=== PATIENT | male | born 1945 | race Caucasian/White ===

== ENCOUNTER 2022-01-21 11:08 | Inpatient (IN) ==
[2022-01-21] MEDS ORDERED: SODIUM CHLORIDE 0.9% 500 ML IV ONE (11:26)
--- NOTE | 2022-01-21 11:40 | XRay Report ---
XR chest 1V portable CLINICAL HISTORY: Chest Pain TECHNIQUE: Single frontal radiograph of the chest was obtained. Comparison: None available at the time of this dictation. FINDINGS: No lines and tubes are seen. The cardiomediastinal silhouette is normal. Lungs are underinflated but clear. No evidence of pleural effusion or pneumothorax. IMPRESSION: No acute chest disease. ACT 112: Negative or not required by law. Electronically signed by: Yazan Iqbal M.D. 01/21/2022 11:39 AM
[2022-01-21] MEDS ORDERED: ASPIRIN CHEW 324 MG PO STA (11:43)
[2022-01-21] MEDS: NITROGLYCERIN SL 0.4 MG/TAB TAB SL PRN ×3 (11:53→12:22)
--- NOTE | 2022-01-21 11:53 | Emergency Department Note ---
Impression & Plan NSTEMI (non-ST elevated myocardial infarction), Hypertension, Exertional chest pain, Elevated troponin ED Provider Note NAME: CESAR HAMPTON AGE: 76 SEX: M ARRIVES VIA: Walk-In INFORMANT: Patient, ED PROVIDER(S): Yefri Torres MD CHIEF COMPLAINT: Chest pain PLAN: Disposition: Admit MEDICAL DECISION MAKING: The patient is a pleasant 76-year-old gentleman with a past medical history of hypertension and HLD who presents to the emergency department from home for evaluation of substernal chest pain that began yesterday when he woke up and walk to the kitchen and dissipated over the course of an hour after resting in bed and did not recur though he admits to not exerting himself much subsequently. However this morning the symptoms began again in a similar pattern when he was walking to the kitchen and back to his bed. He reports the pain this time has continued and was brought to the emergency department by his via private vehicle. He denies any prior history/pattern of exertional chest pain. Denies any heart history. Denies any known family history. He does not smoke. He denies any fevers, chills, cough, congestion, GI or symptoms. He reports his pressure sensation is 5/10 at this time. On arrival the patient is no acute distress, afebrile with blood pressure 160s/60s and vital signs otherwise stable. He appears clinically dry. EKG demonstrates ST elevation in aVR, borderline V1 and V2 with subtle depression in lead II, V5 and V6. Chest x-ray negative for acute cardiopulmonary process. The patient was treated with aspirin nitroglycerin on arrival and following sublingual nitroglycerin x3 pain had improved to a 2/10. He was given additional nitroglycerin paste and pain was barely noticeable/resolved. WBC and platelets within normal limits. H/H 13.2/39.3 without prior values for comparison. Potassium 3.4 and magnesium 1.1 and electrolytes otherwise without significant abnormality. High-sensitivity troponin 20.9, mildly elevated. Lipase within normal limits. COVID-19 RNA, ADRIANA test was negative. Case was discussed with interventional cardiology, Dr. Rueda who evaluated the patient at the bedside. Decision was made to take the patient to the [facility] for intervention. Of note, heparin bolus, ticagrelor and IV magnesium were ordered but prior to being able to administer his medications [facility] team did arrive to the bedside to take the patient to holding. This was communicated with [facility] nursing that the medications were not yet administered and so wlll be administered by their team. Patient transferred to rd lab technician. Case was discussed with Rich Farooq, with Dr. Ibrahima prince who will evaluate the patient for admission following rd lab technician. Triage Nursing notes reviewed and agree them. Prior medical records reviewed Vital Signs: reviewed and remarkable for hypertension. Differential diagnosis: Cardiac ischemia, aortic dissection, pulmonary embolism, pneumothorax, pneumonia, pericarditis, myocarditis, esophageal rupture, GERD, cholecystitis, pancreatitis, musculoskeletal, as well as other pathologies. ER treatment provided: See below. Diagnostics interpreted by me: ECG: Sinus tachycardia, 103 bpm, no ectopy, ST elevation in aVR,, borderline V1 and V2 subtle depression in lead II, V5 and V6. Cardiac Monitoring:An order for continuous cardiac monitoring was placed and demonstrated Sinus tachycardia, 103 bpm, no ectopy. Laboratory studies: See below Imaging studies: See below Consultation(s): Dr. Rueda, Interventional cardiology. Rich Farooq, with Dr. Ibrahima prince. HPI: The patient is a pleasant 76-year-old gentleman with a past medical history of hypertension and HLD who presents to the emergency department from home for evaluation of substernal chest pain that began yesterday when he woke up and walk to the kitchen and dissipated over the course of an hour after resting in bed and did not recur though he admits to not exerting himself much subsequently. However this morning the symptoms began again in a similar pattern when he was walking to the kitchen and back to his bed. He reports the pain this time has continued and was brought to the emergency department by his via private vehicle. He denies any prior history/pattern of exertional chest pain. Denies any heart history. Denies any known family history. He does not smoke. He denies any fevers, chills, cough, congestion, GI or symptoms. He reports his pressure sensation is 5/10 at this time. ROS: See above HPI for pertinent positives & negatives. A total of 10 systems reviewed and were otherwise negative. VITALS:See Below PHYSICAL EXAMINATION: GENERAL: Awake, alert, fatigued-appearing, in no distress HENT: Normocephalic, atraumatic. Oropharynx with dry mucous membranes and otherwise unremarkable. EYES: Normal conjunctiva. Sclera non-icteric. NECK: Supple. No nuchal rigidity. FROM. No JVD. RESPIRATORY: Clear to auscultation. CARDIAC: Regular rate, normal rhythm. Extremities warm and well perfused. Pulses equal. ABDOMEN: Soft, non-distended. No tenderness to palpation. No rebound or guarding. No masses. RECTAL: Deferred. MUSCULOSKELETAL: Chest examination reveals no tenderness. The back is symmetrical on inspection without obvious abnormality. There is no CVA tenderness to palpation. No joint edema. LOWER EXTREMITIES: Calves are equal size bilaterally and non-tender. No edema. No discoloration. NEURO: Normal sensorium. No sensory or motor deficits noted. SKIN: No rash or jaundice noted. ED COURSE: Critical Care: I have personally spent greater than 65 minutes of critical care time in the direct management of this patient. This includes bedside care, interpretation of diagnostic studies, and testing, discussion with consultants, patient, and family members, and other required patient management activities. This 65 minutes is in excess of all separately billable procedures. Yefri Torres MD Past Med/Surg History Medical History BPH (benign prostatic hyperplasia) Chest pain HLD (hyperlipidemia) HTN (hypertension) NSTEMI (non-ST elevated myocardial infarction) STEMI (ST elevation myocardial infarction) Family History Denies family history of Heart disease Social History Smoking Status: Former smoker Tobacco Type: Cigarettes Hx Alcohol Use: Yes Alcohol type: beer Hx Substance Use: No Preferred Language: Cypriot Communication Ability: Effective Material Checker Required: No Beliefs That Will Affect Care: None Current Living Situation: Spouse Other Information That Helps Us Care for You: No Feels Safe at Home: Yes Safety Concerns: Feels Safe At This Time Assistive Devices: None Allergies Allergies Allergy/AdvReac Type Severity Reaction Status Date / Time No Known Allergies Allergy Unverified 01/21/22 17:45 Home Meds Home Medications Medication Instructions Recorded Confirmed amlodipine 5 mg tablet 5 mg PO QAM 10/17/22 10/17/22 atenolol 50 mg tablet 50 mg PO DAILY 01/21/22 01/21/22 atorvastatin 80 mg tablet 80 mg PO DAILY 01/21/22 01/21/22 losartan 100 1 tab PO DAILY 01/21/22 01/21/22 mg-hydrochlorothiazide 25 mg tablet metformin 1,000 mg tablet 1,000 mg PO BID 01/21/22 01/21/22 oxycodone 10 mg tablet,extended 10 mg PO Q8H PRN Pain 01/21/22 01/21/22 release,12 hr tamsulosin 0.4 mg capsule (Flomax) 0.4 mg PO DAILY 01/21/22 01/21/22 Results & Data (ED) Vital Signs Vital Signs - 24 hr 01/21/22 11:14 01/21/22 11:25 01/21/22 11:42 Temperature 36.6 C Temperature Source Temporal Artery Scan Pulse Rate 119 H 98 H Pulse Rate [Apical] Pulse Rhythm Regular Pulse Rhythm [Apical] Pulse Strength [Apical] Respiratory Rate 20 21 Respiratory Effort / Characteristics Non-Labored Spontaneous Respiratory Depth Normal Respiratory Pattern Regular Blood Pressure 163/69 H Blood Pressure [Left Arm] Blood Pressure Mean 100 Blood Pressure Mean [Left Arm] Blood Pressure Position Sitting Blood Pressure Position [Left Arm] Pulse Oximetry 94 97 97 Oxygen Delivery Method Room Air Room Air Room Air Sepsis Recent Fever Within 48 Hours No Sepsis New/Unexplained Change in Mental Status N/A Sepsis Action Taken by Nursing No Action Required 01/21/22 11:33 01/21/22 11:40 01/21/22 11:50 Temperature Temperature Source Pulse Rate 100 H 108 H 100 H Pulse Rate [Apical] Pulse Rhythm Pulse Rhythm [Apical] Pulse Strength [Apical] Respiratory Rate 12 19 14 Respiratory Effort / Characteristics Respiratory Depth Respiratory Pattern Blood Pressure Blood Pressure [Left Arm] Blood Pressure Mean Blood Pressure Mean [Left Arm] Blood Pressure Position Blood Pressure Position [Left Arm] Pulse Oximetry Oxygen Delivery Method Sepsis Recent Fever Within 48 Hours Sepsis New/Unexplained Change in Mental Status Sepsis Action Taken by Nursing 01/21/22 12:00 01/21/22 12:03 01/21/22 12:03 Temperature Temperature Source Pulse Rate 105 H 118 H Pulse Rate [Apical] Pulse Rhythm Pulse Rhythm [Apical] Pulse Strength [Apical] Respiratory Rate 14 14 Respiratory Effort / Characteristics Respiratory Depth Respiratory Pattern Blood Pressure 142/90 H Blood Pressure [Left Arm] Blood Pressure Mean 107 Blood Pressure Mean [Left Arm] Blood Pressure Position Blood Pressure Position [Left Arm] Pulse Oximetry 95 95 Oxygen Delivery Method Room Air Room Air Sepsis Recent Fever Within 48 Hours Sepsis New/Unexplained Change in Mental Status Sepsis Action Taken by Nursing 01/21/22 12:10 01/21/22 12:20 01/21/22 12:20 Temperature Temperature Source Pulse Rate 99 H 98 H Pulse Rate [Apical] Pulse Rhythm Pulse Rhythm [Apical] Pulse Strength [Apical] Respiratory Rate 16 12 Respiratory Effort / Characteristics Respiratory Depth Respiratory Pattern Blood Pressure 138/84 Blood Pressure [Left Arm] Blood Pressure Mean 102 Blood Pressure Mean [Left Arm] Blood Pressure Position Blood Pressure Position [Left Arm] Pulse Oximetry 96 94 Oxygen Delivery Method Room Air Room Air Sepsis Recent Fever Within 48 Hours Sepsis New/Unexplained Change in Mental Status Sepsis Action Taken by Nursing 01/21/22 13:05 01/21/22 14:00 01/21/22 14:15 Temperature 36.6 C Temperature Source Oral Pulse Rate Pulse Rate [Apical] 90 92 H 89 Pulse Rhythm Pulse Rhythm [Apical] Regular Pulse Strength [Apical] Normal Respiratory Rate 20 16 16 Respiratory Effort / Characteristics Non-Labored Spontaneous Respiratory Depth Normal Respiratory Pattern Regular Blood Pressure Blood Pressure [Left Arm] 153/86 H 126/82 147/84 H Blood Pressure Mean Blood Pressure Mean [Left Arm] 108 96 105 Blood Pressure Position Blood Pressure Position [Left Arm] Sitting Sitting Sitting Pulse Oximetry 97 97 95 Oxygen Delivery Method Room Air Room Air Room Air Sepsis Recent Fever Within 48 Hours Sepsis New/Unexplained Change in Mental Status Sepsis Action Taken by Nursing Laboratory Data Attestation: I reviewed the patient's lab results. Result diagrams: 01/21/22 11:35 01/21/22 11:35 Lab Results 01/21/22 01/21/22 Range/Units 11:35 11:35 WBC 8.30 (4.8-10.8) K/ul RBC 4.23 L (4.63-6.08) M/uL Hgb 13.2 L (14.0-18.0) g/dl Hct 39.3 L (40.1-51.0) % MCV 92.9 (80.0-100.0) fL MCH 31.2 (25.0-34.0) pg MCHC 33.6 (32.0-36.0) g/dL RDW Std Deviation 43.2 (36.4-46.3) fL RDW Coeff of Tanvi 12.8 (11.5-14.5) % Plt Count 190 (130-400) K/uL MPV 11.7 (9.4-12.4) fL Immature Gran % (Auto) 0.5 % Neut % (Auto) 69.1 % Lymph % (Auto) 21.7 % Turner % (Auto) 6.0 % Eos % (Auto) 2.0 % Baso % (Auto) 0.7 % Neut # (Auto) 5.73 (1.4-6.5) K/uL Lymph # (Auto) 1.80 (1.2-3.4) K/uL Turner # (Auto) 0.50 (0.24-0.82) K/uL Eos # (Auto) 0.17 (0-0.50) K/uL Baso # (Auto) 0.06 (0-0.2) K/uL Immature Gran # (Auto) 0.04 H (0.00-0.02) K/uL Sodium 137 (136-145) mmol/L Potassium 3.4 L (3.5-5.1) mmol/L Chloride 99 (98-107) mmol/L Carbon Dioxide 22 (21-32) mmol/L Anion Gap 16 H (3-11) BUN 20 (6-23) mg/dl Creatinine 1.29 (0.6-1.4) mg/dl Est Cr Clr Drug Dosing 47.5 ml/min Est GFR ( Amer) 62.4 ml/min Est GFR (Non-Af Amer) 53.9 ml/min BUN/Creatinine Ratio 15.5 (10-20) Glucose 210 H (70-99(Fasting)) mg/dl Calcium 9.9 (8.5-10.1) mg/dl Phosphorus 3.2 (2.5-4.9) mg/dl Magnesium 1.1 L (1.7-2.4) mg/dl Total Bilirubin 0.4 (0.2-1.0) mg/dl Direct Bilirubin 0.1 (0-0.2) mg/dl AST 18 (13-39) U/L ALT 19 (7-52) U/L Alkaline Phosphatase 85 (34-104) U/L Troponin I High Sens 20.9 H (0-20) pg/ml Total Protein 7.6 (6.0-8.3) gm/dl Albumin 4.7 (3.4-5.0) gm/dl Globulin 2.9 (2.5-4.0) gm/dl Albumin/Globulin Ratio 1.6 (0.9-2) Lipase 19 (11-82) U/L Administered Medications Heparin Sodium/Dextrose (Heparin Sodium/Dextrose) 25,000 units in 500 mls @ 16 mls/hr IV .Q24H [facility]; Protocol Stop: 02/20/22 16:59 Last Admin: 01/21/22 19:16 Dose: 800 units/hr, 16 mls/hr Documented By: WILI Co-signed By: RODNEY Nitroglycerin (Nitroglycerin Sl 0.4 Mg/Tab Tab) 0.4 mg SL UD PRN PRN Reason: Chest Pain Stop: 02/20/22 11:42 Last Admin: 01/21/22 12:22 Dose: 0.4 mg Documented By: Admin: 01/21/22 12:09 Dose: 0.4 mg Documented By: Admin: 01/21/22 11:53 Dose: 0.4 mg Documented By: TOBI Oxycodone HCl (Oxycodone Hcl Ir 5 Mg Tab (Immediate Release)) 10 mg PO Q8H PRN PRN Reason: Pain Stop: 02/04/22 20:22 Last Admin: 01/21/22 20:36 Dose: 10 mg Documented By: RODNEY Discontinued Medications Aspirin (Aspirin Chew 324 Mg) 324 mg PO NOW STA Stop: 01/21/22 11:44 Last Admin: 01/21/22 11:52 Dose: 324 mg Documented By: TOBI Fentanyl Citrate (Fentanyl Citrate 100 Mcg/2 Ml Vial) Confirm Administered Dose 100 mcg .ROUTE .STK-MED ONE Stop: 01/21/22 13:09 Last Increment: 01/21/22 14:05 Dose: 25 mcg Documented By: NAYA Heparin Sodium (Porcine) (Heparin Sod (Porcine) 1000 Unit/Ml) 1 units IV NOW ONE Stop: 01/21/22 12:56 Last Admin: 01/21/22 16:45 Dose: Not Given Documented By: WILI Heparin Sodium (Porcine) (Heparin (Porcine) 1000 Unit/Ml 10 Ml ([facility] Use Only)) Confirm Administered Dose 10,000 units .ROUTE .STK-MED ONE Stop: 01/21/22 13:08 Last Admin: 01/21/22 14:05 Dose: 5,000 units Documented By: NAYA Heparin Sodium/Dextrose (Heparin Iv Adult Wt-Based Low-Dose With Bolus Protocol) 0 each IV Q15M [facility]; Protocol Stop: 02/20/22 16:30 Last Admin: 01/21/22 18:36 Dose: Not Given Documented By: Admin: 01/21/22 17:12 Dose: Not Given Documented By: Admin: 01/21/22 17:12 Dose: Not Given Documented By: Admin: 01/21/22 17:12 Dose: Not Given Documented By: Admin: 01/21/22 17:12 Dose: Not Given Documented By: Admin: 01/21/22 17:12 Dose: Not Given Documented By: WILI Heparin Sodium/Sodium Chloride (Heparin In Nss Infusion 1000 Unit/500 Ml (2 U/Ml) Bag) Confirm Administered Dose 3,000 units IV .STK-MED ONE Stop: 01/21/22 13:09 Last Admin: 01/21/22 16:46 Dose: Not Given Documented By: WILI Sodium Chloride (Nss) 500 mls @ 999 mls/hr IV .Q31M ONE Stop: 01/21/22 11:56 Last Infusion: 01/21/22 16:50 Dose: 0 mls/hr Documented By: Admin: 01/21/22 11:53 Dose: 999 mls/hr Documented By: TOBI Magnesium Sulfate/Dextrose (Magnesium Sulfate / D5w) 1 gm in 100 mls @ 100 mls/hr IV Q1H [facility] Stop: 01/21/22 14:31 Last Infusion: 01/21/22 18:36 Dose: 0 mls/hr Documented By: Admin: 01/21/22 17:15 Dose: 100 mls/hr Documented By: Infusion: 01/21/22 15:44 Dose: 100 mls/hr Documented By: Admin: 01/21/22 14:44 Dose: 100 mls/hr Documented By: CHRISSIE Heparin Sodium/Dextrose (Heparin Sodium/Dextrose) 25,000 units in 500 mls @ 0.02 mls/hr IV .Q24H [facility]; Protocol Stop: 02/20/22 12:59 Last Admin: 01/21/22 16:59 Dose: Not Given Documented By: WILI Magnesium Sulfate/Dextrose (Magnesium Sulfate / D5w) 1 gm in 100 mls @ 50 mls/hr IV Q2H [facility] Stop: 01/21/22 19:14 Last Admin: 01/21/22 21:59 Dose: 50 mls/hr Documented By: Infusion: 01/21/22 21:18 Dose: 0 mls/hr Documented By: Admin: 01/21/22 19:16 Dose: 50 mls/hr Documented By: WILI Insulin Aspart (Insulin Aspart Per Unit) 0 units SC ACHS [facility] Stop: 02/20/22 16:29 Last Admin: 01/21/22 20:33 Dose: Not Given Documented By: Admin: 01/21/22 16:47 Dose: Not Given Documented By: WILI Co-signed By: AMANDEEP Midazolam HCl (Midazolam Hcl 1 Mg/Ml 2ml Vial) Confirm Administered Dose 2 mg .ROUTE .STK-MED ONE Stop: 01/21/22 13:09 Last Increment: 01/21/22 14:06 Dose: 1 mg Documented By: NAYA Miscellaneous Information (Dc All Previously Ordered Diabetes Meds) 1 each N/A ONE ONE Stop: 01/21/22 15:49 Last Admin: 01/21/22 16:47 Dose: 1 each Documented By: WILI Nicardipine HCl (Nicardipine Hcl Inj 2.5 Mg/Ml 10 Ml Amp) Confirm Administered Dose 25 mg .ROUTE .STK-MED ONE Stop: 01/21/22 13:08 Last Admin: 01/21/22 16:45 Dose: Not Given Documented By: WILI Nitroglycerin (Nitroglycerin 2% Ointment 30gm Tube) 1 inch EXT NOW ONE Stop: 01/21/22 12:33 Last Admin: 01/21/22 16:44 Dose: Not Given Documented By: WILI Nitroglycerin/Dextrose (Nitroglycerin/D5w 100mcg/Ml 20ml Syr) Confirm Administered Dose 2,000 mcg .ROUTE .STK-MED ONE Stop: 01/21/22 13:10 Last Admin: 01/21/22 16:46 Dose: Not Given Documented By: WILI Ticagrelor (Ticagrelor 90 Mg Tab) 180 mg PO ONE ONE Stop: 01/21/22 12:47 Last Admin: 01/21/22 13:14 Dose: 180 mg Documented By: CHRISSIE Imaging Data Radiologist's Impression: Chest X-Ray 01/21/22 11:25 XR chest 1V portable CLINICAL HISTORY: Chest Pain TECHNIQUE: Single frontal radiograph of the chest was obtained. Comparison: None available at the time of this dictation. FINDINGS: No lines and tubes are seen. The cardiomediastinal silhouette is normal. Lungs are underinflated but clear. No evidence of pleural effusion or pneumothorax. IMPRESSION: No acute chest disease. ACT 112: Negative or not required by law. Electronically signed by: Yazan Iqbal M.D. 01/21/2022 11:39 AM Discharge Plan Visit Data Chief Complaint: Chest Pain Stated Complaint: CHEST PAIN ED Provider: Yefri Torres Discharge Problem: NSTEMI (non-ST elevated myocardial infarction), Hypertension, Exertional chest pain, Elevated troponin Patient Disposition: Admitted As Inpatient Condition: Good Discharge Instructions Interventions: ED Discharge Assessment Last Done: 01/21/22 13:07
[2022-01-21 11:54] LABS: Basophils # (auto) 0.06 K/uL (0-0.2); Basophils % (auto) 0.7 %; Eosinophils # (auto) 0.17 K/uL (0-0.50); Hematocrit (blood only) 39.3 % (40.1-51.0); Hemoglobin 13.2 g/dl (14.0-18.0); Immature Granulocytes # (auto) 0.04 K/uL (0.00-0.02); Immature Granulocytes % (auto) 0.5 %; Lymphocytes % (auto) 21.7 %; Mean Corpuscular Hemoglobin 31.2 pg (25.0-34.0); Mean Corpuscular Hgb Conc 33.6 g/dL (32.0-36.0); Mean Corpuscular Volume 92.9 fL (80.0-100.0); Mean Platelet Volume 11.7 fL (9.4-12.4); Neutrophils # (auto) 5.73 K/uL (1.4-6.5); Neutrophils % (auto) 69.1 %; Platelet Count 190 K/uL (130-400); RDW Coefficient of Variation 12.8 % (11.5-14.5); RDW Standard Deviation 43.2 fL (36.4-46.3); Red Blood Count 4.23 M/uL (4.63-6.08)
[2022-01-21 12:19] LABS: Albumin Globulin Ratio 1.6 (0.9-2); Albumin Level 4.7 gm/dl (3.4-5.0); BUN Creatinine Ratio 15.5 (10-20); Bilirubin Direct 0.1 mg/dl (0-0.2); Bilirubin,Total 0.4 mg/dl (0.2-1.0); Calcium 9.9 mg/dl (8.5-10.1); Creatinine Clr Calc Pharmacy 47.5 ml/min; Est GFR (African American) 62.4 ml/min; Est GFR (Non-African American) 53.9 ml/min; Globulin 2.9 gm/dl (2.5-4.0); Magnesium 1.1 mg/dl (1.7-2.4); Phosphorus 3.2 mg/dl (2.5-4.9); Potassium 3.4 mmol/L (3.5-5.1); Total Protein 7.6 gm/dl (6.0-8.3)
[2022-01-21 12:26] LABS: Troponin I High Sensitivity 20.9 pg/ml (0-20)
--- NOTE | 2022-01-21 12:28 | Electrocardiogram Report ---
Test Reason : Blood Pressure : / mmHG Vent. Rate : 103 BPM Atrial Rate : 103 BPM P-R Int : 190 ms QRS Dur : 084 ms QT Int : 340 ms P-R-T Axes : 034 -12 070 degrees QTc Int : [address] elevation in Septal leads Possible acute injury current ST depression in Inferior leads Abnormal ECG When compared with ECG of 02-MAY-1994 09:47, ST elevation in Septal leads now present ST depression in Inferior leads now present Vent. rate has increased BY 48 BPM QT has lengthened Confirmed by Xavier Daly ([id number]) on 01/21/2022 12:27:56 PM Referred By: Confirmed By:Xavier Daly
[2022-01-21] MEDS ORDERED: NITROGLYCERIN 2% OINTMENT 30GM TUBE EXT ONE (12:32)
[2022-01-21] MEDS ORDERED: TICAGRELOR 90 MG TAB PO ONE (12:46)
[2022-01-21] MEDS ORDERED: HEPARIN SOD (PORCINE) 1000 UNIT/ML IV ONE (12:55)
[2022-01-21] MEDS ORDERED: HEPARIN SODIUM/DEXTROSE 25,000 UNITS/500 ML BAG IV SCH ×2 (13:00→17:00)
[2022-01-21] MEDS ORDERED: HEPARIN (PORCINE) 1000 UNIT/ML 10 ML (CATH LAB USE ONLY) ONE (13:07)
[2022-01-21] MEDS ORDERED: niCARdipine HCL INJ 2.5 MG/ML 10 ML AMP ONE (13:07)
[2022-01-21] MEDS ORDERED: MIDAZOLAM HCL 1 MG/ML 2ML VIAL ONE (13:08)
[2022-01-21] MEDS ORDERED: fentaNYL citrate 100 MCG/2 ML VIAL ONE (13:08)
[2022-01-21] MEDS ORDERED: NITROGLYCERIN/D5W 100MCG/ML 20ML SYR ONE (13:09)
--- NOTE | 2022-01-21 13:12 | History & Physical Report ---
Date of Service January 21, 2022 Assessment & Plan (1) NSTEMI (non-ST elevated myocardial infarction): (2) Chest pain: (3) HTN (hypertension): (4) HLD (hyperlipidemia): (5) BPH (benign prostatic hyperplasia): Plan Mr. Shay is a 76-year-old male who presented to the ED today with substernal chest pain that has been occurring over the past 24 hours intermittently. Yesterday he notes that he was walking from his kitchen to his bedroom and had substernal chest pain that went away after 1 hour of no activity and rest. Today he noted his chest pain to be 5 out of 10 and was overly persistent. An EKG revealed some ST elevation in aVR, ST depression in leads V1, V2, V5, V6. The patient did receive some chest pain relief with Nitropaste and sublingual nitro. Dr. Rueda took Mr. Shay to the [facility] and after my discussion with him it appears that during the catheterization he was noted to have severe multivessel disease which will require evaluation and possible intervention with CT surgery which [facility] does not have as resource. Dr. Rueda is working on this patient to be transferred to [place] for further evaluation. For now an echocardiogram has been ordered, he will remain on a heparin infusion for the next 48 hours and I will DC his Brilinta in order follow-up troponin levels. For now this patient will be transferred to the intensive care unit until transfer can be fully arranged. NSTEMI Chest pain: Pt underwent PCI with Dr. Rueda; multivessel disease Will work on transfer to [facility]. Per pt no history of heart disease euvolemic on exam Start Heparin infusion as ordered x 48 hours; start when tband protocol is followed and no bleeding noted Mg+ 1.1; 1 G infusing; will order 2 G for a total of 3 G. Repeat troponin ordered; repeat is Echocardiogram ordered N.p.o. Post PCI order set in place HTN: Takes amlodipine, atenolol, losartan/HCTZ; continue HLD: Takes atorvastatin; continue Lipid panel in a.m. DM2: Takes metformin; hold while inpatient Sliding scale insulin ordered and glycemic pharmacy Patient to be n.p.o. awaiting transfer Lumbago: Takes Oxy PRN opt; continue BPH: Takes Flomax; continue Disposition: PCP: Dr. Miller VTE prohylaxis: Heparin gtt Code Status: Full code I personally was able to review all current laboratory work and diagnostic images obtained in the ED. Additionally, I was able to review the patients past medication reconciliation and history with direct visualization in the patients chart. Patient discussed and collaborated with Dr. Alexandra. Discharge paperwork initiated, transfer summary communication note completed, play writer aware to confirm patient stable and fit for travel in the event of a middle of the night transfer. History of Present Illness Chief Complaint: chest pain Primary Care Provider: Dr. Miller Mr. Shay is a 76-year-old male who presented to the ED today with substernal chest pain that has been occurring over the past 24 hours intermittently. Yesterday he notes that he was walking from his kitchen to his bedroom and had substernal chest pain that went away after 1 hour of no activity and rest. Today he noted his chest pain to be 5 out of 10 and was overly persistent. An EKG revealed some ST elevation in aVR, ST depression in leads V1, V2, V5, V6. The patient did receive some chest pain relief with Nitropaste 1 inch [address] SL nitro. Dr. Rueda took Mr. Shay to the [facility] and was noted to have severe multivessel disease which will require evaluation and possible intervention with CT surgery which [facility] does not have as resource. Dr. Rueda is working on this patient to be transferred to [place] for further evaluation and intervention. For now an echocardiogram has been ordered, he will remain on a heparin infusion for the next 48 hours and I will DC his Brilinta in order follow-up troponin levels. For now this patient will be transferred to the PCU until transfer can be fully arranged. Upon evaluating the patient he pt denies ECHOLS, dizziness, SOB, current chest pain, palpitations, nausea vomiting diarrhea. The patient reports quitting smoking cigarettes 10 years ago; reports being a social drinker, no recreational drugs. On exam the patient was lying on his back in his hospital bed in no apparent distress. He was awake alert oriented x4, flat affect. I did offer support in this stressful situation. He is receptive to transfer and further intervention. Additional past medical history includes hypertension, hyperlipidemia, diabetes controlled on oral agents, BPH. As previously stated, patient will be admitted until transfer to [facility] is arranged. Receiving physician as arranged by Dr. Rueda is Please see A/P for further details. Allergies Allergy/AdvReac Type Severity Reaction Status Date / Time No Known Allergies Allergy Unverified 01/21/22 17:45 Home Medications Medication Instructions Recorded Confirmed Type amlodipine 5 mg tablet 5 mg PO QAM 01/21/22 01/21/22 History atenolol 50 mg tablet 50 mg PO DAILY 01/21/22 01/21/22 History atorvastatin 80 mg tablet 80 mg PO DAILY 01/21/22 01/21/22 History losartan 100 1 tab PO DAILY 01/21/22 01/21/22 History mg-hydrochlorothiazide 25 mg tablet metformin 1,000 mg tablet 1,000 mg PO BID 01/21/22 01/21/22 History oxycodone 10 mg tablet,extended 10 mg PO Q8H PRN Pain 01/21/22 01/21/22 History release,12 hr tamsulosin 0.4 mg capsule (Flomax) 0.4 mg PO DAILY 01/21/22 01/21/22 History Past Med/Surg History Medical History (Updated 01/21/22 @ 15:59 by LIONEL Child) BPH (benign prostatic hyperplasia) Chest pain HLD (hyperlipidemia) HTN (hypertension) NSTEMI (non-ST elevated myocardial infarction) STEMI (ST elevation myocardial infarction) Social History Smoking Status: Former smoker Tobacco Type: Cigarettes Hx Alcohol Use: Yes Alcohol type: beer Hx Substance Use: No Preferred Language: Romansh Communication Ability: Effective Senior Manager Quality Assurance Required: No Beliefs That Will Affect Care: None Current Living Situation: Spouse Other Information That Helps Us Care for You: No Feels Safe at Home: Yes Safety Concerns: Feels Safe At This Time Assistive Devices: None Review of Systems Review of Systems: Neuro: (-) Falls, trauma, slurred speech HEENT: (-) ECHOLS, dizziness, dysphagia, visual or auditory changes CV: (+) CP, palpitations, (-) swelling Resp: (-) SOB GI: (-) appetite changes, N/V/D, bowel changes : (-) urinary changes Skin: (-) rashes Psych: (-) anxiety, depression Physical Exam Physical Exam: Neuro: AAOx4, PERRLA, no aphagia, memory changes, CNII-XII grossly intact HEENT: head normocephalic, moist mucus membranes CV: S1/S2, (+ LSB Murmur (-)G/R, (-) edema, cap refill < 3 seconds . R radial t- band Resp: Lungs CTA in all cooper. On RA GI: Abdomen S/NT/ND, Ax4 bowel sounds, (-) CVA tenderness Musculoskeletal: 5/5 B/L UE strength, 5/5 B/L LE strength. No gait disturbance Skin: (-) rashes , (-) erythema. Psych: euthymic mood Results & Data Results & Data ([facility]) Vital Signs (Past 12 Hours) Vital Signs Temp Pulse Pulse Resp BP BP Pulse Ox 01/21/22 13:05 36.6 C 90 20 153/86 H 97 01/21/22 12:20 98 H 12 94 01/21/22 12:20 138/84 01/21/22 12:10 99 H 16 96 01/21/22 12:03 142/90 H 01/21/22 12:03 118 H 14 95 01/21/22 12:00 105 H 14 95 01/21/22 11:50 100 H 14 01/21/22 11:40 108 H 19 01/21/22 11:33 100 H 12 01/21/22 11:42 97 01/21/22 11:25 98 H 21 97 01/21/22 11:14 36.6 C 119 H 20 163/69 H 94 O2 Del Method 01/21/22 13:05 Room Air 01/21/22 12:20 Room Air 01/21/22 12:20 01/21/22 12:10 Room Air 01/21/22 12:03 01/21/22 12:03 Room Air 01/21/22 12:00 Room Air 01/21/22 11:50 01/21/22 11:40 01/21/22 11:33 01/21/22 11:42 Room Air 01/21/22 11:25 Room Air 01/21/22 11:14 Room Air Laboratory Results Short CBC 01/21/22 Range/Units 11:35 WBC 8.30 (4.8-10.8) K/ul Hgb 13.2 L (14.0-18.0) g/dl Hct 39.3 L (40.1-51.0) % Plt Count 190 (130-400) K/uL BMP 01/21/22 11:35 Sodium 137 Potassium 3.4 L Chloride 99 Carbon Dioxide 22 BUN 20 Creatinine 1.29 Glucose 210 H Calcium 9.9 Liver Function 01/21/22 Range/Units 11:35 Total Bilirubin 0.4 (0.2-1.0) mg/dl Direct Bilirubin 0.1 (0-0.2) mg/dl AST 18 (13-39) U/L ALT 19 (7-52) U/L Alkaline Phosphatase 85 (34-104) U/L Albumin 4.7 (3.4-5.0) gm/dl Diagnostic Findings Chest X-Ray 01/21/22 11:25 XR chest 1V portable CLINICAL HISTORY: Chest Pain TECHNIQUE: Single frontal radiograph of the chest was obtained. Comparison: None available at the time of this dictation. FINDINGS: No lines and tubes are seen. The cardiomediastinal silhouette is normal. Lungs are underinflated but clear. No evidence of pleural effusion or pneumothorax. IMPRESSION: No acute chest disease. ACT 112: Negative or not required by law. Electronically signed by: Yazan Iqbal M.D. 01/21/2022 11:39 AM ECG Additional Comments: Vent. Rate : 103 BPM Atrial Rate : 103 BPM P-R Int : 190 ms QRS Dur : 084 ms QT Int : 340 ms P-R-T Axes : 034 -12 070 degrees QTc Int : [address] elevation in Septal leads Possible acute injury current ST depression in Inferior leads Abnormal ECG When compared with ECG of 02-MAY-1994 09:47, ST elevation in Septal leads now present ST depression in Inferior leads now present Vent. rate has increased BY 48 BPM QT has lengthened Code Status & VTE Plan Code Status full code VTE Prophylaxis Plan VTE Prophylaxis will be ordered: Yes Supervising Physician Co-Signing Physician Notes 76-year-old male with PMH of HTN, T2DM, HLD, stage III CKD, BPH, lumbar DDD and idiopathic neuropathy presented to our ED 01/21 with complaint of substernal chest pain that is occurring intermittently for the past 24 hours but worse today morning leading him up to the ED. EKG with borderline ST elevation in V1 and V2 diffuse ST depression. Patient was taken to [facility] which demonstrated severe multivessel coronary disease including high risks distal left main to ostial LAD stenosis. Patient was recommended transfer to tertiary center and has been accepted. Patient will be monitored in the PCU status [cardiology aware] while in hospital. Awaiting bed availability. We will continue with heparin drip. Monitor and replete electrolytes. NPO. Echo. Leticiata has been on hold, continue with other home medications as appropriate. Admitting labs and imagings reviewed. Upon examination: GENERAL: Alert and oriented x3. NAD, on RA. HEENT: No pallor, no icterus. Pupils equal, round and reactive to light. Oral mucosa moist. NECK: No JVD, no neck masses. HEART: S1 and S2 heard. Regular rate and rhythm. No murmur, no gallop. RESPIRATORY SYSTEM: Normal AP diameter. No accessory muscle use. No wheezing, no crackles. ABDOMEN: Soft, bowel sounds present, nontender, no distention. CENTRAL NERVOUS SYSTEM: No facial droop. Speech is clear. Obeys simple commands. Moves extremities. EXTREMITIES: No edema, no erythema seen. I have seen and examined the patient and have discussed the case with the provider above. I agree with the assessment and plan as stated.
--- NOTE | 2022-01-21 13:22 | Pre Anesthesia Assessment ---
Date of Service January 21, 2022 Pre Sedation Assessment Vital Signs Temp Pulse Pulse Resp BP BP Pulse Ox 01/21/22 13:05 36.6 C 90 20 153/86 H 97 01/21/22 12:20 98 H 12 94 01/21/22 12:20 138/84 01/21/22 12:10 99 H 16 96 01/21/22 12:03 142/90 H 01/21/22 12:03 118 H 14 95 01/21/22 12:00 105 H 14 95 01/21/22 11:50 100 H 14 01/21/22 11:40 108 H 19 01/21/22 11:33 100 H 12 01/21/22 11:42 97 01/21/22 11:25 98 H 21 97 01/21/22 11:14 36.6 C 119 H 20 163/69 H 94 O2 Del Method 01/21/22 13:05 Room Air 01/21/22 12:20 Room Air 01/21/22 12:20 01/21/22 12:10 Room Air 01/21/22 12:03 01/21/22 12:03 Room Air 01/21/22 12:00 Room Air 01/21/22 11:50 01/21/22 11:40 01/21/22 11:33 01/21/22 11:42 Room Air 01/21/22 11:25 Room Air 01/21/22 11:14 Room Air Cardiovascular RRR, no murmur, no edema Respiratory normal respiratory effort, lungs clear to auscultation Pre-Sedation Airway Assessment Smoking Status: Former smoker Hx Sleep Apnea: No Short, Thick Neck: No Thyromental Distance: > or= 3.5 Finger Breadths Oral Cavity: + WNL Mallampati Class: II ASA: ASA3 NPO Status Date of Last Intake of Fluids: 01/21/22 Time of Last Intake of Fluids: 07:00 Date of Last Intake of Solid Food: 01/21/22 Time of Last Intake of Solid Foods: 07:00 Notes The planned sedation has been discussed with the patient. Informed Consent was obtained. I have identified the patient, determined the appropriateness of sedation and have assessed the patient immediately prior to the procedure. All medicine(s) and interventions are by my order.
[2022-01-21] MEDS: MAGNESIUM SULFATE / D5W 1 GM/100 ML BAG IV SCH ×4 (14:44→21:59)
--- NOTE | 2022-01-21 14:44 | Post Anesthesia Assessment ---
Date of Service January 21, 2022 Post Sedation Assessment Vital Signs Temp Pulse Pulse Resp BP BP Pulse Ox 01/21/22 14:15 89 16 147/84 H 95 01/21/22 14:00 92 H 16 126/82 97 01/21/22 13:05 36.6 C 90 20 153/86 H 97 01/21/22 12:20 98 H 12 94 01/21/22 12:20 138/84 01/21/22 12:10 99 H 16 96 01/21/22 12:03 142/90 H 01/21/22 12:03 118 H 14 95 01/21/22 12:00 105 H 14 95 01/21/22 11:50 100 H 14 01/21/22 11:40 108 H 19 01/21/22 11:33 100 H 12 01/21/22 11:42 97 01/21/22 11:25 98 H 21 97 01/21/22 11:14 36.6 C 119 H 20 163/69 H 94 O2 Del Method 01/21/22 14:15 Room Air 01/21/22 14:00 Room Air 01/21/22 13:05 Room Air 01/21/22 12:20 Room Air 01/21/22 12:20 01/21/22 12:10 Room Air 01/21/22 12:03 01/21/22 12:03 Room Air 01/21/22 12:00 Room Air 01/21/22 11:50 01/21/22 11:40 01/21/22 11:33 01/21/22 11:42 Room Air 01/21/22 11:25 Room Air 01/21/22 11:14 Room Air Recovery Score Activity: Moves 4 extremities Respiration: Deep Breath/Cough Circulation: +/-20% PreAnes Value Consciousness: Fully Awake Oxygen Saturation: > 92% On Room Air Post Anesthesia Score: 10 Discharge Sedation Level of Care: Phase I Post Sedation Plan On clinical assessment, the patient appears to have tolerated the sedation without complications. Patient is recovering as anticipated. Patient will continue to be monitored by nursing and may be discharged when sedation discharge criteria are met per below protocol. Upon Completions of procedure up to 15 minutes continue every 5 minute vital signs and the P.A.R. score; then discharge to a Phase I or Fast Track to Phase II per the following guidelines: * Discharge Patient to appropriate Phase II area if PAR is 8 or greater or return to pre- procedure baseline. The post - procedure orders will be as directed. * If PAR score is less than 8 or not return to pre-procedure baseline then patient will follow Phase I monitoring till PAR is reached for Phase II. The Phase I may be done in procedure room or may call to secure a Phase I area. * If naloxone or flumazenil are used for reversal, hold in Phase I for continued monitoring from when last reversal dose was given for a minimum of 60 minutes or longer pending the nurse and/or physician discretion of patient condition before discharge to Phase II. Please call the Sedation Physician to re-evaluate and complete post-note for discharge to Phase II area. Do NOT discharge from procedure sedation or Phase 1 until post- sedation evaluation note is complete by procedure /sedation MD Sedation Discharge Instructions to be given to the patient at discharge to home. [facility] Procedure Codes (Charges) Sedation/Anesthesia Procedure 1: Sedation/Anesthesia: 82644 Mod Sedation by the same physician;Init15 Min Child Age 5 & Up Total Sedation Time (minutes): 30 Procedure 2: Sedation/Anesthesia: 43815 Mod Sedation by the same physician; Ea [id number] Minutes Total Sedation Time (minutes): 30
--- NOTE | 2022-01-21 15:27 | Cardiac Catheterization ---
[facility] Data: Post Manager Cardiac Status Clinical evaluation leading to the procedure CAD Presenation: Non STEMI Anginal Classification: CCS IV Heart Failure: No Cardiogenic Shock within 24 Hours: No Cardiac Arrest within 24 Hours: No Imaging Studies Past 6 Months: No Stress Studies Past 6 Months: No STEMI OR Non-STEMI Symptom Onset Date: 01/20/22 Symptom Onset Time: 07:00 Thrombolytics: No Coronary Anatomy Dominant: Right Left Main (% Stenosis): Distal (40%) LAD (% Stenosis): Ostial (99%) and Mid (Mild) D1 (% Stenosis): Proximal (99%) Circumflex (% Stenosis): Proximal (50%) RCA (% Stenosis): Proximal (70%, 80%.), Mid (80%) and Distal (50%) R PDA (% Stenosis): Proximal (70%) R PL1 (% Stenosis): Normal (Mild diffuse) Ramus (% Stenosis): Normal (Mild) Diagnostic Physicians Name: Dax Rueda MD, PhD Closure Device Percutaneous Entry Location: Radial Closure Device: Radial Band Recommendations: Management Recommendatons (CABG versus complex high risk multivessel PCI at tertiary center. Guideline directed medical therapy.) Intraprocedure Events Significant Disection: No Perforation: No Cardiac Cath Procedure Full Procedure Date January 21, 2022 Pre-Procedure Diagnosis Pre-Procedure Diagnosis: Non STEMI AUC Score AUC Score: 09 Post-Procedure Diagnosis Post-Procedure Diagnosis: Severe CAD Procedure(s) Performed Procedure(s) Performed: Coronary Angiography Assembler Brazer Dax Rueda MD, PhD Estimated Blood Loss Estimated Blood Loss: 10 ml Medication(s) Medication(s): Fentanyl, Heparin, Lidocaine 1%, Nicardipine, Nitroglycerin and Versed Summary of Findings Brief description: Patient was brought to the cardiac catheterization suite where he was shaved and prepped in a sterile fashion. Sedated using IV Versed and fentanyl. Soft tissues of the right wrist were anesthetized using 2 mL of 1% Xylocaine. The right radial artery was accessed using a modified Seldinger technique and a 6 Tunisian radial artery glide sheath was placed. All catheters were advanced and exchanged over a 0.035 J-tip wire. The patient was provided IV heparin for anticoagulation as well as intra-arterial nitroglycerin and nicardipine for antispasmodics. Left coronary angiography in orthogonal views with a 5 Tunisian TIGR diagnostic catheter. Right coronary angiography in orthogonal views with a 5 Tunisian JR4 diagnostic catheter Diagnostic catheters were removed. Radial artery sheath was removed. Hemostasis was obtained using the TR band. Patient was hemodynamically stable and asymptomatic. He was returned to the recovery area. This ended the case. Coronary angiography: LMT: Large-caliber vessel which trifurcates into LAD, ramus, and circumflex. Has diffuse mild disease and then distally there is up to 40% calcified stenosis. LAD: Large caliber and transapical. Ostial calcified stenosis up to 99% is a continuation of the left main disease. Provides a small to medium caliber first diagonal which has 99% proximal stenosis. It then branches. The mid LAD has diffuse mild calcific disease of less than 30% narrowing. The distal LAD has scattered mild plaques of less than 30% stenosis. Left circumflex: Large caliber and nondominant. Proximal segment in the AV groove has a 50% stenosis. The vessel gives 2 small caliber obtuse marginal branches followed by a medium to large caliber third obtuse marginal. It distally becomes a medium caliber posterior lateral branch before it terminates. There is no more than mild disease in the remainder of the circumflex and its branches. Ramus intermedius: Medium to large in caliber. It branches. It has scattered mild disease. RCA: Medium to large caliber dominant vessel. Proximal segment has a long eccentric stenosis which is calcified and at least 70% narrowed. Then as it approaches the first RV marginal branch there appears to be tandem up to 80% stenosis before and after the RV marginal. The mid RCA has mild disease and then distally before the bifurcation there is a 50% focal stenosis. RCA gives a large caliber PDA with proximal to 80% stenosis and a medium to large caliber posterolateral which has mild diffuse disease Hemodynamics Rest Ao:: 120/83 mmHg, mean 92 mmHg Final Ao: 105/73 mmHg, mean 81 mmHg LV: Not performed Recommendations Recommendations: Management Recommendatons (CABG versus complex high risk multivessel PCI at tertiary center. Guideline directed medical therapy.) Radiation Exposure (mGy) 955 mGy, 5.6 minutes fluoroscopy time Contrast (mls) 120 mL Procedural Complication(s) None Disposition Recovery Room\PACU I attest to the content of the Intraoperative Record and any orders documented therein. Any exceptions are noted below. [facility] Card Cath Procedure Codes Cardiac Catheterization Procedure 1: Cardiovascular Cath Procedures: 11095 Coronaries Moderate Sedation Procedure 1: Sedation/Anesthesia: 21337 Mod Sedation by the same physician;Init15 Min Child Age 5 & Up PG Care Time/CCT Total # of Minutes Spent Total Time Spent with Patient: Total time spent is greater than 50% in coordination of care (as documented) at patient's floor/unit and/or counseling patient:
--- NOTE | 2022-01-21 15:45 | Cardiology Consultation ---
Date of Consultation January 21, 2022 Assessment & Plan (1) NSTEMI (non-ST elevated myocardial infarction): Severe multivessel coronary artery disease. Recommend CABG versus complex/high risk multivessel PCI at tertiary center. He will remain on heparin given the unstable presentation. We will hold Brilinta but he will continue with guideline directed medical therapy including aspirin, beta-rob, statin, plus or minus YESICA inhibitor/ARB. In addition, we will check a hemoglobin A1c to exclude occult diabetes. Awaiting echo results regarding wall motion, EF, etc. Present on Admission?: Yes (2) Atherogenic dyslipidemia: Patient is considered high risk. High intensity statin therapy is recommended. Target LDL reduction is greater than or equal to 50% of untreated baseline LDL. We will need a fasting lipid panel. Agree with a atorvastatin 40 mg daily. Present on Admission?: Yes (3) Benign essential hypertension: Blood pressure improved with Nitropaste. He will be placed on guideline directed medical therapy with beta-rob plus or minus YESICA inhibitor/ARB and nitrate to control his chest discomfort. Present on Admission?: Yes Plan Request has been made for transfer to [facility]. Patient has been accepted. Awaiting bed availability. We will follow while he remains hospitalized. I will see him in follow-up as an outpatient after discharge. History of Present Illness Reason for Consultation: Chest pain, elevated troponin History of Present Illness 76-year-old gentleman without prior cardiac history presented with chest pain he described as pressure and squeezing 8 out of 10 in severity. No radiation of the pain. He reports that yesterday in the morning he began to have chest pain which was may be 5 out of 10. He rested and this resolved. He took it kind of easy yesterday but went about his day otherwise and had no recurrence of his symptoms. However, this morning he had more severe chest discomfort and he tr ied to rest. It got slightly better but came back and he decided to seek medical attention. In the emergency department he was given nitroglycerin and had improvement but not complete resolution of his chest discomfort. EKG was performed and demonstrated diffuse ST depressions and borderline ST elevations in leads V1 and V2. I was asked to see him. On my arrival, patient had persistent low-grade chest discomfort of 4 out of 5. He was not short of breath and really stated that he felt pretty well. However, given his slightly elevated troponin and ongoing chest pain in the setting of a concerning EKG I recommended definitive evaluation by coronary angiography. He received Brilinta 180 mg p.o. x1 as well as aspirin. He agreed to proceed with cardiac catheterization after informed consent was obtained. He then underwent diagnostic coronary angiography via the right radial artery access. This demonstrated severe multivessel coronary disease including high risk distal left main to ostial LAD stenosis. Given his cath findings it was decided to refer the patient to a tertiary center with cardiac surgical backup for evaluation of coronary artery bypass grafting versus high risk multivessel PCI. This was discussed with the patient and his spouse. They were both in agreement. Patient was discussed with Dr. Kaur from [facility] in [place] cardiology service. He has graciously agreed to accept the patient in transfer for further work-up and management. We are currently awaiting placement. Echocardiogram has been ordered. Patient is currently in recovery without any symptoms. Heparin drip has been restarted. Home Medications Medication Instructions Recorded Confirmed Type amlodipine 5 mg tablet 5 mg PO QAM 01/21/22 01/21/22 History atenolol 50 mg tablet 50 mg PO DAILY 01/21/22 01/21/22 History atorvastatin 80 mg tablet 80 mg PO DAILY 01/21/22 01/21/22 History losartan 100 1 tab PO DAILY 01/21/22 01/21/22 History mg-hydrochlorothiazide 25 mg tablet metformin 1,000 mg tablet 1,000 mg PO BID 01/21/22 01/21/22 History tamsulosin 0.4 mg capsule (Flomax) 0.4 mg PO DAILY 01/21/22 01/21/22 History Patient History Medical History Chest pain NSTEMI (non-ST elevated myocardial infarction) STEMI (ST elevation myocardial infarction) Social History Smoking Status: Former smoker Tobacco Type: Cigarettes Hx Substance Use: No Preferred Language: Slovak Feels Safe at Home: Yes Review of Systems Review of Systems: Negative x12 point review except as per HPI Physical Exam Constitutional: WD/WN, vitals as above Eyes: PERRL, conjunctivae normal, anicteric sclerae ENMT: external ear and nose normal, oropharynx normal Neck: No JVD Respiratory: normal respiratory effort, lungs clear to auscultation Cardiovascular: Mildly tachycardic on initial evaluation. Regular rhythm. Soft systolic murmur. I do not appreciate any other abnormalities on examination in the emergency department. Right radial pulses 2+. Gastrointestinal (Abdomen): Normal active bowel sounds. Musculoskeletal: no cyanosis or clubbing, extremities motor strength 5/5 Neurologic: Cognition is intact. Speech is fluent. No focal motor deficits. No tremor. Psychiatric: A+Ox3, euthymic affect Results & Data ([facility]) Vital Signs (Past 12 Hours) Vital Signs Temp Pulse Pulse Resp BP BP Pulse Ox 01/21/22 15:00 97 H 16 148/95 H 97 01/21/22 14:45 98 H 16 147/92 H 98 01/21/22 14:30 90 16 152/89 H 96 01/21/22 14:15 89 16 147/84 H 95 01/21/22 14:00 92 H 16 126/82 97 01/21/22 13:05 36.6 C 90 20 153/86 H 97 01/21/22 12:20 98 H 12 94 01/21/22 12:20 138/84 01/21/22 12:10 99 H 16 96 01/21/22 12:03 142/90 H 01/21/22 12:03 118 H 14 95 01/21/22 12:00 105 H 14 95 01/21/22 11:50 100 H 14 01/21/22 11:40 108 H 19 01/21/22 11:33 100 H 12 01/21/22 11:42 97 01/21/22 11:25 98 H 21 97 01/21/22 11:14 36.6 C 119 H 20 163/69 H 94 O2 Del Method 01/21/22 15:00 Room Air 01/21/22 14:45 Room Air 01/21/22 14:30 Room Air 01/21/22 14:15 Room Air 01/21/22 14:00 Room Air 01/21/22 13:05 Room Air 01/21/22 12:20 Room Air 01/21/22 12:20 01/21/22 12:10 Room Air 01/21/22 12:03 01/21/22 12:03 Room Air 01/21/22 12:00 Room Air 01/21/22 11:50 01/21/22 11:40 01/21/22 11:33 01/21/22 11:42 Room Air 01/21/22 11:25 Room Air 01/21/22 11:14 Room Air PG Care Time/CCT Total # of Minutes Spent Total Time Spent with Patient: Total time spent is greater than 50% in coordination of care (as documented) at patient's floor/unit and/or counseling patient: [place] [address] Inpt Consult Level 5 Patient Type New Diagnoses NSTEMI (non-ST elevated myocardial infarction) I21.4 Atherogenic dyslipidemia E78.5 Benign essential hypertension I10
[2022-01-21] MEDS ORDERED: DEXTROSE 50% 50 ML SYRINGE IV PRN (15:48)
[2022-01-21] MEDS ORDERED: GLUCOSE 40% GEL 15 GM TUBE PO PRN (15:48)
[2022-01-21] MEDS ORDERED: PHARMACY GLYCEMIC MGMT CONSULT PRN (15:48)
[2022-01-21] MEDS ORDERED: GLUCAGON FOR INJ 1 MG VIAL SQ PRN (15:48)
[2022-01-21] MEDS ORDERED: DC ALL PREVIOUSLY ORDERED DIABETES MEDS ONE (15:48)
[2022-01-21] MEDS ORDERED: GLUCOSE 10 TAB/TUBE PO PRN (15:48)
[2022-01-21] MEDS ORDERED: CARBOHYDRATES FOR HYPOGLYCEMIA PO PRN (15:48)
[2022-01-21] MEDS: INSULIN ASPART PER UNIT SC SCH ×2 (16:47→20:33)
[2022-01-21] MEDS ORDERED: oxyCODONE HCL IR 5 MG TAB (IMMEDIATE RELEASE) PO PRN ×2 (16:53)
[2022-01-21] MEDS: Heparin IV Adult Wt-Based Low-Dose WITH Bolus Protocol IV SCH ×2 (17:12→18:36)
--- NOTE | 2022-01-21 17:14 | Communication Note ---
Date of Service: January 21, 2022 Transfer Summary. 76-year-old male with PMH of HTN, T2DM, HLD, stage III CKD, BPH, lumbar DDD and idiopathic neuropathy presented to our ED 01/21 with complaint of substernal chest pain that is occurring intermittently for the past 24 hours but worse today morning leading him up to the ED. EKG with borderline ST elevation in V1 and V2 diffuse ST depression. Patient was taken to [facility] which demonstrated severe multivessel coronary disease including high risks distal left main to ostial LAD stenosis. Patient was recommended transfer to tertiary center and has been accepted. Patient will be monitored in the PCU status [cardiology aware] while in hospital. Awaiting bed availability. We will continue with heparin drip. Monitor and replete electrolytes. NPO. Echo. Trina has been on hold, continue with other home medications as appropriate. Current Inpatient Medications Amlodipine Besylate (Amlodipine Besylate 5 Mg Tab) 5 mg PO QAM HU Stop: 02/21/22 08:59 Atenolol (Atenolol 50 Mg Tablet) 50 mg PO DAILY HU Stop: 02/21/22 08:59 Atorvastatin Calcium (Atorvastatin 40 Mg Tab) 80 mg PO DAILY HU Stop: 02/21/22 08:59 Dextrose (Dextrose 50% 50 Ml Syringe) 25 - 50 ml IV UD PRN; Protocol PRN Reason: Hypoglycemia Protocol Stop: 02/20/22 15:47 Glucagon (Glucagon For Inj 1 Mg Vial) 1 mg SQ UD PRN; Protocol PRN Reason: Hypoglycemia Protocol Stop: 02/20/22 15:47 Glucose (Glucose 40% Gel 15 Gm Tube) 15 - 30 gm PO UD PRN; Protocol PRN Reason: Hypoglycemia Protocol Stop: 02/20/22 15:47 Glucose (Glucose 10 Tab/Tube) 4 - 8 tab PO UD PRN; Protocol PRN Reason: Hypoglycemia Treatment Stop: 02/20/22 15:47 HCTZ/Losartan Potassium (Losartan/Hctz 50/12.5mg Tab) 2 tab PO DAILY HU Stop: 02/21/22 08:59 Heparin Sodium/Dextrose (Heparin Iv Adult Wt-Based Low-Dose With Bolus Protocol) 0 each IV Q15M HU; Protocol Stop: 02/20/22 16:30 Last Admin: 01/21/22 17:12 Dose: Not Given Magnesium Sulfate/Dextrose (Magnesium Sulfate / D5w) 1 gm in 100 mls @ 50 mls/hr IV Q2H HU Stop: 01/21/22 19:14 Heparin Sodium/Dextrose (Heparin Sodium/Dextrose) 25,000 units in 500 mls @ 0.02 mls/hr IV .Q24H HU; Protocol Stop: 02/20/22 16:59 Insulin Aspart (Insulin Aspart Per Unit) 0 units SC ACHS HU Stop: 02/20/22 16:29 Last Admin: 01/21/22 16:47 Dose: Not Given Miscellaneous (Carbohydrates For Hypoglycemia ) 15 - 30 gm PO UD PRN PRN Reason: Hypoglycemia Protocol Stop: 02/20/22 15:47 Miscellaneous Information (Pharmacy Glycemic Mgmt Consult) 1 each N/A UD PRN PRN Reason: Consult Stop: 02/20/22 15:47 Nitroglycerin (Nitroglycerin Sl 0.4 Mg/Tab Tab) 0.4 mg SL UD PRN PRN Reason: Chest Pain Stop: 02/20/22 11:42 Last Admin: 01/21/22 12:22 Dose: 0.4 mg Oxycodone HCl (Oxycodone Hcl Ir 5 Mg Tab (Immediate Release)) 5 mg PO TID PRN PRN Reason: Pain Stop: 02/04/22 16:52 Tamsulosin HCl (Tamsulosin Hcl 0.4 Mg Cap) 0.4 mg PO DAILY HU Stop: 02/21/22 08:59 [facility] as we await transport.
--- NOTE | 2022-01-21 17:22 | Discharge Summary ---
Discharge Summary Date of Service January 21, 2022 Notes For Next Care Provider 76-year-old male with PMH of HTN, T2DM, HLD, stage III CKD, BPH, lumbar DDD and idiopathic neuropathy presented to our ED 01/21 with complaint of substernal chest pain that is occurring intermittently for the past 24 hours but worse today morning leading him up to the ED. EKG with borderline ST elevation in V1 and V2 diffuse ST depression. Patient was taken to [facility] which demonstrated severe multivessel coronary disease including high risks distal left main to ostial LAD stenosis. Patient was recommended transfer to tertiary center and has been accepted. Patient will be monitored in the PCU status [cardiology aware] while in hospital. Awaiting bed availability. We will continue with heparin drip. Monitor and replete electrolytes. NPO. Echo. Yadirailinta has been on hold, continue with other home medications as appropriate. Medication Changes From Visit Added Heparin gtt Admission HPI Per Admitting Provider Mr. Shay is a 76-year-old male who presented to the ED today with substernal chest pain that has been occurring over the past 24 hours intermittently. Yesterday he notes that he was walking from his kitchen to his bedroom and had substernal chest pain that went away after 1 hour of no activity and rest. Today he noted his chest pain to be 5 out of 10 and was overly persistent. An EKG revealed some ST elevation in aVR, ST depression in leads V1, V2, V5, V6. The patient did receive some chest pain relief with Nitropaste1 inch and sublingual nitro. Dr. Rueda took Mr. Shay to the [facility] and after my discussion with him it appears that during the catheterization he was noted to have severe multivessel disease which will require evaluation and possible intervention with CT surgery which [facility] does not have as resource. Dr. Rueda is working on this patient to be transferred to [place] for further evaluation. For now an echocardiogram has been ordered, he will remain on a heparin infusion for the next 48 hours and I will DC his Brilinta in order follow-up troponin levels. For now this patient will be transferred to the PCU until transfer can be fully arranged. Upon evaluating the patient he pt denies ECHOLS, dizziness, SOB, current chest pain, palpitations, nausea vomiting diarrhea. The patient reports quitting smoking cigarettes 10 years ago; reports being a social drinker, no recreational drugs. On exam the patient was lying on his back in his hospital bed in no apparent distress. He was awake alert oriented x4, flat affect. I did offer support in this stressful situation. He is receptive to transfer and further intervention. Additional past medical history includes hypertension, hyperlipidemia, diabetes controlled on oral agents, BPH. As previously stated, patient will be admitted until transfer to [facility] is arranged. Please see A/P for further details. Principal Dx & Hospital Course #1 = Principal Diagnosis (1) NSTEMI (non-ST elevated myocardial infarction): (2) Chest pain: (3) HTN (hypertension): (4) HLD (hyperlipidemia): (5) BPH (benign prostatic hyperplasia): Plan 76-year-old male with PMH of HTN, T2DM, HLD, stage III CKD, BPH, lumbar DDD and idiopathic neuropathy presented to our ED 01/21 with complaint of substernal chest pain that is occurring intermittently for the past 24 hours but worse today morning leading him up to the ED. EKG with borderline ST elevation in V1 and V2 diffuse ST depression. Patient was taken to [facility] which demonstrated severe multivessel coronary disease including high risks distal left main to ostial LAD stenosis. Patient was recommended transfer to tertiary center and has been accepted. Patient will be monitored in the PCU status [cardiology aware] while in hospital. Awaiting bed availability. We will continue with heparin drip. Monitor and replete electrolytes. NPO. Echo. Brilinta has been on hold, continue with other home medications as appropriate. Discharge Exam Neuro: AAOx4, PERRLA, no aphagia, memory changes, CNII-XII grossly intact HEENT: head normocephalic, moist mucus membranes CV: S1/S2, (-) M/G/R, (-) edema, cap refill < 3 seconds Resp: Lungs CTA in all cooper. On RA GI: Abdomen S/NT/ND, Ax4 bowel sounds, (-) CVA tenderness Musculoskeletal: 5/5 B/L UE strength, 5/5 B/L LE strength. No gait disturbance Skin: (-) rashes , (-) erythema. Psych: euthymic mood Updated Medication List Medication Instructions Recorded Confirmed Type amlodipine 5 mg tablet 5 mg PO QAM 01/21/22 01/21/22 History atenolol 50 mg tablet 50 mg PO DAILY 01/21/22 01/21/22 History atorvastatin 80 mg tablet 80 mg PO DAILY 01/21/22 01/21/22 History losartan 100 1 tab PO DAILY 01/21/22 01/21/22 History mg-hydrochlorothiazide 25 mg tablet metformin 1,000 mg tablet 1,000 mg PO BID 01/21/22 01/21/22 History oxycodone 10 mg tablet,extended 10 mg PO Q8H PRN Pain 01/21/22 01/21/22 History release,12 hr tamsulosin 0.4 mg capsule (Flomax) 0.4 mg PO DAILY 01/21/22 01/21/22 History Hospital Stay Data Consultations 01/21/22 13:09 ED Decision to Admit Stat Procedures Performed Operation Date: 01/21/22 13:00 Actual Procedures s Cineradiography w/Routine Exam - Dax Rueda MD, PhD p Cath, Coronaries ONLY (no LV) - Dax Rueda MD, PhD Diagnostic Imagining Performed 01/21/22 13:05 CL Cath Imgs for PACS use only Stat Pending Results Patient Have Any Pending Studies at Discharge: No Discharge Instructions Given to Patient (Per Discharging Provider) Follow up with your primary care provider in 1 week and any other specialists recommended. As you will be receiving care at a tertiary care facility, please follow all directions provided by the receiving facility. On behalf of the Hosptialists at [facility]; thank you for allowing us to provide you care while here at [facility]. 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
[2022-01-21] MEDS: oxyCODONE HCL IR 5 MG TAB (IMMEDIATE RELEASE) PO PRN (20:36)
[2022-01-22] MEDS: INSULIN ASPART PER UNIT SC SCH ×3 (00:07→12:05)
[2022-01-22 00:48] LABS: Partial Thromboplastin Ratio 1.2; Partial Thromboplastin Time 33.8 Seconds (21.0-31.0)
[2022-01-22] MEDS ORDERED: HEPARIN SOD (PORCINE) 1000 UNIT/ML IV ONE (01:15)
[2022-01-22] MEDS ORDERED: ZOLPIDEM TARTRATE 5 MG TAB PO ONE (01:50)
[2022-01-22] MEDS: NITROGLYCERIN SL 0.4 MG/TAB TAB SL PRN (02:06)
[2022-01-22] MEDS ORDERED: MoRPHine SULFATE 2 MG/ML CARP IV STA (02:12)
[2022-01-22 06:05] LABS: Hematocrit (blood only) 36.3 % (40.1-51.0); Hemoglobin 12.7 g/dl (14.0-18.0); Mean Corpuscular Hemoglobin 31.1 pg (25.0-34.0); Mean Platelet Volume 12.1 fL (9.4-12.4); Platelet Count 186 K/uL (130-400); RDW Coefficient of Variation 12.7 % (11.5-14.5); RDW Standard Deviation 41.5 fL (36.4-46.3); Red Blood Count 4.08 M/uL (4.63-6.08); White Blood Count 9.95 K/ul (4.8-10.8)
[2022-01-22 06:13] LABS: BUN Creatinine Ratio 13.8 (10-20); Calcium 9.9 mg/dl (8.5-10.1); Chol HDL Ratio 2.6 (0-5); Creatinine Clr Calc Pharmacy 56.3 ml/min; Est GFR (African American) 76.5 ml/min; Magnesium 1.8 mg/dl (1.7-2.4); Potassium 3.4 mmol/L (3.5-5.1)
[2022-01-22 06:38] LABS: Troponin I High Sensitivity 29717.3 pg/ml (0-20)
[2022-01-22 07:26] LABS: Estimated Average Glucose 134 mg/dl; Hemoglobin A1C 6.3 % (4.5-5.6)
[2022-01-22] MEDS: oxyCODONE HCL IR 5 MG TAB (IMMEDIATE RELEASE) PO PRN (08:18)
--- NOTE | 2022-01-22 08:42 | Electrocardiogram Report ---
Test Reason : Blood Pressure : / mmHG Vent. Rate : 090 BPM Atrial Rate : 090 BPM P-R Int : 206 ms QRS Dur : 080 ms QT Int : 374 ms P-R-T Axes : 013 -04 045 degrees QTc Int : 457 ms Normal sinus rhythm Recent Septal infarct Abnormal ECG When compared with ECG of 21-JAN-2022 11:24, ST elevation in Septal leads no longer present Criteria for Septal infarct is now Present ST no longer depressed in Inferior leads ST no longer depressed in Lateral leads Confirmed by Xavier Daly ([id number]) on 01/22/2022 8:41:52 AM Referred By: REFERRED SELF Confirmed By:Xavier Daly
[2022-01-22] MEDS ORDERED: LOSARTAN/HCTZ 50/12.5MG TAB PO SCH (09:00)
[2022-01-22] MEDS ORDERED: ATORVASTATIN 40 MG TAB PO SCH (09:00)
[2022-01-22] MEDS ORDERED: ATENOLOL 50 MG TABLET PO SCH (09:00)
[2022-01-22] MEDS ORDERED: TAMSULOSIN HCL 0.4 MG CAP PO SCH (09:00)
[2022-01-22] MEDS ORDERED: amLODIPine BESYLATE 5 MG TAB PO SCH (09:00)
[2022-01-22 09:04] LABS: Partial Thromboplastin Ratio 1.8
[2022-01-22 09:06] LABS: Partial Thromboplastin Time 48.6 Seconds (21.0-31.0)
--- NOTE | 2022-01-22 10:24 | XRay Report ---
XR chest 1V portable CLINICAL HISTORY: post-operative coughing and wheezing TECHNIQUE: Single frontal radiograph of the chest was obtained. Comparison: Comparison is made to chest radiograph 01/21/2022 FINDINGS: No lines and tubes are seen. The cardiomediastinal silhouette is normal. Lungs are underinflated but clear. No evidence of pleural effusion or pneumothorax. IMPRESSION: No acute abnormalities and in particular no evidence of pneumonia. ACT 112: Negative or not required by law. Electronically signed by: Yazan Iqbal M.D. 01/22/2022 10:23 AM
--- NOTE | 2022-01-22 11:41 | Discharge Summary ---
Date of Service January 22, 2022 Admission HPI Per Admitting Provider Mr. Shay is a 76-year-old male who presented to the ED today with substernal chest pain that has been occurring over the past 24 hours intermittently. Yesterday he notes that he was walking from his kitchen to his bedroom and had substernal chest pain that went away after 1 hour of no activity and rest. Today he noted his chest pain to be 5 out of 10 and was overly persistent. An EKG revealed some ST elevation in aVR, ST depression in leads V1, V2, V5, V6. The patient did receive some chest pain relief with Nitropaste 1 inch and SL nitro. Dr. Rueda took Mr. Shay to the [facility] and was noted to have severe multivessel disease which will require evaluation and possible intervention with CT surgery which [facility] does not have as resource. Dr. Rueda is working on this patient to be transferred to [place] for further evaluation and intervention. For now an echocardiogram has been ordered, he will remain on a heparin infusion for the next 48 hours and I will DC his Brilinta in order follow-up troponin levels. For now this patient will be transferred to the PCU until transfer can be fully arranged. Upon evaluating the patient he pt denies ECHOLS, dizziness, SOB, current chest pain, palpitations, nausea vomiting diarrhea. The patient reports quitting smoking cigarettes 10 years ago; reports being a social drinker, no recreational drugs. On exam the patient was lying on his back in his hospital bed in no apparent distress. He was awake alert oriented x4, flat affect. I did offer support in this stressful situation. He is receptive to transfer and further intervention. Additional past medical history includes hypertension, hyperlipidemia, diabetes controlled on oral agents, BPH. As previously stated, patient will be admitted until [facility]. Receiving physician as arranged by Dr. Rueda is Please see A/P for further details. Admission Exam Per Admitting Provider Neuro: AAOx4, PERRLA, no aphagia, memory changes, CNII-XII grossly intact HEENT: head normocephalic, moist mucus membranes CV: S1/S2, (+ LSB Murmur (-)G/R, (-) edema, cap refill < 3 seconds . R radial t- band Resp: Lungs CTA in all cooper. On RA GI: Abdomen S/NT/ND, Ax4 bowel sounds, (-) CVA tenderness Musculoskeletal: 5/5 B/L UE strength, 5/5 B/L LE strength. No gait disturbance Skin: (-) rashes , (-) erythema. Psych: euthymic mood Principal Diagnosis NSTEMI - multivessel disease Discharge Exam GENERAL: Alert and oriented x3. NAD, on RA. HEENT: No pallor, no icterus. Pupils equal, round and reactive to light. Oral mucosa moist. NECK: No JVD, no neck masses. HEART: S1 and S2 heard. Regular rate and rhythm. No murmur, no gallop. RESPIRATORY SYSTEM: Normal AP diameter. No accessory muscle use. No wheezing, no crackles. ABDOMEN: Soft, bowel sounds present, nontender, no distention. CENTRAL NERVOUS SYSTEM: No facial droop. Speech is clear. Obeys simple commands. Moves extremities. EXTREMITIES: No edema, no erythema seen. Discharge Data Allergies Allergy/AdvReac Type Severity Reaction Status Date / Time No Known Allergies Allergy Unverified 01/21/22 17:45 Consultations 01/21/22 13:09 ED Decision to Admit Stat Procedures Performed Operation Date: 01/21/22 13:00 Actual Procedures s Cineradiography w/Routine Exam - Dax Rueda MD, PhD p Cath, Coronaries ONLY (no LV) - Dax Rueda MD, PhD Ordered Studies 01/21/22 13:05 CL Cath Imgs for PACS use only Stat Hospital Course (1) NSTEMI (non-ST elevated myocardial infarction): (2) Chest pain: (3) HTN (hypertension): (4) HLD (hyperlipidemia): (5) BPH (benign prostatic hyperplasia): Plan 76-year-old male with PMH of HTN, T2DM, HLD, stage III CKD, BPH, lumbar DDD and idiopathic neuropathy presented to our ED 01/21 with complaint of substernal chest pain that is occurring intermittently for the past 24 hours but worse today morning leading him up to the ED. EKG with borderline ST elevation in V1 and V2 diffuse ST depression. Patient was taken to [facility] which demonstrated severe multivessel coronary disease including high risks distal left main to ostial LAD stenosis. Patient was recommended transfer to tertiary center and has been accepted. Patient will be monitored in the PCU status [cardiology aware] while in hospital. We will continue with heparin drip. NPO. Echo. Mena has been on hold, continue with other home medications as appropriate. Total Time Total Time Spent Total Time Spent (In Minutes): 15 Total Time Includes: Examination of the Patient, Discharge Planning, Medication Reconciliation and Communication With Other Providers Discharge Plan Discharge Items Patient Disposition: Transfer Acute Care Hospital Reason For Visit: CHEST PAIN Discharge Diagnosis: NSTEMI Condition on Discharge: Good Activity: Per Instructions section Activity Comment: per receiving facility Non-emergency contact: Primary Care Provider Call non-emergency contact if: your symptoms worsen Follow-up/Referrals: Xavier Miller MD [Primary Care Provider] - PCP,NO [Physician] - Diet: Carb Consistent or DM2 and Heart Healthy Diet Texture: Easy to Chew Addtl Attending Provider Instructions: Follow up with your primary care provider in 1 week and any other specialists recommended. As you will be receiving care at a tertiary care facility, please follow all directions provided by the receiving facility. On behalf of the Hosptialists at [facility]; thank you for allowing us to pr ovide you care while here at [facility]. Pending Studies at Discharge: No Stand-Alone Forms: My [facility] Skilled Items Patient informed of condition?: Yes DNR: No Discharge Level of Care: Other Communicable Disease: No Discharge Prognosis: Stable Lines: Peripheral IV Urinary Catheter: No Medications and DC Order Prescriptions: Continued atorvastatin 80 mg tablet 80 mg PO DAILY amlodipine 5 mg tablet 5 mg PO QAM losartan-hydrochlorothiazide 100-25 mg tablet 1 tab PO DAILY tamsulosin [Flomax] 0.4 mg capsule 0.4 mg PO DAILY metformin 1,000 mg tablet 1,000 mg PO BID atenolol 50 mg tablet 50 mg PO DAILY oxycodone 10 mg Tablet Extended Release 12 Hr 10 mg PO Q8H PRN (Reason: Pain) Discharge Orders: Discharge Order (Routine); Ordered 01/22/22 Ordered By: Kelly Anderson/Other Patient Handouts: Managing Type 2 Diabetes Admission Data Admit Date/Time: 01/21/22 14:18 Attending Provider: Joseph Mccabe Admit Provider: Heather Alexandra Primary Care Provider: Paul,Xavier J. Other Providers: Heather Alexandra
[2022-01-22] MEDS ORDERED: LANTUS PER UNIT CHARGE SQ ONE (12:45)
--- NOTE | 2022-01-22 13:03 | Pharmacy Report ---
Pharmacy Glycemic Short Note 2 - Date of Service January 22, 2022 - Glycemic Short BSG Results (Last 24 hours): 01/21/22 01/21/22 01/22/22 15:42 20:23 00:02 Glucose POC Glucose 139 H 159 H 135 H 01/22/22 01/22/22 01/22/22 05:27 05:29 11:52 Glucose 125 H POC Glucose 119 H 200 H OUTPATIENT ANTIDIABETIC REGIMEN: * Metformin 1 gm BID * A1c 6.3% 01/22/22 ASSESSMENT: * Pt admitted with NSTEMI awaiting transport to [facility] for assessment possible CABG vs. complex/high risk multivessel PCI * Tight glycemic control desirable in the interim, started on sliding scale overnight. BSG elevated with noon check * Will tighten correction factor and give 10 units of lantus- patient NPO at this time * Continue to monitor for changes PLAN FOR INPATIENT GLYCEMIC CONTROL: * Hold outpatient oral diabetes medications * Basal insulin * Lantus 10 units SQ x1 * Bolus insulin * NovoLog per scale ACHS or Q6hrs while NPO * Goal Range: Low 110 mg/dL - High 140 mg/dL * Correction Factor: 30 mg/dL/unit * Nutritional / Prandial insulin per carb ratio of 1 unit per 12 grams CHO consumed
== END 2022-01-22 14:28 | disposition short-term general hospital (02) | DRG 282 ==
LOC: ED 11:08 → 2E 13:07 → SUATTDRO 14:18 → 2E 14:18
PROC: CLB.CCO (2022-01-21 13:00)

== ENCOUNTER 2023-10-20 08:13 | Inpatient (IN) ==
--- NOTE | 2023-10-20 08:38 | Emergency Department Note ---
Impression & Plan Hematoma of right lower leg, Intractable pain, Hypertensive urgency ED Provider Note Name: CESAR HAMPTON Age: 78 Sex: Male Arrives Via: Walk-In Informant: Patient and ED Provider: Kameron Armstrong MD Chief Complaint: Leg pain Impression: As per impressions above Medical Decision Makin-year-old gentleman arrives for evaluation of right calf pain. Patient arrives in severe distress with significant right calf pain. There is swelling of the right calf following what sounds like a calf tear while lifting a week ago some boxes. Being on aspirin and Plavix probably led to worsening bleeding. He does not have clear evidence of compartment syndrome beyond just the amount of pain he is having. He was given IV Dilaudid several times with some improvement in pain though any attempts at movement are quite uncomfortable for him. Distal pulses sensation intact. He does not have evidence of any Achilles tendon rupture. X-rays do not show any fracture or free air. An ultrasound does reveal a 14 x 4 cm hematoma consistent with story and exam. Due to ongoing pain I did discuss with orthopedics who suggested getting a CT as well as gentle compression, ice, elevation. With the ongoing pain I discussed with hospitalist service who will evaluate patient for hospitalization due to ambulatory dysfunction and intractable pain in addition to his hypertension. Initially felt hypertension may just be pain related but given it was not improving he was given some IV labetalol. Triage/Nursing Notes reviewed by Me Differential:Hematoma, compartment syndrome, neurovascular compromise, infection, DVT, fracture, many other pathologies considered Vital Signs: reviewed and remarkable for hypertension tachycardia Interventions: Dilaudid IV x 2, labetalol 10 mg IV Labs:ED labs Reviewed by me and remarkable for no significant abnormalities Imaging:X-ray of the right tib-fib as per my interpretation no fracture no dislocation. Moderate soft tissue swelling Consults: Reviewed with Dr. Rodriguez of [facility] orthopedics who advises CT of the calf along with compression, elevation, ice Reviewed with [facility] hospitalist service who will manage as hospitalized patient Plan: Disposition:Hospitalization. Condition: Good History of Present Illness: 78-year-old male moving boxes last week felt a tear in his right calf. Now with severe right calf pain. Worsening the last few days. Is unable to walk due to the amount of pain he is having. Any movement of his ankle or knee causes severe pain. Notes significant swelling of the right calf. Denies any swelling of thigh or ankle. Did note some bruising developing over the last few days over the area. Takes aspirin and Plavix daily as he had a heart attack 2 years ago. Is unsure whether he takes any other blood thinners. Denies any other trauma other than the pop while lifting. Denies any ankle pain. No previous issues like this. Denies any recent antibiotic use. Patient has been using Oxy IR several times daily for the pain and recently ran out of it. Past Medical History:See Below Home Medications:See Below Allergies:nkda Vitals:Blood Pressure: 215/125, Pulse 128, RR 18, T 36.5C, O2 96% on RA Physical Exam: GENERAL: Patient is very uncomfortable appearing and in moderate distress. RESPIRATORY: No dyspnea. Clear to auscultation and equal bilaterally. CARDIOVASCULAR: Regular rate and rhythm.No murmur appreciated. GASTROINTESTINAL: Abdomen soft, non-tender, no peritonitis. EXTREMITIES: Large amount of swelling of the right calf extending from just below knee to two thirds of the way down the abrams. Severe tenderness to palpation of the area though not overtly firm nor is there any crepitus. Distal pulses sensation intact. Palpation of the Achilles tendon reveals no significant discomfort. NEUROLOGIC: Alert and oriented. No focal neurologic deficits appreciated SKIN: No rash, no jaundice, no diaphoresis. PSYCH: Appropriate GCS: 15 ED Course: Times/Reassessments: Continued pain with any attempts at ambulation but heart rate has come down nicely. His blood pressure did continue elevated thus dose of labetalol given Kameron Armstrong MD Past Med/Surg History Problem List (Updated 10/20/23 @ 14:47 by Kameron Armstrong MD) Hypertensive urgency (Acute) Intractable pain (Acute) Hematoma of right lower leg (Acute) Hypokalemia Pain of right calf Hypertensive urgency Elevated troponin (Acute) Exertional chest pain (Acute) Hypertension (Acute) BPH (benign prostatic hyperplasia) HTN (hypertension) HLD (hyperlipidemia) Benign essential hypertension (Acute) Atherogenic dyslipidemia NSTEMI (non-ST elevated myocardial infarction) (Acute) Chest pain Medical History STEMI (ST elevation myocardial infarction) Family History Denies family history of Heart disease Social History Smoking Status: Former smoker Tobacco Type: Cigarettes Hx Alcohol Use: Yes Alcohol type: beer Hx Substance Use: No Preferred Language: Spanish Communication Ability: Effective 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 Beliefs That Will Affect Care: None marital status: Current Living Situation: Spouse Feels Safe at Home: Yes Assistive Devices: None Allergies Allergies Allergy/AdvReac Type Severity Reaction Status Date / Time No Known Allergies Allergy Verified 02/07/22 18:42 Home Meds Home Medications Medication Instructions Recorded Confirmed atorvastatin 80 mg tablet 80 mg PO DAILY 01/21/22 10/20/23 metformin 1,000 mg tablet 1,000 mg PO BIDM 01/21/22 10/20/23 tamsulosin 0.4 mg capsule (Flomax) 0.4 mg PO DAILY 01/21/22 10/20/23 aspirin 81 mg tablet,delayed 81 mg PO QAM 02/07/22 10/20/23 release clopidogrel 75 mg tablet 75 mg PO QAM 02/07/22 10/20/23 cyanocobalamin (vitamin B-12) 1,000 mcg sublingual DAILY 02/07/22 10/20/23 1,000 mcg sublingual tablet potassium chloride 10 mEq 10 meq PO QAM 02/07/22 10/20/23 tablet,extended release lisinopril 2.5 mg tablet 2.5 mg PO QAM 10/20/23 10/20/23 metoprolol succinate 50 mg 50 mg PO BID 10/20/23 10/20/23 tablet,extended release 24 hr oxycodone 10 mg tablet 10 mg PO Q6H PRN Pain 10/20/23 10/20/23 Results & Data (ED) Vital Signs Vital Signs - 24 hr 10/20/23 08:22 10/20/23 08:58 10/20/23 12:00 Temperature 36.5 C Temperature Source Temporal Artery Scan Pulse Rate 128 H 101 H Pulse Rate [Right Finger] Respiratory Rate 18 84 H Respiratory Effort / Characteristics Non-Labored Spontaneous Respiratory Depth Normal Respiratory Pattern Regular Blood Pressure 215/125 H Blood Pressure [Right Arm] 194/126 H Blood Pressure Mean 155 Blood Pressure Mean [Right Arm] 148 Blood Pressure Position Sitting Pulse Oximetry 96 96 Oxygen Delivery Method Room Air Room Air Sepsis Recent Fever Within 48 Hours No Sepsis New/Unexplained Change in Mental Status No Sepsis Action Taken by Nursing No Action Required 10/20/23 12:12 10/20/23 12:57 10/20/23 13:02 Temperature Temperature Source Pulse Rate 101 H 82 Pulse Rate [Right Finger] 85 Respiratory Rate 18 Respiratory Effort / Characteristics Respiratory Depth Respiratory Pattern Blood Pressure 194/126 H Blood Pressure [Right Arm] 194/96 H Blood Pressure Mean Blood Pressure Mean [Right Arm] 128 Blood Pressure Position Pulse Oximetry 94 Oxygen Delivery Method Sepsis Recent Fever Within 48 Hours Sepsis New/Unexplained Change in Mental Status Sepsis Action Taken by Nursing 10/20/23 13:40 Temperature Temperature Source Pulse Rate 77 Pulse Rate [Right Finger] Respiratory Rate Respiratory Effort / Characteristics Respiratory Depth Respiratory Pattern Blood Pressure 176/103 H Blood Pressure [Right Arm] Blood Pressure Mean Blood Pressure Mean [Right Arm] Blood Pressure Position Pulse Oximetry Oxygen Delivery Method Sepsis Recent Fever Within 48 Hours Sepsis New/Unexplained Change in Mental Status Sepsis Action Taken by Nursing Laboratory Data 10/20/23 08:54 10/20/23 08:54 Lab Results 10/20/23 Range/Units 08:54 WBC 9.02 (4.8-10.8) K/ul RBC 3.35 L (4.70-6.10) M/uL Hgb 10.2 L (14.0-18.0) g/dl Hct 30.9 L (42.0-52.0) % MCV 92.2 (80.0-100.0) fL MCH 30.4 (25.0-34.0) pg MCHC 33.0 (32.0-36.0) g/dL RDW Std Deviation 44.8 (36.4-46.3) fL RDW Coeff of [place] 13.3 (11.5-14.5) % Plt Count 180 (130-400) K/uL MPV 11.4 (9.4-12.4) fL Immature Gran % (Auto) 1.2 % Neut % (Auto) 87.2 % Lymph % (Auto) 6.1 % [place] % (Auto) 4.9 % Eos % (Auto) 0.3 % Baso % (Auto) 0.3 % Neut # (Auto) 7.86 H (1.40-6.50) K/uL Lymph # (Auto) 0.55 L (1.20-3.40) K/uL [place] # (Auto) 0.44 (0.11-0.59) K/uL Eos # (Auto) 0.03 (0.00-0.50) K/uL Baso # (Auto) 0.03 (0.00-0.20) K/uL Immature Gran # (Auto) 0.11 (0.01-0.20) K/uL PT 10.9 (9.0-12.0) Seconds INR 1.0 (0.9-1.1) APTT 25 (21-31) Seconds PTT Ratio 0.9 Sodium 140 (136-145) mmol/L Potassium 3.4 L (3.5-5.1) mmol/L Chloride 106 (98-107) mmol/L Carbon Dioxide 24 (21-32) mmol/L Anion Gap 10 (3-11) BUN 20 (6-23) mg/dl Creatinine 1.04 (0.6-1.4) mg/dl Est Cr Clr Drug Dosing Not Reportable Est GFR ( Amer) 79.9 ml/min Est GFR (Non-Af Amer) 68.9 ml/min BUN/Creatinine Ratio 19.2 (10-20) Glucose 178 H (70-99(Fasting)) mg/dl Calcium 9.7 (8.6-10.3) mg/dl Total Creatine Kinase 44 (30-223) U/L Administered Medications Discontinued Medications Hydromorphone HCl (Hydromorphone Inj 1 Mg/Ml Syringe) 1 mg IV NOW STA Stop: 10/20/23 08:35 Last Admin: 10/20/23 08:56 Dose: 1 mg Documented By: GRICEL Hydromorphone HCl (Hydromorphone Inj 1 Mg/Ml Syringe) 1 mg IV NOW STA Stop: 10/20/23 10:09 Last Admin: 10/20/23 10:43 Dose: 1 mg Documented By: JN Hydromorphone HCl (Hydromorphone Inj 1 Mg/Ml Syringe) 1 mg IV NOW STA Stop: 10/20/23 11:54 Last Admin: 10/20/23 12:13 Dose: 1 mg Documented By: MR Ioversol (Optiray 320 100ml) 94 ml IV ONCE ONE Stop: 10/20/23 12:43 Last Admin: 10/20/23 12:42 Dose: 94 ml Documented By: DAVID Labetalol HCl (Labetalol Hcl Iv 5 Mg/Ml 20ml) 10 mg IV NOW STA Stop: 10/20/23 11:54 Last Admin: 10/20/23 12:12 Dose: 10 mg Documented By: MR Co-signed By: VALENTIN Potassium Chloride (Potassium Chloride Crtab 20 Meq Tabcr) 40 meq PO NOW STA Stop: 10/20/23 13:49 Last Admin: 10/20/23 14:38 Dose: 40 meq Documented By: MR Imaging Data Radiologist's Impression: Tibia/Fibula X-Ray 10/20/23 08:34 XR tibia fibula RT 2V CLINICAL HISTORY: Right calf pain. COMPARISON: None FINDINGS: Surgical clips within the medial right lower leg are incidentally noted. There is no fracture within the right tibia or fibula. No osseous lesions are identified. IMPRESSION: No fractures within the right tibia or fibula. ACT 112: Negative or not required by law. Electronically signed by: Kurtis Eckert M.D. 10/20/2023 9:21 AM Venous Doppler Study 10/20/23 08:34 RIGHT LOWER EXTREMITY VENOUS DOPPLER CLINICAL HISTORY: Right calf swelling, possibly hematoma COMPARISON STUDY: No previous studies for comparison. TECHNIQUE: Sonography of the deep venous system of the right lower extremity was performed. Compression and augmentation were evaluated. FINDINGS: The right common femoral, superficial femoral and popliteal veins were compressible. Augmentation was normal. Flow was shown within the deep calf vessels. The proximal to mid right calf, there is a complex intramuscular fluid collection which measures 14.2 x 4.8 x 2.1 cm. This contains no color flow. IMPRESSION: 1. No evidence of deep venous thrombus within the right lower extremity. 2. 14.2 x 4.8 x 2.1 cm right calf intramuscular fluid collection suggestive of a hematoma. A follow-up ultrasound in 3 months to ensure resolution is recommended. ACT 112: Negative or not required by law. Electronically signed by: Kurtis Eckert M.D. 10/20/2023 10:[address] 10/20/23 11:25 CT tib/fib RT w con CLINICAL HISTORY: right calf swelling, hematoma. Request of ortho TECHNIQUE: Multidetector row helical CT of the right tibia and fibula was performed with intravenous contrast. Coronal and sagittal reformations were obtained. Automated dose lowering techniques and/or adjustment according to patient size were utilized for this examination. CT DOSE: 1244.39 mGy.cm Comparison: Comparison is made to tibia and fibular radiographs 10/20/2023 FINDINGS: The osseous structures are without fracture or dislocation. The joint spaces are maintained. No joint effusion is seen. Heterogeneous soft tissue swelling is seen in the lateral gastrocnemius. IMPRESSION: Heterogeneous soft tissue swelling is seen in the gastrocnemius region compatible with intramuscular hematoma. No abscess is seen. ACT 112: Negative or not required by law. Electronically signed by: Yazan Iqbal M.D. 10/20/2023 1:07 PM Discharge Plan Visit Data Chief Complaint: Leg Injury/Pain Stated Complaint: RIGHT LEG/CALF INJURY, SWELLING ED Provider: Kameron Armstrong Discharge Problem: Hematoma of right lower leg, Intractable pain, Hypertensive urgency Forms Stand Alone Forms: [facility] [employer] Prescriptions Prescriptions: No Action potassium chloride 10 mEq tablet extended release 10 meq PO QAM clopidogrel 75 mg tablet 75 mg PO QAM aspirin 81 mg Tablet,Delayed Release (Dr/Ec) 81 mg PO QAM cyanocobalamin (vitamin B-12) 1,000 mcg Tablet, Sublingual 1,000 mcg SUBLINGUAL DAILY atorvastatin 80 mg tablet 80 mg PO DAILY tamsulosin [Flomax] 0.4 mg capsule 0.4 mg PO DAILY metformin 1,000 mg tablet 1,000 mg PO BIDM metoprolol succinate 50 mg tablet extended release 24 hr 50 mg PO BID lisinopril 2.5 mg tablet 2.5 mg PO QAM oxycodone 10 mg tablet 10 mg PO Q6H PRN (Reason: Pain) Rx Instructions: Take 1 Tablet by mouth every 6 hours as needed for pain. Referrals Referrals: Xavier Miller MD [Primary Care Provider] -
--- OUTSIDE RECORDS SUMMARY | 2023-10-20 08:41 | External Medical Summary | Summary of Care ---
Author Name Unknown Organization [facility] Address [address] [place] [address] Phone [phone] Care Team Providers Care Flight Readiness Technician Name Role Phone Xavier Miller MD Primary Care Provider [phone] Reason for Visit * Reason Onset Date Comments Test Results 07/16/2023 Encounter Details Date Type Department Care Team (Late st Contact Info) Description 07/16/2023 Telephone Cardiology, [facility] [address] [place] [address] Pati Webb CRNP [address] [facility] [place] [address] Test Results Allergies No known active allergiesdocumented as of this encounter (statuses as of 07/17/2023) Medications Medication Sig Dispensed Refills Start Date End Date Status Cyanocobalamin (B-12-SL) [address] 1,000 mcg under the tongue daily. 90 Tab 3 11/19/2019 Active ProAir HFA 108 (90 Base) MCG/ACT Inhalation Aerosol Solution Inhale 2 Puffs by mouth in the morning and 2 Puffs at noon and 2 Puffs in the evening and 2 Puffs before bedtime. 18 g 2 02/20/2022 Active Potassium Chloride ER 10 MEQ Oral Tablet Extended Release Take 1 Tablet by mouth in the morning. 90 Tablet 3 08/21/2022 Active Atorvastatin Calcium 80 MG Oral Tablet (Lipitor) TAKE 1 TABLET DAILY 90 Tablet 2 11/09/2022 Active Lisinopril 2.5 MG Oral Tablet (Prinivil) Take 1 Tablet by mouth in the morning. 90 Tablet 3 01/31/2023 Active Clopidogrel Bisulfate 75 MG Oral Tablet (pLAVix) Take 1 Tablet by mouth in the morning. 90 Tablet 3 03/01/2023 Active Clopidogrel Bisulfate 75 MG Oral Tablet (pLAVix) Take 1 Tablet by mouth in the morning. 14 Tablet 0 03/03/2023 Active metFORMIN HCl 1000 MG Oral Tablet (Glucophage)Indicat ions:Type 2 diabetes mellitus with hemoglobin A1c goal of less than 7.0% (HCC),DM type 2 causing renal disease (HCC) TAKE 1 TABLET TWICE A DAY WITH BREAKFAST AND DINNER 180 Tablet 1 04/10/2023 Active Metoprolol Succinate ER 50 MG Oral Tablet Extended Release 24 Hour (toPROL XL)Indications:S/P CABG x 2,HTN, goal below 130/80,History of non-ST elevation myocardial infarction (NSTEMI) Take 1 Tablet by mouth in the morning and 1 Tablet before bedtime. 180 Tablet 3 04/24/2023 Active Tamsulosin HCl 0.4 MG Oral Capsule (Flomax) TAKE 1 CAPSULE DAILY 90 Capsule 3 05/14/2023 Active oxyCODONE HCl 10 MG Oral Tablet (Roxicodone)Indicat ions:Hereditary and idiopathic peripheral neuropathy,MEDICATI ON USE AGREEMENT Take 1 Tablet by mouth every 6 hours as needed for Pain, Severe. 120 Tablet 0 07/01/2023 Active documented as of this encounter (statuses as of 07/17/2023) Active Problems Problem Noted Date Diagnosed Date History of non-ST elevation myocardial infarctio n (NSTEMI) 02/03/2022 Coronary artery disease invo lving [place] coronary artery of [place] heart without angina pectoris 02/03/2022 S/P CABG x 2 02/03/2022 HTN, goal below 130/80 10/17/2020 BPH with obstruction/lower urinary tract symptom s 10/17/2020 Lumbar degenerative disc disease 10/17/2020 Stage 3a chronic kidney disease 08/15/2020 Overview: Per CKD protocol Type 2 diabetes mellitus wit h hemoglobin A1c goal of less than 8.0% 10/06/2018 Hereditary and idiopathic neuropathy 08/21/2011 Dyslipidemia 03/23/2009 Overview: Per Lipid Taxonomy. documented as of this encounter (statuses as of 07/17/2023) Resolved Problems Problem Noted Date Diagnosed Date Resolved Date Dyslipidemia, goal LDL below 70 01/07/2023 07/01/2023 NSTEMI (non-ST elevated myoc ardial infarction) 01/22/2022 02/03/2022 Benign hypertension with sta ge 3a chronic kidney disease 08/15/2020 10/17/2020 Overview: Per CKD protocol Type 2 diabetes mellitus wit h stage 3a chronic kidney disease 08/15/2020 10/17/2020 Overview: Per CKD protocol Diabetes mellitus with stage 3 chronic kidney disease 02/14/2020 08/17/2020 Overview: Per CKD protocol Type 2 diabetes, controlled, with peripheral neuropathy 04/16/2019 10/17/2020 Type 2 diabetes mellitus wit h stage 3 chronic kidney disease 10/06/2018 02/17/2020 Overview: Per CKD protocol Benign hypertension with CKD (chronic kidney disease) stage III 04/21/2018 08/17/2020 Overview: Per CKD protocol Essential hypertension with goal blood pressure less than 140/90 06/12/2015 10/17/2020 Overview: Per HTN Protocol #27. Encounter for examination fo r normal comparison and control in clinical research program 04/16/2012 05/15/2012 Overview: Diagnosis changed due to Research Module. Go to Snapshot for study details. Type 2 diabetes mellitus wit h hemoglobin A1c goal of less than 7.0% 04/08/2012 10/17/2020 Overview: ICD-10 update of inactive term HTN, GOAL BELOW 140/80 11/25/201107/12 Overview: Per HTN Protocol #27. DM type 2 causing renal disease 07/02/2010 10/20/2018 KIDNEY DZ,CHRONIC (GFR 30-59) STAGE III 10/26/2009 08/17/2020 Overview: Per CKD Protocol, #1 MEDICATION USE AGREEMENT 07/26/2009 Overview: Managed by Anna. To view the Medication Usage Agreement, go to Action, Patient Files. Signed 07/26/09 [facility] HTN, GOAL BELOW 130/80 05/04/200911/27 Overview: Per HTN Taxonomy. Type 2 diabetes mellitus wit h hemoglobin A1c goal of less than 7.0% 01/17/2009 02/03/2022 Overview: ICD-10 update of inactive term Mixed dyslipidemia 09/22/2008 Overview: Per Lipid Taxonomy. HTN, goal below 140/90 09/22/200802/03 Overview: Per HTN Taxonomy. Lumbago 09/22/2008 10/20/2018 Overview: Multilevel disc degeneration INFORMATION 09/22/2008 04/16/2019 Overview: Partial tear of left plantar aponeurosis, see podiatry documented as of this encounter (statuses as of 07/17/2023) Immunizations Name Administration Dates Next Due COVID-19 mRNA, LNP-s, No Pre serve, 2-Dose Series (Moderna) 03/28/2021,09/01/2020,08/04/2020 PPD 02/01/2014 documented as of this encounter Social History Tobacco Use Types Packs/Day Years Used Date Smoking Tobacco: Former Cigarettes 0.5 20 0 04/07/1974 - 04/07/1994 Smokeless Tobacco: Never Alcohol Use Standard Drinks/Week Comments Yes 0 (1 standard drink = 0.6 oz pur e alcohol) rare PHQ-2 Answer Date Recorded PHQ-2 Score 0 04/23/2019 Hunger Vital Sign Answer Date Recorded Worried About Running Out of Food in the Last Ye ar Never true 04/23/2019 Ran Out of Food in the Last Year Never true 04/23/2019 Sex and Gender Information Value Date Recorded Sex Assigned at Not on file Gender Identity Not on file Sexual Orientation Not on file Job Start Date Occupation Industry Not on file Not on file Not on file documented as of this encounter Functional Status Functional Status Response Date of Assess ment Are you deaf or do you have serious difficulty h earing? No 01/22/2022 Are you blind or do you have serious difficulty seeing, even when wearing glasses? No 01/22/2022 Do you have serious difficul ty walking or climbing stairs? (5 years old or older) No 01/22/2022 Do you have difficulty dress ing or bathing? (5 years old or older) No 01/22/2022 Because of a physical, menta l, or emotional condition, do you have difficulty doing errands alone such as visiting a doctor s office or shopping? (15 years old or older) No 01/23/20 Cognitive Status Response Date of Assessm ent Because of a physical, menta l, or emotional condition, do you have serious difficulty concentrating, remembering, or making decisions? (5 years old or older) No 01/22/2022 documented as of this encounter Miscellaneous Notes * Telephone Encounter - Ena Uribe CMA - 07/16/2023 11:49 AM EDT [facility] msg sent -- forwarding to Dr. Miller as an FYI. * Telephone Encounter - Ena Uribe CMA - 07/16/2023 11:45 AM EDT ----- Message from LIONEL Archer sent at 07/16/2023 10:28 AM EDT ----- Results reviewed in coverage of Clemencia Zarate PA-C. Renal function stable. Glucose elevated. Recommend following up with PCP regarding diabetes management. Liver function within normal limits. Cholesterol well controlled. documented in this encounter Plan of Treatment Upcoming Encounters Date Type Department Care Team (Late st Contact Info) Description 01/21/2024 11:40 AM EDT Office Visit [facility] [address] [facility] [place] [address] Xavier Miller MD [address] [place] [address] Health Maintenance Due Date Last Done Comments Pneumococcal Vaccine: 65+ Years (1 of 2 - PCV) 1951 DTaP,Tdap,and Td Vaccines (1 - Tdap) 1965 Zoster Vaccines (1 of 2) 1996 Diabetic Eye Exam 02/11/2020 02/10/2019, , 02/28/2014, Additional history exists Depression Screening 04/23/2020 04/23/2019 Diabetic Foot Exam 11/17/2020 11/18/2019, 0 10/20/2018, 09/16/2017, Additional history exists COVID-19 Vaccine ( season) 2022 03/28/2021, 09/01/2020, 08/04/2020 CKD PHOS USE SMARTSET 05201 08/20/202308/05, 05/22/2021, 11/18/2019, Additional history exists Influenza Vaccine (FLU shot) (Season Ended) 2023 GFR 01/10/2024 07/11/2023, 08/05, 03/19/2022, Additional history exists HbA1c 01/10/2024 07/11/2023, 08/05, 01/23/2022, Additional history exists Albumin/Creatinine Ratio 07/10/20242 024, 11/21/2021, 04/21/2018, Additional history exists CKD HGB USE SMARTSET 13028 07/10/202407/10, 01/30/2022, 01/30/2022, Additional history exists Colonoscopy Discontinued 01/01/2010 Colorectal Cancer Screening Discontinued Cologuard Discontinued Fecal Occult Blood Test Discontinued GARDASIL-HPV IMMUNIZATION SERIES Aged Out No longer eligible based on patient's age to complete this topic Hepatitis B Aged Out No longer eligi ble based on patient's age to complete this topic MENINGOCOCCAL (MENACTRA/MENVEO) Aged Out No longer eligible based on patient's age to complete this topic Sigmoidoscopy Discontinued documented as of this encounter Medical Devices Implanted Type Area Farm Boss Device Identifier Shelf Expiration Date Model / Serial / Lot Suture Steel 6 B&S19 M654g - [id number] Implanted:Qty: 2 on 01/25/2022 by Meng Mayer MD, PhD at [place] [facility] [place] N/A: Sternum JNJ : [employer] 10/04/2026 M654G / / SHBBLE Suture Steel 6 B&S19 M654g - [id number] Implanted:Qty: 4 on 01/25/2022 by Meng Mayer MD, PhD at [place] [facility] [place] N/A: Sternum JNJ : [employer] 11/04/2026 M654G / / [id number] Graft Marker Coronary - [id number] Implanted:Qty: 1 on 01/25/2022 by Meng Mayer MD, PhD at [place] [facility] [place] N/A: Aorta VM CARDIO VASCULAR 10/05/2023 [id number] / / [id number] documented as of this encounter Advance Directives Latest Code Status on File Code Status Date Activated Date Inactivated Comments Full Code 01/25/2022 12:53 PM 01/30/2022 3:08 PM Th is order reflects the patients wishes and were consensually agreed upon. Question Answer Comments Discussion of Advance Directives occurred with: Not Discussed due to patient's condition Code Status History Code Status Date Activated Date Inactivated Comments Full Code 01/22/2022 6:10 PM 01/25/2022 12:53 PM Th is order reflects the patients wishes and were consensually agreed upon. Question Answer Comments Discussion of Advance Directives occurred with: Not Discussed due to patient's condition Care Teams Flight Readiness Technician Relationship Specialty Start Date End Date Xavier Miller MD [address] [place] [address] PCP - General Family Medicine 10/18/20 documented as of this encounter
--- OUTSIDE RECORDS SUMMARY | 2023-10-20 08:41 | External Medical Summary | Summary of Care ---
Author Name Unknown Organization [facility] Address [address] [place] [address] Phone [phone] Care Team Providers Care Supervisor Show Operations Name Role Phone Boston Barajas MD Primary Care Provider [phone] Reason for Visit * Reason Comments eRx-Medication Refill Encounter Details Date Type Department Care Team (Late st Contact Info) Description 08/08/2023 Refill Family Practice [facility] [address] [place] [address] Boston Barajas MD [address] [place] [address] Allergies No known active allergiesdocumented as of this encounter (statuses as of 08/10/2023) Medications Medication Sig Dispensed Refills Start Date [...] the morning. 90 Tablet 3 08/21/2022 Active Lisinopril 2.5 MG Oral Tablet (Prinivil) [...] Active metFORMIN HCl 1000 MG Oral Tablet (Glucophage)Shivani cations:Type 2 diabetes mellitus with hemoglobin A1c goal of less than 7.0% (HCC),DM type 2 causing renal disease (HCC) TAKE 1 TABLET TWICE A DAY WITH BREAKFAST AND DINNER 180 Tablet 1 04/10/2023 Active Metoprolol Succinate ER 50 MG Oral Tablet Extended Release 24 Hour (toPROL XL)Indications:S /P CABG x 2,HTN, goal below 130/80,History of non-ST elevation myocardial infarction (NSTEMI) Take 1 Tablet by mouth in the morning and 1 Tablet before bedtime. 180 Tablet 3 04/24/2023 Active Tamsulosin HCl 0.4 MG Oral Capsule (Flomax) TAKE 1 CAPSULE DAILY 90 Capsule 3 05/14/2023 Active oxyCODONE HCl 10 MG Oral Tablet (Roxicodone)Shivani cations:Heredita ry and idiopathic peripheral neuropathy,MEDIC ATION USE AGREEMENT Take 1 Tablet by mouth every 6 hours as needed for Pain, Severe. 120 Tablet 0 08/07/2023 Active Atorvastatin Calcium 80 MG Oral Tablet (Lipitor) TAKE 1 TABLET DAILY 90 Tablet 3 08/10/2023 Active Atorvastatin Calcium 80 MG Oral Tablet (Lipitor) TAKE 1 TABLET DAILY 90 Tablet 2 11/09/2022 4 Discontinued documented as of this encounter (statuses as of 08/10/2023) Active Problems Problem Noted Date Diagnosed Date History of non-ST elevation myocardial infarctio n (NSTEMI) 02/03/2022 Coronary artery disease invo lving [place] coronary artery of [place] heart without angina pectoris 02/03/2022 S/P CABG [...] as of this encounter (statuses as of 08/10/2023) Resolved Problems Problem Noted Date Diagnosed Date [...] Action, Patient Files. Signed 07/26/09 [facility] [place] HTN, GOAL BELOW 130/80 05/04/200911/27 Overview: Per [...] as of this encounter (statuses as of 08/10/2023) Immunizations Name Administration Dates Next Due COVID-19 [...] encounter Miscellaneous Notes * Telephone Encounter - Claudia Muñoz RPh - 08/10/2023 5:28 PM EDTSigned Prescriptions: Disp Refills Atorvastatin Calcium 80 MG Oral Tablet (Li*90 Tab*3 Sig: TAKE 1 TABLET DAILYAuthorizing Provider: BOSTON BARAJAS User: CLAUDIA MUÑOZ documented in this encounter Plan of Treatment Upcoming Encounters Date Type Department Care Team (Late st Contact Info) Description 01/21/2024 11:40 AM EDT Office Visit [address] [place] [address] Boston Barajas MD [address] [place] [address] Health Maintenance Due Date Last Done Comments [...] 03/28/2021, 09/01/2020, 08/04/2020 CKD PHOS USE SMARTSET 98799 08/20/202308/05, 05/22/2021, 11/18/2019, Additional history exists Influenza Vaccine (FLU shot) (Season Ended) 2023 GFR 01/10/2024 07/11/2023, 08/05, 03/19/2022, Additional history exists HbA1c 01/10/2024 07/11/2023, 08/05, 01/23/2022, Additional history exists Albumin/Creatinine Ratio 07/10/2024 024, 11/21/2021, 04/21/2018, Additional history exists CKD HGB USE SMARTSET 79774 07/10/202407/10, 01/30/2022, 01/30/2022, Additional history exists Colonoscopy [...] this encounter Medical Devices Implanted Type Area Drug Regulatory Affairs Specialist Device Identifier Shelf Expiration Date Model / Serial / Lot Suture Steel 6 B&S19 M654g - [id number] Implanted:Qty: 2 on 01/25/2022 by Meng Mayer MD, PhD at [place] [facility] [place] N/A: Sternum JNJ : [employer] 10/04/2026 M654G / / SHBBLE Suture Steel 6 B&S19 M654g - [id number] Implanted:Qty: 4 on 01/25/2022 by Meng Mayer MD, PhD at [place] [facility] [place] N/A: Sternum JNJ : [employer] 11/04/2026 M654G / / [id number] Graft Marker Coronary - [id number] Implanted:Qty: 1 on 01/25/2022 by Meng Mayer MD, PhD at [place] [facility] [place] N/A: Aorta VM CARDIO VASCULAR 10/05/2023 [id number] / / [id number] documented as of this encounter Advance Directives [...] Discussed due to patient's condition Care Teams Supervisor Show Operations Relationship Specialty Start Date End Date Botson Barajas MD [address] [place] [address] PCP - General Family Medicine 10/18/20 documented as of this encounter
--- OUTSIDE RECORDS SUMMARY | 2023-10-20 08:41 | External Medical Summary | Summary of Care ---
Author Name Unknown Organization [facility] Address [address] [place] [address] Phone [phone] Care Team Providers Care Deck Scaler Name Role Phone Xavier Miller MD Primary Care Provider [phone] Reason for Visit * Reason Comments Outpatient Testing Encounter Details Date Type Department Care Team (Late st Contact Info) Description 07/11/2023 12:00 PM EDT Laboratory Laboratory, [facility] [address] [facility] [place] [address] [facility] [address] [place] [address] S/P CABG x 2; HTN, goal below 130/80; Coronary artery disease involving [place] coronary artery of [place] heart without angina pectoris; Dyslipidemia, goal LDL below 70; Encounter for long-term (current) use of medications; Type 2 diabetes mellitus with hemoglobin A1c goal of less than 8.0% ([facility]); Stage 3a chronic kidney disease ([facility]) Allergies No known active allergiesdocumented as of this encounter (statuses as of 07/11/2023) Medications Medication Sig Dispensed Refills Start Date [...] as of this encounter (statuses as of 07/11/2023) Active Problems Problem Noted Date Diagnosed Date History of non-ST elevation myocardial infarctio n (NSTEMI) 02/03/2022 Coronary artery disease invo lving [place] coronary artery of [place] heart without angina pectoris 02/03/2022 S/P CABG [...] as of this encounter (statuses as of 07/11/2023) Resolved Problems Problem Noted Date Diagnosed Date [...] Action, Patient Files. Signed 07/26/09 [facility] [place] HTN, GOAL BELOW 130/80 05/04/200911/27 Overview: Per HTN Taxonomy. Type 2 diabetes mellitus wit h hemoglobin A1c goal of less than 7.0% 01/17/2009 02/03/2022 Overview: ICD-10 update of inactive term Mixed dyslipidemia 09/22/2008 9 Overview: Per Lipid Taxonomy. HTN, goal below 140/90 09/22/200802/03 Overview: Per HTN Taxonomy. Lumbago 09/22/2008 10/20/2018 Overview: Multilevel disc degeneration INFORMATION 09/22/2008 04/16/2019 Overview: Partial tear of left plantar aponeurosis, see podiatry documented as of this encounter (statuses as of 07/11/2023) Immunizations Name Administration Dates Next Due COVID-19 [...] (15 years old or older) No 01/23/20 22 Cognitive Status Response Date of Assessm ent Because of a physical, menta l, or emotional condition, do you have serious difficulty concentrating, remembering, or making decisions? (5 years old or older) No 01/22/2022 documented as of this encounter Plan of Treatment Upcoming Encounters Date Type Department Care Team (Late st Contact Info) Description 01/21/2024 11:40 AM EDT Office Visit Family [facility] [address] [place] [address] Xavier Miller MD [address] [place] [address] Pending Results Name Type Priority Associated Diagnoses Date /Time LIPID PANEL WITH DIRECT LDL IF TG IS HIGH Lab Routine S/P CABG x 2 HTN, goal below 130/80 Coronary artery disease involving [place] coronary artery of [place] heart without angina pectoris Dyslipidemia, goal LDL below 70 07/11/2023 11:46 AM EDT COMPREHENSIVE METABOLIC PANEL Lab Routine S/P CABG x 2 HTN, goal below 130/80 Coronary artery disease involving [place] coronary artery of [place] heart without angina pectoris Dyslipidemia, goal LDL below 70 07/11/2023 11:46 AM EDT HGB Lab Routine Encounter for long-term (current) use of medications 07/11/2023 11:46 AM EDT HEMOGLOBIN A1C Lab Routine Type 2 diabetes mellitus with hemoglobin A1c goal of less than 8.0% ([facility]) 07/11/2023 11:46 AM EDT ALBUMIN / CREATININE RATIO, URINE Lab Routine Type 2 diabetes mellitus with hemoglobin A1c goal of less than 8.0% ([facility]) 07/11/2023 11:55 AM EDT Health Maintenance Due Date Last Done Comments Pneumococcal Vaccine: 65+ Years (1 of 2 - PCV) 1951 DTaP,Tdap,and Td Vaccines (1 - Tdap) 1965 Zoster Vaccines (1 of 2) 1996 Diabetic Eye Exam 02/11/2020 02/10/2019, , 02/28/2014, Additional history exists Depression Screening 04/23/2020 04/23/2019 Diabetic Foot Exam 11/17/2020 11/18/2019, 0 10/20/2018, 09/16/2017, Additional history exists Albumin/Creatinine Ratio 11/21/20222 022, 04/21/2018, 09/16/2017, Additional history exists COVID-19 Vaccine ( season) 2022 03/28/2021, 09/01/2020, 08/04/2020 CKD HGB USE SMARTSET 78212 01/30/202301/30, 01/30/2022, 01/29/2022, Additional history exists GFR 02/19/2023 08/19/2022, 03/07, 01/30/2022, Additional history exists HbA1c 02/19/2023 08/19/2022, 01/05, 01/23/2022, Additional history exists CKD PHOS USE SMARTSET 30207 08/20/202308/05, 05/22/2021, 11/18/2019, Additional history exists Influenza Vaccine (FLU shot) (Season Ended) 2023 Colonoscopy Discontinued 01/01/2010 Colorectal Cancer Screening Discontinued [...] this encounter Medical Devices Implanted Type Area Logistics Operations Director Device Identifier Shelf Expiration Date Model / Serial / Lot Suture Steel 6 B&S19 M654g - [id number] Implanted:Qty: 2 on 01/25/2022 by Meng Mayer MD, PhD at [place] [facility] [place] N/A: Sternum JNJ : [employer] 10/04/2026 M654G / / SHBBLE Suture Steel 6 B&S19 M654g - [id number] Implanted:Qty: 4 on 01/25/2022 by Meng Mayer MD, PhD at [place] [facility] [place] N/A: Sternum JNJ : [employer] 11/04/2026 M654G / / [id number] Graft Marker Coronary - [id number] Implanted:Qty: 1 on 01/25/2022 by Meng Mayer MD, PhD at [place] [facility] [place] N/A: Aorta VM CARDIO VASCULAR 10/05/2023 [id number] / / [id number] documented as of this encounter Visit Diagnoses Diagnosis S/P CABG x 2 Postsurgical aortocoronary bypass status HTN, goal below 130/80 Unspecified essential hypertension Coronary artery disease involving [place] coronary artery of [place] heart without angina pectoris Dyslipidemia, goal LDL below 70 Other and unspecified hyperlipidemia Encounter for long-term (current) use of medications Encounter for long-term (current) use of other medications Type 2 diabetes mellitus with hemoglobin A1c goal of less than 8.0% (HCC) Stage 3a chronic kidney disease (HCC) documented in this encounter Advance Directives Latest Code Status [...] Discussed due to patient's condition Care Teams Deck Scaler Relationship Specialty Start Date End Date Xavier Miller MD [address] [place] [address] PCP - General Family Medicine 10/18/20 documented as of this encounter
--- OUTSIDE RECORDS SUMMARY | 2023-10-20 08:41 | External Medical Summary | Summary of Care ---
Author Name Unknown Organization [facility] Address [address] [place] [address] Phone [phone] Care Team Providers Care Mine Boss Name Role Phone Boston Miller MD Primary Care Provider [phone] Reason for Visit * Reason Comments Medication Refill Encounter Details Date Type Department Care Team (Late st Contact Info) Description 09/30/2023 Refill Family Practice [facility] [address] [place] [address] Boston Miller MD [address] [place] [address] Hereditary and idiopathic peripheral neuropathy; MEDICATION USE AGREEMENT Allergies No known active allergiesdocumented as of this encounter (statuses as of 10/01/2023) Medications Medication Sig Dispensed Refills Start Date [...] by mouth in the morning. 14 Tablet 03/03/2023 Active metFORMIN HCl 1000 MG Oral [...] CAPSULE DAILY 90 Capsule 3 05/14/2023 Active Atorvastatin Calcium 80 MG Oral Tablet (Lipitor) TAKE 1 TABLET DAILY 90 Tablet 3 08/10/2023 Active oxyCODONE HCl 10 MG Oral Tablet (Roxicodone)Shivani cations:Heredita ry and idiopathic peripheral neuropathy,MEDIC ATION USE AGREEMENT Take 1 Tablet by mouth every 6 hours as needed for Pain, Severe. 120 Tablet 10/01/2023 Active oxyCODONE HCl 10 MG Oral Tablet (Roxicodone)Shivani cations:Heredita ry and idiopathic peripheral neuropathy,MEDIC ATION USE AGREEMENT Take 1 Tablet by mouth every 6 hours as needed for Pain, Severe. 120 Tablet 09/04/2023 09/30/2023 Discontinued (Refill) documented as of this encounter (statuses as of 10/01/2023) Active Problems Problem Noted Date Diagnosed Date History of non-ST elevation myocardial infarctio n (NSTEMI) 02/03/2022 Coronary artery disease invo lving [place] coronary artery of [place] heart without angina pectoris 02/03/2022 S/P CABG [...] as of this encounter (statuses as of 10/01/2023) Resolved Problems Problem Noted Date Diagnosed Date [...] Action, Patient Files. Signed 07/26/09 [facility] [place] HTN, GOAL BELOW 130/80 05/04/200911/27 Overview: Per [...] as of this encounter (statuses as of 10/01/2023) Immunizations Name Administration Dates Next Due COVID-19 [...] in the Last Year Never true 04/23/2019 Utilities Answer Date Recorded Do you have trouble paying y our heating, water, or electric bill? (Adult - for ages 18 years and over) Not on file 09/23/2023 Is your family able to pay t he heat, water, or electric bill? (Household - for ages 0-17 years) Not on file 09/23/2023 Does your family have access to good internet? (Household - for ages 0-17 years) Not on file 09/23/2023 Social Connections Answer Date Recorded How often do you feel lonely or isolated from those around you? (Adult - for ages 18 years and over) Not on file 09/23/2023 Sex and Gender Information Value Date Recorded [...] encounter Miscellaneous Notes * Telephone Encounter - Boston Miller MD - 10/01/2023 8:28 AM EDTSigned Prescriptions: Disp Refills oxyCODONE HCl 10 MG Oral Tablet (Roxicodon*120 Ta*0 Sig: Take 1 Tablet by mouth every 6 hours as needed for Pain, Severe. Authorizing Provider: BOSTON MILLER * Telephone Encounter - Teresa Forte [facility] - 10/01/2023 8:17 AM EDT Pending Prescriptions: Disp Refills oxyCODONE HCl 10 MG Oral Tablet (Roxicodon*120 Ta*0 Sig: Take 1 Tablet by mouth every 6 hours as needed for Pain, Severe. * Telephone Encounter - Teresa Forte [facility] - 10/01/2023 8:17 AM EDT I have reviewed the patients controlled substance dispensing history in the Prescription Drug Monitoring Program in compliance with the [facility] regulations before prescribing a controlled substance. PDMP checked on 10/01/2023. Pending Prescriptions: Disp Refills oxyCODONE HCl 10 MG Oral Tablet (Roxicodo*120 Ta*0 Sig: Take 1 Tablet by mouth every 6 hours as needed for Pain, Severe. Last Visit: 07/01/2023 (in office), Visit date not found (telemedicine) Next Visit: 01/21/2024 Date medication was last filled: 09/04 Date medication is due for refill: 10/03 Pharmacy: [facility] Is this request for a controlled substance? Yes and Urine Drug Screen Not completed Toxicology results: Results for orders placed or performed in visit on 11/18/19 TOX SCREEN, URINE, W/ CONFIRMATION Result Value Amphetamine NEGATIVE Benzodiazepines NEGATIVE Cannabinoids NEGATIVE Cocaine Metabolite NEGATIVE HYDROCODONE POSITIVE (A) Morphine / Codeine NEGATIVE METHADONE METABOLITE NEGATIVE OXYCODONE POSITIVE (A) TOX COMMENT THE ABOVE SCREENING RESULTS ARE PRESUMPTIVE AND CAN ONLY BE USED FOR MEDICAL PURPOSES. POSITIVE RESULTS REFLEX TO CONFIRMATORY TESTING. Cutoff Concentration Results for orders placed or performed in visit on 01/13/14 OPIOIDS/BENZO COMPLIANCE MONITORING W/INTERP Result Value COMPLIANCE INTERP (NOTE) URINE DRUG SCREEN RESULT Amphetamine NEGATIVE Barbiturates NEGATIVE Benzodiazepines NEGATIVE Cannabinoids NEGATIVE Cocaine Metabolite NEGATIVE METHADONE METABOLITE NEGATIVE Morphine / Codeine REFER TO CONFIRMATION RESULT (A) OXYCODONE REFER TO CONFIRMATION RESULT (A) COMMENT THE ABOVE SCREENING RESULTS ARE PRESUMPTIVE AND CAN ONLY BE USED FOR MEDICAL PURPOSES. CONFIRMATORY TESTING OF POSITIVE RESULTS IS AVAILABLE UPON REQUEST. Cutoff Concentration URINE VALID INTERP NORMAL CREATININE LETY 219 NITRITE LETY 14 pH LETY 5.7 Please approve if appropriate. Thank you, Teresa Forte, MikalD. Clinical Pharmacist Centralized Clinical Pharmacy Services ([facility]) 10/01/2023, 8:17 AM documented in this encounter Plan of Treatment Upcoming Encounters Date Type Department Care Team (Late st Contact Info) Description 01/21/2024 11:40 AM EDT Office Visit Family [facility] [address] [place] [address] Boston Miller MD [address] [place] [address] Health Maintenance Due Date Last Done Comments Pneumococcal Vaccine: 65+ Years (1 of 2 - PCV) 1951 DTaP,Tdap,and Td Vaccines (1 - Tdap) 1965 Zoster Vaccines (1 of 2) 1996 Diabetic Eye Exam 02/11/2020 02/10/2019, , 02/28/2014, Additional history exists Depression Screening 04/23/2020 04/23/2019 Diabetic Foot Exam 11/17/2020 11/18/2019, 0 10/20/2018, 09/16/2017, Additional history exists COVID-19 Vaccine ( - 2022- season) 2022 03/28/2021, 09/01/2020, 08/04/2020 CKD PHOS USE SMARTSET 34652 08/20/202308/05, 05/22/2021, 11/18/2019, Additional history exists Influenza Vaccine (FLU shot) (Season Ended) 2023 GFR 01/10/2024 07/11/2023, 08/05, 03/19/2022, Additional history exists HbA1c 01/10/2024 07/11/2023, 08/05, 01/23/2022, Additional history exists Albumin/Creatinine Ratio 07/10/2024 024, 11/21/2021, 04/21/2018, Additional history exists CKD HGB USE SMARTSET 81793 07/10/202407/10, 01/30/2022, 01/30/2022, Additional history exists Colonoscopy [...] this encounter Medical Devices Implanted Type Area Appeals Board Referee Device Identifier Shelf Expiration Date Model / Serial / Lot Suture Steel 6 B&S19 M654g - [id number] Implanted:Qty: 2 on 01/25/2022 by Meng Mayer MD, PhD at [place] [facility] [place] N/A: Sternum JNJ : [employer] 10/04/2026 M654G / / SHBBLE Suture Steel 6 B&S19 M654g - [id number] Implanted:Qty: 4 on 01/25/2022 by Meng Mayer MD, PhD at [place] [facility] [place] N/A: Sternum JNJ : [employer] 11/04/2026 M654G / / [id number] Graft Marker Coronary - [id number] Implanted:Qty: 1 on 01/25/2022 by Meng Mayer MD, PhD at [place] [facility] [place] N/A: Aorta VM CARDIO VASCULAR 10/05/2023 [id number] / / [id number] documented as of this encounter Visit Diagnoses Diagnosis Hereditary and idiopathic peripheral neuropathy Unspecified hereditary and idiopathic peripheral neuropathy MEDICATION USE AGREEMENT documented in this encounter Advance Directives * Full Code (Latest Code Status on File) Date Activated Date Inactivated Comments 01/25/2022 12:53 PM 01/30/2022 3:08 PM This orde r reflects the patients wishes and were consensually agreed upon. Question Answer Comments Discussion of Advance Direct marian occurred with: Not Discussed due to patient's condition * Full Code Date Activated Date Inactivated Comments 01/22/2022 6:10 PM 01/25/2022 12:53 PM This orde r reflects the patients wishes and were consensually agreed upon. Question Answer Comments Discussion of Advance Direct marian occurred with: Not Discussed due to patient's condition Care Teams Mine Boss Relationship Specialty Start Date End Date Boston Miller MD [address] [place] [address] PCP - General Family Medicine 10/18/20 documented as of this encounter
--- OUTSIDE RECORDS SUMMARY | 2023-10-20 08:41 | External Medical Summary | Summary of Care ---
Author Name Unknown Organization [facility] Address [address] [place] [address] Phone [phone] Care Team Providers Care Rehab Services Aide Name Role Phone Boston Barajas MD Primary Care Provider [phone] Reason for Visit * Reason Comments Medication Refill Encounter Details Date Type Department Care Team (Late st Contact Info) Description 09/03/2023 Refill Family Practice [facility] [address] [place] [address] Boston Barajas MD [address] [place] [address] Hereditary and idiopathic peripheral neuropathy; MEDICATION USE AGREEMENT Allergies No known active allergiesdocumented as of this encounter (statuses as of 09/04/2023) Medications Medication Sig Dispensed Refills Start Date [...] needed for Pain, Severe. 120 Tablet 09/04/2023 Active oxyCODONE HCl 10 MG Oral Tablet (Roxicodone)Shivani cations:Heredita ry and idiopathic peripheral neuropathy,MEDIC ATION USE AGREEMENT Take 1 Tablet by mouth every 6 hours as needed for Pain, Severe. 120 Tablet 08/07/2023 09/03/2023 Discontinued (Refill) documented as of this encounter (statuses as of 09/04/2023) Active Problems Problem Noted Date Diagnosed Date History of non-ST elevation myocardial infarctio n (NSTEMI) 02/03/2022 Coronary artery disease invo lving [place] coronary artery of [place] heart without angina pectoris 02/03/2022 S/P CABG [...] as of this encounter (statuses as of 09/04/2023) Resolved Problems Problem Noted Date Diagnosed Date [...] Action, Patient Files. Signed 07/26/09 [facility] [place] HTN, GOAL BELOW 130/80 05/04/200911/27 Overview: Per [...] as of this encounter (statuses as of 09/04/2023) Immunizations Name Administration Dates Next Due COVID-19 [...] Miscellaneous Notes * Telephone Encounter - Boston Barajas MD - 09/04/2023 3:00 PM EDTSigned Prescriptions: Disp Refills oxyCODONE HCl 10 MG Oral Tablet (Roxicodon*120 Ta*0 Sig: Take 1 Tablet by mouth every 6 hours as needed for Pain, Severe. Authorizing Provider: BOSTON BARAJAS * Telephone Encounter - [facility] - 09/04/2023 10:54 AM EDTPending Prescriptions: Disp Refills oxyCODONE HCl 10 MG Oral Tablet (Roxicodon*120 Ta*0 Sig: Take 1 Tablet by mouth every 6 hours as needed for Pain, Severe. Electronically signed by [facility] at 09/04/2023 10:54 AM EDT * Telephone Encounter - [facility] - 09/04/2023 10:53 AM EDT I have reviewed the patients controlled substance dispensing history in the Prescription Drug Monitoring Program in compliance with the [facility] regulations before prescribing a controlled substance. PDMP checked on 09/04/2023. Pending Prescriptions: Disp Refills oxyCODONE HCl 10 MG Oral Tablet (Roxicodo*120 Ta*0 Sig: Take 1 Tablet by mouth every 6 hours as needed for Pain, Severe. Last Visit: 07/01/2023 (in office), Visit date not found (telemedicine) Next Visit: 01/21/2024 Date medication was last filled: 08/08/23 Date medication is due for refill: 09/06/23 Pharmacy: [facility] Is this request for a controlled [...] pH LETY 5.7 Please approve if appropriate. Thanks, Kinjal Maldonado, PharmD Clinical Pharmacist Centralized Clinical Pharmacy Services ([facility] - Formerly Telepharmacy) [phone] 09/04/2023 10:53 AM Electronically signed by [facility] at 09/04/2023 10:54 AM EDT documented in this encounter Plan of Treatment Upcoming Encounters Date Type Department Care Team (Late st Contact Info) Description 01/21/2024 11:40 AM EDT Office Visit Family [facility] [address] [place] [address] Boston Barajas MD [address] [place] [address] Health Maintenance Due Date Last Done Comments [...] 03/28/2021, 09/01/2020, 08/04/2020 CKD PHOS USE SMARTSET 12772 08/20/202308/05, 05/22/2021, 11/18/2019, Additional history exists Influenza Vaccine (FLU shot) (Season Ended) 2023 GFR 01/10/2024 07/11/2023, 08/05, 03/19/2022, Additional history exists HbA1c 01/10/2024 07/11/2023, 08/05, 01/23/2022, Additional history exists Albumin/Creatinine Ratio 07/10/2024 024, 11/21/2021, 04/21/2018, Additional history exists CKD HGB USE SMARTSET 35202 07/10/202407/10, 01/30/2022, 01/30/2022, Additional history exists Colonoscopy [...] this encounter Medical Devices Implanted Type Area Proposal Editor Device Identifier Shelf Expiration Date Model / Serial / Lot Suture Steel 6 B&S19 M654g - [id number] Implanted:Qty: 2 on 01/25/2022 by Meng Mayer MD, PhD at [place] [facility] [place] N/A: Sternum JNJ : [employer] 10/04/2026 M654G / / SHBBLE Suture Steel 6 B&S19 M654g - [id number] Implanted:Qty: 4 on 01/25/2022 by Meng Mayer MD, PhD at [place] [facility] [place] N/A: Sternum JNJ : [employer] 11/04/2026 M654G / / [id number] Graft Marker Coronary - [id number] Implanted:Qty: 1 on 01/25/2022 by Meng Mayer MD, PhD at [place] [facility] [place] N/A: Aorta VM CARDIO VASCULAR 10/05/2023 [id number] / / [id number] documented as of this encounter Visit Diagnoses [...] Discussed due to patient's condition Care Teams Rehab Services Aide Relationship Specialty Start Date End Date Boston Barajas MD [address] [place] [address] PCP - General Family Medicine 10/18/20 documented as of this encounter
--- OUTSIDE RECORDS SUMMARY | 2023-10-20 08:41 | External Medical Summary | Summary of Care ---
Author Name Unknown Organization [facility] Address [address] [place] [address] Phone [phone] Care Team Providers Care Oil Expert Name Role Phone Boston Barajas MD Primary Care Provider [phone] Reason for Visit * Reason Comments eRx-Medication Refill Encounter Details Date Type Department Care Team (Late st Contact Info) Description 10/07/2023 Refill Family Practice [facility] [address] [place] [address] Boston Barajas MD [address] [place] [address] Type 2 diabetes mellitus with hemoglobin A1c goal of less than 7.0% ([facility]); DM Type 2 causing Renal Dz Allergies No known active allergiesdocumented as of this encounter (statuses as of 10/08/2023) Medications Medication Sig Dispensed Refills Start Date [...] in the morning. 14 Tablet 03/03/2023 Active Metoprolol Succinate ER 50 MG Oral [...] for Pain, Severe. 120 Tablet 10/01/2023 Active metFORMIN HCl 1000 MG Oral Tablet (Glucophage)Shivani cations:Type 2 diabetes mellitus with hemoglobin A1c goal of less than 7.0% (HCC),DM type 2 causing renal disease (HCC) TAKE 1 TABLET TWICE A DAY WITH BREAKFAST AND DINNER 180 Tablet 1 10/08/2023 Active metFORMIN HCl 1000 MG Oral Tablet (Glucophage)Shivani cations:Type 2 diabetes mellitus with hemoglobin A1c goal of less than 7.0% (HCC),DM type 2 causing renal disease (HCC) TAKE 1 TABLET TWICE A DAY WITH BREAKFAST AND DINNER 180 Tablet 1 04/10/2023 4 Discontinued documented as of this encounter (statuses as of 10/08/2023) Active Problems Problem Noted Date Diagnosed Date History of non-ST elevation myocardial infarctio n (NSTEMI) 02/03/2022 Coronary artery disease invo lving [place] coronary artery of [place] heart without angina pectoris 02/03/2022 S/P CABG [...] as of this encounter (statuses as of 10/08/2023) Resolved Problems Problem Noted Date Diagnosed Date [...] MEDICATION USE AGREEMENT 07/26/2009 Overview: Managed by blabfeed. To view the Medication Usage Agreement, go to Action, Patient Files. Signed 07/26/09 [facility] [place] HTN, GOAL BELOW 130/80 05/04/200911/27 Overview: Per HTN Taxonomy. Type 2 diabetes mellitus wit h hemoglobin A1c goal of less than 7.0% 01/17/2009 02/03/2022 Overview: ICD-10 update of inactive term Mixed dyslipidemia 09/22/2008 12/200 9 Overview: Per Lipid Taxonomy. HTN, goal below 140/90 09/22/200802/03 Overview: Per HTN Taxonomy. Lumbago 09/22/2008 10/20/2018 Overview: Multilevel disc degeneration INFORMATION 09/22/2008 04/16/2019 Overview: Partial tear of left plantar aponeurosis, see podiatry documented as of this encounter (statuses as of 10/08/2023) Immunizations Name Administration Dates Next Due COVID-19 [...] encounter Miscellaneous Notes * Telephone Encounter - Mayito Fenton, [facility] - 10/08/2023 11:07 AM EDT Signed Prescriptions: Disp Refills metFORMIN HCl 1000 MG Oral Tablet (Glucoph*180 Ta*1 Sig: TAKE 1 TABLET TWICE A DAY WITH BREAKFAST AND DINNERAuthorizing Provider: BOSTON BARAJAS User:MAYITO FENTON Electronically signed by [facility] at 10/08/2023 11:07 AM EDT documented in this encounter Plan of Treatment Upcoming Encounters Date Type Department Care Team (Late st Contact Info) Description 01/21/2024 11:40 AM EDT Office Visit Family Practice [facility] [address] [place] [address] Boston Barajas MD [address] [place] [address] Health Maintenance Due Date Last Done Comments [...] 03/28/2021, 09/01/2020, 08/04/2020 CKD PHOS USE SMARTSET 83191 08/20/202308/05, 05/22/2021, 11/18/2019, Additional history exists Influenza Vaccine (FLU shot) (#1) 2023 GFR 01/10/2024 07/11/2023, 08/05, 03/19/2022, Additional history exists HbA1c 01/10/2024 07/11/2023, 08/05, 01/23/2022, Additional history exists Albumin/Creatinine Ratio 07/10/2024 024, 11/21/2021, 04/21/2018, Additional history exists CKD HGB USE SMARTSET 82366 07/10/202407/10, 01/30/2022, 01/30/2022, Additional history exists Colonoscopy Discontinued 01/01/2010 Colorectal Cancer Screening Discontinued Cologuard Discontinued Fecal Occult Blood Test Discontinued HPV (Gardasil) Vaccine Aged Out No lo nger eligible based on patient's age to complete this topic Hepatitis B Vaccine Aged Out No longe r eligible based on patient's age to complete this topic MENINGOCOCCAL (MENACTRA/MENVEO) Aged Out No longer eligible based on patient's age to complete this topic Sigmoidoscopy Discontinued documented as of this encounter Medical Devices Implanted Type Area Cisco Certified Network Professional Device Identifier Shelf Expiration Date Model / Serial / Lot Suture Steel 6 B&S19 M654g - [id number] Implanted:Qty: 2 on 01/25/2022 by Meng Mayer MD, PhD at [place] [facility] [place] N/A: Sternum JNJ : [employer] 10/04/2026 M654G / / SHBBLE Suture Steel 6 B&S19 M654g - [id number] Implanted:Qty: 4 on 01/25/2022 by Meng Mayer MD, PhD at [place] [facility] [place] N/A: Sternum JNJ : [employer] 11/04/2026 M654G / / [id number] Graft Marker Coronary - [id number] Implanted:Qty: 1 on 01/25/2022 by Meng Mayer MD, PhD at [place] [facility] [place] N/A: Aorta VM CARDIO VASCULAR 10/05/2023 [id number] / / [id number] documented as of this encounter Visit Diagnoses Diagnosis Type 2 diabetes mellitus with hemoglobin A1c goal of less than 7.0% (HCC) documented in this encounter Advance Directives * [...] Discussed due to patient's condition Care Teams Oil Expert Relationship Specialty Start Date End Date Boston Barajas MD [address] [place] [address] PCP - General Family Medicine 10/18/20 documented as of this encounter
--- OUTSIDE RECORDS SUMMARY | 2023-10-20 08:41 | External Medical Summary | Summary of Care ---
Author Name Unknown Organization [facility] Address [address] [place] [address] Phone [phone] Care Team Providers Care Landfill Gas Collection System Operator Name Role Phone Boston Barajas MD Primary Care Provider [phone] [phone] Reason for Visit * Reason Comments Medication Refill Encounter Details Date Type Department Care Team (Late st Contact Info) Description 08/06/2023 Refill Family Practice [facility] [address] [place] [address] Boston Barajas MD [address] [place] [address] Hereditary and idiopathic peripheral neuropathy; MEDICATION USE AGREEMENT Allergies No known active allergiesdocumented as of this encounter (statuses as of 08/07/2023) Medications Medication Sig Dispensed Refills Start Date [...] Pain, Severe. 120 Tablet 0 08/07/2023 Active oxyCODONE HCl 10 MG Oral Tablet (Roxicodone)Shivani cations:Heredita ry and idiopathic peripheral neuropathy,MEDIC ATION USE AGREEMENT Take 1 Tablet by mouth every 6 hours as needed for Pain, Severe. 120 Tablet 0 07/01/2023 08/06/2023 Discontinued (Refill) documented as of this encounter (statuses as of 08/07/2023) Active Problems Problem Noted Date Diagnosed Date History of non-ST elevation myocardial infarctio n (NSTEMI) 02/03/2022 Coronary artery disease invo lving [place] coronary artery of [place] heart without angina pectoris 02/03/2022 S/P [...] as of this encounter (statuses as of 08/07/2023) Resolved Problems Problem Noted Date Diagnosed Date [...] Action, Patient Files. Signed 07/26/09 [facility] [place] HTN, GOAL BELOW 130/80 05/04/200911/27 Overview: Per [...] as of this encounter (statuses as of 08/07/2023) Immunizations Name Administration Dates Next Due COVID-19 [...] Telephone Encounter - Boston Barajas MD - 08/07/2023 2:00 PM EDTSigned Prescriptions: Disp Refills oxyCODONE HCl 10 MG Oral Tablet (Roxicodon*120 Ta*0 Sig: Take 1 Tablet by mouth every 6 hours as needed for Pain, Severe. Authorizing Provider: BOSTON BARAJAS * Telephone Encounter - Segundo Briscoe [facility] - 08/07/2023 11:57 AM EDT Pending Prescriptions: Disp Refills oxyCODONE HCl 10 MG Oral Tablet (Roxicodon*120 Ta*0 Sig: Take 1 Tablet by mouth every 6 hours as needed for Pain, Severe. * Telephone Encounter - Segundo Briscoe [facility] - 08/07/2023 11:55 AM EDT I have reviewed the patients controlled substance dispensing history in the Prescription Drug Monitoring Program in compliance with the [facility] regulations before prescribing a controlled substance. PDMP checked on 08/07/2023. Pending Prescriptions: Disp Refills oxyCODONE HCl 10 MG Oral Tablet (Roxicodo*120 Ta*0 Sig: Take 1 Tablet by mouth every 6 hours as needed for Pain, Severe. Last Visit: 07/01/2023 (in office), Visit date not found (telemedicine) Next Visit: 01/21/2024 Date medication was last filled: 07/10/2022 Date medication is due for refill: 08/02/2023 Pharmacy: [facility] Is this request for a controlled [...] LETY 5.7 Please approve if appropriate. Thank You, Segundo Briscoe, Pharm-D Clinical Pharmacist Centralized Clinical Pharmacy Services (CCPS) (Formerly [facility]) [phone] 08/07/2023, 11:55 AM documented in this encounter Plan of Treatment Upcoming Encounters Date Type Department Care Team (Late st Contact Info) Description 01/21/2024 11:40 AM EDT Office Visit [facility] [address] [place] [address] Boston Barajas MD [address] [place] [address] Health Maintenance Due Date Last Done [...] 03/28/2021, 09/01/2020, 08/04/2020 CKD PHOS USE SMARTSET 27366 08/20/202308/05, 05/22/2021, 11/18/2019, Additional history exists Influenza Vaccine (FLU shot) (Season Ended) 2023 GFR 01/10/2024 07/11/2023, 08/05, 03/19/2022, Additional history exists HbA1c 01/10/2024 07/11/2023, 08/05, 01/23/2022, Additional history exists Albumin/Creatinine Ratio 07/10/2024 024, 11/21/2021, 04/21/2018, Additional history exists CKD HGB USE SMARTSET 91306 07/10/202407/10, 01/30/2022, 01/30/2022, Additional history exists Colonoscopy [...] this encounter Medical Devices Implanted Type Area Correctional Supervising Cook Device Identifier Shelf Expiration Date Model / Serial / Lot Suture Steel 6 B&S19 M654g - [id number] Implanted:Qty: 2 on 01/25/2022 by Meng Mayer MD, PhD at [place] [facility] [place] N/A: Sternum JNJ : [employer] 10/04/2026 [id number] / / SHBBLE Suture Steel 6 B&S19 M654g - [id number] Implanted:Qty: 4 on 01/25/2022 by Meng Mayer MD, PhD at [place] [facility] [place] N/A: Sternum JNJ : [employer] 11/04/2026 [id number] / / [id number] Graft Marker Coronary - [id number] Implanted:Qty: 1 on 01/25/2022 by Meng Mayer MD, PhD at [place] [facility] [place] N/A: Aorta VM CARDIO VASCULAR 10/05/2023 [id number] / / [id number] documented as of this encounter Visit Diagnoses Diagnosis Hereditary and idiopathic peripheral neuropathy Unspecified hereditary and idiopathic peripheral neuropathy MEDICATION USE AGREEMENT documented in this encounter Advance Directives Latest [...] Discussed due to patient's condition Care Teams Landfill Gas Collection System Operator Relationship Specialty Start Date End Date Boston Barajas MD [address] [place] [address] PCP - General Family Medicine 10/18/20 documented as of this encounter
--- OUTSIDE RECORDS SUMMARY | 2023-10-20 08:42 | External Medical Summary ---
Author Name Unknown Address Unknown Organization K01:[facility] [place] [address] [place] [address] Laboratory Report Ordering Provider Test Date Status JENN MEAD 07/11/2023 11:46:31 Final Observation Date Value Abnormality Reference (Units ) Status HbA1C 07/11/2023 11:46:31 5.7 Above high normal 4. 0-5.6 (%) Final The use of HbA1c to monitor glycemic status is based on normal hemoglobin and HbA composition. This test should not be used in patients with abnormal hemoglobin that affects the half life of the red blood cell or the in vivo glycation rates. Glucose, estimated average 07/11/2023 11:46:31 117 <126 (mg/dL) Final Performing Location [facility] [place] [address] [place] [address]
--- OUTSIDE RECORDS SUMMARY | 2023-10-20 08:42 | External Medical Summary | Summary of Care ---
Author Name Unknown Organization [facility] Address [address] [place] [address] Phone [phone] Care Team Providers Care Equity Manager Name Role Phone Boston Barajas MD Primary Care Provider [phone] Reason for Visit * Reason Comments Medication Refill Encounter Details Date Type Department Care Team (Late st Contact Info) Description 05/14/2023 Refill Family Practice [facility] [address] [place] [address] Boston Barajas MD [address] [place] [address] Hereditary and idiopathic peripheral neuropathy; MEDICATION USE AGREEMENT Allergies No known active allergiesdocumented as of this encounter (statuses as of 05/15/2023) Medications Medication Sig Dispensed Refills Start Date [...] AGREEMENT Take 1 Tablet by mouth every 8 hours as needed for Severe Pain. 90 Tablet 0 05/15/2023 Active oxyCODONE HCl 10 MG Oral Tablet (Roxicodone)Shivani cations:Heredita ry and idiopathic peripheral neuropathy,MEDIC ATION USE AGREEMENT Take 1 Tablet by mouth every 8 hours as needed for Severe Pain. 90 Tablet 0 04/16/2023 05/14/2023 Discontinued (Refill) documented as of this encounter (statuses as of 05/15/2023) Active Problems Problem Noted Date Diagnosed Date Dyslipidemia, goal LDL below 70 01/07/2023 History of non-ST elevation myocardial infarctio n (NSTEMI) 02/03/2022 Coronary artery disease invo lving [place] coronary artery of [place] heart without angina pectoris 02/03/2022 S/P CABG [...] as of this encounter (statuses as of 05/15/2023) Resolved Problems Problem Noted Date Diagnosed Date Resolved Date NSTEMI (non-ST elevated myoc ardial infarction) 01/22/2022 [...] Action, Patient Files. Signed 07/26/09 [facility] [place] HTN, GOAL BELOW 130/80 05/04/200911/27 Overview: Per [...] as of this encounter (statuses as of 05/15/2023) Immunizations Name Administration Dates Next Due COVID-19 mRNA, LNP-s, No Pre serve, 2-Dose Series (Moderna) 03/28/2021,09/01/2020,08/04/2020 PPD 02/01/2014 documented as of this encounter Social History Tobacco Use Types Packs/Day Years Used Date Smoking Tobacco: Former Cigarettes 0.5 20 Q uit: 04/07/1994 Smokeless Tobacco: Never Alcohol Use Standard [...] Telephone Encounter - Boston Barajas MD - 05/15/2023 8:03 AM ESTSigned Prescriptions: Disp Refills oxyCODONE HCl 10 MG Oral Tablet (Roxicodon*90 Tab*0 Sig: Take 1 Tablet by mouth every 8 hours as needed for Severe Pain. Authorizing Provider: BOSTON BARAJAS * Telephone Encounter - Mayito Russ [facility] - 05/15/2023 7:56 AM ESTPending Prescriptions: Disp Refills oxyCODONE HCl 10 MG Oral Tablet (Roxicodon*90 Tab*0 Sig: Take 1 Tablet by mouth every 8 hours as needed for Severe Pain. * Telephone Encounter - Mayito Russ [facility] - 05/15/2023 7:55 AM EST I have reviewed the patients controlled substance dispensing history in the Prescription Drug Monitoring Program in compliance with the [facility] regulations before prescribing a controlled substance. PDMP checked on 05/15/2023. Pending Prescriptions: Disp Refills oxyCODONE HCl 10 MG Oral Tablet (Roxicodo*90 Tab*0 Sig: Take 1 Tablet by mouth every 8 hours as needed for Severe Pain. Last Visit: 08/19/2022 (in office), Visit date not found (telemedicine) Next Visit: 07/01/2023 Date medication was last filled: 04/18 Date medication is due for refill: 05/17 Pharmacy: [facility] Is this request for a controlled [...] LETY 5.7 Please approve if appropriate. Thanks, Mj Russ, PharmD Clinical Pharmacist Centralized Clinical Pharmacy Services (CCPS) (Formerly [facility]) [phone] 05/15/2023 7:55 AM documented in this encounter Plan of Treatment Upcoming Encounters Date Type Department Care Team (Late st Contact Info) Description 07/01/2023 6:20 PM EDT Office Visit Family [facility] [address] [place] [address] Boston Barajas MD [address] [place] [address] Health Maintenance Due Date Last Done Comments Pneumococcal Vaccine: 65+ Years (1 - PCV) 1951 DTaP,Tdap,and Td Vaccines (1 - Tdap) 1965 Zoster Vaccines (1 of 2) 1996 Hepatitis B (1 of 3 - Risk 3-dose series) 2006 Diabetic Eye Exam 02/11/2020 02/10/2019, , 02/28/2014, Additional history exists Depression Screening 04/23/2020 04/23/2019 Diabetic Foot Exam 11/17/2020 11/18/2019, 0 10/20/2018, 09/16/2017, Additional history exists Albumin/Creatinine Ratio 11/21/20222 022, 04/21/2018, 09/16/2017, Additional history exists COVID-19 Vaccine ( season) 2022 03/28/2021, 09/01/2020, 08/04/2020 Influenza Vaccine (FLU shot) (#1) 2022 CKD HGB USE SMARTSET 07365 01/30/202301/30, 01/30/2022, 01/29/2022, Additional history exists GFR 02/19/2023 08/19/2022, 03/07, 01/30/2022, Additional history exists HbA1c 02/19/2023 08/19/2022, 01/05, 01/23/2022, Additional history exists CKD PHOS USE SMARTSET 33507 08/20/202308/05, 05/22/2021, 11/18/2019, Additional history exists Colonoscopy Discontinued 01/01/2010 Colorectal Cancer Screening Discontinued Cologuard Discontinued Fecal Occult Blood Test Discontinued GARDASIL-HPV IMMUNIZATION SERIES Aged Out No longer eligible based on patient's age to complete this topic MENINGOCOCCAL (MENACTRA/MENVEO) Aged Out No longer eligible based on patient's age to complete this topic Sigmoidoscopy Discontinued documented as of this encounter Medical Devices Implanted Type Area Noc Engineer Device Identifier Shelf Expiration Date Model / Serial / Lot Graft Marker Coronary - [id number] Implanted:Qty: 1 on 01/25/2022 by Meng Mayer MD, PhD at [facility] N/A: Aorta VM CARDIO VASCULAR 10/05/2023 [id number] / / [id number] documented as of this encounter Visit Diagnoses [...] Discussed due to patient's condition Care Teams Equity Manager Relationship Specialty Start Date End Date Boston Barajas MD [address] [address] PCP - General Family Medicine 10/18/20 documented as of this encounter
--- OUTSIDE RECORDS SUMMARY | 2023-10-20 08:42 | External Medical Summary | Summary of Care ---
Author Name Unknown Organization [facility] Address [address] [place] [address] Phone [phone] Care Team Providers Care Licensed Certified Orthotist Name Role Phone Xavier Miller MD Primary Care Provider [phone] Reason for Visit * Reason Comments eRx-Medication Refill Encounter Details Date Type Department Care Team (Late st Contact Info) Description 04/24/2023 Refill Cardiology, [facility] [address] [place] [address] Marco Jewell MD [address] [place] [address] S/P CABG x 2; HTN, goal below 130/80; History of non-ST elevation myocardial infarction (NSTEMI) Allergies No known active allergiesdocumented as of this encounter (statuses as of 04/24/2023) Medications Medication Sig Dispensed Refills Start Date [...] before bedtime. 18 g 2 02/20/2022 Active Tamsulosin HCl 0.4 MG Oral Capsule (Flomax) TAKE 1 CAPSULE DAILY 90 Capsule 3 05/04/2022 Active Potassium Chloride ER 10 MEQ Oral [...] AND DINNER 180 Tablet 1 04/10/2023 Active oxyCODONE HCl 10 MG Oral Tablet (Roxicodone)Shivani cations:Heredita ry and idiopathic peripheral neuropathy,MEDIC ATION USE AGREEMENT Take 1 Tablet by mouth every 8 hours as needed for Severe Pain. 90 Tablet 0 04/16/2023 Active Metoprolol Succinate ER 50 MG Oral Tablet Extended Release 24 Hour (toPROL XL)Indications:S /P CABG x 2,HTN, goal below 130/80,History of non-ST elevation myocardial infarction (NSTEMI) Take 1 Tablet by mouth in the morning and 1 Tablet before bedtime. 180 Tablet 3 04/24/2023 Active Metoprolol Succinate ER 50 MG Oral Tablet Extended Release 24 Hour (Toprol XL) Take 1 Tablet (50 mg) by mouth in the morning and 1 Tablet (50 mg) before bedtime. 180 Tablet 3 03/05/2022 04/24/2023 Discontinued (Refill) documented as of this encounter (statuses as of 04/24/2023) Active Problems Problem Noted Date Diagnosed Date Dyslipidemia, goal LDL below 70 01/07/2023 History of non-ST elevation myocardial infarctio n (NSTEMI) 02/03/2022 Coronary artery disease invo lving [place] coronary artery of [place] heart without angina pectoris 02/03/2022 S/P CABG [...] as of this encounter (statuses as of 04/24/2023) Resolved Problems Problem Noted Date Diagnosed Date [...] Action, Patient Files. Signed 07/26/09 [facility] [place] HTN, GOAL BELOW 130/80 05/04/200911/27 Overview: Per [...] as of this encounter (statuses as of 04/24/2023) Immunizations Name Administration Dates Next Due COVID-19 [...] encounter Miscellaneous Notes * Telephone Encounter - Allison Asif PA-C - 04/24/2023 2:01 PM EST Signed Prescriptions: Disp Refills Metoprolol Succinate ER 50 MG Oral Tablet *180 Ta*3 Sig: Take 1 Tablet by mouth in the morning and 1 Tablet before bedtime. Authorizing Provider: ALLISON ASIF * Telephone Encounter - Ena Uribe [facility] - 04/24/2023 10:49 AM ESTPending Prescriptions: Disp Refills Metoprolol Succinate ER 50 MG Oral Tablet *180 Ta*3 Sig: Take 1 Tablet by mouth in the morning and 1 Tablet before bedtime. * Telephone Encounter - Ena Uribe [facility] - 04/24/2023 10:49 AM EST Did you pend patient's preferred pharmacy and medication before forwarding?yes Pharmacy: [facility]- [place] Pending Prescriptions: Disp Refills Metoprolol Succinate ER 50 MG Oral Tablet*180 Ta*3 Sig: Take 1 Tablet by mouth in the morning and 1 Tablet before bedtime. Last Visit: 01/07/2023 (in office), Visit date not found (telemedicine) Next Visit: Visit date not found If no future appointments scheduled, and last appointment is greater than a year ago, please schedule patient for a follow-up appointment Last date the medication was ordered: 03-05-2022 Is this request for a controlled substance?No Urine Drug Screen: Results for orders placed or performed in [...] 219 NITRITE LETY 14 pH LETY 5.7 Patient Phone Numbers Labs: Lab Results Component Value Date/Time CREAT 1.3 (H) 08/19/2022 04:06 PM CREAT 1.4 (H) 11/18/2019 03:21 PM POTASSIUM 4.7 08/19/2022 04:06 PM POTASSIUM 4.1 01/25/2022 01:00 PM POTASSIUM 4.4 11/18/2019 03:21 PM TSH 3.31 01/23/2022 05:38 AM TSH 2.08 08/29/2015 03:45 PM LDLCALC 50 03/19/2022 01:08 PM LDLCALC 29 11/18/2019 03:21 PM LDLDIRECT NOT APPLICABLE 11/18/2019 03:21 PM LDLDIRECT 55 09/16/2017 02:32 PM ALT 24 08/19/2022 04:06 PM ALT 34 11/18/2019 03:21 PM HGBA1C 5.9 (H) 08/19/2022 04:06 PM HGBA1C 6.3 (H) 11/18/2019 03:21 PM documented in this encounter Plan of Treatment Upcoming Encounters Date Type Department Care Team (Late st Contact Info) Description 07/01/2023 6:20 PM EDT Office Visit Family Practice [facility] [address] [place] [address] Xavier Miller MD [address] [place] [address] Health Maintenance Due Date Last Done Comments [...] 10/20/2018, 09/16/2017, Additional history exists Albumin/Creatinine Ratio 11/21/2022 022, 04/21/2018, 09/16/2017, Additional history exists COVID-19 Vaccine ( season) 2022 03/28/2021, 09/01/2020, 08/04/2020 Influenza Vaccine (FLU shot) (#1) 2022 CKD HGB USE SMARTSET 90870 01/30/202301/30, 01/30/2022, 01/29/2022, Additional history exists GFR 02/19/2023 08/19/2022, 03/07, 01/30/2022, Additional history exists HbA1c 02/19/2023 08/19/2022, 01/05, 01/23/2022, Additional history exists CKD PHOS USE SMARTSET 44856 08/20/202308/05, 05/22/2021, 11/18/2019, Additional history exists Colonoscopy Discontinued 01/01/2010 Colorectal Cancer Screening Discontinued Cologuard Discontinued Fecal Occult Blood Test Discontinued GARDASIL-HPV IMMUNIZATION SERIES Aged Out No longer eligible based on patient's age to complete this topic MENINGOCOCCAL (MENACTRA/MENVEO) Aged Out No longer eligible based on patient's age to complete this topic Sigmoidoscopy Discontinued documented as of this encounter Medical Devices Implanted Type Area Wool Grader Device Identifier Shelf Expiration Date Model / Serial / Lot Graft Marker Coronary - [id number] Implanted:Qty: 1 on 01/25/2022 by Meng Mayer MD, PhD at [place] [facility] [place] N/A: Aorta VM CARDIO VASCULAR 10/05/2023 [id number] / / [id number] documented as of this encounter Visit Diagnoses Diagnosis S/P CABG x 2 Postsurgical aortocoronary bypass status HTN, goal below 130/80 Unspecified essential hypertension History of non-ST elevation myocardial infarction (NSTEMI) Old myocardial infarction documented in this encounter Advance Directives Latest [...] Discussed due to patient's condition Care Teams Licensed Certified Orthotist Relationship Specialty Start Date End Date Xavier Miller MD [address] [place] [address] PCP - General Family Medicine 10/18/20 documented as of this encounter
--- OUTSIDE RECORDS SUMMARY | 2023-10-20 08:42 | External Medical Summary | Summary of Care ---
Author Name Unknown Organization [facility] Address [address] [place] [address] Phone [phone] Care Team Providers Care Matrix Supervisor Name Role Phone Boston Barajas MD Primary Care Provider [phone] Reason for Visit * Reason Comments Medication Refill Encounter Details Date Type Department Care Team (Late st Contact Info) Description 06/11/2023 Refill Family Practice [facility] [address] [place] [address] Boston Barajas MD [address] [place] [address] Hereditary and idiopathic peripheral neuropathy; MEDICATION USE AGREEMENT Allergies No known active allergiesdocumented as of this encounter (statuses as of 06/12/2023) Medications Medication Sig Dispensed Refills Start Date [...] needed for Severe Pain. 90 Tablet 0 06/12/2023 Active oxyCODONE HCl 10 MG Oral Tablet (Roxicodone)Shivani cations:Heredita ry and idiopathic peripheral neuropathy,MEDIC ATION USE AGREEMENT Take 1 Tablet by mouth every 8 hours as needed for Severe Pain. 90 Tablet 0 05/15/2023 06/11/2023 Discontinued (Refill) documented as of this encounter (statuses as of 06/12/2023) Active Problems Problem Noted Date Diagnosed Date Dyslipidemia, goal LDL below 70 01/07/2023 History of non-ST elevation myocardial infarctio n (NSTEMI) 02/03/2022 Coronary artery disease invo lving [place] coronary artery of [place] heart without angina pectoris 02/03/2022 S/P CABG [...] as of this encounter (statuses as of 06/12/2023) Resolved Problems Problem Noted Date Diagnosed Date [...] Action, Patient Files. Signed 07/26/09 [facility] [place] HTN, GOAL BELOW 130/80 05/04/200911/27 Overview: Per [...] as of this encounter (statuses as of 06/12/2023) Immunizations Name Administration Dates Next Due COVID-19 [...] Telephone Encounter - Boston Barajas MD - 06/12/2023 12:16 PM ESTSigned Prescriptions: Disp Refills oxyCODONE HCl 10 MG Oral Tablet (Roxicodon*90 Tab*0 Sig: Take 1 Tablet by mouth every 8 hours as needed for Severe Pain. Authorizing Provider: BOSTON BARAJAS * Telephone Encounter - Shirin Saravia [facility] - 06/12/2023 12:12 PM ESTPending Prescriptions: Disp Refills oxyCODONE HCl 10 MG Oral Tablet (Roxicodon*90 Tab*0 Sig: Take 1 Tablet by mouth every 8 hours as needed for Severe Pain. * Telephone Encounter - Shirin Saravia [facility] - 06/12/2023 12:12 PM EST I have reviewed the patients controlled substance dispensing history in the Prescription Drug Monitoring Program in compliance with the [facility] regulations before prescribing a controlled substance. PDMP checked on 06/12/2023. Pending Prescriptions: Disp Refills oxyCODONE HCl 10 MG Oral Tablet (Roxicodo*90 Tab*0 Sig: Take 1 Tablet by mouth every 8 hours as needed for Severe Pain. Last Visit: 08/19/2022 (in office), Visit date not found (telemedicine) Next Visit: 07/01/2023 Date medication was last filled: 05/17/23 Date medication is due for refill: 06/15/23 Pharmacy: [facility] Is this request for a controlled [...] 5.7 Please approve if appropriate. Thank You, Shirin Saravia [facility] Clinical Pharmacist Centralized Clinical Pharmacy Services (CCPS) (formerly Telepharmacy) [phone] 06/12/2023, 12:12 PM documented in this encounter Plan of Treatment Upcoming Encounters Date Type Department Care Team (Late st Contact Info) Description 07/01/2023 6:20 PM EDT Office Visit Family [facility] [address] [place] [address] Boston Barajas MD [address] [place] [...] shot) (#1) 2022 CKD HGB USE SMARTSET 56153 01/30/202301/30, 01/30/2022, 01/29/2022, Additional history exists GFR 02/19/2023 08/19/2022, 03/07, 01/30/2022, Additional history exists HbA1c 02/19/2023 08/19/2022, 01/05, 01/23/2022, Additional history exists CKD PHOS USE SMARTSET 74962 08/20/202308/05, 05/22/2021, 11/18/2019, Additional history exists Colonoscopy [...] this encounter Medical Devices Implanted Type Area Infection Prevention Practitioner Device Identifier Shelf Expiration Date Model / Serial / Lot Suture Steel 6 B&S19 M654g - [id number] Implanted:Qty: 2 on 01/25/2022 by Meng Mayer MD, PhD at OR [facility] [place] N/A: Sternum JNJ : [employer] 10/04/2026 M654G / / SHBBLE Suture Steel 6 B&S19 M654g - [id number] Implanted:Qty: 4 on 01/25/2022 by Meng Mayer MD, PhD at OR [facility] [place] N/A: Sternum [employer] : [employer] 11/04/2026 M654G / / [id number] Graft Marker Coronary - [id number] Implanted:Qty: 1 on 01/25/2022 by Meng Mayer MD, PhD at OR [facility] [place] N/A: Aorta VM CARDIO VASCULAR 10/05/2023 [id number] / / [id number] documented as of this encounter Visit Diagnoses [...] Discussed due to patient's condition Care Teams Matrix Supervisor Relationship Specialty Start Date End Date Boston Barajas MD [address] [place] [address] PCP - General Family Medicine 10/18/20 documented as of this encounter
--- OUTSIDE RECORDS SUMMARY | 2023-10-20 08:42 | External Medical Summary | Summary of Care ---
Author Name Unknown Organization [facility] Address [address] [facility] [place] [address] Phone [phone] Care Team Providers Care Asbestos Wire Finisher Name Role Phone Xavier Miller MD Primary Care Provider [phone] Encounter Details Date Type Department Care Team (Late st Contact Info) Description 07/08/2023 Orders Only PATIENT PORTAL DO NOT DELETE THIS DEPT USED BY NAE [facility]HU [id number] Allergies No known active allergiesdocumented as of this encounter (statuses as of 07/08/2023) Medications Medication Sig Dispensed Refills Start Date [...] as of this encounter (statuses as of 07/08/2023) Active Problems Problem Noted Date Diagnosed Date History of non-ST elevation myocardial infarctio n (NSTEMI) 02/03/2022 Coronary artery disease invo lving [place] coronary artery of [place] heart without angina pectoris 02/03/2022 S/P CABG [...] as of this encounter (statuses as of 07/08/2023) Resolved Problems Problem Noted Date Diagnosed Date [...] MEDICATION USE AGREEMENT 07/26/2009 Overview: Managed by [employer]. To view the Medication Usage Agreement, go to Action, Patient Files. Signed 07/26/09 [facility] HTN, GOAL BELOW 130/80 05/04/200911/27 Overview: Per [...] as of this encounter (statuses as of 07/08/2023) Immunizations Name Administration Dates Next Due COVID-19 [...] 01/21/2024 11:40 AM EDT Office Visit Family [facility] [address] [place] [address] Xavier Miller MD [address] [place] [address] Health Maintenance Due Date Last Done Comments [...] 03/28/2021, 09/01/2020, 08/04/2020 CKD HGB USE SMARTSET 49519 01/30/202301/30, 01/30/2022, 01/29/2022, Additional history exists GFR 02/19/2023 08/19/2022, 03/07, 01/30/2022, Additional history exists HbA1c 02/19/2023 08/19/2022, 01/05, 01/23/2022, Additional history exists CKD PHOS USE SMARTSET 03271 08/20/202308/05, 05/22/2021, 11/18/2019, Additional history exists Influenza [...] this encounter Medical Devices Implanted Type Area Payroll Lead Device Identifier Shelf Expiration Date Model / Serial / Lot Suture Steel 6 B&S19 M654g - [id number] Implanted:Qty: 2 on 01/25/2022 by Meng Mayer MD, PhD at [place] [facility] [place] N/A: Sternum JNJ : [employer] 10/04/2026 M654G / / SHBBLE Suture Steel 6 B&S19 M654g - [id number] Implanted:Qty: 4 on 01/25/2022 by Meng Mayer MD, PhD at [place] [facility] [place] N/A: Sternum JNJ : [employer] 11/04/2026 M654G / / [id number] Graft Marker Coronary - [id number] Implanted:Qty: 1 on 01/25/2022 by Meng Mayer MD, PhD at [place] [facility] [place] N/A: Aorta VM CARDIO VASCULAR 10/05/2023 [id number] / / [id number] documented as of this encounter Advance Directives [...] Discussed due to patient's condition Care Teams Asbestos Wire Finisher Relationship Specialty Start Date End Date Xavier Miller MD [address] [place] [address] PCP - General Family Medicine 10/18/20 documented as of this encounter
--- OUTSIDE RECORDS SUMMARY | 2023-10-20 08:42 | External Medical Summary | Summary of Care ---
Author Name Unknown Organization [facility] Address [address] [place] [address] Phone [phone] Care Team Providers Care Thumb Sewer Name Role Phone Xavier Miller MD Primary Care Provider [phone] Reason for Visit * Reason Comments Follow Up Pt here for 6 month follow up, denies any concerns Encounter Details Date Type Department Care Team (Late st Contact Info) Description 07/01/2023 6:20 PM EDT Office Visit Family Practice [facility] [address] [place] [address] Xavier Miller MD [address] [place] [address] Lumbar degenerative disc disease*; Hereditary and idiopathic peripheral neuropathy; MEDICATION USE AGREEMENT; HTN, goal below 130/80; Type 2 diabetes mellitus with hemoglobin A1c goal of less than 8.0% ([facility]); Stage 3a chronic kidney disease (HCC); History of non-ST elevation myocardial infarction (NSTEMI); S/P CABG x 2 Allergies No known active allergiesdocumented as of this encounter (statuses as of 07/01/2023) Medications Medication Sig Dispensed Refills Start Date [...] Pain, Severe. 120 Tablet 0 07/01/2023 Active oxyCODONE HCl 10 MG Oral Tablet (Roxicodone)Shivani cations:Heredita ry and idiopathic peripheral neuropathy,MEDIC ATION USE AGREEMENT Take 1 Tablet by mouth every 8 hours as needed for Severe Pain. 90 Tablet 0 06/12/2023 07/01/2023 Discontinued (Refill) documented as of this encounter (statuses as of 07/01/2023) Active Problems Problem Noted Date Diagnosed Date History of non-ST elevation myocardial infarctio n (NSTEMI) 02/03/2022 Coronary artery disease invo lving [place] coronary artery of [place] heart without angina pectoris 02/03/2022 S/P [...] as of this encounter (statuses as of 07/01/2023) Resolved Problems Problem Noted Date Diagnosed Date [...] Action, Patient Files. Signed 07/26/09 [facility] HTN, GOAL BELOW 130/80 05/04/200911/27 Overview: Per HTN Taxonomy. Type 2 diabetes mellitus wit h hemoglobin A1c goal of less than 7.0% 01/17/2009 02/03/2022 Overview: ICD-10 update of inactive term Mixed dyslipidemia 09/22/200803/23/ 9 Overview: Per Lipid Taxonomy. HTN, goal below 140/90 09/22/200802/03 Overview: Per HTN Taxonomy. Lumbago 09/22/2008 10/20/2018 Overview: Multilevel disc degeneration INFORMATION 09/22/2008 04/16/2019 Overview: Partial tear of left plantar aponeurosis, see podiatry documented as of this encounter (statuses as of 07/01/2023) Immunizations Name Administration Dates Next Due COVID-19 [...] on file documented as of this encounter Last Filed Vital Signs Vital Sign Reading Time Taken Comments Blood Pressure 142/84 07/01/2023 6:29 PM EDT Pulse 76 07/01/2023 6:29 PM EDT Temperature 36 C (96.8 F) 07/01/2023 6:29 PM EDT Respiratory Rate 18 07/01/2023 6:29 PM EDT Oxygen Saturation - - Inhaled Oxygen Concentration - - Weight 61.2 kg (135 lb) 07/01/2023 6:29 PM EDT Height 177.8 cm (5' 10") 07/01/2023 6:29 PM EDT Body Mass Index 19.37 07/01/2023 6:29 PM EDT documented in this encounter Functional Status Functional Status Response [...] No 01/22/2022 documented as of this encounter Progress Notes * Xavier Miller MD - 07/01/2023 11:39 PM EDT SUBJECTIVE: Aly Shay is a 78 year old male. Chief Complaint Patient presents with Follow Up Pt here for 6 month follow up, denies any concerns HPI: No new issues. Only concern is that on some days he has to take an extra pain pill. He wonders if Ican increase the amount of pain pills he is alloted per month. No other concerns. Patient Active Problem List Diagnosis Code Dyslipidemia E78.5 Hereditary and idiopathic neuropathy G60.9 Type 2 diabetes mellitus with hemoglobin A1c goal of less than 8.0% (HCC) E11.9 Stage 3a chronic kidney disease (HCC) N18.31 HTN, goal below 130/80 I10 BPH with obstruction/lower urinary tract symptoms N40.1, N13.8 Lumbar degenerative disc disease M51.36 History of non-ST elevation myocardial infarction (NSTEMI) I25.2 Coronary artery disease involving [place] coronary artery of [place] heart without angina pectoris I25.10 S/P CABG x 2 Z95.1 Current Outpatient Medications Medication Sig Dispense Refill Cyanocobalamin (B-12-SL) [address] 1,000 mcg under the tongue daily. 90 Tab 3 ProAir HFA 108 (90 Base) MCG/ACT Inhalation Aerosol Solution Inhale 2 Puffs by mouth in the morningand 2 Puffs at noon and 2 Puffs in the evening and 2 Puffs before bedtime. 18 g 2 Potassium Chloride ER 10 MEQ Oral Tablet Extended Release Take 1 Tablet by mouth in the morning. 90Tablet 3 Atorvastatin Calcium 80 MG Oral Tablet (Lipitor) TAKE 1 TABLET DAILY 90 Tablet 2 Lisinopril 2.5 MG Oral Tablet (Prinivil) Take 1 Tablet by mouth in the morning. 90 Tablet 3 Clopidogrel Bisulfate 75 MG Oral Tablet (pLAVix) Take 1 Tablet by mouth in the morning. 90 Tablet 3 metFORMIN HCl 1000 MG Oral Tablet (Glucophage) TAKE 1 TABLET TWICE A DAY WITH BREAKFAST AND DINNER 180 Tablet 1 Metoprolol Succinate ER 50 MG Oral Tablet Extended Release 24 Hour (toPROL XL) Take 1 Tablet by mouth in the morning and 1 Tablet before bedtime. 180 Tablet 3 Tamsulosin HCl 0.4 MG Oral Capsule (Flomax) TAKE 1 CAPSULE DAILY 90 Capsule 3 oxyCODONE HCl 10 MG Oral Tablet (Roxicodone) Take 1 Tablet by mouth every 6 hours as needed for Pain, Severe. 120 Tablet 0 Clopidogrel Bisulfate 75 MG Oral Tablet (pLAVix) Take 1 Tablet by mouth in the morning. 14 Tablet 0 No current facility-administered medications for this visit. Allergy: Review of patient's allergies indicates: No Known Allergies OBJECTIVE: BP 142/84 | Pulse 76 | Temp 36 C (96.8 F) (Tympanic) | Resp 18 | Ht 1.778 m (5' 10") | Wt 61.2 kg (135 lb) | BMI 19.37 kg/m | BSA 1.74 m General: alert, healthy, and no distress Head: Normocephalic, No masses, lesions, tenderness or abnormalities Neck: supple, no adenopathy, no bruits, thyroid normal size, non-tender, without nodularity Lungs: chest symmetric with normal AP diameter, no chest deformities noted, no chest wall tenderness, lungs clear to auscultation Heart: regular rate & rhythm, no murmur, and no gallops Extremities: less than 2 second capillary refill, no joint deformities, effusion, or inflammation Neuro Exam: alert & oriented x 3 with fluent speech, no focal motor/sensory deficits, gait normal, reflexes normal and symmetric Skin: skin color, texture, turgor are normal, no rashes or significant lesions ASSESSMENT AND PLAN: (M51.36) Lumbar degenerative disc disease (primary encounter diagnosis) Plan: wants more pain pills (G60.9) Hereditary and idiopathic peripheral neuropathy Plan: oxyCODONE HCl 10 MG Oral Tablet (Roxicodone) (RE5722) MEDICATION USE AGREEMENT Plan: oxyCODONE HCl 10 MG Oral Tablet (Roxicodone) (I10) HTN, goal below 130/80 Plan: stable (E11.9) Type 2 diabetes mellitus with hemoglobin A1c goal of less than 8.0% (HCC) Plan: HEMOGLOBIN A1C (N18.31) Stage 3a chronic kidney disease (HCC) Plan: BASIC METABOLIC PANEL (I25.2) History of non-ST elevation myocardial infarction (NSTEMI) Plan: continue med mgmt (Z95.1) S/P CABG x 2 Plan: see above Follow up in 6 month(s). No other complaints were offered at this time. Xavier Miller MD documented in this encounter Nursing Notes * Queenie Rose LPN - 07/01/2023 6:29 PM EDT The patient has been properly identified by confirmation of name and date of . Chief Complaint Patient presents with Follow Up Pt here for 6 month follow up, denies any concerns documented in this encounter Plan of Treatment Scheduled Orders Name Type Priority Associated Diagnoses Orde r Schedule HEMOGLOBIN A1C Lab Routine Type 2 diabetes mellitus with hemoglobin A1c goal of less than 8.0% (HCC) Expected: 07/01/2023 (Approximate), Expires: 06/30/2024 BASIC METABOLIC PANEL Lab Routine Stage 3a chronic kidney disease (HCC) Expected: 07/01/2023 (Approximate), Expires: 06/30/2024 Health Maintenance Due Date Last Done Comments [...] shot) (#1) 2022 CKD HGB USE SMARTSET 88041 01/30/202301/30, 01/30/2022, 01/29/2022, Additional history exists GFR 02/19/2023 08/19/2022, 03/07, 01/30/2022, Additional history exists HbA1c 02/19/2023 08/19/2022, 01/05, 01/23/2022, Additional history exists CKD PHOS USE SMARTSET 78705 08/20/202308/05, 05/22/2021, 11/18/2019, Additional history exists Colonoscopy [...] this encounter Medical Devices Implanted Type Area Director Women Device Identifier Shelf Expiration Date Model / Serial / Lot Suture Steel 6 B&S19 M654g - [id number] Implanted:Qty: 2 on 01/25/2022 by Meng Mayer MD[place] [facility] [place]: Sternum JN[place] : [employer] 10/04/2026 M654G / / SHBBLE Suture Steel 6 B&S19 M654g - [id number] Implanted:Qty: 4 on 01/25/2022 by Meng Mayer MD, PhD [place] [facility] [place]A: Sternum JNJ : [employer] 11/04/2026 M654G / / [id number] Graft Marker Coronary - [id number] Implanted:Qty: 1 on 01/25/2022 by Meng Mayer MD, PhD [place] [facility] [place]A: Aorta VM CARDIO VASCULAR 10/05/2023 [id number] / / [id number] documented as of this encounter Visit Diagnoses Diagnosis Lumbar degenerative disc disease- Primary Degeneration of lumbar or lumbosacral intervertebral disc Hereditary and idiopathic peripheral neuropathy Unspecified hereditary and idiopathic peripheral neuropathy MEDICATION USE AGREEMENT HTN, goal below 130/80 Unspecified essential hypertension Type 2 diabetes mellitus with hemoglobin A1c goal of less than 8.0% (HCC) Stage 3a chronic kidney disease (HCC) History of non-ST elevation myocardial infarction (NSTEMI) Old myocardial infarction S/P CABG x 2 Postsurgical aortocoronary bypass status documented in this encounter Advance Directives Latest [...] Discussed due to patient's condition Care Teams Thumb Sewer Relationship Specialty Start Date End Date Xavier Miller MD [address] [facility] [place] [address] PCP - General Family Medicine 10/18/20 documented as of this encounter
--- OUTSIDE RECORDS SUMMARY | 2023-10-20 08:42 | External Medical Summary ---
Author Name Unknown Address Unknown Organization [id number]:[facility]ATORY [facility] [place] - [address] [facility] [place] [address] Laboratory Report Ordering Provider Test Date Status YEFRI COOPER 07/11/2023 11:46:31 Final Observation Date Value Abnormality Reference (Units ) Status Triglyceride 07/11/2023 11:46:31 92 <=174 ( mg/dL) Final Triglyceride Reference Range s (mg/dL):
<150 Acceptable
150-174 Borderline high
175-499 High
>=500 Very high Cholesterol 07/11/2023 11:46:31 112 <200 (mg /dL) Final Total Cholesterol Reference Ranges (mg/dL):
<200 Desirable
200-239 Borderline high
>=240 High HDL 07/11/2023 11:46:31 50 >39 (mg/dL ) Final HDL Cholesterol Reference Ra nges (mg/dL):
>=60 High (Desirable)
<50 Low (Undesirable) For Females
<40 Low (Undesirable) For Males NON-HDL CHOLESTEROL 07/11/2023 11:46:31 62 <=159 (mg/dL) Final Non-HDL Cholesterol Referenc e Range (mg/dL):
<100 Target level for high risk ASCVD patient
<130 Optimal for general population
130-159 Near optimal for general population
160-189 Borderline High
190-219 High
>=220 Very High LDL, (calculated) 07/11/2023 11:46:31 44 <= 129 (mg/dL) Final LDL Cholesterol Reference Ra nges (mg/dL):
<70 Target level for high risk ASCVD patient
<100 Optimal for general population
100-129 Near optimal for general population
130-159 Borderline high
160-189 High
>=190 Very high Performing Location LAB[facility]ATORY [facility] - [address] [facility] [address]
--- OUTSIDE RECORDS SUMMARY | 2023-10-20 08:42 | External Medical Summary ---
Author Name Unknown Address Unknown Organization [id number]:[facility] - [address] [place] [address] Laboratory Report Ordering Provider Test Date Status STEFFANIE CHRISTIANSON 07/11/2023 11:46:31 Final Observation Date Value Abnormality Reference (Units ) Status Hemoglobin 07/11/2023 11:46:31 12.6 Below low normal 14 .0-16.8 (g/dL) Final Performing Location [facility] [address] - [address] [place] [address]
--- OUTSIDE RECORDS SUMMARY | 2023-10-20 08:42 | External Medical Summary | Summary of Care ---
Author Name Unknown Organization [facility] Address [address] [place] [address] Phone [phone] Care Team Providers Care Floor Runner Name Role Phone Boston Barajas MD Primary Care Provider [phone] Reason for Visit * Reason Comments eRx-Medication Refill Encounter Details Date Type Department Care Team (Late st Contact Info) Description 05/13/2023 Refill Family Practice [facility] [address] [place] [address] Boston Barajas MD [address] [place] [address] Allergies No known active allergiesdocumented as of this encounter (statuses as of 05/14/2023) Medications Medication Sig Dispensed Refills Start Date [...] CAPSULE DAILY 90 Capsule 3 05/14/2023 Active Tamsulosin HCl 0.4 MG Oral Capsule (Flomax) TAKE 1 CAPSULE DAILY 90 Capsule 3 05/04/2022 4 Discontinued documented as of this encounter (statuses as of 05/14/2023) Active Problems Problem Noted Date Diagnosed Date Dyslipidemia, goal LDL below 70 01/07/2023 History of non-ST elevation myocardial infarctio n (NSTEMI) 02/03/2022 Coronary artery disease invo lving [place] coronary artery of [place] heart without angina pectoris 02/03/2022 S/P CABG [...] as of this encounter (statuses as of 05/14/2023) Resolved Problems Problem Noted Date Diagnosed Date [...] Action, Patient Files. Signed 07/26/09 [facility] HTN, GOAL BELOW 130/80 05/04/200911/27 Overview: Per [...] as of this encounter (statuses as of 05/14/2023) Immunizations Name Administration Dates Next Due COVID-19 [...] encounter Miscellaneous Notes * Telephone Encounter - Ita Ramachandran RPh - 05/14/2023 4:47 PM ESTSigned Prescriptions: Disp Refills Tamsulosin HCl 0.4 MG Oral Capsule (Flomax)90 Cap*3 Sig: TAKE 1 CAPSULE DAILYAuthorizing Provider: BOSTON BARAJAS User: ITA RAMACHANDRAN documented in this encounter Plan of Treatment Upcoming Encounters Date Type Department Care Team (Late st Contact Info) Description 07/01/2023 6:20 PM EDT Office Visit Family Practice [facility] [address] [place] [address] Boston Barajas MD [address] [place] [address] Health Maintenance Due Date Last Done Comments [...] shot) (#1) 2022 CKD HGB USE SMARTSET 26633 01/30/202301/30, 01/30/2022, 01/29/2022, Additional history exists GFR 02/19/2023 08/19/2022, 03/07, 01/30/2022, Additional history exists HbA1c 02/19/2023 08/19/2022, 01/05, 01/23/2022, Additional history exists CKD PHOS USE SMARTSET 44163 08/20/202308/05, 05/22/2021, 11/18/2019, Additional history exists Colonoscopy Discontinued 01/01/2010 Colorectal Cancer Screening Discontinued Cologuard Discontinued Fecal Occult Blood Test Discontinued GARDASIL-HPV IMMUNIZATION SERIES Aged Out No longer eligible based on patient's age to complete this topic MENINGOCOCCAL (MENACTRA/MENVEO) Aged Out No longer eligible based on patient's age to complete this topic Sigmoidoscopy Discontinued documented as of this encounter Medical Devices Implanted Type Area Wood Carver Device Identifier Shelf Expiration Date Model / Serial / Lot Graft Marker Coronary - [id number] Implanted:Qty: 1 on 01/25/2022 by Meng Mayer MD, PhD [place] [facility] [place]A: Aorta VM CARDIO VASCULAR 10/05/2023 [id number] / / [id number] documented as of this encounter Advance Directives [...] Discussed due to patient's condition Care Teams Floor Runner Relationship Specialty Start Date End Date Boston Barajas MD [address] [facility] [place] [address] PCP - General Family Medicine 10/18/20 documented as of this encounter
[2023-10-20] MEDS: HYDROmorphone INJ 1 MG/ML SYRINGE IV STA ×3 (08:56→12:13)
[2023-10-20 09:19] LABS: Basophils # (auto) 0.03 K/uL (0.00-0.20); Basophils % (auto) 0.3 %; Eosinophils # (auto) 0.03 K/uL (0.00-0.50); Eosinophils % (auto) 0.3 %; Hematocrit (blood only) 30.9 % (42.0-52.0); Hemoglobin 10.2 g/dl (14.0-18.0); Immature Granulocytes # (auto) 0.11 K/uL (0.01-0.20); Immature Granulocytes % (auto) 1.2 %; Lymphocytes # (auto) 0.55 K/uL (1.20-3.40); Lymphocytes % (auto) 6.1 %; Mean Corpuscular Hemoglobin 30.4 pg (25.0-34.0); Mean Corpuscular Volume 92.2 fL (80.0-100.0); Mean Platelet Volume 11.4 fL (9.4-12.4); Monocytes # (auto) 0.44 K/uL (0.11-0.59); Monocytes % (auto) 4.9 %; Neutrophils # (auto) 7.86 K/uL (1.40-6.50); Neutrophils % (auto) 87.2 %; Platelet Count 180 K/uL (130-400); RDW Coefficient of Variation 13.3 % (11.5-14.5); RDW Standard Deviation 44.8 fL (36.4-46.3); Red Blood Count 3.35 M/uL (4.70-6.10); White Blood Count 9.02 K/ul (4.8-10.8)
--- NOTE | 2023-10-20 09:23 | XRay Report ---
XR tibia fibula RT 2V CLINICAL HISTORY: Right calf pain. COMPARISON: None FINDINGS: Surgical clips within the medial right lower leg are incidentally noted. There is no fract ure within the right tibia or fibula. No osseous lesions are identified. IMPRESSION: No fractures within the right tibia or fibula. ACT 112: Negative or not required by law. Electronically signed by: Kurtis Eckert M.D. 10/20/2023 9:21 AM
[2023-10-20 09:25] LABS: Anion Gap 10 (3-11); BUN Creatinine Ratio 19.2 (10-20); Blood Urea Nitrogen 20 mg/dl (6-23); Calcium 9.7 mg/dl (8.6-10.3); Carbon Dioxide 24 mmol/L (21-32); Chloride 106 mmol/L (98-107); Creatine Kinase 44 U/L (30-223); Est GFR (African American) 79.9 ml/min; Est GFR (Non-African American) 68.9 ml/min; Glucose 178 mg/dl (70-99(Fasting)); Potassium 3.4 mmol/L (3.5-5.1); Sodium 140 mmol/L (136-145)
[2023-10-20 09:36] LABS: Partial Thromboplastin Ratio 0.9; Partial Thromboplastin Time 25 Seconds (21-31); Prothrombin Time 10.9 Seconds (9.0-12.0)
--- NOTE | 2023-10-20 10:17 | Ultrasound Report ---
RIGHT LOWER EXTREMITY VENOUS DOPPLER CLINICAL HISTORY: Right calf swelling, possibly hematoma COMPARISON STUDY: No previous studies for comparison. TECHNIQUE: Sonography of the deep venous system of the right lower extremity was performed. Compress ion and augmentation were evaluated. FINDINGS: The right common femoral, superficial femoral and popliteal veins were compressible. Augme ntation was normal. Flow was shown within the deep calf vessels. The proximal to mid right calf, ther e is a complex intramuscular fluid collection which measures 14.2 x 4.8 x 2.1 cm. This contains no co elmer flow. IMPRESSION: 1. No evidence of deep venous thrombus within the right lower extremity. 2. 14.2 x 4.8 x 2.1 cm right calf intramuscular fluid collection suggestive of a hematoma. A follow-u p ultrasound in 3 months to ensure resolution is recommended. ACT 112: Negative or not required by law. Electronically signed by: Kurtis Eckert M.D. 10/20/2023 10:16 AM
[2023-10-20] MEDS: LABETALOL HCL IV 5 MG/ML 20ML IV STA (12:12)
[2023-10-20] MEDS: OPTIRAY 320 100ml IV ONE (12:42)
--- NOTE | 2023-10-20 12:50 | History & Physical Report ---
Date of Service October 20, 2023 Assessment & Plan (1) Pain of right calf: (2) Hypertensive urgency: (3) Hypokalemia: Anita Shay is a 78y/o M with PMHx of DM type II, dyslipidemia, HTN, CAD, CKD stage III, BPH w/ LUTS, lumbar DDD, neuropathy, history of NSTEMI s/p CABG x2 [on ASA and Plavix] and other problems listed below who presented to the ED for evaluation secondary to right calf pain and was found to have a right calf intramuscular hematoma. Right Calf Pain Right Calf Hematoma Pt presenting with severe R calf pain, inability to walk 2/2 to the pain. Pt was taking 5mg oxycodone IR IMPORT MANAGER w/ no relief - prompting arrival today. Admitting R tib/fib XR showing NO acute fractures or osseous lesions. Admitting RLE venous doppler with NO evidence of DVT, but shows the following: * 14.2 x 4.8 x 2.1 cm R calf intramuscular fluid collection suggestive of a hematoma. Orthopedic surgery consulted - Dr. Rodriguez recommended obtaining CT of R leg w/ contrast. RLE CT w/ heterogenous soft tissue swelling in the gastrocnemius region compatible with intramuscular hematoma, no abscess or joint effusion seen. Spoke w/ Dr. Rodriguez over [employer]. Pt was evaluated by one of the ortho PA- Cs. No surgical intervention is warranted at this time per our discussion - diet ordered for pt. No evidence of leukocytosis; Hgb 10.2 on admission, MCV WNL (baseline Hgb ~12 per chart review) - Repeat CBC in AM. Pain regimen in place, PT ordered; also ordered topical lidocaine patch and ice application for R calf region. Hypertensive Urgency H/O Hypertension BP significantly elevated at 215/125 upon presentation. Pt received 10mg IV labetalol in ED --> BP down to 194/126 at time of admission. Repeat BP ~1:40PM while seeing the patient in the ED was 176/103 - improving. PRN 5mg IV hydralazine Q4H for SBP>160. Pt taking 50mg metoprolol succinate BID and 2.5mg lisinopril daily IMPORT MANAGER. Pt took his BP medications this AM; will continue his metoprolol and lisinopril. Continuous cardiac monitoring in place, closely monitor BP and treat PRN. Hypokalemia Potassium 3.4 on admission; no other acute electrolyte abnormalities noted on admitting BMP. Ordered 40mEq PO potassium chloride to be given in the ED. Pt taking 10mEq potassium chloride daily IMPORT MANAGER - will continue tomorrow AM. CMP in AM - monitor and replete potassium PRN; continuous cardiac monitoring in place. Coronary Artery Disease (CAD) H/O NSTEMI S/P CABG x 2 [2021] Pt taking ASA 81mg daily and Plavix 75mg daily IMPORT MANAGER. Will hold ASA and Plavix for now. DM Type II Pt taking metformin IMPORT MANAGER - will hold while admitted. Hgb A1c 5.7 on 07/11/23, will repeat Hgb A1c in AM - follow. BSG 178 on admission; Initiate SSI regimen, BSG checks ACHS. CKD Stage III Creatinine 1.04 on admission (baseline creatinine ~1.2-1.3 per chart review). CMP in AM, monitor renal function closely; avoid nephrotoxic medications when able. Other Chronic Medication Conditions: Dyslipidemia and BPH w/ LUTS --> Pt can continue taking his IMPORT MANAGER atorvastatin and tamsulosin. DVT Prophylaxis: SCDs - Only applied to LEFT leg at this time. Code Status: FULL CODE PCP: Xavier Miller MD Disposition: Admit to Med/Surg w/ Telemetry Patient seen in collaboration with Dr. Fleming. Please see addendum. I spent a total of 60 minutes coordinating, documenting, and providing care for this patient excluding time spent in the performance of separately billed services. This included personally reviewing all current laboratories and imaging studies, medical reconciliation, outpatient chart review and discussion with specialists. This chart was completed in part utilizing Speech Voice Recognition Software. Grammatical errors, random word insertions, pronoun errors, and incomplete sentences are an occasional consequence of this system due to software limitations, ambient noise, and hardware issues. Any formal questions or concerns about the content, text, or information contained within the body of this dictation should be directly addressed to the provider for clarification. History of Present Illness Chief Complaint: R Calf Pain Primary Care Provider: Xavier Miller MD Aly Shay is a 78y/o M with PMHx of DM type II, dyslipidemia, HTN, CAD, CKD stage III, BPH w/ LUTS, lumbar DDD, neuropathy, history of NSTEMI s/p CABG x2 [on ASA and Plavix] and other problems listed below who presented to the ED for evaluation secondary to right calf pain. History obtained from patient and associated chart review. Patient reports that he felt a "tearing sensation" in his right calf approximately 4 days ago when he was attempting to move a refrigerator. He states the pain in his right calf has been worsening since then; now he is reporting severe pain. He reports that he is unable to ambulate appropriately due to the amount of pain he is experiencing. He has not been using any assistive devices at home, but patient states he has to hold onto nearby objects to help stabilize himself when getting around. Any movement of his right ankle or right knee causes excruciating pain. He also notes significant swelling of his right calf region, which he states has not improved much with application of ice at home. He does also note some bruising of his upper right calf region. Patient takes oxycodone 10mg approximately 3-4 times a day for chronic lower back pain, which he states has not helped at all with the right calf pain. He is currently taking aspirin and Plavix daily, as he had an NSTEMI 2 years ago and is now s/p CABG x 2. He denies any right ankle pain at this time. He has not been using any other pain medications at home, such as Tylenol or Motrin. He denies any SOB, chest pain, abdominal pain, nausea/vomiting or urinary/bowel habit issues. He reports adequate hydration and nutritional status. Allergies Allergy/AdvReac Type Severity Reaction Status Date / Time No Known Allergies Allergy Verified 02/07/22 18:42 Home Medications Medication Instructions Recorded Confirmed Type atorvastatin 80 mg tablet 80 mg PO DAILY 01/21/22 10/20/23 History metformin 1,000 mg tablet 1,000 mg PO BIDM 01/21/22 10/20/23 History tamsulosin 0.4 mg capsule (Flomax) 0.4 mg PO DAILY 01/21/22 10/20/23 History aspirin 81 mg tablet,delayed 81 mg PO QAM 02/07/22 10/20/23 History release clopidogrel 75 mg tablet 75 mg PO QAM 02/07/22 10/20/23 History cyanocobalamin (vitamin B-12) 1,000 mcg sublingual DAILY 02/07/22 10/20/23 History 1,000 mcg sublingual tablet potassium chloride 10 mEq 10 meq PO QAM 02/07/22 10/20/23 History tablet,extended release metoprolol succinate 50 mg 50 mg PO BID 10/20/23 10/20/23 History tablet,extended release 24 hr oxycodone 10 mg tablet 10 mg PO Q6H PRN Pain 10/20/23 10/20/23 History ferrous sulfate 325 mg (65 mg 325 mg PO QAM #30 tabs 10/28/23 Rx iron) tablet,delayed release lisinopril 20 mg tablet 20 mg PO QAM #30 tabs 10/28/23 Rx Past Med/Surg History Problem List Hypertensive urgency (Acute) Intractable pain (Acute) Hematoma of right lower leg (Acute) Hypokalemia Pain of right calf Hypertensive urgency Elevated troponin (Acute) Exertional chest pain (Acute) Hypertension (Acute) BPH (benign prostatic hyperplasia) HTN (hypertension) HLD (hyperlipidemia) Benign essential hypertension (Acute) Atherogenic dyslipidemia NSTEMI (non-ST elevated myocardial infarction) (Acute) Chest pain Medical History Chronic back pain STEMI (ST elevation myocardial infarction) Family History Denies family history of Heart disease Social History Smoking Status: Former smoker Tobacco Type: Cigarettes Second Hand Exposure: No; Do You Dip or Chew Tobacco: No; Hx Alcohol Use: No Hx Substance Use: No Preferred Language: South Sudanese Communication Ability: Effective Traffic Court Magistrate Required: No Beliefs That Will Affect Care: None marital status: Current Living Situation: Spouse Feels Safe at Home: Yes Assistive Devices: None Review of Systems Review of Systems: At least ten systems reviewed and negative, except as noted in the HPI. Physical Exam Physical Exam: General: NAD, sitting up in bed, pleasant, conversing appropriately, does not appear overtly uncomfortable. A+Ox3, euthymic affect. HEENT: Normocephalic, atraumatic. Conjunctivae normal, anicteric sclerae. External ear and nose normal, oropharynx normal. Respiratory: Normal respiratory effort, lungs clear to auscultation, no wheeze, rales, rhonchi. No accessory muscle use. Cardiovascular: Regular rate, rhythm, no murmur, normal peripheral pulses. Vessels: No JVD. Abdomen/GI: Normal bowel sounds, soft, nontender, no hepatosplenomegaly. Extremities/Musculoskeletal: No cyanosis or clubbing, R calf overtly swollen, severe tenderness to palpation of R calf, pain w/ movement of R knee and ankle. Neurologic: PERRL, EOMI, accommodation nl, no face palsy, no dysarthria, CN's II-XI not formally tested but appear grossly intact bilaterally. Skin: No rashes, normal color, warm/dry. Some mild bruising overlying the R calf region, more on the upper aspect. Results & Data Results & Data Vital Signs (Past 12 Hours) Vital Signs Temp Pulse Resp BP BP Pulse Ox O2 Del Method 10/20/23 12:12 101 H 194/126 H 10/20/23 12:00 84 H 194/126 H 96 Room Air 10/20/23 08:58 101 H 10/20/23 08:22 36.5 C 128 H 18 215/125 H 96 Room Air Laboratory Results Short CBC 10/20/23 Range/Units 08:54 WBC 9.02 (4.8-10.8) K/ul Hgb 10.2 L (14.0-18.0) g/dl Hct 30.9 L (42.0-52.0) % Plt Count 180 (130-400) K/uL BMP 10/20/23 08:54 Sodium 140 Potassium 3.4 L Chloride 106 Carbon Dioxide 24 BUN 20 Creatinine 1.04 Glucose 178 H Calcium 9.7 Cardiac Enzymes 10/20/23 Range/Units 08:54 Total Creatine Kinase 44 (30-223) U/L Diagnostic Findings Tibia/Fibula X-Ray 10/20/23 08:34 XR tibia fibula RT 2V CLINICAL HISTORY: Right calf pain. COMPARISON: None FINDINGS: Surgical clips within the medial right lower leg are incidentally noted. There is no fracture within the right tibia or fibula. No osseous lesions are identified. IMPRESSION: No fractures within the right tibia or fibula. ACT 112: Negative or not required by law. Electronically signed by: Kurtis Eckert M.D. 10/20/2023 9:21 AM Venous Doppler Study 10/20/23 08:34 RIGHT LOWER EXTREMITY VENOUS DOPPLER CLINICAL HISTORY: Right calf swelling, possibly hematoma COMPARISON STUDY: No previous studies for comparison. TECHNIQUE: Sonography of the deep venous system of the right lower extremity was performed. Compression and augmentation were evaluated. FINDINGS: The right common femoral, superficial femoral and popliteal veins were compressible. Augmentation was normal. Flow was shown within the deep calf vessels. The proximal to mid right calf, there is a complex intramuscular fluid collection which measures 14.2 x 4.8 x 2.1 cm. This contains no color flow. IMPRESSION: 1. No evidence of deep venous thrombus within the right lower extremity. 2. 14.2 x 4.8 x 2.1 cm right calf intramuscular fluid collection suggestive of a hematoma. A follow-up ultrasound in 3 months to ensure resolution is recommended. ACT 112: Negative or not required by law. Electronically signed by: Kurtis Eckert M.D. 10/20/2023 10:[address] 10/20/23 11:25 CT tib/fib RT w con CLINICAL HISTORY: right calf swelling, hematoma. Request of ortho TECHNIQUE: Multidetector row helical CT of the right tibia and fibula was performed with intravenous contrast. Coronal and sagittal reformations were obtained. Automated dose lowering techniques and/or adjustment according to patient size were utilized for this examination. CT DOSE: 1244.39 mGy.cm Comparison: Comparison is made to tibia and fibular radiographs 10/20/2023 FINDINGS: The osseous structures are without fracture or dislocation. The joint spaces are maintained. No joint effusion is seen. Heterogeneous soft tissue swelling is seen in the lateral gastrocnemius. IMPRESSION: Heterogeneous soft tissue swelling is seen in the gastrocnemius region compatible with intramuscular hematoma. No abscess is seen. ACT 112: Negative or not required by law. Electronically signed by: Yazan Iqbal M.D. 10/20/2023 1:07 PM Medications Administered Discontinued Medications Hydromorphone HCl (Hydromorphone Inj 1 Mg/Ml Syringe) 1 mg IV NOW STA Stop: 10/20/23 08:35 Last Admin: 10/20/23 08:56 Dose: 1 mg Documented By: GRICEL Hydromorphone HCl (Hydromorphone Inj 1 Mg/Ml Syringe) 1 mg IV NOW STA Stop: 10/20/23 10:09 Last Admin: 10/20/23 10:43 Dose: 1 mg Documented By: JN Hydromorphone HCl (Hydromorphone Inj 1 Mg/Ml Syringe) 1 mg IV NOW STA Stop: 10/20/23 11:54 Last Admin: 10/20/23 12:13 Dose: 1 mg Documented By: Labetalol HCl (Labetalol Hcl Iv 5 Mg/Ml 20ml) 10 mg IV NOW STA Stop: 10/20/23 11:54 Last Admin: 10/20/23 12:12 Dose: 10 mg Documented By: MR Co-signed By: VALENTIN ECG Additional Comments: Admitting EKG showing sinus rhythm with first-degree AV block, HR 77bpm and QTc interval 430ms. Code Status & VTE Plan Code Status FULL CODE VTE Prophylaxis Plan VTE Prophylaxis will be ordered: Yes Supervising Physician Co-Signing Physician Notes delayed entry date of service noted above Attending Addendum: Case reviewed with the advanced practitioner. I have personally performed a history and physical examination on the patient. I have reviewed the advanced practitioner's documentation on the date of service referenced in note, and I agree with, and take responsibility for the plan of care. please refer to her notes for full details patient seen and examined, records reviewed by myself as well total time spent ~30 minutes including interview, physical exam, reviewing the chart, labs, coordinating care, formulating plan with NOHEMY. Alfred Fleming MD
--- NOTE | 2023-10-20 13:08 | CT Scan Report ---
CT tib/fib RT w con CLINICAL HISTORY: right calf swelling, hematoma. Request of ortho TECHNIQUE: Multidetector row helical CT of the right tibia and fibula was performed with intravenous contrast. Coronal and sagittal reformations were obtained. Automated dose lowering techniques and/or adjustment according to patient size were utilized for this examination. CT DOSE: 1244.39 mGy.cm Comparison: Comparison is made to tibia and fibular radiographs 10/20/2023 FINDINGS: The osseous structures are without fracture or dislocation. The joint spaces are maintained. No joint effusion is seen. Heterogeneous soft tissue swelling is seen in the lateral gastrocnemius. IMPRESSION: Heterogeneous soft tissue swelling is seen in the gastrocnemius region compatible with intramuscular hematoma. No abscess is seen. ACT 112: Negative or not required by law. Electronically signed by: Yazan Iqbal M.D. 10/20/2023 1:07 PM
[2023-10-20] MEDS ORDERED: oxyCODONE HCL IR 5 MG TAB (IMMEDIATE RELEASE) PO PRN (13:42)
[2023-10-20] MEDS: POTASSIUM CHLORIDE CRTAB 20 MEQ TABCR PO STA (14:38)
[2023-10-20] MEDS: hydrALAZINE HCL 20 MG/ML VIAL IV STA (14:56)
--- NOTE | 2023-10-20 15:08 | Electrocardiogram Report ---
Test Reason : Blood Pressure : / mmHG Vent. Rate : 077 BPM Atrial Rate : 077 BPM P-R Int : 228 ms QRS Dur : 086 ms QT Int : 380 ms P-R-T Axes : 001 -03 -08 degrees QTc Int : 430 ms Sinus rhythm with 1st degree A-V block Otherwise normal ECG When compared with ECG of 07-FEB-2022 16:27, [place] interval has increased T wave inversion no longer evident in Anterolateral leads Confirmed by Davy Ching ([id number]) on 10/20/2023 3:08:12 PM Referred By: REFERRED SELF Confirmed By:Davy Ching
[2023-10-20] MEDS ORDERED: GLUCAGON FOR INJ 1 MG VIAL SQ PRN (16:21)
[2023-10-20] MEDS ORDERED: GLUCOSE 40% GEL 15 GM TUBE PO PRN (16:21)
[2023-10-20] MEDS ORDERED: MoRPHine SULFATE 2 MG/ML CARP IV PRN (16:21)
[2023-10-20] MEDS ORDERED: HYDROmorphone INJ 1 MG/ML SYRINGE IV PRN (16:21)
[2023-10-20] MEDS ORDERED: POLYETHYLENE (MIRALAX) 17 GM PACK PO PRN (16:21)
[2023-10-20] MEDS ORDERED: CARBOHYDRATES FOR HYPOGLYCEMIA PO PRN (16:21)
[2023-10-20] MEDS ORDERED: DEXTROSE 50% 50 ML SYRINGE IV PRN (16:21)
[2023-10-20] MEDS ORDERED: GLUCOSE 10 TAB/TUBE PO PRN (16:21)
[2023-10-20] MEDS ORDERED: ONDANSETRON INJ 2 MG/ML 2 ML VIAL IV PRN (16:21)
[2023-10-20] MEDS ORDERED: MoRPHine SULFATE 4 MG/ML 1 ML CARP\\VIAL IV PRN (16:28)
[2023-10-20] MEDS: MoRPHine SULFATE 4 MG/ML 1 ML CARP\\VIAL IV STA (16:54)
[2023-10-20] MEDS: LIDOCAINE 5% 1 PATCH TD SCH (17:24)
[2023-10-20] MEDS: INSULIN ASPART PER UNIT CHARGE SC SCH (17:45)
--- NOTE | 2023-10-20 17:52 | Orthopedic Consultation ---
Date of Consultation October 20, 2023 Assessment & Plan (1) Hematoma of right lower leg: The patient was evaluated in room C10. Conservative care measures were discussed. He was reassured that I do not suspect compartment syndrome at this time. No compartment pressure measurement is necessary currently. Injury is already 3 to 4 days old. Based on his discoloration, it may be a few days older than that. I recommend a Srivastava dressing for edema control and to assist with pain control. Continue with ice, elevation, and gentle range of motion within tolerance. He may be weightbearing as tolerated using crutches or a walker. Start physical therapy for gentle range of motion. CT scan imaging of the lower extremity may be obtained for further diagnostic workup. This will be discussed with Dr. Rodriguez. He was reassured that I do not suspect Achilles tendon rupture at this time either. No surgical intervention is warranted at this time. We will continue to follow through the admission. History of Present Illness Reason for Consultation: Right gastroc pain and swelling Attending Physician: Alfred Fleming MD History of Present Illness This 78-year-old male is seen today in the ED. His is at bedside. The patient states he was pushing a refrigerator back into place in his kitchen on either or Friday, and felt a pop in his right calf. There was immediate onset of pain. He has been having difficulty with ambulation since then. He thought he could manage the symptoms at home, but is having more difficulty than anticipated. He states he has been treating it with ice, elevation, compression, and oxycodone 10 mg, which he has prescribed for his back on a chronic basis. He states the pain is not improving. He is having difficulty getting around his house. No prior history of similar discomfort. Pain is worst over the medial gastroc. He denies any knee or hip pain. No numbness or tingling. No other complaints. He takes Plavix and baby aspirin daily. No other thinners. Allergies Allergy/AdvReac Type Severity Reaction Status Date / Time No Known Allergies Allergy Verified 02/07/22 18:42 Home Medications Medication Instructions Recorded Confirmed Type atorvastatin 80 mg tablet 80 mg PO DAILY 01/21/22 10/20/23 History metformin 1,000 mg tablet 1,000 mg PO BIDM 01/21/22 10/20/23 History tamsulosin 0.4 mg capsule (Flomax) 0.4 mg PO DAILY 01/21/22 10/20/23 History aspirin 81 mg tablet,delayed 81 mg PO QAM 02/07/22 10/20/23 History release clopidogrel 75 mg tablet 75 mg PO QAM 02/07/22 10/20/23 History cyanocobalamin (vitamin B-12) 1,000 mcg sublingual DAILY 02/07/22 10/20/23 History 1,000 mcg sublingual tablet potassium chloride 10 mEq 10 meq PO QAM 02/07/22 10/20/23 History tablet,extended release lisinopril 2.5 mg tablet 2.5 mg PO QAM 10/20/23 10/20/23 History metoprolol succinate 50 mg 50 mg PO BID 10/20/23 10/20/23 History tablet,extended release 24 hr oxycodone 10 mg tablet 10 mg PO Q6H PRN Pain 10/20/23 10/20/23 History Patient History Medical History (Updated 10/20/23 @ 17:50 by Roman Ruelas PA-C) Chronic back pain STEMI (ST elevation myocardial infarction) Family History Denies family history of Heart disease Social History Smoking Status: Former smoker Tobacco Type: Cigarettes Second Hand Exposure: No; Do You Dip or Chew Tobacco: No; Tobacco Cessation Education Requested by Patient: No Hx Alcohol Use: No Hx Substance Use: No Preferred Language: Uzbek Communication Ability: Effective Venetian Blind Installer Required: No Beliefs That Will Affect Care: None marital status: Current Living Situation: Spouse Other Information That Helps Us Care for You: No Feels Safe at Home: Yes Safety Concerns: Feels Safe At This Time Assistive Devices: Glasses Review of Systems Review of Systems: All systems reviewed & are unremarkable except as noted in Subjective Physical Exam Physical Exam: General: Well-developed, well-nourished, elderly male, in no acute distress. Obvious discomfort. Laying on the bed. Alert and oriented. Skin: Warm and dry with good turgor. No rashes. The patient has no open wounds. There is no necrotic skin. He has old ecchymosis with colors of yellow and green on the medial aspect of his right gastroc. There is also mild edema of the lower extremity. It is generalized. No intra-articular effusion in the ankle or knee. No lymphangitis, erythema, or warmth compared to the noninvolved side. Musculoskeletal: The patient has no intra-articular effusion. He has no pain with palpation of the right knee. He has no discomfort with palpation over the tibialis anterior muscle belly. The anterior compartment is soft and supple. There is mild discomfort with palpation over the lateral gastroc. Is also soft and supple. He has exquisite pain with palpation over the medial gastroc. Soft palpable defect is noted in the medial gastroc belly. Pain extends to the musculotendinous junction of the Achilles. There is no discomfort with palpation over the Achilles itself. It is intact and without defect. Normal Hill test. He has intact plantarflexion of the ankle. Dorsiflexion activel y to just shy of neutral. He states that is all the further he can go secondary to pain. Passively I can get him just past neutral with dorsiflexion. No appreciable laxity with calcaneal tilt testing or anterior drawer testing. Motor function of the toes is intact and unremarkable. Nontender. Neurologic: Gross sensation is intact across all aspects of the right lower extremity by soft touch. Peripheral pulses are 2+ for both dorsalis pedis and tibialis posterior. Capillary refill is equal for each of the toes. Results & Data Vital Signs (Past 12 Hours) Vital Signs Temp Pulse Pulse Resp BP BP BP 10/20/23 15:56 36.9 C 87 14 155/113 H 10/20/23 14:39 88 18 196/108 H 10/20/23 13:40 77 176/103 H 10/20/23 13:02 82 10/20/23 12:57 85 18 194/96 H 10/20/23 12:12 101 H 194/126 H 10/20/23 12:00 84 H 194/126 H 10/20/23 08:58 101 H 10/20/23 08:22 36.5 C 128 H 18 215/125 H Pulse Ox O2 Del Method 10/20/23 15:56 97 Room Air 10/20/23 14:39 97 Room Air 10/20/23 13:40 10/20/23 13:02 10/20/23 12:57 94 10/20/23 12:12 10/20/23 12:00 96 Room Air 10/20/23 08:58 10/20/23 08:22 96 Room Air Laboratory Results CBC obtained today shows a white count of 9.02. H&H of 10.2 and 30.9. Platelets are normal at 180,000. INR 1.0 with PT of 10.9. PRP is unremarkable. Glucose is 178 today. Diagnostic Findings Radiographic imaging obtained today of the tibia and fibula was reviewed. It is unremarkable. No evidence for fracture or other anomaly. Venous Doppler obtained today is negative for DVT. There is a large hematoma present in the gastroc. It measures 14 cm x 4.8 cm x 2.1 cm.
[2023-10-20] MEDS: HYDROmorphone INJ 0.5 MG/0.5 ML SYR IV PRN (19:36)
[2023-10-20] MEDS: METOPROLOL SUCC 50MG EXT REL TAB PO SCH (20:28)
[2023-10-20] MEDS: amLODIPine BESYLATE 5 MG TAB PO ONE (20:28)
[2023-10-20] MEDS: oxyCODONE HCL IR 5 MG TAB (IMMEDIATE RELEASE) PO PRN (22:36)
[2023-10-20] MEDS: hydrALAZINE HCL 20 MG/ML VIAL IV PRN (22:59)
[2023-10-20] MEDS: lisinopril 2.5 MG TAB PO STA (23:24)
[2023-10-21 06:32] LABS: Hematocrit (blood only) 32.3 % (42.0-52.0); Hemoglobin 10.8 g/dl (14.0-18.0); Mean Corpuscular Hemoglobin 30.5 pg (25.0-34.0); Mean Corpuscular Hgb Conc 33.4 g/dL (32.0-36.0); Mean Corpuscular Volume 91.2 fL (80.0-100.0); Mean Platelet Volume 11.8 fL (9.4-12.4); Platelet Count 191 K/uL (130-400); RDW Coefficient of Variation 13.5 % (11.5-14.5); RDW Standard Deviation 45.1 fL (36.4-46.3); Red Blood Count 3.54 M/uL (4.70-6.10); White Blood Count 9.26 K/ul (4.8-10.8)
[2023-10-21 07:03] LABS: Albumin Globulin Ratio 1.4 (0.9-2); Albumin Level 4.2 gm/dl (3.4-5.0); BUN Creatinine Ratio 19.1 (10-20); Bilirubin,Total 0.7 mg/dl (0.2-1.0); Calcium 9.8 mg/dl (8.6-10.3); Est GFR (African American) 95.6 ml/min; Est GFR (Non-African American) 82.5 ml/min; Magnesium 1.5 mg/dl (1.7-2.4); Phosphorus 3.6 mg/dl (2.5-4.9); Potassium 3.8 mmol/L (3.5-5.1); Total Protein 7.2 gm/dl (6.0-8.3)
[2023-10-21] MEDS: lisinopril 5 MG TAB PO SCH (07:44)
[2023-10-21] MEDS: POTASSIUM CHLORIDE 10 MEQ TABCR PO SCH (07:45)
[2023-10-21] MEDS: ACETAMINOPHEN 325 MG TAB PO PRN (07:45)
[2023-10-21] MEDS: CYANOCOBALAMIN (B-12) 500 MCG TABLET PO SCH (07:45)
[2023-10-21] MEDS: TAMSULOSIN HCL 0.4 MG CAP PO SCH (07:46)
[2023-10-21] MEDS: ATORVASTATIN 40 MG TAB PO SCH (07:46)
[2023-10-21 07:52] LABS: Estimated Average Glucose 120 mg/dl; Hemoglobin A1C 5.8 % (4.5-5.6)
--- NOTE | 2023-10-21 08:28 | Hospitalist Progress Note ---
Date of Service October 21, 2023 Assessment & Plan (1) Pain of right calf: (2) Hypertensive urgency: (3) Hypokalemia: Plan Aly Shay is a 78y/o M with PMHx significant for DM type II, dyslipidemia, HTN, CAD, CKD stage III, BPH w/ LUTS, lumbar DDD, neuropathy, history of NSTEMI s/p CABG x2 [on ASA and Plavix] who presented to the ED for evaluation secondary to right calf pain and was found to have a right calf intramuscular hematoma. Right Calf Pain Right Calf Hematoma Pt presenting with severe R calf pain, inability to walk 2/2 to the pain. Tib/fib XRAY- no fractures venous doppler noting "14.2 x 4.8 x 2.1 cm right calf intramuscular fluid c ollection suggestive of a hematoma. A follow-up ultrasound in 3 months to ensure resolution is recommended." Lower extremity CT noting intramuscular hematoma Orthopedics consulted, appreciate recs. recommended or stated the following: -X-rays of the tib-fib are negative. -The CT scan and ultrasound reports are reviewed indicating intramuscular hematoma. -Size is noted. -No DVT. -Patient has a strain of the right gastrocnemius muscle medial head. -Recommend rest elevation icing compression. -At this time the foot is not elevated. -I elevated on 1 pillow which made him feel more uncomfortable. -He had tried Jose L wrap previously which did not help. -The muscle injury should improve and heal on its own. -It does not require surgery. -I do not see evidence of compartment syndrome. -He may weight-bear as tolerated with crutches or walker. Pain control H/H stable Aspirin and Plavix on hold, appreciate recs Continue to monitor Anemia, chronic AM anemia panel Supplement as needed Monitor h/h Hypertensive Urgency H/O Hypertension BP significantly elevated at 215/125 upon presentation. 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 PRN 5mg IV hydralazine Q4H for SBP>160. Continuous cardiac monitoring in place, closely monitor BP and treat PRN. Hypokalemia Potassium 3.4 on admission Replete as needed Hypomagnesemia Replete as needed Coronary Artery Disease (CAD) H/O NSTEMI S/P CABG x 2 [2021] Pt taking ASA 81mg daily and Plavix 75mg daily [employer]ELOPER. Will hold ASA and Plavix for now Resume as able DM Type II Pt taking metformin [employer]PORT [employer]ELOPER - will hold while admitted. Hgb A1c 5.8 ISS while hospitalized CKD Stage III Creatinine 1.04 on admission (baseline creatinine ~1.2-1.3 per chart review). monitor renal function closely avoid nephrotoxic medications when able Dyslipidemia and BPH w/ LUTS : Pt can continue taking his [employer]ELOPER atorvastatin and tamsulosin. Diet: DMII DVT Prophylaxis: SCDs - Only applied to LEFT leg at this time. Disposition: PT/OT ordered for further recs Admission and Anticipated Discharge Date Admission Date: October 20, 2023 Subjective pt was seen sitting up in bed, holding the right thigh States pain unbearable, frustrated. Notes that nothing is helping his pain including the narcotics. Per nursing refused the lidocaine patch Review of Systems Review of Systems: All systems reviewed & are unremarkable except as noted in Subjective Physical Exam Physical Exam: General: Alert, oriented. No acute distress Skin: bruising noted on anterior abrams Psych: Appropriate mood and affect Neuro: No gross deficits HEENT: NC/AT CV: RRR, Normal s1, s2. No murmurs appreciated Resp: Breath sounds clear bilaterally, no increased effort of breathing. Abdomen:Soft, nontender, nondistended. Extremities: R calf and leg tender to palpation, noted swelling of right leg when compared to left Results & Data Results & Data Vital Signs (Past 12 Hours) Vital Signs Temp Pulse Pulse Resp BP BP Pulse Ox 10/21/23 07:12 36.8 C 99 H 14 176/104 H 96 10/21/23 04:02 36.8 C 99 H 20 157/95 H 95 10/20/23 22:44 36.6 C 106 H 18 211/120 H 96 10/20/23 21:58 81 O2 Del Method 10/21/23 07:12 Room Air 10/21/23 04:02 Room Air 10/20/23 22:44 Room Air 10/20/23 21:58 Diagnostic Findings Tibia/Fibula X-Ray 10/20/23 08:34 XR tibia fibula RT 2V CLINICAL HISTORY: Right calf pain. COMPARISON: None FINDINGS: Surgical clips within the medial right lower leg are incidentally noted. There is no fracture within the right tibia or fibula. No osseous lesions are identified. IMPRESSION: No fractures within the right tibia or fibula. ACT 112: Negative or not required by law. Electronically signed by: Kurtis Eckert M.D. 10/20/2023 9:21 AM Venous Doppler Study 10/20/23 08:34 RIGHT LOWER EXTREMITY VENOUS DOPPLER CLINICAL HISTORY: Right calf swelling, possibly hematoma COMPARISON STUDY: No previous studies for comparison. TECHNIQUE: Sonography of the deep venous system of the right lower extremity was performed. Compression and augmentation were evaluated. FINDINGS: The right common femoral, superficial femoral and popliteal veins were compressible. Augmentation was normal. Flow was shown within the deep calf vessels. The proximal to mid right calf, there is a complex intramuscular fluid collection which measures 14.2 x 4.8 x 2.1 cm. This contains no color flow. IMPRESSION: 1. No evidence of deep venous thrombus within the right lower extremity. 2. 14.2 x 4.8 x 2.1 cm right calf intramuscular fluid collection suggestive of a hematoma. A follow-up ultrasound in 3 months to ensure resolution is recommended. ACT 112: Negative or not required by law. Electronically signed by: Kurtis Eckert M.D. 10/20/2023 10:[address] 10/20/23 11:25 CT tib/fib RT w con CLINICAL HISTORY: right calf swelling, hematoma. Request of ortho TECHNIQUE: Multidetector row helical CT of the right tibia and fibula was performed with intravenous contrast. Coronal and sagittal reformations were obtained. Automated dose lowering techniques and/or adjustment according to patient size were utilized for this examination. CT DOSE: 1244.39 mGy.cm Comparison: Comparison is made to tibia and fibular radiographs 10/20/2023 FINDINGS: The osseous structures are without fracture or dislocation. The joint spaces are maintained. No joint effusion is seen. Heterogeneous soft tissue swelling is seen in the lateral gastrocnemius. IMPRESSION: Heterogeneous soft tissue swelling is seen in the gastrocnemius region compatible with intramuscular hematoma. No abscess is seen. ACT 112: Negative or not required by law. Electronically signed by: Yazan Iqbal M.D. 10/20/2023 1:07 PM
[2023-10-21] MEDS ORDERED: CLOPIDOGREL BISULFATE 75 MG TAB PO SCH (09:00)
[2023-10-21] MEDS ORDERED: ASPIRIN 81 MG ECTAB PO SCH (09:00)
[2023-10-21] MEDS ORDERED: lisinopril 2.5 MG TAB PO SCH (09:00)
[2023-10-21] MEDS: MAGNESIUM SULFATE / D5W 1 GM/100 ML BAG IV SCH (09:59)
[2023-10-21] MEDS: ACETAMINOPHEN 1,000 MG/100 ML VIAL IV SCH (14:36)
--- NOTE | 2023-10-21 14:44 | Orthopedic Progress Note ---
Date of Service October 21, 2023 Assessment & Plan (1) Hematoma of right lower leg: Plan: Conservative care measures were discussed. Continue with ice, elevation, and gentle range of motion within tolerance. He may be weightbearing as tolerated using crutches or a walker. Start physical therapy for gentle range of motion. No surgical intervention is warranted at this time. We will continue to follow through the admission. 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 Continued pain currently being managed with IV Dilaudid. C/o significant pain with movement. Denies CP, SOB, nausea, vom iting, fever, chills, sweat or numbness/tingling in the Right LE. Review of Systems Review of Systems: All systems reviewed & are unremarkable except as noted in Subjective Physical Exam Physical Exam: Right lower extremity: TTP over entire calf more pronounced medially. Soft to palpation. Unable to perform SLRT. Able dorsi/plantar flex foot. Edema of calf. No erythema or warmth. Slight ecchymosis with yellow appearing skin. Periph pluses palpable. NV intact Results & Data Vital Signs (Past 12 Hours) Vital Signs Temp Pulse Pulse Resp BP BP Pulse Ox 10/21/23 11:24 36.7 C 84 14 155/89 H 95 10/21/23 07:12 36.8 C 99 H 14 176/104 H 96 10/21/23 07:00 109 H 10/21/23 04:02 36.8 C 99 H 20 157/95 H 95 O2 Del Method 10/21/23 11:24 Room Air 10/21/23 07:12 Room Air 10/21/23 07:00 10/21/23 04:02 Room Air Diagnostic Findings Laboratory Results WBC 9.26 K/ul (4.8-10.8) 10/21/23 05:33 RBC 3.54 M/uL (4.70-6.10) L 10/21/23 05:33 Hgb 10.8 g/dl (14.0-18.0) L 10/21/23 05:33 Hct 32.3 % (42.0-52.0) L 10/21/23 05:33 MCV 91.2 fL (80.0-100.0) 10/21/23 05:33 MCH 30.5 pg (25.0-34.0) 10/21/23 05:33 MCHC 33.4 g/dL (32.0-36.0) 10/21/23 05:33 RDW Std Deviation 45.1 fL (36.4-46.3) 10/21/23 05:33 RDW Coeff of [place] 13.5 % (11.5-14.5) 10/21/23 05:33 Plt Count 191 K/uL (130-400) 10/21/23 05:33 MPV 11.8 fL (9.4-12.4) 10/21/23 05:33 Immature Gran % (Auto) 1.2 % 10/20/23 08:54 Neut % (Auto) 87.2 % 10/20/23 08:54 Lymph % (Auto) 6.1 % 10/20/23 08:54 [place] % (Auto) 4.9 % 10/20/23 08:54 Eos % (Auto) 0.3 % 10/20/23 08:54 Baso % (Auto) 0.3 % 10/20/23 08:54 Neut # (Auto) 7.86 K/uL (1.40-6.50) H 10/20/23 08:54 Lymph # (Auto) 0.55 K/uL (1.20-3.40) L 10/20/23 08:54 [place] # (Auto) 0.44 K/uL (0.11-0.59) 10/20/23 08:54 Eos # (Auto) 0.03 K/uL (0.00-0.50) 10/20/23 08:54 Baso # (Auto) 0.03 K/uL (0.00-0.20) 10/20/23 08:54 Immature Gran # (Auto) 0.11 K/uL (0.01-0.20) 10/20/23 08:54 PT 10.9 Seconds (9.0-12.0) 10/20/23 08:54 INR 1.0 (0.9-1.1) 10/20/23 08:54 APTT 25 Seconds (21-31) 10/20/23 08:54 PTT Ratio 0.9 10/20/23 08:54 Sodium 138 mmol/L (136-145) 10/21/23 05:33 Potassium 3.8 mmol/L (3.5-5.1) 10/21/23 05:33 Chloride 104 mmol/L (98-107) 10/21/23 05:33 Carbon Dioxide 23 mmol/L (21-32) 10/21/23 05:33 Anion Gap 11 (3-11) 10/21/23 05:33 BUN 17 mg/dl (6-23) 10/21/23 05:33 Creatinine 0.89 mg/dl (0.6-1.4) 10/21/23 05:33 Est Cr Clr Drug Dosing 69.0 ml/min 10/21/23 05:33 Est GFR ( Amer) 95.6 ml/min 10/21/23 05:33 Est GFR (Non-Af Amer) 82.5 ml/min 10/21/23 05:33 BUN/Creatinine Ratio 19.1 (10-20) 10/21/23 05:33 Glucose 118 mg/dl (70-99(Fasting)) H 10/21/23 05:33 POC Glucose 166 mg/dl (70-99) H 10/21/23 12:01 Estimat Average Glucose 120 mg/dl 10/21/23 05:33 Hemoglobin A1c 5.8 % (4.5-5.6) H 10/21/23 05:33 Calcium 9.8 mg/dl (8.6-10.3) 10/21/23 05:33 Phosphorus 3.6 mg/dl (2.5-4.9) 10/21/23 05:33 Magnesium 1.5 mg/dl (1.7-2.4) L 10/21/23 05:33 Total Bilirubin 0.7 mg/dl (0.2-1.0) 10/21/23 05:33 AST 10 U/L (13-39) L 10/21/23 05:33 ALT 8 U/L (7-52) 10/21/23 05:33 Alkaline Phosphatase 92 U/L (34-104) 10/21/23 05:33 Total Creatine Kinase 44 U/L (30-223) 10/20/23 08:54 Total Protein 7.2 gm/dl (6.0-8.3) 10/21/23 05:33 Albumin 4.2 gm/dl (3.4-5.0) 10/21/23 05:33 Globulin 3.0 gm/dl (2.5-4.0) 10/21/23 05:33 Albumin/Globulin Ratio 1.4 (0.9-2) 10/21/23 05:33 Impressions Tibia/Fibula X-Ray 10/20/23 08:34 XR tibia fibula RT 2V CLINICAL HISTORY: Right calf pain. COMPARISON: None FINDINGS: Surgical clips within the medial right lower leg are incidentally noted. There is no fracture within the right tibia or fibula. No osseous lesions are identified. IMPRESSION: No fractures within the right tibia or fibula. ACT 112: Negative or not required by law. Electronically signed by: Kurtis Eckert M.D. 10/20/2023 9:21 AM Venous Doppler Study 10/20/23 08:34 RIGHT LOWER EXTREMITY VENOUS DOPPLER CLINICAL HISTORY: Right calf swelling, possibly hematoma COMPARISON STUDY: No previous studies for comparison. TECHNIQUE: Sonography of the deep venous system of the right lower extremity was performed. Compression and augmentation were evaluated. FINDINGS: The right common femoral, superficial femoral and popliteal veins were compressible. Augmentation was normal. Flow was shown within the deep calf vessels. The proximal to mid right calf, there is a complex intramuscular fluid collection which measures 14.2 x 4.8 x 2.1 cm. This contains no color flow. IMPRESSION: 1. No evidence of deep venous thrombus within the right lower extremity. 2. 14.2 x 4.8 x 2.1 cm right calf intramuscular fluid collection suggestive of a hematoma. A follow-up ultrasound in 3 months to ensure resolution is recommended. ACT 112: Negative or not required by law. Electronically signed by: Kurtis Eckert M.D. 10/20/2023 10:[address] 10/20/23 11:25 CT tib/fib RT w con CLINICAL HISTORY: right calf swelling, hematoma. Request of ortho TECHNIQUE: Multidetector row helical CT of the right tibia and fibula was performed with intravenous contrast. Coronal and sagittal reformations were obtained. Automated dose lowering techniques and/or adjustment according to patient size were utilized for this examination. CT DOSE: 1244.39 mGy.cm Comparison: Comparison is made to tibia and fibular radiographs 10/20/2023 FINDINGS: The osseous structures are without fracture or dislocation. The joint spaces are maintained. No joint effusion is seen. Heterogeneous soft tissue swelling is seen in the lateral gastrocnemius. IMPRESSION: Heterogeneous soft tissue swelling is seen in the gastrocnemius region compatible with intramuscular hematoma. No abscess is seen. ACT 112: Negative or not required by law. Electronically signed by: Yazan Iqbal M.D. 10/20/2023 1:07 PM
[2023-10-22 06:44] LABS: Hematocrit (blood only) 31.4 % (42.0-52.0); Hemoglobin 10.2 g/dl (14.0-18.0); Mean Corpuscular Hemoglobin 30.3 pg (25.0-34.0); Mean Corpuscular Hgb Conc 32.5 g/dL (32.0-36.0); Mean Corpuscular Volume 93.2 fL (80.0-100.0); Mean Platelet Volume 11.4 fL (9.4-12.4); Platelet Count 172 K/uL (130-400); RDW Coefficient of Variation 13.6 % (11.5-14.5); RDW Standard Deviation 46.3 fL (36.4-46.3); Red Blood Count 3.37 M/uL (4.70-6.10); White Blood Count 6.74 K/ul (4.8-10.8)
[2023-10-22 06:58] LABS: BUN Creatinine Ratio 27.3 (10-20); Calcium 9.3 mg/dl (8.6-10.3); Creatinine Clr Calc Pharmacy 46.5 ml/min; Est GFR (African American) 59.9 ml/min; Est GFR (Non-African American) 51.7 ml/min; Phosphorus 4.5 mg/dl (2.5-4.9); Potassium 3.7 mmol/L (3.5-5.1)
[2023-10-22 07:17] LABS: Ferritin 92.2 ng/ml (8-388)
[2023-10-22 07:25] LABS: Folate (Folic Acid),Ser orPlas 9.69 ng/ml (>5.38)
--- NOTE | 2023-10-22 09:36 | Orthopedic Progress Note ---
Date of Service October 22, 2023 Assessment & Plan (1) Hematoma of right lower leg: Plan: Conservative care measures were discussed. Continue with ice, elevation, and gentle range of motion within tolerance. He may be weightbearing as tolerated using crutches or a walker. Physical therapy for gentle range of motion. No surgical intervention is warranted at this time. We will continue to follow through the admission. Follow-up at [facility] orthopedics in 10 to 14 days With questions contact our clinic at [phone] Admission and Anticipated Discharge Date Admission Date: October 20, 2023 Subjective This 78-year-old male seen for follow-up of a right calf hematoma. He is currently sitting up in bed talking to me without any distress however he states that his pain is 10 out of 10 and he is very frustrated. States that he has difficulty bearing weight and is only able to transition from his bed to the bathroom with a walker assistance. He states that he wants something done. He says surgery is necessary then he will be agreeable to it. Currently his pain is being managed with IV Dilaudid. He denies chest pain, shortness of breath, fever, chills, sweats or numbness or tingling in the right lower extremity. He also denies nausea, vomiting, diarrhea or difficulty voiding. Review of Systems Review of Systems: All systems reviewed & are unremarkable except as noted in Subjective Physical Exam Physical Exam: Right lower extremity: TTP over entire calf more pronounced medially. Soft to palpation. Unable to perform SLRT. Able dorsi/plantar flex foot. Edema of calf. No erythema or warmth. Slight ecchymosis with yellow appearing skin. Periph pluses palpable. NV intact Results & Data Vital Signs (Past 12 Hours) Vital Signs Temp Pulse Pulse Resp BP Pulse Ox O2 Del Method 10/22/23 08:01 36.4 C L 89 16 138/76 79 L Room Air 10/22/23 07:00 83 10/22/23 02:28 87 10/21/23 22:54 36.6 C 81 20 145/86 H 96 Room Air Diagnostic Findings Laboratory Results WBC 6.74 K/ul (4.8-10.8) 10/22/23 05:57 RBC 3.37 M/uL (4.70-6.10) L 10/22/23 05:57 Hgb 10.2 g/dl (14.0-18.0) L 10/22/23 05:57 Hct 31.4 % (42.0-52.0) L 10/22/23 05:57 MCV 93.2 fL (80.0-100.0) 10/22/23 05:57 MCH 30.3 pg (25.0-34.0) 10/22/23 05:57 MCHC 32.5 g/dL (32.0-36.0) 10/22/23 05:57 RDW Std Deviation 46.3 fL (36.4-46.3) 10/22/23 05:57 RDW Coeff of [place] 13.6 % (11.5-14.5) 10/22/23 05:57 Plt Count 172 K/uL (130-400) 10/22/23 05:57 MPV 11.4 fL (9.4-12.4) 10/22/23 05:57 Immature Gran % (Auto) 1.2 % 10/20/23 08:54 Neut % (Auto) 87.2 % 10/20/23 08:54 Lymph % (Auto) 6.1 % 10/20/23 08:54 [place] % (Auto) 4.9 % 10/20/23 08:54 Eos % (Auto) 0.3 % 10/20/23 08:54 Baso % (Auto) 0.3 % 10/20/23 08:54 Neut # (Auto) 7.86 K/uL (1.40-6.50) H 10/20/23 08:54 Lymph # (Auto) 0.55 K/uL (1.20-3.40) L 10/20/23 08:54 [place] # (Auto) 0.44 K/uL (0.11-0.59) 10/20/23 08:54 Eos # (Auto) 0.03 K/uL (0.00-0.50) 10/20/23 08:54 Baso # (Auto) 0.03 K/uL (0.00-0.20) 10/20/23 08:54 Immature Gran # (Auto) 0.11 K/uL (0.01-0.20) 10/20/23 08:54 PT 10.9 Seconds (9.0-12.0) 10/20/23 08:54 INR 1.0 (0.9-1.1) 10/20/23 08:54 APTT 25 Seconds (21-31) 10/20/23 08:54 PTT Ratio 0.9 10/20/23 08:54 Sodium 137 mmol/L (136-145) 10/22/23 05:57 Potassium 3.7 mmol/L (3.5-5.1) 10/22/23 05:57 Chloride 104 mmol/L (98-107) 10/22/23 05:57 Carbon Dioxide 22 mmol/L (21-32) 10/22/23 05:57 Anion Gap 11 (3-11) 10/22/23 05:57 BUN 36 mg/dl (6-23) H 10/22/23 05:57 Creatinine 1.32 mg/dl (0.6-1.4) D 10/22/23 05:57 Est Cr Clr Drug Dosing 46.5 ml/min 10/22/23 05:57 Est GFR ( Amer) 59.9 ml/min 10/22/23 05:57 Est GFR (Non-Af Amer) 51.7 ml/min 10/22/23 05:57 BUN/Creatinine Ratio 27.3 (10-20) H 10/22/23 05:57 Glucose 115 mg/dl (70-99(Fasting)) H 10/22/23 05:57 POC Glucose 139 mg/dl (70-99) H 10/22/23 08:16 Estimat Average Glucose 120 mg/dl 10/21/23 05:33 Hemoglobin A1c 5.8 % (4.5-5.6) H 10/21/23 05:33 Calcium 9.3 mg/dl (8.6-10.3) 10/22/23 05:57 Phosphorus 4.5 mg/dl (2.5-4.9) 10/22/23 05:57 Magnesium 2.0 mg/dl (1.7-2.4) 10/22/23 05:57 Iron 30 mcg/dl (35-175) L 10/22/23 05:57 TIBC 246 mcg/dl (250-450) L 10/22/23 05:57 Unsaturated IBC 216 mcg/dl (155-355) 10/22/23 05:57 Transferrin % Sat 12 % (20-50) L 10/22/23 05:57 Ferritin 92.2 ng/ml (8-388) 10/22/23 05:57 Total Bilirubin 0.7 mg/dl (0.2-1.0) 10/21/23 05:33 AST 10 U/L (13-39) L 10/21/23 05:33 ALT 8 U/L (7-52) 10/21/23 05:33 Alkaline Phosphatase 92 U/L (34-104) 10/21/23 05:33 Total Creatine Kinase 44 U/L (30-223) 10/20/23 08:54 Total Protein 7.2 gm/dl (6.0-8.3) 10/21/23 05:33 Albumin 4.2 gm/dl (3.4-5.0) 10/21/23 05:33 Globulin 3.0 gm/dl (2.5-4.0) 10/21/23 05:33 Albumin/Globulin Ratio 1.4 (0.9-2) 10/21/23 05:33 Vitamin B12 989 pg/ml (180-914) H 10/22/23 05:57 Folate 9.69 ng/ml (>5.38) 10/22/23 05:57 Impressions Tibia/Fibula X-Ray 10/20/23 08:34 XR tibia fibula RT 2V CLINICAL HISTORY: Right calf pain. COMPARISON: None FINDINGS: Surgical clips within the medial right lower leg are incidentally noted. There is no fracture within the right tibia or fibula. No osseous lesions are identified. IMPRESSION: No fractures within the right tibia or fibula. ACT 112: Negative or not required by law. Electronically signed by: Kurtis Eckert M.D. 10/20/2023 9:21 AM Venous Doppler Study 10/20/23 08:34 RIGHT LOWER EXTREMITY VENOUS DOPPLER CLINICAL HISTORY: Right calf swelling, possibly hematoma COMPARISON STUDY: No previous studies for comparison. TECHNIQUE: Sonography of the deep venous system of the right lower extremity was performed. Compression and augmentation were evaluated. FINDINGS: The right common femoral, superficial femoral and popliteal veins were compressible. Augmentation was normal. Flow was shown within the deep calf vessels. The proximal to mid right calf, there is a complex intramuscular fluid collection which measures 14.2 x 4.8 x 2.1 cm. This contains no color flow. IMPRESSION: 1. No evidence of deep venous thrombus within the right lower extremity. 2. 14.2 x 4.8 x 2.1 cm right calf intramuscular fluid collection suggestive of a hematoma. A follow-up ultrasound in 3 months to ensure resolution is recommended. ACT 112: Negative or not required by law. Electronically signed by: Kurtis Eckert M.D. 10/20/2023 10:[address] 10/20/23 11:25 CT tib/fib RT w con CLINICAL HISTORY: right calf swelling, hematoma. Request of ortho TECHNIQUE: Multidetector row helical CT of the right tibia and fibula was performed with intravenous contrast. Coronal and sagittal reformations were obtained. Automated dose lowering techniques and/or adjustment according to patient size were utilized for this examination. CT DOSE: 1244.39 mGy.cm Comparison: Comparison is made to tibia and fibular radiographs 10/20/2023 FINDINGS: The osseous structures are without fracture or dislocation. The joint spaces are maintained. No joint effusion is seen. Heterogeneous soft tissue swelling is seen in the lateral gastrocnemius. IMPRESSION: Heterogeneous soft tissue swelling is seen in the gastrocnemius region compatible with intramuscular hematoma. No abscess is seen. ACT 112: Negative or not required by law. Electronically signed by: Yazan Iqbal M.D. 10/20/2023 1:07 PM
--- NOTE | 2023-10-22 16:38 | Hospitalist Progress Note ---
Date of Service October 22, 2023 Assessment & Plan (1) Pain of right calf: (2) Hypertensive urgency: (3) Hypokalemia: Anita Shay is a 78y/o M with PMHx significant for DM type II, dyslipidemia, HTN, CAD, CKD stage III, BPH w/ LUTS, lumbar DDD, neuropathy, history of NSTEMI s/p CABG x2 [on ASA and Plavix] who presented to the ED for evaluation secondary to right calf pain and was found to have a right calf intramuscular hematoma. #Acute Right Calf Pain 2/2 Right Calf Hematoma Pt presenting with severe R calf pain, inability to walk 2/2 to the pain. Tib/fib XRAY- no fractures venous doppler noting "14.2 x 4.8 x 2.1 cm right calf intramuscular fluid collection suggestive of a hematoma. A follow-up ultrasound in 3 months to ensure resolution is recommended." Lower extremity CT noting intramuscular hematoma Orthopedics consulted, appreciate recs. recommended or stated the following: -X-rays of the tib-fib are negative. -The CT scan and ultrasound reports are reviewed indicating intramuscular h ematoma; strain of the right gastrocnemius muscle medial head. -Recommend rest elevation icing compression. - No surgery indicated, continue conservative mgmt - WBAT with crutches or walker. Pain control H/H stable Aspirin and Plavix on hold,resume in am Continue to monitor Plan for OP follow up in 1-2 weeks #Chronic anemia stable h/h -low iron, start po supplement #NSVT On metorpolol 50mg BID VT for 16 beats on 10/21, will monitor on tele lytes in am #Hypertensive Urgency H/O Hypertension BP significantly elevated at 215/125 upon presentation. Continue home 50mg metoprolol succinate BID and 2.5mg lisinopril daily [employer]. PRN 5mg IV hydralazine Q4H for SBP>160. Continuous cardiac monitoring in place, closely monitor BP and treat PRN. #Hypokalemia Potassium 3.4 on admission Replete as needed, level in am #Hypomagnesemia Replete as needed level in am #Coronary Artery Disease (CAD) #H/O NSTEMI S/P CABG x 2 [2021] Pt taking ASA 81mg daily and Plavix 75mg daily [employer]. resume in am #DM Type II Pt taking metformin [employer] - will hold while admitted. Hgb A1c 5.8 ISS while hospitalized #CKD Stage III Creatinine 1.04 on admission (baseline creatinine ~1.2-1.3 per chart review). 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 Diet: DMII DVT Prophylaxis: SCDs - Only applied to LEFT leg at this time. Disposition: PT/OT:pending rehab Admission and Anticipated Discharge Date Admission Date: October 20, 2023 Subjective NAEO Reports pain in right calf ongoing, limiting functionality Agreed to rehab for transition point to get home Physical Exam Constitutional: WD/WN, vitals as above Respiratory: normal respiratory effort, lungs clear to auscultation Cardiovascular: RRR, no murmur, no edema Skin: green/brown ecchymosis noted on RLE Results & Data Results & Data Vital Signs (Past 12 Hours) Vital Signs Temp Pulse Pulse Resp BP Pulse Ox O2 Del Method 10/22/23 16:07 36.5 C 73 16 118/64 99 Room Air 10/22/23 13:45 91 H 10/22/23 11:44 36.5 C 80 16 142/82 H 95 Room Air 10/22/23 08:01 36.4 C L 89 16 138/76 79 L Room Air 10/22/23 07:00 83 Laboratory Results Short CBC 10/22/23 Range/Units 05:57 WBC 6.74 (4.8-10.8) K/ul Hgb 10.2 L (14.0-18.0) g/dl Hct 31.4 L (42.0-52.0) % Plt Count 172 (130-400) K/uL [facility] 10/22/23 05:57 Sodium 137 Potassium 3.7 Chloride 104 Carbon Dioxide 22 BUN 36 H Creatinine 1.32 D Glucose 115 H Calcium 9.3 Medications Administered Home Medications Medication Instructions Recorded Confirmed Last Taken atorvastatin 80 mg tablet 80 mg PO DAILY 01/21/22 10/20/23 02/07/22 metformin 1,000 mg tablet 1,000 mg PO BIDM 01/21/22 10/20/23 02/07/22 08:00 tamsulosin 0.4 mg capsule (Flomax) 0.4 mg PO DAILY 01/21/22 10/20/23 02/07/22 aspirin 81 mg tablet,delayed 81 mg PO QAM 02/07/22 10/20/23 02/07/22 release clopidogrel 75 mg tablet 75 mg PO QAM 02/07/22 10/20/23 Unknown cyanocobalamin (vitamin B-12) 1,000 mcg sublingual DAILY 02/07/22 10/20/23 02/07/22 1,000 mcg sublingual tablet potassium chloride 10 mEq 10 meq PO QA 02/07/22 10/20/23 02/07/22 tablet,extended release lisinopril 2.5 mg tablet 2.5 mg PO QA 10/20/23 10/20/23 Unknown metoprolol succinate 50 mg 50 mg PO BID 10/20/23 10/20/23 Unknown tablet,extended release 24 hr oxycodone 10 mg tablet 10 mg PO Q6H PRN Pain 10/20/23 10/20/23 Unknown Active Medications Generic Name Dose Route Start Last Admin Trade Name Freq PRN Reason Stop Dose Admin Atorvastatin Calcium 80 mg 10/21/23 09:00 10/22/23 07:35 Atorvastatin 40 Mg Tab PO 11/20/23 08:59 80 mg DAILY HU Administration Cyanocobalamin 1,000 mcg 10/21/23 09:00 10/22/23 07:35 Cyanocobalamin (B-12) 500 Mcg Tablet PO 11/20/23 08:59 1,000 mcg DAILY HU Administration Hydralazine HCl 5 mg 10/20/23 16:21 10/20/23 22:59 Hydralazine Hcl 20 Mg/Ml Vial IV 11/19/23 16:20 5 mg Q4H PRN Administration Blood Pressure - High Hydromorphone HCl 0.5 mg 10/20/23 18:41 10/22/23 12:56 Hydromorphone Inj 0.5 Mg/0.5 Ml Syr IV 11/03/23 16:20 0.5 mg Q4H PRN Administration Severe Pain (Scale 7, 8, 9,10) Acetaminophen 1,000 mg in 100 mls @ 400 mls/hr 10/21/23 14:00 10/22/23 13:15 Ofirmev IV 10/24/23 13:59 Infused Q8H HU Infusion Insulin Aspart 0 units 10/20/23 16:30 10/22/23 12:30 Insulin Aspart Per Unit Charge SC 11/19/23 16:29 Not Given ACHS HU Lidocaine 1 patch 10/20/23 16:21 10/22/23 07:39 Lidocaine 5% 1 Patch TD 11/19/23 16:20 Not Given QAM HU Lisinopril 5 mg 10/21/23 09:00 10/22/23 07:34 Lisinopril 5 Mg Tab PO 11/20/23 08:59 5 mg QAM HU Administration Metoprolol Succinate 50 mg 10/20/23 21:00 10/22/23 07:34 Metoprolol Succ 50mg Ext Rel Tab PO 11/19/23 20:59 50 mg BID HU Administration Miscellaneous 1 each 10/20/23 21:00 10/21/23 21:28 Remove Lidoderm Patch N/A 11/19/23 20:59 Not Given DAILY@2100 HU Oxycodone HCl 10 mg 10/20/23 15:27 10/22/23 08:27 Oxycodone Hcl Ir 5 Mg Tab (Immediate Release) PO 11/03/23 13:41 10 mg Q6H PRN Administration Mild-Mod Pain (Scale 1-6) Potassium Chloride 10 meq 10/21/23 09:00 10/22/23 07:35 Potassium Chloride 10 Meq Tabcr PO 11/20/23 08:59 10 meq QAM HU Administration Tamsulosin HCl 0.4 mg 10/21/23 09:00 10/22/23 07:35 Tamsulosin Hcl 0.4 Mg Cap PO 11/20/23 08:59 0.4 mg DAILY HU Administration
[2023-10-23] MEDS: FERROUS SULFATE 325 MG TAB PO SCH (08:05)
[2023-10-23] MEDS: ASPIRIN 81 MG ECTAB PO SCH (08:05)
[2023-10-23] MEDS: CLOPIDOGREL BISULFATE 75 MG TAB PO SCH (08:05)
[2023-10-23 08:13] LABS: Hematocrit (blood only) 31.4 % (42.0-52.0); Hemoglobin 10.2 g/dl (14.0-18.0); Mean Corpuscular Hemoglobin 30.6 pg (25.0-34.0); Mean Corpuscular Hgb Conc 32.5 g/dL (32.0-36.0); Mean Corpuscular Volume 94.3 fL (80.0-100.0); Mean Platelet Volume 11.5 fL (9.4-12.4); Platelet Count 203 K/uL (130-400); RDW Coefficient of Variation 13.6 % (11.5-14.5); RDW Standard Deviation 47.5 fL (36.4-46.3); Red Blood Count 3.33 M/uL (4.70-6.10); White Blood Count 6.99 K/ul (4.8-10.8)
[2023-10-23 08:36] LABS: BUN Creatinine Ratio 27.3 (10-20); Calcium 9.3 mg/dl (8.6-10.3); Est GFR (African American) 51.3 ml/min; Est GFR (Non-African American) 44.3 ml/min; Potassium 4.2 mmol/L (3.5-5.1)
--- NOTE | 2023-10-23 09:09 | Orthopedic Progress Note ---
Date of Service October 23, 2023 Assessment & Plan (1) Hematoma of right lower leg: Plan: The patient was evaluated in his room. He continues to insist that his pain is severe. He does not appear in any acute distress on examination. I find it difficult to believe that he is having as much pain as stated. His gastroc edema and discoloration are improving. He is also able to move his leg more than on my initial evaluation. He was encouraged to perform exercises in bed several times per day. Importance of getting out of bed and ambulating to promote blood flow and healing was discussed at length. He would likely benefit from placement at a assisted facility or rehab facility to return to his previous level of function. He was encouraged to participate in physical therapy. The patient stated that he does not think that the Dilaudid he is r manjeet is working. He thinks that administration in his arm does not allow it to effectively get to his leg and alleviate his pain. Clearly he does not understand it is mechanism of action. Return to his normal oral oxycodone dose may be more appropriate. He was again reassured that I find no evidence for compartment syndrome. Admission and Anticipated Discharge Date Admission Date: October 20, 2023 Subjective This 78-year-old male is seen today in his room. He is currently sitting in bed. He states his right calf pain remains. He continues to rate it as 10/10. He does not appear to be in any discomfort while talking to me. He complains of medial calf pain. He states he has been out of bed to walk to the bathroom, but the pain is excruciating. He states he does not like to use the walker and would prefer to use room objects to get himself to the bathroom. He refused to participate in physical therapy yesterday. No new complaints. Physical Exam Physical Exam: General: Well-developed, well-nourished, elderly male, in no acute distress. Sitting in bed. Alert and oriented. Initially sitting in a darkened room playing on his phone. Skin: Warm and dry with good turgor. No rashes. Previous ecchymosis on the medial gastroc is resolving. There is very little discoloration left. His edema is also improving. No open wounds. Medial, lateral, and anterior tissues are soft and supple. Musculoskeletal: The patient initially refused to move his leg. With insistence, he is able to flex and extend his right knee as well as plantarflex and dorsiflex his ankle. Motor function of the toes is intact. There is no significant discomfort with palpation over the tibialis anterior muscle belly, lateral gastroc, or thigh. He continues to complain of severe sensitivity over the medial gastroc. Achilles tendon is palpated through its entirety and found to be intact and without defect. No discomfort with palpation over his foot. Neurologic: Gross sensation is intact across all aspects of the right lower leg by soft touch. Peripheral pulses are 2+. Results & Data Vital Signs (Past 12 Hours) Vital Signs Temp Pulse Pulse Resp BP BP Pulse Ox 10/23/23 07:45 36.8 C 93 H 18 146/83 H 96 10/23/23 07:09 119 H 10/23/23 02:37 36.4 C L 104 H 18 155/89 H 95 10/23/23 02:06 84 10/22/23 23:01 36.8 C 86 18 146/84 H 94 O2 Del Method 10/23/23 07:45 Room Air 10/23/23 07:09 10/23/23 02:37 Room Air 10/23/23 02:06 10/22/23 23:01 Room Air Laboratory Results CBC obtained this morning shows a white count of 6.99. H&H of 10.2 and 31.4. Platelets 203,000. PRP shows normal sodium at 138. Potassium 4.2. CO2 26. BUN of 41 with creatinine 1.5. These are mildly elevated compared to previous values. Glucose 120.
[2023-10-23] MEDS: SODIUM CHLORIDE 0.9% 1,000 ML IV SCH (09:59)
[2023-10-23] MEDS: POLYETHYLENE (MIRALAX) 17 GM PACK PO SCH (09:59)
[2023-10-23] MEDS: DOCUSATE SODIUM/SENNA 50/8.6MG TAB PO SCH (09:59)
[2023-10-23 11:07] LABS: Magnesium 1.8 mg/dl (1.7-2.4)
--- NOTE | 2023-10-23 12:15 | Hospitalist Progress Note ---
Date of Service October 23, 2023 Assessment & Plan (1) Pain of right calf: (2) Hypertensive urgency: (3) Hypokalemia: Plan Aly Shay is a 78y/o M with PMHx significant for DM type II, dyslipidemia, HTN, CAD, CKD stage III, BPH w/ LUTS, lumbar DDD, neuropathy, history of NSTEMI s/p CABG x2 [on ASA and Plavix] who presented to the ED for evaluation secondary to right calf pain and was found to have a right calf intramuscular hematoma. #Acute Right Calf Pain 2/2 Right Calf Hematoma Pt presenting with severe R calf pain, inability to walk 2/2 the pain. Tib/fib XRAY- no fractures venous doppler noting "14.2 x 4.8 x 2.1 cm right calf intramuscular fluid collection suggestive of a hematoma. A follow-up ultrasound in 3 months to ensure resolution is recommended." Lower extremity CT noting intramuscular hematoma Orthopedics consulted, appreciate recs. recommended or stated the following: -X-rays of the tib-fib are negative. -The CT scan and ultrasound reports are reviewed indicating intramuscular hematoma; strain of the right gastrocnemius muscle medial head. -Recommend rest elevation icing compression. - No surgery indicated, continue conservative mgmt - WBAT with crutches or walker. Pain control H/H stable Aspirin and Plavix on hold,resume in am Continue to monitor Plan for OP follow up in 1-2 weeks Add Senna S and Miralax BID for bowel regimen as he is constipated #Chronic anemia stable h/h -low iron, start po supplement #NSVT On metoprolol 50mg BID VT for 16 beats on 10/21, will monitor on tele lytes in am #Hypertensive Urgency H/O Hypertension BP significantly elevated at 215/125 upon presentation. Continue home 50mg metoprolol succinate BID; HOLD 2.5mg lisinopril today for HEATH, reasses in a.m. if okay to resume PRN 5mg IV hydralazine Q4H for SBP>160. Continuous cardiac monitoring in place, closely monitor BP and treat PRN. #Hypokalemia Potassium 3.4 on admission Replete as needed, level in am #Hypomagnesemia Replete as needed level in am #Coronary Artery Disease (CAD) #H/O NSTEMI S/P CABG x 2 [2021] Pt taking ASA 81mg daily and Plavix 75mg daily [employer]. #DM Type II Pt taking metformin [employer] - will hold while admitted. Hgb A1c 5.8 ISS while hospitalized #CKD Stage III Creatinine 1.04 on admission (baseline creatinine ~1.2-1.3 per chart review). Cr up to 1.5 today given gentle IVF x 1 L as pt is not drinking much so he doesn't have to ambulate avoid nephrotoxic medications when able #Dyslipidemia: [employer] atorvastatin #BPH tamsulosin. FULL CODE DVT Prophylaxis: SCDs - Only applied to LEFT leg at this time. Disposition: PT/OT:pending rehab , auth pending A total of 52 minute was spent coordinating, documenting, and providing care for this patient excluding time spent in the performance of separately billed services. This included personally viewing all current laboratories and imaging studies, medication reconciliation, outpatient chart review, and discussion with specialists. Admission and Anticipated Discharge Date Admission Date: October 20, 2023 Supervising Physician Co-Signing Physician Notes I have discussed the case with the collaborating advanced practitioner. I agree with the above PN. I have reviewed and confirmed the patients medical history and the patients diagnosis and treatment plan with Brandon BECKWITH and agree with the information documented. Hgb remains stable. Tachycardia iso pain and agitation. Encouraged patient to participate with PT however patient reluctant to do so given discomfort. Will continue to encourage participation. I spent a total of 15 minutes coordinating, documenting, and providing care for this patient excluding time spent in the performance of separately billed services. All of the aforementioned completed outside of collaborating with the assigned advanced practitioner for a full treatment plan. I have reviewed the advanced practitioner's documentation, and I agree with, and take responsibility for the plan of care Subjective Pt was seen and examined in room 250-1. F/U R calf hematoma. He complains of significant pain after ambulating to the bathroom twice w/o a BM. He feels constipated. Its been 2-3 days since his last movement. He denies f/c/s, chest pain, sob, n/v/d. He is not drinking/eating much as he does not want to have to walk. He has been using ice. Review of Systems Review of Systems: All systems reviewed & are unremarkable except as noted in HPI & below Physical Exam Physical Exam: Gen: WD/WN, NAD, A&O x3 HEENT: Normocephalic, atraumatic, conjunctivae moist, sclerae anicteric, mucous membranes moist. Lung: Clear to Auscultation bilaterally, no wheezes/rales/rhonchi Heart: Regular rate, regular rhythm, no murmurs, rubs, or gallops Abdomen: Soft, NT, ND +BS x 4 Extremities: RLE ecchymosis green/dark and healing, not firm Skin: Warm, no rash, negative turgor. Results & Data Results & Data Vital Signs (Past 12 Hours) Vital Signs Temp Pulse Pulse Resp BP BP Pulse Ox 10/23/23 12:09 36.5 C 84 18 120/75 96 10/23/23 07:45 36.8 C 93 H 18 146/83 H 96 10/23/23 07:09 119 H 10/23/23 02:37 36.4 C L 104 H 18 155/89 H 95 10/23/23 02:06 84 O2 Del Method 10/23/23 12:09 Room Air 10/23/23 07:45 Room Air 10/23/23 07:09 10/23/23 02:37 Room Air 10/23/23 02:06 Laboratory Results I have independently reviewed and interpreted patient's CBC, BMP, mag Medications Administered Current Inpatient Medications Aspirin (Aspirin 81 Mg Ectab) 81 mg PO QAM [facility] Stop: 11/22/23 08:59 Last Admin: 10/23/23 08:05 Dose: 81 mg Atorvastatin Calcium (Atorvastatin 40 Mg Tab) 80 mg PO DAILY HU Stop: 11/20/23 08:59 Last Admin: 10/23/23 08:05 Dose: 80 mg Clopidogrel Bisulfate (Clopidogrel Bisulfate 75 Mg Tab) 75 mg PO QAM [facility] Stop: 11/22/23 08:59 Last Admin: 10/23/23 08:05 Dose: 75 mg Cyanocobalamin (Cyanocobalamin (B-12) 500 Mcg Tablet) 1,000 mcg PO DAILY [facility] Stop: 11/20/23 08:59 Last Admin: 10/23/23 08:05 Dose: 1,000 mcg Dextrose (Dextrose 50% 50 Ml Syringe) 25 - 50 ml IV UD PRN; Protocol PRN Reason: Hypoglycemia Protocol Stop: 11/19/23 16:20 Ferrous Sulfate (Ferrous Sulfate 325 Mg Tab) 325 mg PO QAM [facility] Stop: 11/22/23 08:59 Last Admin: 10/23/23 08:05 Dose: 325 mg Glucagon (Glucagon For Inj 1 Mg Vial) 1 mg SQ UD PRN; Protocol PRN Reason: Hypoglycemia Protocol Stop: 11/19/23 16:20 Glucose (Glucose 40% Gel 15 Gm Tube) 15 - 30 gm PO UD PRN; Protocol PRN Reason: Hypoglycemia Protocol Stop: 11/19/23 16:20 Glucose (Glucose 10 Tab/Tube) 4 - 8 tab PO UD PRN; Protocol PRN Reason: Hypoglycemia Treatment Stop: 11/19/23 16:20 Hydralazine HCl (Hydralazine Hcl 20 Mg/Ml Vial) 5 mg IV Q4H PRN PRN Reason: Blood Pressure - High Stop: 11/19/23 16:20 Last Admin: 10/20/23 22:59 Dose: 5 mg Hydromorphone HCl (Hydromorphone Inj 0.5 Mg/0.5 Ml Syr) 0.5 mg IV Q4H PRN PRN Reason: Severe Pain (Scale 7, 8, 9,10) Stop: 11/03/23 16:20 Last Admin: 10/22/23 12:56 Dose: 0.5 mg Acetaminophen (Ofirmev) 1,000 mg in 100 mls @ 400 mls/hr IV Q8H [facility] Stop: 10/24/23 13:59 Last Infusion: 10/23/23 06:54 Dose: Infused Sodium Chloride (Nss) 1,000 mls @ 80 mls/hr IV .[id number] [facility] Stop: 10/23/23 21:59 Last Admin: 10/23/23 09:59 Dose: 80 mls/hr Insulin Aspart (Insulin Aspart Per Unit Charge) 0 units SC ACHS [facility] Stop: 11/19/23 16:29 Last Admin: 10/23/23 12:21 Dose: 2 units Lidocaine (L[facility]ocaine 5% 1 Patch) [facility] [place]: 11/19/23 16:20 Last Admin: 10/23/23 08:06 Dose: Not Given Lisinopril (Lisinopril 5 Mg Tab) 5 [facility] [place]: 11/20/23 08:59 Last Admin: 10/23/23 08:05 Dose: 5 mg Metoprolol Succinate (Metoprolol Succ 50mg Ext Rel Tab) 50 mg PO BID [facility] Stop: 11/19/23 20:59 Last Admin: 10/23/23 08:04 Dose: 50 mg Miscellaneous (Carbohydrates For Hypoglycemia ) 15 - 30 gm PO UD PRN PRN Reason: Hypoglycemia Protocol Stop: 11/19/23 16:20 Miscellaneous (Remove Lidoderm Patch) 1 each N/A DAILY@2100 [facility] Stop: 11/19/23 20:59 Last Admin: 10/22/23 19:29 Dose: Not Given Morphine Sulfate (Morphine Sulfate 4 Mg/Ml 1 Ml Carp\\Vial) 3 mg IV Q4H PRN PRN Reason: Severe Pain (Scale 7, 8, 9,10) Stop: 11/03/23 16:27 Ondansetron HCl (Ondansetron Inj 2 Mg/Ml 2 Ml Vial) 4 mg IV Q6H PRN PRN Reason: Nausea Stop: 11/19/23 16:20 Oxycodone HCl (Oxycodone Hcl Ir 5 Mg Tab (Immediate Release)) 10 mg PO Q4 PRN PRN Reason: Mild-Mod Pain (Scale 1-6) Stop: 11/03/23 15:26 Last Admin: 10/23/23 12:27 Dose: 10 mg Polyethylene Glycol (Polyethylene (Miralax) 17 Gm Pack) 17 gm PO DAILY PRN PRN Reason: Constipation Stop: 11/19/23 16:20 Polyethylene Glycol (Polyethylene (Miralax) 17 Gm Pack) 17 gm PO BID [facility] Stop: 11/22/23 09:14 Last Admin: 10/23/23 09:59 Dose: 17 gm Potassium Chloride (Potassium Chloride 10 Meq Tabcr) 10 meq PO QAM [facility] Stop: 11/20/23 08:59 Last Admin: 10/23/23 08:05 Dose: 10 meq Senna/Docusate Sodium (Docusate Sodium/Senna 50/8.6mg Tab) 1 tab PO BID [facility] Stop: 11/22/23 09:14 Last Admin: 10/23/23 09:59 Dose: 1 tab Tamsulosin HCl (Tamsulosin Hcl 0.4 Mg Cap) 0.4 mg PO DAILY [facility] Stop: 11/20/23 08:59 Last Admin: 10/23/23 08:04 Dose: 0.4 mg
[2023-10-23] MEDS: oxyCODONE HCL IR 5 MG TAB (IMMEDIATE RELEASE) PO PRN (12:27)
--- NOTE | 2023-10-23 12:40 | Electrocardiogram Report ---
Test Reason : Blood Pressure : / mmHG Vent. Rate : 093 BPM Atrial Rate : 093 BPM P-R Int : 222 ms QRS Dur : 084 ms QT Int : 360 ms P-R-T Axes : 047 -05 -04 degrees QTc Int : 447 ms Poor data quality, interpretation may be adversely affected Sinus rhythm with 1st degree A-V block Poor R wave progression, consider anterior [place] vs. lead placement vs. LVH Abnormal ECG When compared with ECG of 20-OCT-2023 13:37, No significant change was found Confirmed by Davy Ching ([id number]) on 10/23/2023 12:39:46 PM Referred By: REFERRED SELF Confirmed By:Davy Ching
[2023-10-23] MEDS: MAGNESIUM SULFATE / D5W 1 GM/100 ML BAG IV ONE (14:22)
[2023-10-25 06:53] LABS: Hemoglobin 8.6 g/dl (14.0-18.0); Mean Corpuscular Hemoglobin 30.3 pg (25.0-34.0); Mean Corpuscular Hgb Conc 31.9 g/dL (32.0-36.0); Mean Corpuscular Volume 95.1 fL (80.0-100.0); Mean Platelet Volume 11.2 fL (9.4-12.4); Platelet Count 191 K/uL (130-400); RDW Coefficient of Variation 13.2 % (11.5-14.5); RDW Standard Deviation 45.9 fL (36.4-46.3); Red Blood Count 2.84 M/uL (4.70-6.10)
[2023-10-25 10:51] LABS: BUN Creatinine Ratio 24.2 (10-20); Calcium 8.8 mg/dl (8.6-10.3); Creatinine Clr Calc Pharmacy 51.2 ml/min; Est GFR (African American) 67.2 ml/min; Magnesium 1.8 mg/dl (1.7-2.4); Potassium 4.3 mmol/L (3.5-5.1)
--- NOTE | 2023-10-25 15:13 | Hospitalist Progress Note ---
Date of Service October 25, 2023 Assessment & Plan (1) Pain of right calf: (2) Hypertensive urgency: (3) Hypokalemia: Plan Aly Shay is a 78y/o M with PMHx significant for DM type II, dyslipidemia, HTN, CAD, CKD stage III, BPH w/ LUTS, lumbar DDD, neuropathy, history of NSTEMI s/p CABG x2 [on ASA and Plavix] who presented to the ED for evaluation secondary to right calf pain and was found to have a right calf intramuscular hematoma. #Acute Right Calf Pain 2/2 Right Calf Hematoma Pt presenting with severe R calf pain, inability to walk 2/2 the pain. Tib/fib XRAY- no fractures venous doppler noting "14.2 x 4.8 x 2.1 cm right calf intramuscular fluid collection suggestive of a hematoma. A follow-up ultrasound in 3 months to ensure resolution is recommended." Lower extremity CT noting intramuscular hematoma Orthopedics consulted, appreciate recs. recommended or stated the following: -X-rays of the tib-fib are negative. -The CT scan and ultrasound reports are reviewed indicating intramuscular hematoma; strain of the right gastrocnemius muscle medial head. -Recommend rest elevation icing compression. - No surgery indicated, continue conservative mgmt - WBAT with crutches or walker. Pain control H/H stable continue Aspirin and Plavix Continue to monitor Plan for OP follow up in 1-2 weeks Add Senna S and Miralax BID for bowel regimen as he is constipated #Chronic anemia stable h/h -low iron, start po supplement #NSVT On metoprolol 50mg BID VT for 16 beats on 10/21, will monitor on tele continue lytes #Hypertensive Urgency H/O Hypertension BP significantly elevated at 215/125 upon presentation. Continue home 50mg metoprolol succinate BID PRN 5mg IV hydralazine Q4H for SBP>160. Continuous cardiac monitoring in place, closely monitor BP and treat PRN. 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 Hgb A1c 5.8 ISS while hospitalized #CKD Stage III Creatinine 1.04 on admission (baseline creatinine ~1.2-1.3 per chart review). given gentle IVF x 1 L as pt is not drinking much so he doesn't have to ambulate avoid nephrotoxic medications when able #Dyslipidemia: OPERATIONS RESEARCH DIRECTOR atorvastatin #BPH tamsulosin. FULL CODE DVT Prophylaxis: SCDs - Only applied to LEFT leg at this time. Disposition: PT/OT:pending rehab , auth pending Admission and Anticipated Discharge Date Admission Date: October 20, 2023 Subjective Evaluated at bedside with present. Patient reports upset with staff given concern for being "blackmailed" when discussing participation with PT Patient states he does not like to be "forced to do things"; discussed participation to help maintain strength and queried whether a better pain regimen or timing would work, patient states he is unsure of what he is "expected to do" Reassured patient and listened to concerns. expressed that patient is not "safe for home"---reiterated continued pain regimen and plans for rehab placement in coming week Physical Exam Constitutional: WD/WN, vitals as above Respiratory: normal respiratory effort, lungs clear to auscultation Cardiovascular: RRR, no murmur, no edema Gastrointestinal (Abdomen): normal bowel sounds, soft, nontender, no hepatosplenomegaly Results & Data Results & Data Vital Signs (Past 12 Hours) Vital Signs Temp Pulse Pulse Resp BP BP Pulse Ox 10/25/23 14:58 37.1 C 95 H 15 150/83 H 94 10/25/23 14:23 100 H 10/25/23 13:17 83 173/83 H 10/25/23 10:00 36.8 C 94 H 18 183/103 H 93 10/25/23 07:34 36.4 C L 80 18 164/85 H 96 10/25/23 07:31 97 H O2 Del Method 10/25/23 14:58 Room Air 10/25/23 14:23 10/25/23 13:17 10/25/23 10:00 Room Air 10/25/23 07:34 Room Air 10/25/23 07:31 Laboratory Results Short CBC 10/25/23 Range/Units 05:28 WBC 4.80 (4.8-10.8) K/ul Hgb 8.6 L (14.0-18.0) g/dl Hct 27.0 L (42.0-52.0) % Plt Count 191 (130-400) K/uL BMP 10/25/23 05:28 Sodium 139 Potassium 4.3 Chloride 109 H Carbon Dioxide 20 L BUN 29 H Creatinine 1.20 D Glucose 106 H Calcium 8.8 Medications Administered Home Medications Medication Instructions Recorded Confirmed Last Taken atorvastatin 80 mg tablet 80 mg PO DAILY 01/21/22 10/20/23 02/07/22 metformin 1,000 mg tablet 1,000 mg PO BIDM 01/21/22 10/20/23 02/07/22 08:00 tamsulosin 0.4 mg capsule (Flomax) 0.4 mg PO DAILY 01/21/22 10/20/23 02/07/22 aspirin 81 mg tablet,delayed 81 mg PO QA 02/07/22 10/20/23 02/07/22 release clopidogrel 75 mg tablet 75 mg PO QA 02/07/22 10/20/23 Unknown cyanocobalamin (vitamin B-12) 1,000 mcg sublingual DAILY 02/07/22 10/20/23 02/07/22 1,000 mcg sublingual tablet potassium chloride 10 mEq 10 meq PO QAM 02/07/22 10/20/23 02/07/22 tablet,extended release lisinopril 2.5 mg tablet 2.5 mg PO QAM 10/20/23 10/20/23 Unknown metoprolol succinate 50 mg 50 mg PO BID 10/20/23 10/20/23 Unknown tablet,extended release 24 hr oxycodone 10 mg tablet 10 mg PO Q6H PRN Pain 10/20/23 10/20/23 Unknown Active Medications Generic Name Dose Route Start Last Admin Trade Name Jake PRN Reason Stop Dose Admin Aspirin 81 mg 10/23/23 09:00 10/25/23 08:30 Aspirin 81 Mg Ectab PO 11/22/23 08:59 81 mg QAM HU Administration Atorvastatin Calcium 80 mg 10/21/23 09:00 10/25/23 08:29 Atorvastatin 40 Mg Tab PO 11/20/23 08:59 80 mg DAILY HU Administration Clopidogrel Bisulfate 75 mg 10/23/23 09:00 10/25/23 08:30 Clopidogrel Bisulfate 75 Mg Tab PO 11/22/23 08:59 75 mg QAM HU Administration Cyanocobalamin 1,000 mcg 10/21/23 09:00 10/25/23 08:30 Cyanocobalamin (B-12) 500 Mcg Tablet PO 11/20/23 08:59 1,000 mcg DAILY HU Administration Ferrous Sulfate 325 mg 10/23/23 09:00 10/25/23 08:31 Ferrous Sulfate 325 Mg Tab PO 11/22/23 08:59 325 mg QAM HU Administration Hydralazine HCl 5 mg 10/20/23 16:21 10/20/23 22:59 Hydralazine Hcl 20 Mg/Ml Vial IV 11/19/23 16:20 5 mg Q4H PRN Administration Blood Pressure - High Hydromorphone HCl 0.5 mg 10/20/23 18:41 10/22/23 12:56 Hydromorphone Inj 0.5 Mg/0.5 Ml Syr IV 11/03/23 16:20 0.5 mg Q4H PRN Administration Severe Pain (Scale 7, 8, 9,10) Insulin Aspart 0 units 10/20/23 16:30 10/25/23 13:09 Insulin Aspart Per Unit Charge SC 11/19/23 16:29 2 units ACHS [facility] Administration Lidocaine 1 patch 10/20/23 16:21 10/25/23 08:32 Lidocaine 5% 1 Patch TD 11/19/23 16:20 Not Given QAM HU Lisinopril 5 mg 10/21/23 09:00 10/23/23 08:05 Lisinopril 5 Mg Tab PO 11/20/23 08:59 5 mg QAM HU Administration Metoprolol Succinate 50 mg 10/20/23 21:00 10/25/23 08:28 Metoprolol Succ 50mg Ext Rel Tab PO 11/19/23 20:59 50 mg BID HU Administration Miscellaneous 1 each 10/20/23 21:00 10/24/23 22:33 Remove Lidoderm Patch N/A 11/19/23 20:59 Not Given DAILY@2100 HU Oxycodone HCl 10 mg 10/23/23 09:20 10/25/23 13:10 Oxycodone Hcl Ir 5 Mg Tab (Immediate Release) PO 11/03/23 15:26 10 mg Q4 PRN Administration Mild-Mod Pain (Scale 1-6) Polyethylene Glycol 17 gm 10/23/23 09:15 10/25/23 08:45 Polyethylene (Miralax) 17 Gm Pack PO 11/22/23 09:14 Not Given BID HU Potassium Chloride 10 meq 10/21/23 09:00 10/25/23 08:31 Potassium Chloride 10 Meq Tabcr PO 11/20/23 08:59 10 meq QAM HU Administration Senna/Docusate Sodium 1 tab 10/23/23 09:15 10/25/23 08:30 Docusate Sodium/Senna 50/8.6mg Tab PO 11/22/23 09:14 1 tab BID HU Administration Tamsulosin HCl 0.4 mg 10/21/23 09:00 10/25/23 08:31 Tamsulosin Hcl 0.4 Mg Cap PO 11/20/23 08:59 0.4 mg DAILY HU Administration
[2023-10-26 06:59] LABS: Hematocrit (blood only) 28.6 % (42.0-52.0); Hemoglobin 9.2 g/dl (14.0-18.0); Mean Corpuscular Hemoglobin 30.5 pg (25.0-34.0); Mean Corpuscular Hgb Conc 32.2 g/dL (32.0-36.0); Mean Corpuscular Volume 94.7 fL (80.0-100.0); Mean Platelet Volume 10.9 fL (9.4-12.4); Platelet Count 195 K/uL (130-400); RDW Coefficient of Variation 13.3 % (11.5-14.5); RDW Standard Deviation 45.9 fL (36.4-46.3); Red Blood Count 3.02 M/uL (4.70-6.10); White Blood Count 5.49 K/ul (4.8-10.8)
[2023-10-26 07:09] LABS: BUN Creatinine Ratio 24.1 (10-20); Calcium 9.4 mg/dl (8.6-10.3); Creatinine Clr Calc Pharmacy 54.8 ml/min; Magnesium 1.8 mg/dl (1.7-2.4); Phosphorus 3.7 mg/dl (2.5-4.9); Potassium 4.3 mmol/L (3.5-5.1)
--- NOTE | 2023-10-26 13:14 | Hospitalist Progress Note ---
Date of Service October 26, 2023 Assessment & Plan (1) Pain of right calf: (2) Hypertensive urgency: (3) Hypokalemia: Plan Aly Shay is a 78y/o M with PMHx significant for DM type II, dyslipidemia, HTN, CAD, CKD stage III, BPH w/ LUTS, lumbar DDD, neuropathy, history of NSTEMI s/p CABG x2 [on ASA and Plavix] who presented to the ED for evaluation secondary to right calf pain and was found to have a right calf intramuscular hematoma. Course complicated by RLE swelling noted on 10/25. Encouraged to ambulate as tolerated, however, patient with low threshold for ambulation unless to bathroom #Right leg edema #Acute Right Calf Pain 2/2 Right Calf Hematoma Pt presenting with severe R calf pain, inability to walk 2/2 the pain. Tib/fib XRAY- no fractures venous doppler noting "14.2 x 4.8 x 2.1 cm right calf intramuscular fluid collection suggestive of a hematoma. A follow-up ultrasound in 3 months to ensure resolution is recommended." Lower extremity CT noting intramuscular hematoma Orthopedics consulted, appreciate recs. recommended or stated the following: -X-rays of the tib-fib are negative. -The CT scan and ultrasound reports are reviewed indicating intramuscular hematoma; strain of the right gastrocnemius muscle medial head. -Recommend rest elevation icing compression. - No surgery indicated, continue conservative mgmt - WBAT with crutches or walker. Pain control H/H stable continue Aspirin and Plavix Continue to monitor Plan for OP follow up in 1-2 weeks continue Senna S and Miralax BID for bowel regimen as he is constipated On day of 10/25, patient with RLE swelling--add doppler and heparin sq given stable hgb #Chronic anemia stable h/h -low iron, start po supplement #NSVT On metoprolol 50mg BID VT for 16 beats on 10/21, will monitor on tele, no further episodes continue lytes #Hypertensive Urgency #Hypertension BP significantly elevated at 215/125 upon presentation. Continue home 50mg metoprolol succinate BID PRN 5mg IV hydralazine Q4H for SBP>160. Continuous cardiac monitoring in place, closely monitor BP and treat PRN. 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 Hgb A1c 5.8 ISS while hospitalized #CKD Stage III Creatinine 1.04 on admission (baseline creatinine ~1.2-1.3 per chart review). 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 FULL CODE DVT Prophylaxis: SCDs - Only applied to LEFT leg at this time. add heparin sq given continued admission, stable hgb and concern for swelling of RLE Disposition: PT/OT:pending rehab , auth pending Admission and Anticipated Discharge Date Admission Date: October 20, 2023 Subjective NAEO Patient reports increased swelling in RLE, but pain is stable Denies chest pain, SOB or other acute concerns Physical Exam Constitutional: WD/WN, vitals as above Respiratory: normal respiratory effort, lungs clear to auscultation Cardiovascular: RRR, no murmur, no edema Gastrointestinal (Abdomen): normal bowel sounds, soft, nontender, no hepatosplenomegaly Results & Data Results & Data Vital Signs (Past 12 Hours) Vital Signs Temp Pulse Pulse Resp BP Pulse Ox O2 Del Method 10/26/23 11:15 36.5 C 75 20 149/81 H 97 Room Air 10/26/23 07:28 36.7 C 81 18 153/82 H 96 Room Air 10/26/23 05:40 68 10/26/23 04:00 36.8 C 76 20 169/94 H 95 Room Air Laboratory Results Short CBC 10/26/23 Range/Units 05:47 WBC 5.49 (4.8-10.8) K/ul Hgb 9.2 L (14.0-18.0) g/dl Hct 28.6 L (42.0-52.0) % Plt Count 195 (130-400) K/uL BMP 10/26/23 05:47 Sodium 138 Potassium 4.3 Chloride 108 H Carbon Dioxide 22 BUN 27 H Creatinine 1.12 Glucose 113 H Calcium 9.4 Medications Administered Home Medications Medication Instructions Recorded Confirmed Last Taken atorvastatin 80 mg tablet 80 mg PO DAILY 1010/20/23 02/07/22 metformin 1,000 mg tablet 1,000 mg PO BIDM 01/21/22 10/20/23 02/07/22 08:00 tamsulosin 0.4 mg capsule (Flomax) 0.4 mg PO DAILY 01/21/22 10/20/23 02/07/22 aspirin 81 mg tablet,delayed 81 mg PO QAM 02/07/22 10/20/23 02/07/22 release clopidogrel 75 mg tablet 75 mg PO QAM 02/07/22 10/20/23 Unknown cyanocobalamin (vitamin B-12) 1,000 mcg sublingual DAILY 02/07/22 10/20/23 02/07/22 1,000 mcg sublingual tablet potassium chloride 10 mEq 10 meq PO QAM 02/07/22 10/20/23 02/07/22 tablet,extended release lisinopril 2.5 mg tablet 2.5 mg PO QAM 10/20/23 10/20/23 Unknown metoprolol succinate 50 mg 50 mg PO BID 10/20/23 10/20/23 Unknown tablet,extended release 24 hr oxycodone 10 mg tablet 10 mg PO Q6H PRN Pain 10/20/23 10/20/23 Unknown Active Medications Generic Name Dose Route Start Last Admin Trade Name Jake PRN Reason Stop Dose Admin Aspirin 81 mg 10/23/23 09:00 10/26/23 08:03 Aspirin 81 Mg Ectab PO 11/22/23 08:59 81 mg QAM HU Administration Atorvastatin Calcium 80 mg 10/21/23 09:00 10/26/23 08:03 Atorvastatin 40 Mg Tab PO 11/20/23 08:59 80 mg DAILY HU Administration Clopidogrel Bisulfate 75 mg 10/23/23 09:00 10/26/23 08:02 Clopidogrel Bisulfate 75 Mg Tab PO 11/22/23 08:59 75 mg QAM HU Administration Cyanocobalamin 1,000 mcg 10/21/23 09:00 10/26/23 08:02 Cyanocobalamin (B-12) 500 Mcg Tablet PO 11/20/23 08:59 1,000 mcg DAILY HU Administration Ferrous Sulfate 325 mg 10/23/23 09:00 10/26/23 08:02 Ferrous Sulfate 325 Mg Tab PO 11/22/23 08:59 325 mg QAM HU Administration Hydralazine HCl 5 mg 10/20/23 16:21 10/20/23 22:59 Hydralazine Hcl 20 Mg/Ml Vial IV 11/19/23 16:20 5 mg Q4H PRN Administration Blood Pressure - High Hydromorphone HCl 0.5 mg 10/20/23 18:41 10/22/23 12:56 Hydromorphone Inj 0.5 Mg/0.5 Ml Syr IV 11/03/23 16:20 0.5 mg Q4H PRN Administration Severe Pain (Scale 7, 8, 9,10) Insulin Aspart 0 units 10/20/23 16:30 10/26/23 12:45 Insulin Aspart Per Unit Charge SC 11/19/23 16:29 4 units ACHS HU Administration Lidocaine 1 patch 10/20/23 16:21 10/26/23 08:00 Lidocaine 5% 1 Patch TD 11/19/23 16:20 Not Given QAM HU Lisinopril 5 mg 10/21/23 09:00 10/26/23 09:43 Lisinopril 5 Mg Tab PO 11/20/23 08:59 5 mg QAM HU Administration Metoprolol Succinate 50 mg 10/20/23 21:00 10/26/23 08:01 Metoprolol Succ 50mg Ext Rel Tab PO 11/19/23 20:59 50 mg BID HU Administration Miscellaneous 1 each 10/20/23 21:00 10/25/23 22:06 Remove Lidoderm Patch N/A 11/19/23 20:59 Not Given DAILY@2100 [facility] Oxycodone HCl 10 mg 10/23/23 09:20 10/26/23 12:44 Oxycodone Hcl Ir 5 Mg Tab (Immediate Release) PO 11/03/23 15:26 10 mg Q4 PRN Administration Mild-Mod Pain (Scale 1-6) Polyethylene Glycol 17 gm 10/23/23 09:15 10/26/23 08:01 Polyethylene (Miralax) 17 Gm Pack PO 11/22/23 09:14 Not Given BID HU Potassium Chloride 10 meq 10/21/23 09:00 10/26/23 08:02 Potassium Chloride 10 Meq Tabcr PO 11/20/23 08:59 10 meq QAM HU Administration Senna/Docusate Sodium 1 tab 10/23/23 09:15 10/26/23 08:02 Docusate Sodium/Senna 50/8.6mg Tab PO 11/22/23 09:14 1 tab BID HU Administration Tamsulosin HCl 0.4 mg 10/21/23 09:00 10/26/23 08:03 Tamsulosin Hcl 0.4 Mg Cap PO 11/20/23 08:59 0.4 mg DAILY HU Administration
[2023-10-26] MEDS: HEPARIN SOD 5,000 UNIT/0.5 ML VIAL SQ SCH (13:54)
--- NOTE | 2023-10-26 15:04 | Ultrasound Report ---
RIGHT LOWER EXTREMITY VENOUS DOPPLER HISTORY: increased swelling, recent hematoma COMPARISON STUDY: Right leg venous Doppler 10/20/2023. FINDINGS: There is normal compressibility, flow, and augmentation within the right lower extremity de ep venous system. Similar-appearing right calf intramuscular fluid collection suggestive of a hematom a. This measures 14 x 4 x 2 cm. IMPRESSION: No DVT within the right lower extremity. Similar-appearing right calf intramuscular hematoma. ACT 112: Negative or not required by law. Electronically signed by: Joe Retana M.D. 10/26/2023 3:01 PM
[2023-10-27 08:10] LABS: BUN Creatinine Ratio 23.5 (10-20); Calcium 9.5 mg/dl (8.6-10.3); Creatinine Clr Calc Pharmacy 44.3 ml/min; Est GFR (African American) 59.9 ml/min; Est GFR (Non-African American) 51.7 ml/min; Magnesium 1.8 mg/dl (1.7-2.4); Phosphorus 3.7 mg/dl (2.5-4.9); Potassium 4.4 mmol/L (3.5-5.1)
[2023-10-27 08:11] LABS: Hematocrit (blood only) 28.6 % (42.0-52.0); Hemoglobin 9.2 g/dl (14.0-18.0); Mean Corpuscular Hemoglobin 30.8 pg (25.0-34.0); Mean Corpuscular Hgb Conc 32.2 g/dL (32.0-36.0); Mean Corpuscular Volume 95.7 fL (80.0-100.0); Platelet Count 203 K/uL (130-400); RDW Coefficient of Variation 13.3 % (11.5-14.5); RDW Standard Deviation 47.4 fL (36.4-46.3); Red Blood Count 2.99 M/uL (4.70-6.10)
[2023-10-27] MEDS: lisinopril 10 MG TAB PO SCH (09:05)
--- NOTE | 2023-10-27 09:14 | Orthopedic Progress Note ---
Date of Service October 27, 2023 Assessment & Plan (1) Hematoma of right lower leg: Plan: The patient was educated regarding today's findings. He was reassured that I find no evidence of compartment syndrome. He may have some additional bleeding due to his combination of Plavix and aspirin as well as increased activity. He was informed of the venous Doppler results from yesterday, and that there is no evidence of DVT. He would benefit from gentle compression but he states he cannot tolerate pressure over the area. He was encouraged to remain mobile to reduce his risk for future DVT. He is currently awaiting insurance determination for placement. He was reminded to perform his ankle pumps and knee bends multiple times a day, even while in bed. Elevate the leg to reduce swelling. He may continue to use ice as needed for discomfort. Follow-up in the office 7 to 10 days after discharge. Admission and Anticipated Discharge Date Admission Date: October 20, 2023 Subjective This 78-year-old male is seen today in his room. He is 7 days status post admission for intractable pain of his right gastroc. The patient states that is improving only slightly. He developed increasing swelling over the weekend, and had a Doppler ultrasound obtained yesterday was negative for DVT. He states he continues to do his exercises in bed and has been ambulating in his room using his walker. He refused PT on Friday, stating he just did not feel ready to participate. He states PT has not been back since. He has been using his usual oral oxycodone for pain control and has stopped the IV Dilaudid. No additional complaints. He denies any shortness of breath, chest pain, nausea, vomiting, or abdominal pain. Physical Exam Physical Exam: General: Well-developed, well-nourished, elderly male, in no acute distress. Laying in bed in a darkened room. Alert and oriented. Skin: Warm and dry with good turgor. No rashes. He has some darker ecchymosis present on the medial gastroc of the right leg. There is increased edema since I saw him last. The skin is a little more taut, but still remains supple. He has minimal discomfort with palpation over the anterior and lateral compartments. Musculoskeletal: The patient has intact motor function of his toes and ankle. He is also able to gently flex and extend his knee. There is no pain with palpation around his knee. No significant discomfort with palpation over the tibialis anterior muscle belly or lateral gastroc. He continues to have tenderness with palpation over the medial gastroc. No pain with palpation over his ankle or foot. He is able to fully plantarflex his foot. Dorsiflexion with encouragement to neutral. Passively I can take him just past neutral with complaints of pain in the medial gastroc. Neurologic: Gross sensation is intact across the right lower extremity by soft touch. Peripheral pulses are 2+ for dorsalis pedis and posterior tib. Results & Data Vital Signs (Past 12 Hours) Vital Signs Temp Pulse Pulse Resp BP Pulse Ox O2 Del Method 10/27/23 07:14 Room Air 10/27/23 07:11 36.4 C L 84 18 160/90 H 95 Room Air 10/27/23 07:05 76 10/27/23 03:37 36.7 C 80 18 146/74 H 93 Room Air 10/27/23 00:09 36.8 C 74 20 150/82 H 95 Room Air 10/26/23 23:06 78 Laboratory Results CBC obtained this morning shows a white count of 5.9. H&H of 9.2 and 28.6. Platelets 203,000. PRP shows normal electrolytes. BUN of 31 with creatinine 1.32. Glucose 111.
--- NOTE | 2023-10-27 14:00 | Hospitalist Progress Note ---
Date of Service October 27, 2023 Assessment & Plan (1) Pain of right calf: (2) Hypertensive urgency: (3) Hypokalemia: Plan Aly Shay is a 78y/o M with PMHx significant for DM type II, dyslipidemia, HTN, CAD, CKD stage III, BPH w/ LUTS, lumbar DDD, neuropathy, history of NSTEMI s/p CABG x2 [on ASA and Plavix] who presented to the ED for evaluation secondary to right calf pain and was found to have a right calf intramuscular hematoma. Course complicated by RLE swelling noted on 10/25. Encouraged to ambulate as tolerated, however, patient with low threshold for ambulation unless to bathroom #Right leg edema #Acute Right Calf Pain 2/2 Right Calf Hematoma Pt presenting with severe R calf pain, inability to walk 2/2 the pain. Tib/fib XRAY- no fractures venous doppler noting "14.2 x 4.8 x 2.1 cm right calf intramuscular fluid collection suggestive of a hematoma. A follow-up ultrasound in 3 months to ensure resolution is recommended." Lower extremity CT noting intramuscular hematoma Orthopedics consulted, appreciate recs. recommended or stated the following: -X-rays of the tib-fib are negative. -The CT scan and ultrasound reports are reviewed indicating intramuscular hematoma; strain of the right gastrocnemius muscle medial head. -Recommend rest elevation icing compression. - No surgery indicated, continue conservative mgmt - WBAT with crutches or walker. Pain control H/H stable continue Aspirin and Plavix Continue to monitor Plan for OP follow up in 1-2 weeks continue Senna S and Miralax BID for bowel regimen as he is constipated On day of 10/25, patient with RLE swelling -Doppler negative for DVT - Continue dvt ppx -encourage ambulation #Chronic anemia stable h/h -low iron, start po supplement #NSVT On metoprolol 50mg BID VT for 16 beats on 10/21, will monitor on tele, no further episodes continue lytes #Hypertensive Urgency #Hypertension BP significantly elevated at 215/125 upon presentation. Continue home 50mg metoprolol succinate BID PRN 5mg IV hydralazine Q4H for SBP>160. Continuous cardiac monitoring in place, closely monitor BP and treat PRN. 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 Hgb A1c 5.8 ISS while hospitalized #CKD Stage III Creatinine 1.04 on admission (baseline creatinine ~1.2-1.3 per chart review). 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 FULL CODE DVT Prophylaxis: SCDs - Only applied to LEFT leg at this time. heparin sq Disposition: PT/OT:pending rehab , auth pending Admission and Anticipated Discharge Date Admission Date: October 20, 2023 Subjective NAEO Reports more swelling in leg, but still working to build up strength despite the pain Evaluated prior to working with PT Denies any other acute concerns at this time Physical Exam Constitutional: WD/WN, vitals as above Respiratory: normal respiratory effort, lungs clear to auscultation Cardiovascular: RRR, no murmur, no edema Musculoskeletal: increased RLE swelling, Pulses in tact Results & Data Results & Data Vital Signs (Past 12 Hours) Vital Signs Temp Pulse Pulse Resp BP Pulse Ox O2 Del Method 10/27/23 13:38 98 H 10/27/23 07:14 Room Air 10/27/23 07:11 36.4 C L 84 18 160/90 H 95 Room Air 10/27/23 07:05 76 10/27/23 03:37 36.7 C 80 18 146/74 H 93 Room Air Laboratory Results Short CBC 10/27/23 Range/Units 07:03 WBC 5.90 (4.8-10.8) K/ul Hgb 9.2 L (14.0-18.0) g/dl Hct 28.6 L (42.0-52.0) % Plt Count 203 (130-400) K/uL BMP 10/27/23 07:03 Sodium 138 Potassium 4.4 Chloride 107 Carbon Dioxide 25 BUN 31 H Creatinine 1.32 Glucose 111 H Calcium 9.5 Diagnostic Findings IMPRESSION: No DVT within the right lower extremity. Similar-appearing right calf intramuscular hematoma.
[2023-10-28 06:25] LABS: Hematocrit (blood only) 28.7 % (42.0-52.0); Hemoglobin 9.4 g/dl (14.0-18.0); Mean Corpuscular Hgb Conc 32.8 g/dL (32.0-36.0); Mean Corpuscular Volume 94.7 fL (80.0-100.0); Mean Platelet Volume 10.7 fL (9.4-12.4); Platelet Count 214 K/uL (130-400); RDW Coefficient of Variation 13.4 % (11.5-14.5); RDW Standard Deviation 45.6 fL (36.4-46.3); Red Blood Count 3.03 M/uL (4.70-6.10); White Blood Count 5.26 K/ul (4.8-10.8)
[2023-10-28] MEDS: lisinopril 20 MG TAB PO SCH (08:20)
--- NOTE | 2023-10-28 09:36 | Orthopedic Progress Note ---
Date of Service October 28, 2023 Assessment & Plan (1) Hematoma of right lower leg: Plan: The patient was educated regarding today's findings. He was reassured that I find no evidence of compartment syndrome. He may have some additional bleeding due to his combination of Plavix and aspirin as well as increased activity. He was informed of the venous Doppler results were negative for DVT. He would benefit from gentle compression but he states he cannot tolerate pressure over the area. He was encouraged to remain mobile to reduce his risk for future DVT. Patient is scheduled to be discharged to a rehab facility later this afternoon. He was reminded to perform his ankle pumps and knee bends multiple times a day, even while in bed. Elevate the leg to reduce swelling. He may continue to use ice as needed for discomfort. Follow-up in the office 7 to 10 days after discharge. Admission and Anticipated Discharge Date Admission Date: October 20, 2023 Subjective This 78-year-old male seen for follow-up of right calf hematoma. He states it is a little better today than it has been previously. He still has pain when doing physical therapy. He is currently on p.o. pain medication. He states that he is scheduled to be discharged to a rehab facility in [place] later this afternoon. Currently denies chest pain, shortness of breath, fever, chills, sweats or numbness or tingling in his right lower extremity. Review of Systems Review of Systems: All systems reviewed & are unremarkable except as noted in Subjective Physical Exam Physical Exam: Right lower extremity: TTP over entire calf more pronounced medially. Soft to palpation. Unable to perform SLRT. Able dorsi/plantar flex foot. Edema of calf. No erythema or warmth. Slight ecchymosis with yellow appearing skin. Periph pluses palpable. NV intact. Jose L bandage in place on right calf. Results & Data Vital Signs (Past 12 Hours) Vital Signs Temp Pulse Pulse Resp BP Pulse Ox O2 Del Method 10/28/23 07:26 36.4 C L 87 18 134/79 95 Room Air 10/28/23 07:05 Room Air 10/28/23 06:51 76 10/28/23 03:08 36.7 C 82 18 152/76 H 96 Room Air 10/28/23 00:00 106 H 10/27/23 23:52 36.7 C 81 18 120/72 95 Room Air Diagnostic Findings Laboratory Results WBC 5.26 K/ul (4.8-10.8) 10/28/23 06:01 RBC 3.03 M/uL (4.70-6.10) L 10/28/23 06:01 Hgb 9.4 g/dl (14.0-18.0) L 10/28/23 06:01 Hct 28.7 % (42.0-52.0) L 10/28/23 06:01 MCV 94.7 fL (80.0-100.0) 10/28/23 06:01 MCH 31.0 pg (25.0-34.0) 10/28/23 06:01 MCHC 32.8 g/dL (32.0-36.0) 10/28/23 06:01 RDW Std Deviation 45.6 fL (36.4-46.3) 10/28/23 06:01 RDW Coeff of Tanvi 13.4 % (11.5-14.5) 10/28/23 06:01 Plt Count 214 K/uL (130-400) 10/28/23 06:01 MPV 10.7 fL (9.4-12.4) 10/28/23 06:01 Immature Gran % (Auto) 1.2 % 10/20/23 08:54 Neut % (Auto) 87.2 % 10/20/23 08:54 Lymph % (Auto) 6.1 % 10/20/23 08:54 [place] % (Auto) 4.9 % 10/20/23 08:54 Eos % (Auto) 0.3 % 10/20/23 08:54 Baso % (Auto) 0.3 % 10/20/23 08:54 Neut # (Auto) 7.86 K/uL (1.40-6.50) H 10/20/23 08:54 Lymph # (Auto) 0.55 K/uL (1.20-3.40) L 10/20/23 08:54 [place] # (Auto) 0.44 K/uL (0.11-0.59) 10/20/23 08:54 Eos # (Auto) 0.03 K/uL (0.00-0.50) 10/20/23 08:54 Baso # (Auto) 0.03 K/uL (0.00-0.20) 10/20/23 08:54 Immature Gran # (Auto) 0.11 K/uL (0.01-0.20) 10/20/23 08:54 PT 10.9 Seconds (9.0-12.0) 10/20/23 08:54 INR 1.0 (0.9-1.1) 10/20/23 08:54 APTT 25 Seconds (21-31) 10/20/23 08:54 PTT Ratio 0.9 10/20/23 08:54 Sodium 138 mmol/L (136-145) 10/27/23 07:03 Potassium 4.4 mmol/L (3.5-5.1) 10/27/23 07:03 Chloride 107 mmol/L (98-107) 10/27/23 07:03 Carbon Dioxide 25 mmol/L (21-32) 10/27/23 07:03 Anion Gap 6 (3-11) 10/27/23 07:03 BUN 31 mg/dl (6-23) H 10/27/23 07:03 Creatinine 1.32 mg/dl (0.6-1.4) 10/27/23 07:03 Est Cr Clr Drug Dosing 44.3 ml/min 10/27/23 07:03 Est GFR ( Amer) 59.9 ml/min 10/27/23 07:03 Est GFR (Non-Af Amer) 51.7 ml/min 10/27/23 07:03 BUN/Creatinine Ratio 23.5 (10-20) H 10/27/23 07:03 Glucose 111 mg/dl (70-99(Fasting)) H 10/27/23 07:03 POC Glucose 135 mg/dl (70-99) H 10/28/23 07:44 Estimat Average Glucose 120 mg/dl 10/21/23 05:33 Hemoglobin A1c 5.8 % (4.5-5.6) H 10/21/23 05:33 Calcium 9.5 mg/dl (8.6-10.3) 10/27/23 07:03 Phosphorus 3.7 mg/dl (2.5-4.9) 10/27/23 07:03 Magnesium 1.8 mg/dl (1.7-2.4) 10/27/23 07:03 Iron 30 mcg/dl (35-175) L 10/22/23 05:57 TIBC 246 mcg/dl (250-450) L 10/22/23 05:57 Unsaturated IBC 216 mcg/dl (155-355) 10/22/23 05:57 Transferrin % Sat 12 % (20-50) L 10/22/23 05:57 Ferritin 92.2 ng/ml (8-388) 10/22/23 05:57 Total Bilirubin 0.7 mg/dl (0.2-1.0) 10/21/23 05:33 AST 10 U/L (13-39) L 10/21/23 05:33 ALT 8 U/L (7-52) 10/21/23 05:33 Alkaline Phosphatase 92 U/L (34-104) 10/21/23 05:33 Total Creatine Kinase 44 U/L (30-223) 10/20/23 08:54 Total Protein 7.2 gm/dl (6.0-8.3) 10/21/23 05:33 Albumin 4.2 gm/dl (3.4-5.0) 10/21/23 05:33 Globulin 3.0 gm/dl (2.5-4.0) 10/21/23 05:33 Albumin/Globulin Ratio 1.4 (0.9-2) 10/21/23 05:33 Vitamin B12 989 pg/ml (180-914) H 10/22/23 05:57 Folate 9.69 ng/ml (>5.38) 10/22/23 05:57 Impressions Tibia/Fibula X-Ray 10/20/23 08:34 XR tibia fibula RT 2V CLINICAL HISTORY: Right calf pain. COMPARISON: None FINDINGS: Surgical clips within the medial right lower leg are incidentally noted. There is no fracture within the right tibia or fibula. No osseous lesions are identified. IMPRESSION: No fractures within the right tibia or fibula. ACT 112: Negative or not required by law. Electronically signed by: Kurtis Eckert M.D. 10/20/2023 9:[address] 10/20/23 11:25 CT tib/fib RT w con CLINICAL HISTORY: right calf swelling, hematoma. Request of ortho TECHNIQUE: Multidetector row helical CT of the right tibia and fibula was performed with intravenous contrast. Coronal and sagittal reformations were obt ained. Automated dose lowering techniques and/or adjustment according to patient size were utilized for this examination. CT DOSE: 1244.39 mGy.cm Comparison: Comparison is made to tibia and fibular radiographs 10/20/2023 FINDINGS: The osseous structures are without fracture or dislocation. The joint spaces are maintained. No joint effusion is seen. Heterogeneous soft tissue swelling is se en in the lateral gastrocnemius. IMPRESSION: Heterogeneous soft tissue swelling is seen in the gastrocnemius region compatible with intramuscular hematoma. No abscess is seen. ACT 112: Negative or not required by law. Electronically signed by: Yazan Iqbal M.D. 10/20/2023 1:07 PM Venous Doppler Study 10/26/23 13:09 RIGHT LOWER EXTREMITY VENOUS DOPPLER HISTORY: increased swelling, recent hematoma COMPARISON STUDY: Right leg venous Doppler 10/20/2023. FINDINGS: There is normal compressibility, flow, and augmentation within the right lower extremity deep venous system. Similar-appearing right calf intramuscular fluid collection suggestive of a hematoma. This measures 14 x 4 x 2 cm. IMPRESSION: No DVT within the right lower extremity. Similar-appearing right calf intramuscular hematoma. ACT 112: Negative or not required by law. Electronically signed by: Joe Retana M.D. 10/26/2023 3:01 PM
--- NOTE | 2023-10-28 11:01 | Discharge Summary ---
Discharge Summary Date of Service October 28, 2023 Principal Dx & Hospital Course #1 = Principal Diagnosis (1) Pain of right calf: (2) Hypertensive urgency: (3) Hypokalemia: Anita Shay is a 78y/o M with PMHx significant for DM type II, dyslipidemia, HTN, CAD, CKD stage III, BPH w/ LUTS, lumbar DDD, neuropathy, history of NSTEMI s/p CABG x2 [on ASA and Plavix] who presented to the ED for evaluation secondary to right calf pain and was found to have a right calf intramuscular hematoma. Course complicated by RLE swelling noted on 10/25. Encouraged to ambulate as tolerated, however, patient with low threshold for ambulation unless to bathroom. On day of discharge, patient without any new acute concerns. Patient transported to [facility] for rehab #Right leg edema #Acute Right Calf Pain 2/2 Right Calf Hematoma Pt presenting with severe R calf pain, inability to walk 2/2 the pain. Tib/fib XRAY- no fractures venous doppler noting "14.2 x 4.8 x 2.1 cm right calf intramuscular fluid collec tion suggestive of a hematoma. A follow-up ultrasound in 3 months to ensure resolution is recommended." Lower extremity CT noting intramuscular hematoma Orthopedics consulted, appreciate recs. recommended or stated the following: -X-rays of the tib-fib are negative. -The CT scan and ultrasound reports are reviewed indicating intramuscular hematoma; strain of the right gastrocnemius muscle medial head. -Recommend rest elevation icing compression. - No surgery indicated, continue conservative mgmt - WBAT with crutches or walker. Pain control H/H stable continue Aspirin and Plavix Continue to monitor Plan for OP follow up in 1-2 weeks continue Senna S and Miralax BID for bowel regimen as he is constipated On day of 10/25, patient with RLE swelling -Doppler negative for DVT -Encourage ambulation -Follow up with ortho #Chronic anemia stable h/h -continue iron supplement for iron deficiency follow up pcp #NSVT On metoprolol 50mg BID VT for 16 beats on 10/21, will monitor on tele, no further episodes continue lytes #Hypertensive Urgency #Hypertension BP significantly elevated at 215/125 upon presentation. Continue home 50mg metoprolol succinate BID PRN 5mg IV hydralazine Q4H for SBP>160. Continuous cardiac monitoring in place, closely monitor BP and treat PRN. Continue lisinopril, increased to 20mg this admission #Coronary Artery Disease (CAD) #H/O NSTEMI S/P CABG x 2 [2021] Pt taking ASA 81mg daily and Plavix 75mg daily [employer]. #DM Type II resume home metformin #CKD Stage III Creatinine 1.04 on admission (baseline creatinine ~1.2-1.3 per chart review). given gentle IVF x 1 L as pt is not drinking much so he doesn't have to ambulate avoid nephrotoxic medications when able #Dyslipidemia: BLIND CLEANER atorvastatin #BPH tamsulosin. Notes For Next Care Provider Medication Changes From Visit Lisinopril 20mg qam Ferrous sulfate 325mg qam Admission HPI Per Admitting Provider Ayl Shay is a 78y/o M with PMHx of DM type II, dyslipidemia, HTN, CAD, CKD stage III, BPH w/ LUTS, lumbar DDD, neuropathy, history of NSTEMI s/p CABG x2 [on ASA and Plavix] and other problems listed below who presented to the ED for evaluation secondary to right calf pain. History obtained from patient and associated chart review. Patient reports that he felt a "tearing sensation" in his right calf approximately 4 days ago when he was attempting to move a refrigerator. He states the pain in his right calf has been worsening since then; now he is reporting severe pain. He reports that he is unable to ambulate appropriately due to the amount of pain he is experiencing. He has not been using any assistive devices at home, but patient states he has to hold onto nearby objects to help stabilize himself when getting around. Any movement of his right ankle or right knee causes excruciating pain. He also notes significant swelling of his right calf region, which he states has not improved much with application of ice at home. He does also note some bruising of his upper right calf region. Patient takes oxycodone 10mg approximately 3-4 times a day for chronic lower back pain, which he states has not helped at all with the right calf pain. He is currently taking aspirin and Plavix daily, as he had an NSTEMI 2 years ago and is now s/p CABG x 2. He denies any right ankle pain at this time. He has not been using any other pain medications at home, such as Tylenol or Motrin. He denies any SOB, chest pain, abdominal pain, nausea/vomiting or urinary/bowel habit issues. He reports adequate hydration and nutritional status. Admission Exam Per Admitting Provider General: NAD, sitting up in bed, pleasant, conversing appropriately, does not appear overtly uncomfortable. A+Ox3, euthymic affect. HEENT: Normocephalic, atraumatic. Conjunctivae normal, anicteric sclerae. External ear and nose normal, oropharynx normal. Respiratory: Normal respiratory effort, lungs clear to auscultation, no wheeze, rales, rhonchi. No accessory muscle use. Cardiovascular: Regular rate, rhythm, no murmur, normal peripheral pulses. Vessels: No JVD. Abdomen/GI: Normal bowel sounds, soft, nontender, no hepatosplenomegaly. Extremities/Musculoskeletal: No cyanosis or clubbing, R calf overtly swollen, severe tenderness to palpation of R calf, pain w/ movement of R knee and ankle. Neurologic: PERRL, EOMI, accommodation nl, no face palsy, no dysarthria, CN's II-XI not formally tested but appear grossly intact bilaterally. Skin: No rashes, normal color, warm/dry. Some mild bruising overlying the R calf region, more on the upper aspect. Discharge Exam Constitutional WD/WN, vitals as above Respiratory normal respiratory effort, lungs clear to auscultation Cardiovascular RRR, no murmur, no edema Gastrointestinal (Abdomen) normal bowel sounds, soft, nontender, no hepatosplenomegaly Skin circumferential bruising of RLE, much improved from days prior Updated Medication List Medication Instructions Recorded Confirmed Type atorvastatin 80 mg tablet 80 mg PO DAILY 01/21/22 10/20/23 History metformin 1,000 mg tablet 1,000 mg PO BIDM 01/21/22 10/20/23 History tamsulosin 0.4 mg capsule (Flomax) 0.4 mg PO DAILY 01/21/22 10/20/23 History aspirin 81 mg tablet,delayed 81 mg PO QAM 02/07/22 10/20/23 History release clopidogrel 75 mg tablet 75 mg PO QAM 02/07/22 10/20/23 History cyanocobalamin (vitamin B-12) 1,000 mcg sublingual DAILY 02/07/22 10/20/23 History 1,000 mcg sublingual tablet potassium chloride 10 mEq 10 meq PO QAM 02/07/22 10/20/23 History tablet,extended release metoprolol succinate 50 mg 50 mg PO BID 10/20/23 10/20/23 History tablet,extended release 24 hr oxycodone 10 mg tablet 10 mg PO Q6H PRN Pain 10/20/23 10/20/23 History ferrous sulfate 325 mg (65 mg 325 mg PO QAM #30 tabs 10/28/23 Rx iron) tablet,delayed release lisinopril 20 mg tablet 20 mg PO QAM #30 tabs 10/28/23 Rx Hospital Stay Data Consultations 10/20/23 11:53 Consult Orthopedic Surgery Routine ED Decision to Admit Stat 10/20/23 12:12 Consult Orthopedic Surgery Routine Diagnostic Imagining Performed 10/20/23 08:34 US venous doppler LE RT Stat 10/20/23 11:25 CT leg [CT tib/fib RT w con] Stat 10/26/23 13:09 US venous doppler LE RT Routine Pending Results Patient Have Any Pending Studies at Discharge: No Discharge Instructions Given to Patient (Per Discharging Provider) You were admitted for right lower extremity hematoma and monitored for blood loss. Given the pain you were determined to transition to rehab prior to home Ice and elevate the calf frequently to reduce pain and swelling Use a compressive wrap to help with edema control as needed Be sure to get out of bed frequently and ambulate to reduce any risk for clots Perform gentle stretching numerous times per day Follow-up in the office on 11/02 for reassessment Your blood pressure medication was increased to Lisinopril 20mg daily. Total Time Total Time Spent Total Time Spent (In Minutes): 35
--- NOTE | 2023-10-29 15:13 | Coding Query ---
CODING QUERY To promote full compliance with coding requirements relating to patient care, provider participation is requested in all cases of vp software support uncertainty. Please assist us with the question(s) below: Coding Question(s): ED notes-There is swelling of the right calf following what sounds like a calf tear while lifting a week ago some boxes. Being on aspirin and Plavix probably led to worsening bleeding. Denies any other trauma other than the pop while lifting. Aspirin and plavix held. Physician's Response(s): Can you please further clarify the most likely etiology of the patient's large hematoma present in the gastroc? [ x ] Hematoma d/t gastroc muscle strain [ ] Hematoma progression d/t use of aspirin and plavix [ ] Other Thank you Marixa Prater, YVETTEP, CCS Principal Diagnosis: "that condition established after study, to be chiefly responsible for occasioning the admission of the patient to the hospital for care." Co-Existing Principal Diagnosis: "when two or more diagnoses equally meet the criteria for principal diagnosis as determined by the circumstances of admission, diagnostic work up, and/or therapy provided, and the Alphabetic Index, Tabular List, or another coding guideline does not provide sequencing direction, any one of the diagnoses may be sequenced first." "When the physician has documented what appears to be a current diagnosis in the body of the record, but has not included the diagnosis in the final diagnostic statement, the physician should be asked whether the diagnosis should be added." (Source Coding [facility] 2 QTR90. p3-4) LINA
== END 2023-10-28 13:11 | DRG 605 ==
LOC: ED 08:13 → 2W 12:12 → SUATTDRO 12:12 → 2W 18:57

== ENCOUNTER 2025-01-16 01:45 | Inpatient (IN) ==
--- NOTE | 2025-01-16 02:08 | Emergency Department Note ---
Impression & Plan Chest pain Admission ED Provider Note HPI: History obtained from patient. The patient is a 79-year-old gentleman with history of coronary artery disease, status post CABG, presents the emergency department with substernal chest pain. Patient states over the past several weeks he has had some substernal chest pain that occurred only with exertion such as taking groceries into the house and walking up steps. He states over the past 3 hours prior to arrival to the ER he developed more intense pain that occurred even when he was at rest. Patient denies any shortness of breath. On arrival here to the ED the patient is hypertensive and tachycardic. He is saturating well on room air. He is alert and oriented on arrival. ROS: - Per HPI Differential Diagnosis: STEMI/ACS, esophagitis, GERD, pleuritis, aortic dissection, pulmonary embolism, amongst other potential pathologies. *Outpatient medications and allergy history reviewed. PE: General: Alert, frail-appearing HEENT: Normocephalic, trachea midline Eyes: Extraocular eye movement is intact, no scleral erythema Pulmonary: Clear to auscultation bilaterally, no wheezing Cardio: Slightly tachycardic rate with regular rhythm GI: Abdomen is soft to palpation : No suprapubic tenderness MSK: No evidence of trauma or malformation of the extremities, no edema Skin: No evidence of rash Neuro: Alert, no focal deficits Psychiatric: Cooperative INDEPENDENT INTERPRETATIONS: tennis instructor: (As interpreted by myself): - An order was placed for continuous cardiac monitoring - Patient was noted to be in sinus rhythm with a rate of 108 EKG: (As interpreted by myself): Rate: 110 Rhythm: Sinus tachycardia Intervals: MS interval 212 ms, otherwise within normal limits ST changes: No ST elevation, ST depressions noted in lateral leads V4 through V6 as well as lead II Time: 0200 EKG #2: (As interpreted by myself): Rate: 104 Rhythm: Sinus tachycardia Intervals: MS interval 212 ms, otherwise within normal limits ST changes: ST depressions noted in leads II, V5, and V6 Time: 0217 EKG #3: (As interpreted by myself): Rate: 88 Rhythm: Sinus rhythm Intervals: MS interval 232 ms, otherwise within normal limits ST changes: Mild ST depressions noted in leads II, ST depressions in leads V4 through V6 appear improved from previous, otherwise no evidence of ST elevation CO Time: 0326 Chest x-ray: (As interpreted by myself): No acute disease Interventions provided in ED: - IV morphine, IV Zofran, aspirin, heparin drip and bolus Medical Decision Making: IV was established and lab work obtained, patient was placed on personal computer network engineer. Initial EKG is concerning for some potential acute ischemic changes with ST depressions in the lateral leads and lead II. Patient was given IV morphine and IV Zofran as well as aspirin. His pain began to improve. Repeat EKGs did not show any evidence of ST elevation CO. Troponin did return markedly elevated at greater than 2000, chest x-ray did not show any evidence of any obvious acute disease per my interpretation. Patient's lab work otherwise shows no leukocytosis, hemoglobin is stable at 11.2, platelet count is normal, CMP does not show any evidence of any critical findings, creatinine is mildly elevated. Initial high-sensitivity troponin is elevated at 2372. I discussed the patient's presentation with the on-call bargeman, Dr. Srivastava, at this time following our discussion the plan will be for initiation of IV heparin and he will evaluate the patient in the morning for cardiac catheterization. Case was discussed with the on-call hospitalist, Dr. Crawford, the patient was placed for admission in stable condition. Prior to admission patient states his pain is greatly improved, his blood pressure did downtrend following pain control, heart rate also improved to within normal limits. Consultants/Discussions held with other healthcare providers: - Interventional cardiology, Dr. Srivastava - Hospitalist, Dr. Crawford Disposition discussion held by myself with: - Patient and patient's at the bedside * CRITICAL CARE TIME: ( 45 ) minutes - Stabilization of patient with unstable angina in the setting of elevated troponin/NSTEMI requiring initiation of heparin drip, time spent at the bedside, interpretation of multiple EKGs, discussion with on-document design specialist including interventional cardiology, discussion with hospitalist in regards to arrangement of admission. Diagnosis: 1. NSTEMI, acute 2. Chest pain, acute 3. History of CABG 4. Elevated high-sensitivity troponin level, acute 5. Hypertension, acute, established Disposition: Admission Michael Flores DO Emergency Medicine Past Med/Surg History Problem List (Updated 01/16/25 @ 05:15 by Michael Flores DO) Intractable pain (Acute) Hematoma of right lower leg (Acute) Elevated troponin (Acute) Exertional chest pain (Acute) Hypertension (Acute) BPH (benign prostatic hyperplasia) HTN (hypertension) HLD (hyperlipidemia) Benign essential hypertension (Acute) Atherogenic dyslipidemia NSTEMI (non-ST elevated myocardial infarction) (Acute) Chest pain (Acute) Medical History Chronic back pain STEMI (ST elevation myocardial infarction) Family History Denies family history of Heart disease Social History Smoking Status: Never smoker Tobacco Type: Cigarettes Second Hand Exposure: No; Do You Dip or Chew Tobacco: No; Hx Alcohol Use: No Hx Substance Use: No Preferred Language: Thai Communication Ability: Effective Physical Therapist Required: No Beliefs That Will Affect Care: None marital status: Current Living Situation: Spouse Feels Safe at Home: Yes Assistive Devices: None Allergies Allergies Allergy/AdvReac Type Severity Reaction Status Date / Time No Known Allergies Allergy Verified 02/07/22 18:42 Home Meds Home Medications Medication Instructions Recorded Confirmed atorvastatin 80 mg tablet 80 mg PO DAILY 01/21/22 10/20/23 metformin 1,000 mg tablet 1,000 mg PO BIDM 01/21/22 10/20/23 tamsulosin 0.4 mg capsule (Flomax) 0.4 mg PO DAILY 01/21/22 10/20/23 aspirin 81 mg tablet,delayed 81 mg PO QAM 02/07/22 10/20/23 release clopidogrel 75 mg tablet 75 mg PO QAM 02/07/22 10/20/23 cyanocobalamin (vitamin B-12) 1,000 mcg sublingual DAILY 02/07/22 10/20/23 1,000 mcg sublingual tablet potassium chloride 10 mEq 10 meq PO QAM 02/07/22 10/20/23 tablet,extended release metoprolol succinate 50 mg 50 mg PO BID 10/20/23 10/20/23 tablet,extended release 24 hr oxycodone 10 mg tablet 10 mg PO Q6H PRN Pain 10/20/23 10/20/23 Previous Rx's Medication Instructions Recorded ferrous sulfate 325 mg (65 mg 325 mg PO QAM #30 tabs 10/28/23 iron) tablet,delayed release lisinopril 20 mg tablet 20 mg PO QAM #30 tabs 10/28/23 Results & Data (ED) Vital Signs Vital Signs - 24 hr 01/16/25 01:54 01/16/25 02:03 01/16/25 02:18 Temperature 36.6 C Temperature Source Temporal Artery Scan Pulse Rate 122 H 105 H 102 H Pulse Rate [Apical] Pulse Rhythm Regular Pulse Strength Normal Respiratory Rate 18 Respiratory Effort / Characteristics Non-Labored Spontaneous Respiratory Depth Normal Respiratory Pattern Regular Blood Pressure 193/116 H 188/120 H Blood Pressure [Right Arm] Blood Pressure Mean 141 Blood Pressure Mean [Right Arm] Blood Pressure Position Sitting Pulse Oximetry 95 Oxygen Delivery Method Room Air Sepsis Recent Fever Within 48 Hours No Sepsis New/Unexplained Change in Mental Status N/A Sepsis Action Taken by Nursing No Action Required 01/16/25 02:30 01/16/25 02:40 01/16/25 02:50 Temperature Temperature Source Pulse Rate 91 H 91 H 96 H Pulse Rate [Apical] Pulse Rhythm Pulse Strength Respiratory Rate 14 16 Respiratory Effort / Characteristics Respiratory Depth Respiratory Pattern Blood Pressure 149/104 H 161/106 H 158/106 H Blood Pressure [Right Arm] Blood Pressure Mean 115 121 Blood Pressure Mean [Right Arm] Blood Pressure Position Pulse Oximetry 95 95 Oxygen Delivery Method Room Air Room Air Sepsis Recent Fever Within 48 Hours Sepsis New/Unexplained Change in Mental Status Sepsis Action Taken by Nursing 01/16/25 03:01 01/16/25 03:15 01/16/25 03:30 Temperature Temperature Source Pulse Rate 94 H 90 88 Pulse Rate [Apical] Pulse Rhythm Pulse Strength Respiratory Rate 18 18 18 Respiratory Effort / Characteristics Respiratory Depth Respiratory Pattern Blood Pressure 152/104 H 155/103 H 150/103 H Blood Pressure [Right Arm] Blood Pressure Mean 127 118 121 Blood Pressure Mean [Right Arm] Blood Pressure Position Pulse Oximetry 94 95 94 Oxygen Delivery Method Room Air Room Air Room Air Sepsis Recent Fever Within 48 Hours Sepsis New/Unexplained Change in Mental Status Sepsis Action Taken by Nursing 01/16/25 03:45 01/16/25 04:00 01/16/25 04:36 Temperature Temperature Source Pulse Rate 91 H 87 Pulse Rate [Apical] 96 H Pulse Rhythm Pulse Strength Respiratory Rate 16 20 20 Respiratory Effort / Characteristics Respiratory Depth Respiratory Pattern Blood Pressure 157/107 H 144/96 H Blood Pressure [Right Arm] 146/104 H Blood Pressure Mean 121 130 Blood Pressure Mean [Right Arm] 118 Blood Pressure Position Pulse Oximetry 95 96 94 Oxygen Delivery Method Room Air Room Air Room Air Sepsis Recent Fever Within 48 Hours Sepsis New/Unexplained Change in Mental Status Sepsis Action Taken by Nursing 01/16/25 04:37 01/16/25 04:41 01/16/25 04:45 Temperature Temperature Source Pulse Rate 95 H 82 86 Pulse Rate [Apical] Pulse Rhythm Pulse Strength Respiratory Rate 16 20 Respiratory Effort / Characteristics Respiratory Depth Respiratory Pattern Blood Pressure 131/109 H 141/97 H 128/87 Blood Pressure [Right Arm] Blood Pressure Mean 104 105 Blood Pressure Mean [Right Arm] Blood Pressure Position Pulse Oximetry 94 93 Oxygen Delivery Method Room Air Room Air Sepsis Recent Fever Within 48 Hours Sepsis New/Unexplained Change in Mental Status Sepsis Action Taken by Nursing 01/16/25 04:50 01/16/25 04:52 01/16/25 04:55 Temperature Temperature Source Pulse Rate 80 92 H 87 Pulse Rate [Apical] Pulse Rhythm Pulse Strength Respiratory Rate 16 18 Respiratory Effort / Characteristics Respiratory Depth Respiratory Pattern Blood Pressure 128/85 128/85 132/84 Blood Pressure [Right Arm] Blood Pressure Mean 103 91 Blood Pressure Mean [Right Arm] Blood Pressure Position Pulse Oximetry 93 94 Oxygen Delivery Method Room Air Room Air Sepsis Recent Fever Within 48 Hours Sepsis New/Unexplained Change in Mental Status Sepsis Action Taken by Nursing 01/16/25 05:00 Temperature Temperature Source Pulse Rate 84 Pulse Rate [Apical] Pulse Rhythm Pulse Strength Respiratory Rate 18 Respiratory Effort / Characteristics Respiratory Depth Respiratory Pattern Blood Pressure 125/93 Blood Pressure [Right Arm] Blood Pressure Mean 97 Blood Pressure Mean [Right Arm] Blood Pressure Position Pulse Oximetry 94 Oxygen Delivery Method Room Air Sepsis Recent Fever Within 48 Hours Sepsis New/Unexplained Change in Mental Status Sepsis Action Taken by Nursing Laboratory Data 01/16/25 02:01 01/16/25 02:01 Lab Results 01/16/25 Range/Units 02:01 WBC 9.82 (4.8-10.8) K/ul RBC 3.66 L (4.70-6.10) M/uL Hgb 11.2 L (14.0-18.0) g/dl Hct 35.2 L (42.0-52.0) % MCV 96.2 (80.0-100.0) fL MCH 30.6 (25.0-34.0) pg MCHC 31.8 L (32.0-36.0) g/dL RDW Std Deviation 48.1 H (36.4-46.3) fL RDW Coeff of Tanvi 13.5 (11.5-14.5) % Plt Count 212 (130-400) K/uL MPV 11.0 (9.4-12.4) fL Immature Gran % (Auto) 0.5 % Neut % (Auto) 87.9 % Lymph % (Auto) 6.6 % [place] % (Auto) 4.4 % Eos % (Auto) 0.2 % Baso % (Auto) 0.4 % Neut # (Auto) 8.63 H (1.40-6.50) K/uL Lymph # (Auto) 0.65 L (1.20-3.40) K/uL [place] # (Auto) 0.43 (0.11-0.59) K/uL Eos # (Auto) 0.02 (0.00-0.50) K/uL Baso # (Auto) 0.04 (0.00-0.20) K/uL Immature Gran # (Auto) 0.05 (0.01-0.20) K/uL PT 10.5 (9.0-12.0) Seconds INR 1.0 (0.9-1.1) Sodium 140 (136-145) mmol/L Potassium 4.5 (3.5-5.1) mmol/L Chloride 105 (98-107) mmol/L Carbon Dioxide 20 L (21-32) mmol/L Anion Gap 15 H (3-11) BUN 26 H (6-23) mg/dl Creatinine 1.46 H (0.6-1.4) mg/dl Est Cr Clr Drug Dosing 36.4 ml/min eGFR 48.92 BUN/Creatinine Ratio 17.8 (10-20) Glucose 177 H (70-99(Fasting)) mg/dl Calcium 10.0 (8.6-10.3) mg/dl Total Bilirubin 0.3 (0.2-1.0) mg/dl AST 34 (13-39) U/L ALT 18 (7-52) U/L Alkaline Phosphatase 86 (34-104) U/L Troponin I High Sens 2372.2 H* (0-20) pg/ml Total Protein 7.4 (6.0-8.3) gm/dl Albumin 4.4 (3.4-5.0) gm/dl Globulin 3.0 (2.5-4.0) gm/dl Albumin/Globulin Ratio 1.5 (0.9-2) Lipase 11 (11-82) U/L Administered Medications Heparin Sodium/Dextrose (Heparin 35156 Unit/500 Ml D5w) 25,000 units in 500 mls @ 15 mls/hr IV .Q24H HU; Protocol Stop: 02/15/25 03:59 Last Admin: 01/16/25 04:01 Dose: 750 units/hr, 15 mls/hr Documented By: UVALDO Co-signed By: JOHN Nitroglycerin (Nitroglycerin 2% Ointment 30gm Tube) 1 inch EXT Q6H HU Stop: 02/15/25 04:29 Last Admin: 01/16/25 04:41 Dose: 1 inch Documented By: UVALDO Discontinued Medications Aspirin (Aspirin Chew 324 Mg) 324 mg PO NOW STA Stop: 01/16/25 02:17 Last Admin: 01/16/25 02:30 Dose: 324 mg Documented By: UVALDO Heparin Sodium (Porcine) (Heparin Sod (Porcine) 1000 Unit/Ml) 1 units IV NOW ONE Stop: 01/16/25 03:52 Last Admin: 01/16/25 04:01 Dose: 4,000 units Documented By: UVALDO Co-signed By: JOHN Heparin Sodium/Dextrose (Heparin Iv Adult Wt-Based Low-Dose W/ Initial Bolus Protocol) 1 each IV NOW STA; Protocol Stop: 01/16/25 03:36 Last Admin: 01/16/25 04:08 Dose: Not Given Documented By: UVALDO Labetalol HCl (Labetalol Hcl Iv 5 Mg/Ml 20ml) 10 mg IV NOW STA Stop: 01/16/25 02:02 Last Admin: 01/16/25 02:18 Dose: 10 mg Documented By: UVALDO Metoprolol Tartrate (Metoprolol Tartrate 1 Mg/Ml Vial) 5 mg IV NOW STA Stop: 01/16/25 04:29 Last Admin: 01/16/25 04:37 Dose: 5 mg Documented By: UVALDO Morphine Sulfate (Morphine Sulfate 4 Mg/Ml 1 Ml Carp\Vial) 4 mg IV NOW STA Stop: 01/16/25 02:08 Last Admin: 01/16/25 02:26 Dose: 4 mg Documented By: UVALDO Morphine Sulfate (Morphine Sulfate 4 Mg/Ml 1 Ml Carp\Vial) 4 mg IV NOW STA Stop: 01/16/25 03:03 Last Admin: 01/16/25 03:04 Dose: 4 mg Documented By: UVALDO Morphine Sulfate (Morphine Sulfate 4 Mg/Ml 1 Ml Carp\Vial) 4 mg IV NOW STA Stop: 01/16/25 03:04 Last Admin: 01/16/25 03:24 Dose: Not Given Documented By: UVALDO Ondansetron HCl (Ondansetron Inj 2 Mg/Ml 2 Ml Vial) 4 mg IV NOW STA Stop: 01/16/25 02:08 Last Admin: 01/16/25 02:24 Dose: 4 mg Documented By: UVALDO Imaging Data Radiologist's Impression: Chest X-Ray 01/16/25 02:01 EXAM: XR chest 1V portable CLINICAL HISTORY: Chest pain, nonspecific. TECHNIQUE: An X-ray image of the chest was obtained in AP projection. COMPARISON: Prior X-ray and CT 02/07/2022. FINDINGS: Pulmonary Parenchyma: Prominent hilar and bronchovascular markings are present. Subsegmental atelectatic changes are seen bilaterally. There is no evidence of consolidation, collapse, or focal opacities. There is no evidence of pleural effusion or pleural thickening. Heart and Mediastinum: The heart size and shape are normal. There is no mediastinal widening or masses. No hilar or mediastinal lymphadenopathy is identified. Sternotomy sutures are noted. Chest leads are in place. Bony Thorax: The bony thorax appears intact without fractures or deformities. Soft Tissues: The soft tissues overlying the chest wall are unremarkable. A metallic object is present near the right shoulder region. IMPRESSION: 1. The imaging findings are likely due to pulmonary congestion. Interval new. Clinical and laboratory correlation is advised to rule out pulmonary infection. 2. There is no evidence of consolidation or pleural effusion. Electronically signed by Kartik Steel 01-16-2025 03:46 AM Discharge Plan Visit Data Chief Complaint: Chest Pain Stated Complaint: CHEST PAIN ED Provider: Michael Flores Discharge Problem: Chest pain Patient Disposition: Admitted As Inpatient Condition: Fair Forms Stand Alone Forms: [facility] [employer] Prescriptions Prescriptions: No Action potassium chloride 10 mEq tablet extended release 10 meq PO QAM clopidogrel 75 mg tablet 75 mg PO QAM aspirin 81 mg Tablet,Delayed Release (Dr/Ec) 81 mg PO QAM cyanocobalamin (vitamin B-12) 1,000 mcg Tablet, Sublingual 1,000 mcg SUBLINGUAL DAILY atorvastatin 80 mg tablet 80 mg PO DAILY tamsulosin [Flomax] 0.4 mg capsule 0.4 mg PO DAILY metformin 1,000 mg tablet 1,000 mg PO BIDM metoprolol succinate 50 mg tablet extended release 24 hr 50 mg PO BID oxycodone 10 mg tablet 10 mg PO Q6H PRN (Reason: Pain) Rx Instructions: Take 1 Tablet by mouth every 6 hours as needed for pain. ferrous sulfate 325 mg (65 mg iron) Tablet,Delayed Release (Dr/Ec) 325 mg PO QAM Qty: 30 0RF lisinopril 20 mg Tablet 20 mg PO QAM Qty: 30 0RF Referrals Referrals: Xavier Miller MD [Primary Care Provider] - Discharge Problem: Chest pain Qualifiers: Chest pain type: unspecified Qualified Code(s): R07.9 - Chest pain, unspecified
[2025-01-16] MEDS: LABETALOL HCL IV 5 MG/ML 20ML IV STA (02:18)
[2025-01-16] MEDS: ONDANSETRON INJ 2 MG/ML 2 ML VIAL IV STA (02:24)
[2025-01-16] MEDS: MoRPHine SULFATE 4 MG/ML 1 ML CARP\\VIAL IV STA ×3 (02:26→03:24)
[2025-01-16] MEDS: ASPIRIN CHEW 324 MG PO STA (02:30)
[2025-01-16 02:46] LABS: Hematocrit (blood only) 35.2 % (42.0-52.0); Hemoglobin 11.2 g/dl (14.0-18.0); Immature Granulocytes # (auto) 0.05 K/uL (0.01-0.20); Immature Granulocytes % (auto) 0.5 %; Mean Corpuscular Hemoglobin 30.6 pg (25.0-34.0); Mean Corpuscular Volume 96.2 fL (80.0-100.0); Platelet Count 212 K/uL (130-400); RDW Standard Deviation 48.1 fL (36.4-46.3); Red Blood Count 3.66 M/uL (4.70-6.10); White Blood Count 9.82 K/ul (4.8-10.8)
[2025-01-16 03:04] LABS: Alanine Aminotransferase 18.0 U/L (7-52); Albumin Globulin Ratio 1.5 (0.9-2); Albumin Level 4.4 gm/dl (3.4-5.0); Alkaline Phosphatase 86.0 U/L (34-104); Anion Gap 15.0 (3-11); Bilirubin,Total 0.3 mg/dl (0.2-1.0); Blood Urea Nitrogen 26.0 mg/dl (6-23); Calcium 10.0 mg/dl (8.6-10.3); Carbon Dioxide 20.0 mmol/L (21-32); Chloride 105.0 mmol/L (98-107); Creatinine Clr Calc Pharmacy 36.4 ml/min; Globulin 3.0 gm/dl (2.5-4.0); Glucose 177.0 mg/dl (70-99(Fasting)); Lipase 11.0 U/L (11-82); Potassium 4.5 mmol/L (3.5-5.1); Sodium 140.0 mmol/L (136-145); Total Protein 7.4 gm/dl (6.0-8.3)
[2025-01-16 03:14] LABS: INR 1.0 (0.9-1.1); Prothrombin Time 10.5 Seconds (9.0-12.0)
--- NOTE | 2025-01-16 03:46 | XRay Report ---
EXAM: XR chest 1V portable CLINICAL HISTORY: Chest pain, nonspecific. TECHNIQUE: An X-ray image of the chest was obtained in AP projection. COMPARISON: Prior X-ray and CT 02/07/2022. FINDINGS: Pulmonary Parenchyma: Prominent hilar and bronchovascular markings are present. Subsegmental atelectatic changes are seen bilaterally. There is no evidence of consolidation, collapse, or focal opacities. There is no evidence of pleural effusion or pleural thickening. Heart and Mediastinum: The heart size and shape are normal. There is no mediastinal widening or masses. No hilar or mediastinal lymphadenopathy is identified. Sternotomy sutures are noted. Chest leads are in place. Bony Thorax: The bony thorax appears intact without fractures or deformities. Soft Tissues: The soft tissues overlying the chest wall are unremarkable. A metallic object is present near the right shoulder region. IMPRESSION: 1. The imaging findings are likely due to pulmonary congestion. Interval new. Clinical and laboratory correlation is advised to rule out pulmonary infection. 2. There is no evidence of consolidation or pleural effusion. Electronically signed by Kartik Steel 01-16-2025 03:46 AM
[2025-01-16] MEDS: HEPARIN 25000 UNIT/500 ML D5W 25,000 UNITS/500 ML BAG IV SCH (04:01)
[2025-01-16] MEDS: HEPARIN SOD (PORCINE) 1000 UNIT/ML IV ONE (04:01)
[2025-01-16] MEDS: Heparin IV Adult Wt-Based Low-Dose w/ INITIAL Bolus Protocol IV STA (04:08)
[2025-01-16] MEDS: METOPROLOL TARTRATE 1 MG/ML VIAL IV STA (04:37)
[2025-01-16] MEDS: NITROGLYCERIN 2% OINTMENT 30GM TUBE EXT SCH (04:41)
--- NOTE | 2025-01-16 04:50 | History & Physical Report ---
Date of Service January 16, 2025 Assessment & Plan (1) NSTEMI (non-ST elevated myocardial infarction): (2) HTN (hypertension): (3) Abnormal EKG: (4) HLD (hyperlipidemia): Plan The patient is a 79-year-old male with past medical history including right lower leg hematoma, hypertension, BPH, hyperlipidemia, B12 deficiency, iron deficiency, chronic pain syndrome due to osteoarthritis, and BPH with LUTS. The patient presents to the emergency department with report of several weeks of substernal chest pain, that only occurred with activity, however, over the past 3 hours prior to arrival to the emergency department, the pain was significantly worse, and it was now occurring at rest. Upon arrival to the emergency department, patient had an EKG performed which showed sinus tachycardia with first-degree heart block, with ST segment depressions in leads II, aVF, V5 and 6, 1 and aVL. Troponin was 2372. Patient was started on the following medications by the emergency department: Heparin bolus and drip per protocol, labetalol 10 mg IV, morphine sulfate 4 mg IV x 3, Zofran 4 mg IV, and aspirin 324 mg. Remaining laboratory showed a 88 increased creatinine from his baseline of 1.3 to up to 1.46. Glucose is mildly elevated 177. Chest x-ray showed mild CHF. Patient reported his pain had improved to 5/10. He was placed on Nitropaste on his anterior chest wall every 6 hours, given Lopressor 5 mg IV, given nitroglycerin sublingual every 5 minutes as needed, and normal saline at 60 mL/h. NSTEMI/abnormal EKG showing ischemia in the inferior and lateral leads- The patient will be admitted to telemetry for serial cardiac enzymes, serial EKG's, cardiac rhythm monitoring and a 2-D echocardiogram with Dopplers. Initial troponin 2372, with follow-up pending From the ED he received the following: Started on heparin bolus and drip per protocol, labetalol 10 mg IV, morphine 4 mg IV x 3, Zofran 4 mg, and aspirin 324 mg daily He also received Lopressor 5 mg IV, nitroglycerin sublingual as needed. Nitropaste 1 inch to anterior chest wall every 6 hours Continue aspirin 81 mg daily, and clopidogrel 75 mg daily Continue metoprolol succinate 50 mg p.o. twice daily, Hold lisinopril, and potassium chloride. Diabetes mellitus- Hold metformin Placed on Accu-Cheks with NovoLog SSI Hyperlipidemia Continue atorvastatin 80 mg daily Check a fasting lipid panel BPH with LUTS- Continue tamsulosin History of Present Illness Chief Complaint: The patient presents to the emergency department with report of several weeks of substernal chest pain, that only occurred with activity, however, over the past 3 hours prior to arrival to the emergency department, the pain was significantly worse, and it was now occurring at rest. Upon arrival to the emergency department, patient had an EKG performed which showed sinus tachycardia with first-degree heart block, with ST segment depressions in leads II, aVF, V5 and 6, 1 and aVL. Troponin was 2372. Patient was started on the following medications by the emergency department: Heparin bolus and drip per protocol, labetalol 10 mg IV, morphine sulfate 4 mg IV x 3, Zofran 4 mg IV, and aspirin 324 mg. Remaining laboratory showed a 88 increased creatinine from his baseline of 1.3 to up to 1.46. Glucose is mildly elevated 177. Chest x-ray showed mild CHF. Primary Care Provider: Xavier Miller MD The patient is a 79-year-old male with past medical history including right lower leg hematoma, hypertension, BPH, hyperlipidemia, B12 deficiency, iron deficiency, chronic pain syndrome due to osteoarthritis, and BPH with LUTS. The patient presents to the emergency department with report of several weeks of substernal chest pain, that only occurred with activity, however, over the past 3 hours prior to arrival to the emergency department, the pain was significantly worse, and it was now occurring at rest. Upon arrival to the emergency department, patient had an EKG performed which showed sinus tachycardia with first-degree heart block, with ST segment depressions in leads II, aVF, V5 and 6, 1 and aVL. Troponin was 2372. Patient was started on the following medi cations by the emergency department: Heparin bolus and drip per protocol, labetalol 10 mg IV, morphine sulfate 4 mg IV x 3, Zofran 4 mg IV, and aspirin 324 mg. Remaining laboratory showed a 88 increased creatinine from his baseline of 1.3 to up to 1.46. Glucose is mildly elevated 177. Chest x-ray showed mild CHF. Patient reported his pain had improved to 5/10. He was placed on Nitropaste on his anterior chest wall every 6 hours, given Lopressor 5 mg IV, given nitroglycerin sublingual every 5 minutes as needed, and normal saline at 60 mL/h. Allergies Allergy/AdvReac Type Severity Reaction Status Date / Time No Known Allergies Allergy Verified 02/07/22 18:42 Home Medications Medication Instructions Recorded Confirmed Type atorvastatin 80 mg tablet 80 mg PO DAILY 01/21/22 10/20/23 History metformin 1,000 mg tablet 1,000 mg PO BIDM 01/21/22 10/20/23 History tamsulosin 0.4 mg capsule (Flomax) 0.4 mg PO DAILY 01/21/22 10/20/23 History aspirin 81 mg tablet,delayed 81 mg PO QAM 02/07/22 10/20/23 History release clopidogrel 75 mg tablet 75 mg PO QAM 02/07/22 10/20/23 History cyanocobalamin (vitamin B-12) 1,000 mcg sublingual DAILY 02/07/22 10/20/23 History 1,000 mcg sublingual tablet potassium chloride 10 mEq 10 meq PO QAM 02/07/22 10/20/23 History tablet,extended release metoprolol succinate 50 mg 50 mg PO BID 10/20/23 10/20/23 History tablet,extended release 24 hr oxycodone 10 mg tablet 10 mg PO Q6H PRN Pain 10/20/23 10/20/23 History ferrous sulfate 325 mg (65 mg 325 mg PO QAM #30 tabs 10/28/23 Rx iron) tablet,delayed release lisinopril 20 mg tablet 20 mg PO QAM #30 tabs 10/28/23 Rx Past Med/Surg History Problem List (Updated 01/16/25 @ 06:09 by Yair Crawford MD) Abnormal EKG Intractable pain (Acute) Hematoma of right lower leg (Acute) Elevated troponin (Acute) Exertional chest pain (Acute) Hypertension (Acute) BPH (benign prostatic hyperplasia) HTN (hypertension) HLD (hyperlipidemia) Benign essential hypertension (Acute) Atherogenic dyslipidemia NSTEMI (non-ST elevated myocardial infarction) (Acute) Chest pain (Acute) Medical History Chronic back pain STEMI (ST elevation myocardial infarction) Family History Denies family history of Heart disease Social History Smoking Status: Never smoker Tobacco Type: Cigarettes Second Hand Exposure: No; Do You Dip or Chew Tobacco: No; Hx Alcohol Use: No Hx Substance Use: No Preferred Language: Citizen Of The [place] Communication Ability: Effective Systems Eng Required: No Beliefs That Will Affect Care: None marital status: Current Living Situation: Spouse Feels Safe at Home: Yes Assistive Devices: None Review of Systems Review of Systems: The patient denies cough, lower extremity swelling, sore throat, fevers, chills, sweats, nausea, vomiting, diarrhea , constipation, abdominal pain, pelvic pain, blood in urine or stool, dysuria, urinary frequency or urgency, lightheadedness, dizziness, headache, memory loss, loss of consciousness, rash, abnormal bruising or bleeding, imbalance, focal or generalized weakness, numbness or tingling in legs, generalized arthralgias or myalgias, back or neck pain, or night sweats. The review of systems is otherwise negative other than for that already noted above, and at least 10 systems have been reviewed. Physical Exam Physical Exam: The patient is awake, alert and oriented 3, well developed and well nourished, normocephalic and atraumatic, lying in bed and in no acute distress. HEENT--PERRL, EOMI, mucous membranes and oropharynx normal Neck--supple. No JVD. No bruits. Thyroid normal, trachea midline, no adenopathy. Heart--normal S1 and S2. No murmurs, rubs or gallops. Lungs--clear bilaterally, no respiratory distress, no accessory muscle use. Abdomen--normal bowel sounds and soft. Nontender. Nondistended, no hernias or masses, no organomegaly. Extremities--no cyanosis or clubbing. No edema. There are good distal pulses b/l. Dermatologic--normal skin turgor, normal color, no abnormal lymph nodes, no rash. Neurologic--cranial nerves II through XII grossly intact. Rheumatologic--normal range of motion. Psychiatric--normal affect. Results & Data Results & Data Vital Signs (Past 12 Hours) Vital Signs Temp Pulse Pulse Resp BP BP Pulse Ox 01/16/25 04:37 95 H 131/109 H 01/16/25 04:36 96 H 20 146/104 H 94 01/16/25 04:00 87 20 144/96 H 96 01/16/25 03:45 91 H 16 157/107 H 95 01/16/25 03:30 88 18 150/103 H 94 01/16/25 03:15 90 18 155/103 H 95 01/16/25 03:01 94 H 18 152/104 H 94 01/16/25 02:50 96 H 16 158/106 H 95 01/16/25 02:40 91 H 14 161/106 H 95 01/16/25 02:30 91 H 149/104 H 01/16/25 02:18 102 H 188/120 H 01/16/25 02:03 105 H 01/16/25 01:54 36.6 C 122 H 18 193/116 H 95 O2 Del Method 01/16/25 04:37 01/16/25 04:36 Room Air 01/16/25 04:00 Room Air 01/16/25 03:45 Room Air 01/16/25 03:30 Room Air 01/16/25 03:15 Room Air 01/16/25 03:01 Room Air 01/16/25 02:50 Room Air 01/16/25 02:40 Room Air 01/16/25 02:30 01/16/25 02:18 01/16/25 02:03 01/16/25 01:54 Room Air Laboratory Results Laboratory Results WBC 9.82 K/ul (4.8-10.8) 01/16/25 02:01 RBC 3.66 M/uL (4.70-6.10) L 01/16/25 02:01 Hgb 11.2 g/dl (14.0-18.0) L 01/16/25 02:01 Hct 35.2 % (42.0-52.0) L 01/16/25 02:01 MCV 96.2 fL (80.0-100.0) 01/16/25 02:01 MCH 30.6 pg (25.0-34.0) 01/16/25 02:01 MCHC 31.8 g/dL (32.0-36.0) L 01/16/25 02:01 RDW Std Deviation 48.1 fL (36.4-46.3) H 01/16/25 02:01 RDW Coeff of [place]vi 13.5 % (11.5-14.5) 01/16/25 02:01 Plt Count 212 K/uL (130-400) 01/16/25 02:01 MPV 11.0 fL (9.4-12.4) 01/16/25 02:01 Immature Gran % (Auto) 0.5 % 01/16/25 02:01 Neut % (Auto) 87.9 % 01/16/25 02:01 Lymph % (Auto) 6.6 % 01/16/25 02:01 [place] % (Auto) 4.4 % 01/16/25 02:01 Eos % (Auto) 0.2 % 01/16/25 02:01 Baso % (Auto) 0.4 % 01/16/25 02:01 Neut # (Auto) 8.63 K/uL (1.40-6.50) H 01/16/25 02:01 Lymph # (Auto) 0.65 K/uL (1.20-3.40) L 01/16/25 02:01 [place] # (Auto) 0.43 K/uL (0.11-0.59) 01/16/25 02:01 Eos # (Auto) 0.02 K/uL (0.00-0.50) 01/16/25 02:01 Baso # (Auto) 0.04 K/uL (0.00-0.20) 01/16/25 02:01 Immature Gran # (Auto) 0.05 K/uL (0.01-0.20) 01/16/25 02:01 PT 10.5 Seconds (9.0-12.0) 01/16/25 02:01 INR 1.0 (0.9-1.1) 01/16/25 02:01 Sodium 140 mmol/L (136-145) 01/16/25 02:01 Potassium 4.5 mmol/L (3.5-5.1) 01/16/25 02:01 Chloride 105 mmol/L (98-107) 01/16/25 02:01 Carbon Dioxide 20 mmol/L (21-32) L 01/16/25 02:01 Anion Gap 15 (3-11) H 01/16/25 02:01 BUN 26 mg/dl (6-23) H 01/16/25 02:01 Creatinine 1.46 mg/dl (0.6-1.4) H 01/16/25 02:01 Est Cr Clr Drug Dosing 36.4 ml/min 01/16/25 02:01 eGFR 48.92 01/16/25 02:01 BUN/Creatinine Ratio 17.8 (10-20) 01/16/25 02:01 Glucose 177 mg/dl (70-99(Fasting)) H 01/16/25 02:01 Calcium 10.0 mg/dl (8.6-10.3) 01/16/25 02:01 Total Bilirubin 0.3 mg/dl (0.2-1.0) 01/16/25 02:01 AST 34 U/L (13-39) 01/16/25 02:01 ALT 18 U/L (7-52) 01/16/25 02:01 Alkaline Phosphatase 86 U/L (34-104) 01/16/25 02:01 Troponin I High Sens 5091.4 pg/ml (0-20) H* D 01/16/25 04:53 Total Protein 7.4 gm/dl (6.0-8.3) 01/16/25 02:01 Albumin 4.4 gm/dl (3.4-5.0) 01/16/25 02:01 Globulin 3.0 gm/dl (2.5-4.0) 01/16/25 02:01 Albumin/Globulin Ratio 1.5 (0.9-2) 01/16/25 02:01 Lipase 11 U/L (11-82) 01/16/25 02:01 Impressions Chest X-Ray 01/16/25 02:01 EXAM: XR chest 1V portable CLINICAL HISTORY: Chest pain, nonspecific. TECHNIQUE: An X-ray image of the chest was obtained in AP projection. COMPARISON: Prior X-ray and CT 02/07/2022. FINDINGS: Pulmonary Parenchyma: Prominent hilar and bronchovascular markings are present. Subsegmental atelectatic changes are seen bilaterally. There is no evidence of consolidation, collapse, or focal opacities. There is no evidence of pleural effusion or pleural thickening. Heart and Mediastinum: The heart size and shape are normal. There is no mediastinal widening or masses. No hilar or mediastinal lymphadenopathy is identified. Sternotomy sutures are noted. Chest leads are in place. Bony Thorax: The bony thorax appears intact without fractures or deformities. Soft Tissues: The soft tissues overlying the chest wall are unremarkable. A metallic object is present near the right shoulder region. IMPRESSION: 1. The imaging findings are likely due to pulmonary congestion. Interval new. Clinical and laboratory correlation is advised to rule out pulmonary infection. 2. There is no evidence of consolidation or pleural effusion. Electronically signed by Kartik Steel 01-16-2025 03:46 AM Code Status & VTE Plan Code Status Full code VTE Prophylaxis Plan VTE Prophylaxis will be ordered: Yes PG Care Time/CCT Total # of Minutes Spent Total Time Spent with Patient: Total time spent is greater than 50% in coordination of care (as documented) at patient's floor/unit and/or counseling patient: Coding Level of Care Code 43935 INT INP/OBS CARE 3/75MIN Diagnoses NSTEMI (non-ST elevated myocardial infarction) I21.4 HTN (hypertension) I10 Abnormal EKG R94.31 HLD (hyperlipidemia) E78.5
[2025-01-16] MEDS: NITROGLYCERIN SL 0.4 MG/TAB TAB SL PRN (05:21)
[2025-01-16] MEDS: SODIUM CHLORIDE 0.9% 500 ML IV SCH (05:22)
[2025-01-16] MEDS ORDERED: DEXTROSE 50% 50 ML SYRINGE IV PRN (06:13)
[2025-01-16] MEDS ORDERED: GLUCOSE 40% GEL 15 GM TUBE PO PRN (06:13)
[2025-01-16] MEDS ORDERED: CARBOHYDRATES FOR HYPOGLYCEMIA PO PRN (06:13)
[2025-01-16] MEDS ORDERED: GLUCOSE 10 TAB/TUBE PO PRN (06:13)
[2025-01-16] MEDS ORDERED: GLUCAGON FOR INJ 1 MG VIAL SQ PRN (06:13)
[2025-01-16] MEDS ORDERED: ACETAMINOPHEN 1000 MG/100 ML IV IV PRN (06:13)
[2025-01-16 07:31] LABS: Cholesterol 92.0 mg/dl (0-200); HDL Cholesterol 37.0 mg/dl; Triglycerides 43.0 mg/dl (0-150)
--- NOTE | 2025-01-16 07:39 | Hospitalist Progress Note ---
Date of Service January 16, 2025 Assessment & Plan (1) Type [address] elevation: (2) Elevated troponin: (3) Chest pain, rule out acute myocardial infarction: (4) Essential hypertension: (5) Mixed hyperlipidemia: (6) Type 2 diabetes mellitus with hyperglycemia: (7) Benign prostatic hyperplasia with lower urinary tract symptoms: Plan In summary this is a 79-year-old male who is admitted to the [facility] due to type II myocardial infarction suspected be secondary to progressive atherosclerotic disease versus progressive essential hypertension #Type II myocardial infarction without ST elevation // Troponin elevation // Persistent chest pain // Essential hypertension // Mixed hyperlipidemia // Prior cardiac intervention Patient's symptoms began several days prior to presentation with progressive worsening; there is associated increased severity of his discomfort with activity associated with increased dyspnea on exertion; patient states that these symptoms are similar to prior episodes of myocardial infarction; associated risk factors include hypertension, hyperlipidemia, type 2 diabetes mellitus, previous cardiac intervention; initial EKG concerning with diffuse ST segment depression in the precordial leads from V3 through V6 without any areas of savi ST elevation; troponin trend 2372.2, 5091.4; KEISHA score 135 -Maintain continuous laboratory monitor -Nursing to contact attending if patient develops recurrent or new anginal equivalent - Continue ASA 81 mg p.o. daily - Patient was not administered a CYP 2 inhibitor load at presentation; at this time continue daily clopidogrel 75 mg p.o. - Initiated on heparin GGT in the emergency department which has been continued Given the patient's persistent chest discomfort after receiving sublingual and transdermal nitroglycerin, initiate nitroglycerin gtt. following titration protocol Continue home atorvastatin, lisinopril, metoprolol succinate - Continue to follow troponin measure every 4 hours to peak - Follow daily renal function panel, magnesium, hemoglobin and hematocrit -Cardiology consulted; pending further evaluation to determine need for catheterization #Type 2 diabetes mellitus with hyperglycemia Most recent hemoglobin A1c of 5.8% in 10/2023, repeat assessment pending; glycemic target of less than 180 for all checks given the patient's severity of disease; we will withhold the patient's usual home medications at this time Start glargine 12 units SQ twice daily Continue prandial dosing with correction factor of 35 mg/dL/unit with carbohydrate ratio 12 g/unit Admission and Anticipated Discharge Date Admission Date: January 16, 2025 Subjective Mr. Shay is a 79-year-old male whose active medical conditions include coronary atherosclerotic disease in the setting of hyperlipidemia, hypertension, type 2 diabetes mellitus with hyperglycemia among other chronic medical conditions who presented to [facility] due to persistent and progressive substernal chest discomfort associated with dyspnea on exertion that began approximately 6 days prior to presentation. The patient states this discomfort is similar to prior cardiac episodes in the past. He notes worsening of his discomfort with any form of activity, even getting up out of bed to use the bedside commode. He denies any palpitations, nausea, vomiting, diaphoresis, lower extremity swelling, orthopnea, platypnea. Review of Systems 2 Review of Systems: Review of constitutional, cardiovascular, pulmonary, neurologic systems was unremarkable other than pertinent positives and negatives detailed above Physical Exam Physical Exam: General: Elderly male in no acute distress Vital Signs: Reviewed HEENT: Pupils equally round and reactive to light; extraocular motion intact; soft scleral icterus OU Neck: No notable jugular venous distention at rest nor with hepatojugular reflux Pulmonary: Symmetric chest wall excursion without restriction; clear to auscultation bilaterally Cardiovascular: Regular rate and rhythm without murmurs, rubs, or gallops; S1 and S2 normal; bilateral radial and posterior tibial pulses 2+ with brisk capillary refill; no notable lower extremity edema Neurologic: Cranial nerves II through XII grossly intact; no discernible focal weakness or paresthesia Skin: Slight yellow tinge to the patient's skin Results & Data Results & Data Vital Signs (Past 12 Hours) Vital Signs Temp Pulse Pulse Resp BP BP Pulse Ox 01/16/25 07:21 36.3 C L 94 H 16 121/92 96 01/16/25 06:03 80 01/16/25 05:42 84 20 120/89 95 01/16/25 05:35 78 18 124/87 92 01/16/25 05:30 87 20 125/86 93 01/16/25 05:20 86 16 137/90 93 01/16/25 05:10 86 16 130/90 93 01/16/25 05:05 84 20 132/90 93 01/16/25 05:00 84 18 125/93 94 01/16/25 04:55 87 18 132/84 94 01/16/25 04:52 92 H 128/85 01/16/25 04:50 80 16 128/85 93 01/16/25 04:45 86 20 128/87 93 01/16/25 04:41 82 16 141/97 H 94 01/16/25 04:37 95 H 131/109 H 01/16/25 04:36 96 H 20 146/104 H 94 01/16/25 04:00 87 20 144/96 H 96 01/16/25 03:45 91 H 16 157/107 H 95 01/16/25 03:30 88 18 150/103 H 94 01/16/25 03:15 90 18 155/103 H 95 01/16/25 03:01 94 H 18 152/104 H 94 01/16/25 02:50 96 H 16 158/106 H 95 01/16/25 02:40 91 H 14 161/106 H 95 01/16/25 02:30 91 H 149/104 H 01/16/25 02:18 102 H 188/120 H 01/16/25 02:03 105 H 01/16/25 01:54 36.6 C 122 H 18 193/116 H 95 O2 Del Method 01/16/25 07:21 Room Air 01/16/25 06:03 01/16/25 05:42 Room Air 01/16/25 05:35 Room Air 01/16/25 05:30 Room Air 01/16/25 05:20 Room Air 01/16/25 05:10 Room Air 01/16/25 05:05 Room Air 01/16/25 05:00 Room Air 01/16/25 04:55 Room Air 01/16/25 04:52 01/16/25 04:50 Room Air 01/16/25 04:45 Room Air 01/16/25 04:41 Room Air 01/16/25 04:37 01/16/25 04:36 Room Air 01/16/25 04:00 Room Air 01/16/25 03:45 Room Air 01/16/25 03:30 Room Air 01/16/25 03:15 Room Air 01/16/25 03:01 Room Air 01/16/25 02:50 Room Air 01/16/25 02:40 Room Air 01/16/25 02:30 01/16/25 02:18 01/16/25 02:03 01/16/25 01:54 Room Air Laboratory Results Elevated anion gap at presentation of 15 with diminished carbon dioxide of 20 Initial troponin of 2372 increasing to 5091 Diagnostic Findings Portable chest film has evidence of congestion with cephalization of the vessels bilaterally and prominent hilar vascularity; otherwise without acute change compared to previous imaging ECG Additional Comments: Tachycardic rate; left axis deviation; poor R wave progression; [address] segment depression in V5 and V6 as well as approximately [address] depression in lead II; large amplitude QRS with predominantly negative deflection in the precordial leads; first-degree AV block noted PG Care Time/CCT Total # of Minutes Spent Total Time Spent with Patient: Total time spent is greater than 50% in coordination of care (as documented) at patient's floor/unit and/or counseling patient: Coding Level of Care Code 32524 SUB INP/OBS CARE 350MIN Diagnoses Type [address] elevation I21.A1 Elevated troponin R77.8 Chest pain, rule out acute myocardial infarction R07.9 Essential hypertension I10 Mixed hyperlipidemia E78.2 Type 2 diabetes mellitus with hyperglycemia, without long-term current use of insulin E11.65 Diabetes mellitus nursing home insulin use: without predatory animal exterminator use Benign prostatic hyperplasia with incomplete bladder emptying N40.1; R39.14 Lower urinary tract symptom detail: incomplete bladder emptying (6) Type 2 diabetes mellitus with hyperglycemia Diabetes mellitus predatory animal exterminator insulin use: without predatory animal exterminator use Qualified Code(s): E11.65 - Type 2 diabetes mellitus with hyperglycemia (7) Benign prostatic hyperplasia with lower urinary tract symptoms Lower urinary tract symptom detail: incomplete bladder emptying Qualified Code(s): N40.1 - Benign prostatic hyperplasia with lower urinary tract symptoms; R39.14 - Feeling of incomplete bladder emptying
[2025-01-16] MEDS ORDERED: STAT IV Infusion **Titration per Protocol STA (07:41)
--- NOTE | 2025-01-16 07:43 | Communication Note ---
Date of Service: January 16, 2025 Contacted by nursing staff as patient continues to have chronic substernal chest pain rated 5/10 of an aching sensation overlying the left anterior chest wall; in brief review of the patient's chart he does have evidence of subendocardial infarction on his EKGs obtained in the emergency department; sublingual and transdermal nitroglycerin has not relieved patient's pain whatsoever; given the patient's risk factors and troponin rise indicative of an acute coronary syndrome, nitroglycerin gtt. has been initiated. Cardiology is aware the patient consulted. At admission the patient was not made n.p.o., he is now n.p.o. in anticipation of possible cardiac catheterization on 01/16.
[2025-01-16] MEDS: NITROGLYCERIN/D5W 100MCG/ML 250 ML IV SCH (08:09)
[2025-01-16] MEDS: INSULIN ASPART PER UNIT CHARGE SC SCH ×2 (08:27→12:02)
[2025-01-16] MEDS: ATORVASTATIN 40 MG TAB PO SCH (08:28)
[2025-01-16] MEDS: CLOPIDOGREL BISULFATE 75 MG TAB PO SCH (08:28)
[2025-01-16] MEDS: FERROUS SULFATE 325 MG TAB PO SCH (08:29)
[2025-01-16] MEDS: CYANOCOBALAMIN (B-12) 500 MCG TABLET PO SCH (08:29)
[2025-01-16] MEDS: ASPIRIN 81 MG ECTAB PO SCH (08:30)
[2025-01-16] MEDS: PANTOprazole 40 MG/10 ML SYR IV SCH (08:30)
[2025-01-16] MEDS: TAMSULOSIN HCL 0.4 MG CAP PO SCH (08:30)
[2025-01-16] MEDS: METOPROLOL SUCC 50MG EXT REL TAB PO SCH (08:30)
[2025-01-16] MEDS: LANTUS PER UNIT CHARGE SQ SCH (09:39)
[2025-01-16 10:31] LABS: ANTI-Xa, UFH(UnfractionatedHep 0.34 IU/ml (0.3-0.7)
--- NOTE | 2025-01-16 11:00 | Pre Anesthesia Assessment ---
Date of Service January 16, 2025 Pre Sedation Assessment Vital Signs Temp Pulse Pulse Resp BP BP Pulse Ox 01/16/25 09:37 99 H 148/97 H 01/16/25 09:05 91 H 135/88 01/16/25 08:00 92 H 01/16/25 07:30 98.2 F 91 H 18 141/89 H 95 01/16/25 07:21 97.3 F L 94 H 16 121/92 96 01/16/25 06:03 80 01/16/25 05:42 84 20 120/89 95 01/16/25 05:35 78 18 124/87 92 01/16/25 05:30 87 20 125/86 93 01/16/25 05:20 86 16 137/90 93 01/16/25 05:10 86 16 130/90 93 01/16/25 05:05 84 20 132/90 93 01/16/25 05:00 84 18 125/93 94 01/16/25 04:55 87 18 132/84 94 01/16/25 04:52 92 H 128/85 01/16/25 04:50 80 16 128/85 93 01/16/25 04:45 86 20 128/87 93 01/16/25 04:41 82 16 141/97 H 94 01/16/25 04:37 95 H 131/109 H 01/16/25 04:36 96 H 20 146/104 H 94 01/16/25 04:00 87 20 144/96 H 96 01/16/25 03:45 91 H 16 157/107 H 95 01/16/25 03:30 88 18 150/103 H 94 01/16/25 03:15 90 18 155/103 H 95 01/16/25 03:01 94 H 18 152/104 H 94 01/16/25 02:50 96 H 16 158/106 H 95 01/16/25 02:40 91 H 14 161/106 H 95 01/16/25 02:30 91 H 149/104 H 01/16/25 02:18 102 H 188/120 H 01/16/25 02:03 105 H 01/16/25 01:54 97.9 F 122 H 18 193/116 H 95 O2 Del Method 01/16/25 09:37 01/16/25 09:05 01/16/25 08:00 01/16/25 07:30 Room Air 01/16/25 07:21 Room Air 01/16/25 06:03 01/16/25 05:42 Room Air 01/16/25 05:35 Room Air 01/16/25 05:30 Room Air 01/16/25 05:20 Room Air 01/16/25 05:10 Room Air 01/16/25 05:05 Room Air 01/16/25 05:00 Room Air 01/16/25 04:55 Room Air 01/16/25 04:52 01/16/25 04:50 Room Air 01/16/25 04:45 Room Air 01/16/25 04:41 Room Air 01/16/25 04:37 01/16/25 04:36 Room Air 01/16/25 04:00 Room Air 01/16/25 03:45 Room Air 01/16/25 03:30 Room Air 01/16/25 03:15 Room Air 01/16/25 03:01 Room Air 01/16/25 02:50 Room Air 01/16/25 02:40 Room Air 01/16/25 02:30 01/16/25 02:18 01/16/25 02:03 01/16/25 01:54 Room Air Cardiovascular + regular rate Respiratory + respiratory effort normal Pre-Sedation Airway Assessment Smoking Status: Never smoker Hx Sleep Apnea: No Hx Difficult Intubation: No Short, Thick Neck: No Thyromental Distance: > or= 3.5 Finger Breadths Oral Cavity: + Dental Abnormalities Mallampati Class: II ASA: ASA3 Procedure Planning Contraindications for Sedation: none Current Medications Reviewed: Yes Notes The planned sedation has been discussed with the patient. Informed Consent was obtained. I have identified the patient, determined the appropriateness of sedation and have assessed the patient immediately prior to the procedure. All medicine(s) and interventions are by my order.
--- NOTE | 2025-01-16 11:12 | XCELERA ---
[id number] [id number]
[2025-01-16] MEDS: HEPARIN (PORCINE) 1000 UNIT/ML 10 ML (CATH LAB USE ONLY) ONE ×2 (13:45→13:57)
[2025-01-16] MEDS: niCARdipine 2,000 MCG/20 ML SYR ONE (13:45)
[2025-01-16] MEDS: MIDAZOLAM HCL 1 MG/ML 2ML VIAL ONE (13:45)
[2025-01-16] MEDS: NITROGLYCERIN/D5W 100MCG/ML 20ML SYR ONE (13:46)
[2025-01-16] MEDS: LIDOCAINE 1% LOCAL 20 ML VIAL ONE (13:46)
[2025-01-16] MEDS: CLOPIDOGREL BISULFATE 300 MG TAB ONE (13:57)
[2025-01-16] MEDS: IODIXANOL (VISIPAQUE) 320 MG/ML 100ML IV ONE (13:57)
--- NOTE | 2025-01-16 14:02 | Post Anesthesia Assessment ---
Date of Service January 16, 2025 Post Sedation Assessment Vital Signs Temp Pulse Pulse Resp BP BP Pulse Ox 01/16/25 09:37 99 H 148/97 H 01/16/25 09:05 91 H 135/88 01/16/25 08:00 92 H 01/16/25 07:30 98.2 F 91 H 18 141/89 H 95 01/16/25 07:21 97.3 F L 94 H 16 121/92 96 01/16/25 06:03 80 01/16/25 05:42 84 20 120/89 95 01/16/25 05:35 78 18 124/87 92 01/16/25 05:30 87 20 125/86 93 01/16/25 05:20 86 16 137/90 93 01/16/25 05:10 86 16 130/90 93 01/16/25 05:05 84 20 132/90 93 01/16/25 05:00 84 18 125/93 94 01/16/25 04:55 87 18 132/84 94 01/16/25 04:52 92 H 128/85 01/16/25 04:50 80 16 128/85 93 01/16/25 04:45 86 20 128/87 93 01/16/25 04:41 82 16 141/97 H 94 01/16/25 04:37 95 H 131/109 H 01/16/25 04:36 96 H 20 146/104 H 94 01/16/25 04:00 87 20 144/96 H 96 01/16/25 03:45 91 H 16 157/107 H 95 01/16/25 03:30 88 18 150/103 H 94 01/16/25 03:15 90 18 155/103 H 95 01/16/25 03:01 94 H 18 152/104 H 94 01/16/25 02:50 96 H 16 158/106 H 95 01/16/25 02:40 91 H 14 161/106 H 95 01/16/25 02:30 91 H 149/104 H 01/16/25 02:18 102 H 188/120 H 01/16/25 02:03 105 H 01/16/25 01:54 97.9 F 122 H 18 193/116 H 95 O2 Del Method 01/16/25 09:37 01/16/25 09:05 01/16/25 08:00 01/16/25 07:30 Room Air 01/16/25 07:21 Room Air 01/16/25 06:03 01/16/25 05:42 Room Air 01/16/25 05:35 Room Air 01/16/25 05:30 Room Air 01/16/25 05:20 Room Air 01/16/25 05:10 Room Air 01/16/25 05:05 Room Air 01/16/25 05:00 Room Air 01/16/25 04:55 Room Air 01/16/25 04:52 01/16/25 04:50 Room Air 01/16/25 04:45 Room Air 01/16/25 04:41 Room Air 01/16/25 04:37 01/16/25 04:36 Room Air 01/16/25 04:00 Room Air 01/16/25 03:45 Room Air 01/16/25 03:30 Room Air 01/16/25 03:15 Room Air 01/16/25 03:01 Room Air 01/16/25 02:50 Room Air 01/16/25 02:40 Room Air 01/16/25 02:30 01/16/25 02:18 01/16/25 02:03 01/16/25 01:54 Room Air Recovery Score Activity: Moves 4 extremities Respiration: Deep Breath/Cough Circulation: +/-20% PreAnes Value Consciousness: Fully Awake Oxygen Saturation: O2 needed for >90% Discharge Sedation Level of Care: Fast Track Phase II
--- NOTE | 2025-01-16 14:18 | Cardiac Catheterization ---
[facility] Data: Equipment Cleaner And Tester Cardiac Status Clinical evaluation leading to the procedure CAD Presenation: Non STEMI Anginal Classification: CCS IV Diagnostic Physicians Name: Lukas Srivastava MD Closure Device Recommendations: PCI without planned CABG Cardiac Cath Procedure Full Procedure Date January 16, 2025 Pre-Procedure Diagnosis Pre-Procedure Diagnosis: Non STEMI AUC Score AUC Score: 8 Post-Procedure Diagnosis Post-Procedure Diagnosis: Severe CAD, Successful PCI and Normal Intracardiac Pressures Procedure(s) Performed Procedure(s) Performed: Coronary Angiography, Left Heart Cath, Drug Eluting Stent, Ultrasound Guided Vascular Access, IVUS, Bypass Graft Angiography, Femoral Artery Angiography and Procedure (intravascular lithotripsy) Java Development Team Lead Lukas Srivastava MD Plant Safety Leader(s) deibler Estimated Blood Loss Estimated Blood Loss: 15 Medication(s) Medication(s): Clopidogrel, Fentanyl, Heparin, Lidocaine 1%, Nicardipine, Nitroglycerin and Versed Summary of Findings Indication: High risk NSTEMI. History of two-vessel CABG (ABBOTT to LAD, SVG to RCA) 01/2022 Access: 6 Fr slender left radial artery Catheters: JL 3.5, JR4, pigtail, AMI. MPA guide, EBU 3.5 guide Findings: LM -normal caliber, calcified, hazy eccentric distal 90% plaque extending into circumflex LAD -100% chronically occluded at ostium. Ramussmall to medium caliber, 98% ostial stenosis, 30% mid segment stenosis. Circumflex -medium caliber, calcified with thrombus and 95+% ostial/proximal stenosis. 40% mid segment disease. Medium OM3 without significant disease. LPLB without significant disease. RCA -heavily calcified, 90% ostial/proximal stenosis, 95% mid segment stenosis, 50% distal disease. RPDA with diffuse 60-70% proximal to mid disease. LIMALADwidely patent. LAD downstream from anastomosis without significant disease. Retrofills to proximal LAD. SVG to PDAoccluded proximal LVEDP -21 Attempt at intervention of SVG to PDA SVG cannulated with MPA guide Attempt made to wire occlusion with dispatcher ship pilot 50 wire but stenosis firm and more consistent with chronic occlusion. Decision to proceed with intervention to circumflex. -- PCI -- Antithrombotic therapy: Heparin, clopidogrel Procedure: Transition to femoral approach after significant spasm in left radial artery 6 Fr sheath placed to right INSTALLER SOFT TOP under ultrasound guidance Left main cannulated with EBU 3.5 guide Pre-procedure flow NOEL 2-3 Bow Tacker 50 wire passed across lesion into distal vessel Ostial/proximal circumflex dilated with 2.5 balloon and 3.0 balloon Whisper wire passed into ramus Ostial ramus dilated with 2.0 balloon Ostial/proximal circumflex further dilated with intravascular lithotripsy (shockwave 3.0 balloon, 50 pulses). Left main to mid circumflex stented with 3.5 x 22 mm Sharif drug-eluting stent Ramus rewired with dispatcher ship pilot 50 wire Circumflex stent postdilated with 4.0 NC to high atmospheres Jailed ostial/proximal ramus dilated with 2.5 balloon IVUS catheter placed to mid circumflex. Pullback revealed mild residual stenosis in proximal calcified segment. Stent well apposed and left main with no apparent edge complications IC vasodilators administered for spasm Post procedure NOEL 3 flow, stent well expanded with minimal residual stenosis and no apparent cardiac complications. Ramus with moderate residual ostial stenosis but NOEL-3 flow and no evidence of dissection. Arterial Closure: Angio-Seal, TR band Summary: 1. Multivessel coronary artery disease - 95% distal Left main into proximal circumflex 98% ostial ramus 90% proximal RCA, 95% mid RCA, 60-70% diffuse proximal PDA 100% chronic ostial LAD occlusion 2. Mildly elevated intracardiac filling pressure 3. Successful PCI of left main to mid circumflex with intravascular lithotripsy and single drug-eluting stent (3.5 x 22 mm [place]; postdilated with 4.0 NC). PTCA of jailed ramus with 2.5 balloon Recommendations: To PCU for continued monitoring Reloaded with clopidogrel 300 mg in Equipment Cleaner And Tester Continue dual-antiplatelet therapy for at least 1 year Continue statin, and ASCVD risk factor modification Plan on medical management of diffuse chronic RCA disease. If refractory anginal symptoms complex PCI of RCA could be considered. Hemodynamics Rest Ao:: 137/83/114 Final Ao: 151/95/121 LV: 132/21 Recommendations Recommendations: PCI without planned CABG Radiation Exposure (mGy) 4471 Contrast (mls) 130 Anesthesia Moderate [id number] Disposition PCU I attest to the content of the Intraoperative Record and any orders documented therein. Any exceptions are noted below. [employer] Card Cath Procedure Codes Cardiac Catheterization Procedure 1: Cardiovascular Cath Procedures: 91038 Coronaries & LHC (+/-LV) & Grafts/IM (arterial & venous) Therapeutic Services & Ancillary Procedure 1: Cardiovascular Tx and Anc Procedures: 28392 IV Ultrasound (Coronary or Graft) Procedure 2: Cardiovascular Tx and Anc Procedures: 83675 Ultrasonic Guidance Vascular Access Moderate Sedation Procedure 1: Sedation/Anesthesia: 83353 Mod Sedation by the same physician;Init15 Min Child Age 5 & Up Procedure 2: Sedation/Anesthesia: 64770 Mod Sedation by the same physician; Ea [id number] Minutes Angioplasty Procedure 1: Cardiovascular Angioplasty Procedures: 01129 Perq Trluml Coronry Lithotrp Stenting Procedure 1: Cardiovascular Stent Procedures: 63283 Perc transcatheter placement of intracoronary stent(s), with ang PG Care Time/CCT Total # of Minutes Spent Total Time Spent with Patient: Total time spent is greater than 50% in coordination of care (as documented) at patient's floor/unit and/or counseling patient:
--- NOTE | 2025-01-16 14:51 | Cardiology Consultation ---
Date of Consultation January 16, 2025 Assessment & Plan (1) Elevated troponin: (2) Chest pain, rule out acute myocardial infarction: (3) Ischemic cardiomyopathy: Plan NSTEMI CAD -ELISEO x1 to LM-ProxLCx with lithotripsy 01/16/2025 -s/p CABG x2 01/25/2022 -left internal mammary artery graft to left anterior descending, saphenous vein graft right posterior descending artery Ischemic cardiomyopathy -EF 40-45% Hyperlipidemia Hypertension -Patient with NSTEMI s/p cardiac CATH with PCI ELISEO x1 to LM-ProxLCx -Continue DAPT uninterrupted x1 year -Continue atorvastatin 80mg daily, metoprolol succinate 50mg BID -Plan to optimize GDMT as able -Aggressive lifestyle modification Case discussed with Dr Villalobos. I spent a total of 44 minutes on the date of service in preparation, delivery, and documentation of the care provided to this patient, excluding any time spent in the performance of separately billed services. Ana Rosa Martínez PA-C Department of Cardiology, [facility] This chart was completed in part utilizing Speech Voice Recognition Software. Grammatical errors, random word insertions, pronoun errors, and incomplete sentences are an occasional consequence of this system due to software limitations, ambient noise, and hardware issues. Any formal questions or concerns about the content, text, or information contained within the body of this dictation should be directly addressed to the provider for clarification. Supervising Physician Co-Signing Physician Notes Patient seen and examined. Past medical history, surgical history, social history and family history have been reviewed. The medical record and all the above studies have been reviewed. Case DW NOHEMY including management. In view of CP refractory to medical management, case DW IC and patient -> urgent card cath with PCI NSTEMI CAD h/o CABG 01/25/22 - ABBOTT to LAD, SVG to RPDA -ELISEO x1 to LM-ProxLCx with lithotripsy 01/16/2025 Ischemic cardiomyopathy with LVEF 40-45% Hyperlipidemia Hypertension Continue DAPT uninterrupted x1 year Continue atorvastatin 80mg daily Continue metoprolol succinate 50mg BID Optimize GDMT as tolerated maximize med management risk factor modification History of Present Illness Reason for Consultation: NSTEMI Attending Physician: Yazan White DO History of Present Illness Aly Shay is a 79 year old male with PMHx CAD s/p CABG x2 01/25/2022, HTN, HLD who presented to [facility] ED with chest pain. Troponin significantly elevated. EKG with ST depression I, II, V3-V6. Underwent cardiac CATH today with successful PCI to LM to mid LCx with intravascular lithotripsy with ELISEO x1. Allergies Allergy/AdvReac Type Severity Reaction Status Date / Time No Known Allergies Allergy Verified 02/07/22 18:42 Home Medications Medication Instructions Recorded Confirmed Type atorvastatin 80 mg tablet 80 mg PO DAILY 01/21/22 10/20/23 History metformin 1,000 mg tablet 1,000 mg PO BIDM 01/21/22 10/20/23 History tamsulosin 0.4 mg capsule (Flomax) 0.4 mg PO DAILY 01/21/22 10/20/23 History aspirin 81 mg tablet,delayed 81 mg PO QAM 02/07/22 10/20/23 History release clopidogrel 75 mg tablet 75 mg PO QAM 02/07/22 10/20/23 History cyanocobalamin (vitamin B-12) 1,000 mcg sublingual DAILY 02/07/22 10/20/23 History 1,000 mcg sublingual tablet potassium chloride 10 mEq 10 meq PO QAM 02/07/22 10/20/23 History tablet,extended release metoprolol succinate 50 mg 50 mg PO BID 10/20/23 10/20/23 History tablet,extended release 24 hr oxycodone 10 mg tablet 10 mg PO Q6H PRN Pain 10/20/23 10/20/23 History ferrous sulfate 325 mg (65 mg 325 mg PO QAM #30 tabs 10/28/23 Rx iron) tablet,delayed release lisinopril 20 mg tablet 20 mg PO QAM #30 tabs 10/28/23 Rx Patient History Medical History (Updated 01/16/25 @ 15:02 by Ana Rosa Martínez PA-C) Hematoma of right lower leg Hypertensive urgency Hypokalemia Pain of right calf Chronic back pain STEMI (ST elevation myocardial infarction) Family History Denies family history of Heart disease Social History Smoking Status: Never smoker Tobacco Type: Cigarettes Second Hand Exposure: No; Do You Dip or Chew Tobacco: No; Tobacco Cessation Education Requested by Patient: No Hx Alcohol Use: No Hx Substance Use: No Preferred Language: [place] Communication Ability: Effective E Learning Developer Required: No Beliefs That Will Affect Care: None marital status: Current Living Situation: Spouse Other Information That Helps Us Care for You: No Feels Safe at Home: Yes Safety Concerns: Feels Safe At This Time Assistive Devices: None Review of Systems Review of Systems: All systems reviewed & are unremarkable except as noted in HPI & below Physical Exam Constitutional: WD/WN, vitals as above Eyes: PERRL, conjunctivae normal, anicteric sclerae Respiratory: normal respiratory effort, lungs clear to auscultation Cardiovascular: RRR, no murmur, no edema Heart Sounds: normal S1 and normal S2 Vessels: no JVD Extremities: no edema Skin: no rashes, warm and dry Psychiatric: A+Ox3, euthymic affect Results & Data Vital Signs (Past 12 Hours) Vital Signs Temp Pulse Pulse Resp BP BP Pulse Ox 01/16/25 09:37 99 H 148/97 H 01/16/25 09:05 91 H 135/88 01/16/25 08:00 92 H 01/16/25 07:30 36.8 C 91 H 18 141/89 H 95 01/16/25 07:21 36.3 C L 94 H 16 121/92 96 01/16/25 06:03 80 01/16/25 05:42 84 20 120/89 95 01/16/25 05:35 78 18 124/87 92 01/16/25 05:30 87 20 125/86 93 01/16/25 05:20 86 16 137/90 93 01/16/25 05:10 86 16 130/90 93 01/16/25 05:05 84 20 132/90 93 01/16/25 05:00 84 18 125/93 94 01/16/25 04:55 87 18 132/84 94 01/16/25 04:52 92 H 128/85 01/16/25 04:50 80 16 128/85 93 01/16/25 04:45 86 20 128/87 93 01/16/25 04:41 82 16 141/97 H 94 01/16/25 04:37 95 H 131/109 H 01/16/25 04:36 96 H 20 146/104 H 94 01/16/25 04:00 87 20 144/96 H 96 01/16/25 03:45 91 H 16 157/107 H 95 01/16/25 03:30 88 18 150/103 H 94 01/16/25 03:15 90 18 155/103 H 95 01/16/25 03:01 94 H 18 152/104 H 94 01/16/25 02:50 96 H 16 158/106 H 95 O2 Del Method 01/16/25 09:37 01/16/25 09:05 01/16/25 08:00 01/16/25 07:30 Room Air 01/16/25 07:21 Room Air 01/16/25 06:03 01/16/25 05:42 Room Air 01/16/25 05:35 Room Air 01/16/25 05:30 Room Air 01/16/25 05:20 Room Air 01/16/25 05:10 Room Air 01/16/25 05:05 Room Air 01/16/25 05:00 Room Air 01/16/25 04:55 Room Air 01/16/25 04:52 01/16/25 04:50 Room Air 01/16/25 04:45 Room Air 01/16/25 04:41 Room Air 01/16/25 04:37 01/16/25 04:36 Room Air 01/16/25 04:00 Room Air 01/16/25 03:45 Room Air 01/16/25 03:30 Room Air 01/16/25 03:15 Room Air 01/16/25 03:01 Room Air 01/16/25 02:50 Room Air Laboratory Results Cardiac Enzymes 01/16/25 01/16/25 01/16/25 Range/Units 02:01 04:53 10:41 AST 34 (13-39) U/L Troponin I High Sens 2372.2 H* 5091.4 H* D 78052.8 H* D (0-20) pg/ml Coagulation 01/16/25 Range/Units 02:01 PT 10.5 (9.0-12.0) Seconds Lipids 01/16/25 Range/Units 06:13 Triglycerides 43 (0-150) mg/dl Cholesterol 92 (0-200) mg/dl HDL Cholesterol 37 mg/dl Cholesterol/HDL Ratio 2.5 (0-5) CBC 01/16/25 Range/Units 02:01 WBC 9.82 (4.8-10.8) K/ul RBC 3.66 L (4.70-6.10) M/uL Hgb 11.2 L (14.0-18.0) g/dl Hct 35.2 L (42.0-52.0) % Plt Count 212 (130-400) K/uL Neut # (Auto) 8.63 H (1.40-6.50) K/uL Lymph # (Auto) 0.65 L (1.20-3.40) K/uL [place] # (Auto) 0.43 (0.11-0.59) K/uL Eos # (Auto) 0.02 (0.00-0.50) K/uL Baso # (Auto) 0.04 (0.00-0.20) K/uL Comprehensive Metabolic Panel 01/16/25 Range/Units 02:01 Sodium 140 (136-145) mmol/L Potassium 4.5 (3.5-5.1) mmol/L Chloride 105 (98-107) mmol/L Carbon Dioxide 20 L (21-32) mmol/L BUN 26 H (6-23) mg/dl Creatinine 1.46 H (0.6-1.4) mg/dl Glucose 177 H (70-99(Fasting)) mg/dl Calcium 10.0 (8.6-10.3) mg/dl AST 34 (13-39) U/L ALT 18 (7-52) U/L Alkaline Phosphatase 86 (34-104) U/L Total Protein 7.4 (6.0-8.3) gm/dl Albumin 4.4 (3.4-5.0) gm/dl Intake and Output 01/15/25 01/16/25 01/16/25 22:59 06:59 14:59 Intake Total 43.5 / 43.5 61.90 / 61.90 Balance 43.5 / 43.5 61.90 / 61.90 Intake: IV 43.5 / 43.5 61.90 / 61.90 Heparin 17732 Unit/500 ml D5w 43.5 / 43.5 59.25 / 59.25 25,000 units In 500 ml @ 750 UNITS/HR 15 mls/hr IV .Q24H [facility] Rx#:[id number] Nitroglycerin/D5w 100Mcg/ml 250 2.65 / 2.65 ml @ 10 MCG/MIN 6 mls/hr IV . Q24H [facility] Rx#:[id number] Other: # Unmeasured Voids 2 Weight 61.7 kg 63.503 kg Weight [facility] Patient Weight 01/17/25 06:59 Weight 63.503 kg Diagnostic Findings CARDIAC CATH 01/16/2025 Dr Srivastava 1. Multivessel coronary artery disease - 95% ostial/proximal circumflex 95% ostial ramus 90% proximal RCA, 90% mid RCA, 70% diffuse proximal PDA 100% chronic ostial LAD occlusion 2. Mildly elevated intracardiac filling pressured 3. Successful PCI of left main to mid circumflex with intravascular lithotripsy and single drug-eluting stent (3.5 x 22 mm Sharif; postdilated with 4.0 NC). PTCA of jailed ramus with 2.5 balloon EKG 01/16/2025 ST 1 degree AV block 104bpm ST depression lead I, II V3-V6 ECHO 01/16/2025 LV systolic function is mild to moderately reduced LVEF 40-45% Grade II diastolic dysfunction moderate to severe hypokinesis of mid and basal inferior and basal and mid inferolateral wall aortic valve sclerosis moderate without significant aortic stenosis mild to moderate pulmonic valvular regurgitation moderate mitral regurgitation mild to moderate tricuspid regurgitation PG Care Time/CCT Total # of Minutes Spent Total Time Spent with Patient: Total time spent is greater than 50% in coordination of care (as documented) at patient's floor/unit and/or counseling patient: Coding Level of Care Code 81614 IN/OBS CONSULT LVL 5,80M Diagnoses Elevated troponin R77.8 Chest pain, rule out acute myocardial infarction R07.9 Ischemic cardiomyopathy I25.5
[2025-01-16] MEDS: ACETAMINOPHEN 500 MG TAB PO PRN (14:57)
[2025-01-16] MEDS: ONDANSETRON INJ 2 MG/ML 2 ML VIAL IV PRN (19:17)
[2025-01-16] MEDS: GABAPENTIN 100 MG CAP PO SCH (21:19)
--- NOTE | 2025-01-16 21:33 | Electrocardiogram Report ---
Test Reason : Blood Pressure : */* mmHG Vent. Rate : 104 BPM Atrial Rate : 104 BPM P-R Int : 212 ms QRS Dur : 92 ms QT Int : 330 ms P-R-T Axes : 45 -19 172 degrees QTcB Int : 433 ms Sinus tachycardia with 1st degree A-V block Anterior infarct (cited on or before 23-Oct-2023) Marked ST abnormality, possible inferolateral subendocardial injury Abnormal ECG When compared with ECG of 16-Jan-2025 02:00, No significant change was found Confirmed by Babar Joel ([id number]) on 01/16/2025 9:33:32 PM Referred By: REFERRED SELF Confirmed By: Babar Joel
[2025-01-17 05:36] LABS: Hematocrit (blood only) 29.5 % (42.0-52.0); Hemoglobin 9.6 g/dl (14.0-18.0)
[2025-01-17 05:53] LABS: Albumin Level 3.6 gm/dl (3.4-5.0); Anion Gap 5.0 (3-11); Blood Urea Nitrogen 23.0 mg/dl (6-23); Calcium 9.2 mg/dl (8.6-10.3); Carbon Dioxide 24.0 mmol/L (21-32); Chloride 108.0 mmol/L (98-107); Creatinine Clr Calc Pharmacy 43.4 ml/min; Glucose 123.0 mg/dl (70-99(Fasting)); Magnesium 1.5 mg/dl (1.7-2.4); Potassium 4.5 mmol/L (3.5-5.1); Sodium 137.0 mmol/L (136-145)
[2025-01-17 05:59] LABS: ANTI-Xa, UFH(UnfractionatedHep < 0.10 IU/ml (0.3-0.7)
[2025-01-17 06:03] LABS: INR 1.0 (0.9-1.1); Partial Thromboplastin Time 26 Seconds (21-31); Prothrombin Time 10.8 Seconds (9.0-12.0)
--- NOTE | 2025-01-17 07:10 | Hospitalist Progress Note ---
Date of Service January 17, 2025 Assessment & Plan (1) Type [address] elevation: (2) Elevated troponin: (3) Chest pain, rule out acute myocardial infarction: (4) Essential hypertension: (5) Mixed hyperlipidemia: Plan In summary this is a 79-year-old male who is admitted to the [facility] due to type II myocardial infarction suspected be secondary to progressive atherosclerotic disease versus progressive essential hypertension #Type II myocardial infarction without ST elevation secondary to progressive CAD // Troponin elevation // Essential hypertension // Mixed hyperlipidemia // s/p two-vessel CABG 2021 Patient's symptoms began several days prior to presentation with progressive worsening; there is associated increased severity of his discomfort with activity associated with increased dyspnea on exertion; patient states that these symptoms are similar to prior episodes of myocardial infarction; associated risk factors include hypertension, hyperlipidemia, type 2 diabetes mellitus, previous cardiac intervention; initial EKG concerning with diffuse ST segment depression in the precordial leads from V3 through V6 without any areas of savi ST elevation; underwent LHC on 01/16 found to have diffuse progressive coronary artery disease with 95% distal main, 98% ostial ramus, 90% proximal RCA, 90% mid RCA, 60 to 70% distal RCA narrowing with 100% chronic ostial LAD occlusion; procedure involved placement of drug-eluting stent to the mid circumflex with intravenous lithotripsy -Maintain continuous cardiac care nurse -Nursing to contact attending if patient develops recurrent or new anginal equivalent - Continue ASA 81 mg p.o. daily - Continue daily clopidogrel 75 mg p.o. Continue home atorvastatin, lisinopril, metoprolol succinate - Follow daily renal function panel, magnesium, hemoglobin and hematocrit - Cardiology and interventional cardiologyconsulted #Type 2 diabetes mellitus with hyperglycemia Most recent hemoglobin A1c of 5.8% in 10/2023, repeat assessment pending; glycemic target of less than 180 for all checks given the patient's severity of disease; we will withhold the patient's usual home medications at this time Continue glargine 12 units SQ twice daily Continue prandial dosing with correction factor of 35 mg/dL/unit with carbohydrate ratio 12 g/unit Admission and Anticipated Discharge Date Admission Date: January 16, 2025 Subjective Mr. Shay is a 79-year-old male whose active medical conditions include coron reginald atherosclerotic disease in the setting of hyperlipidemia, hypertension, type 2 diabetes mellitus with hyperglycemia among other chronic medical conditions who presented to [facility] due to persistent and progressive substernal chest discomfort associated with dyspnea on exertion that began approximately 6 days prior to presentation. The patient states this discomfort is similar to prior cardiac episodes in the past. He notes worsening of his discomfort with any form of activity, even getting up out of bed to use the bedside commode. He denies any palpitations, nausea, vomiting, diaphoresis, lower extremity swelling, orthopnea, platypnea. No acute overnight events Review of Systems Review of Systems: Review of constitutional, cardiovascular, pulmonary, neurologic systems was unremarkable other than pertinent positives and negatives detailed above Physical Exam Physical Exam: General: Elderly male in no acute distress Vital Signs: Reviewed HEENT: Pupils equally round and reactive to light; extraocular motion intact; soft scleral icterus OU Neck: No notable jugular venous distention at rest nor with hepatojugular reflux Pulmonary: Symmetric chest wall excursion without restriction; clear to auscultation bilaterally Cardiovascular: Regular rate and rhythm without murmurs, rubs, or gallops; S1 and S2 normal; bilateral radial and posterior tibial pulses 2+ with brisk capillary refill; no notable lower extremity edema; femoral and radial access site appear well Neurologic: Cranial nerves II through XII grossly intact; no discernible focal weakness or paresthesia Skin: Slight yellow tinge to the patient's skin Results & Data Results & Data Vital Signs (Past 12 Hours) Vital Signs Temp Pulse Pulse Resp BP BP Pulse Ox 01/17/25 04:00 70 11 L 144/78 H 01/17/25 03:03 84 15 01/17/25 02:15 120/79 01/17/25 02:15 120/79 01/17/25 02:15 71 22 01/17/25 02:00 124/83 01/17/25 01:51 64 14 01/17/25 01:45 115/73 01/17/25 01:36 66 22 01/17/25 01:30 68 15 01/17/25 01:30 129/79 01/17/25 01:30 129/79 01/17/25 01:30 129/79 01/17/25 01:15 117/78 01/17/25 01:15 117/78 01/17/25 01:09 69 16 01/17/25 01:00 69 15 01/17/25 01:00 110/74 10/13/25 00:48 68 18 01/17/25 00:45 110/72 01/17/25 00:45 110/72 01/17/25 00:45 110/72 01/17/25 00:30 119/80 01/17/25 00:15 126/90 01/17/25 00:15 126/90 01/17/25 00:00 129/86 01/16/25 23:57 78 10 L 01/16/25 23:45 135/87 01/16/25 23:43 139/94 01/16/25 23:41 36.6 C 78 15 135/87 94 01/16/25 23:33 78 15 01/16/25 23:30 150/96 H 01/16/25 23:30 150/96 H 01/16/25 23:30 150/96 H 01/16/25 23:18 98 H 18 01/16/25 23:15 138/91 01/16/25 23:15 138/91 01/16/25 23:12 78 14 01/16/25 23:00 78 26 H 01/16/25 23:00 134/88 01/16/25 23:00 134/88 01/16/25 23:00 134/88 01/16/25 22:45 80 27 H 01/16/25 22:45 132/90 01/16/25 22:45 132/90 01/16/25 22:30 135/92 01/16/25 22:30 135/92 01/16/25 22:30 78 23 01/16/25 22:15 124/83 01/16/25 22:09 66 14 01/16/25 22:00 121/83 01/16/25 20:00 O2 Del Method 01/17/25 04:00 01/17/25 03:03 01/17/25 02:15 01/17/25 02:15 01/17/25 02:15 01/17/25 02:00 01/17/25 01:51 01/17/25 01:45 01/17/25 01:36 01/17/25 01:30 01/17/25 01:30 01/17/25 01:30 01/17/25 01:30 01/17/25 01:15 01/17/25 01:15 01/17/25 01:09 01/17/25 01:00 01/17/25 01:00 01/17/25 00:48 01/17/25 00:45 01/17/25 00:45 01/17/25 00:45 01/17/25 00:30 01/17/25 00:15 01/17/25 00:15 01/17/25 00:00 01/16/25 23:57 01/16/25 23:45 01/16/25 23:43 01/16/25 23:41 Room Air 01/16/25 23:33 01/16/25 23:30 01/16/25 23:30 01/16/25 23:30 01/16/25 23:18 01/16/25 23:15 01/16/25 23:15 01/16/25 23:12 01/16/25 23:00 01/16/25 23:00 01/16/25 23:00 01/16/25 23:00 01/16/25 22:45 01/16/25 22:45 01/16/25 22:45 01/16/25 22:30 01/16/25 22:30 01/16/25 22:30 01/16/25 22:15 01/16/25 22:09 01/16/25 22:00 01/16/25 20:00 Room Air PG Care Time/CCT Total # of Minutes Spent Total Time Spent with Patient: Total time spent is greater than 50% in coordination of care (as documented) at patient's floor/unit and/or counseling patient: Coding Diagnoses Type [address] elevation I21.A1 Elevated troponin R77.8 Chest pain, rule out acute myocardial infarction R07.9 Essential hypertension I10 Mixed hyperlipidemia E78.2
[2025-01-17 08:12] LABS: Hemoglobin A1C 5.7 % (4.5-5.6)
--- NOTE | 2025-01-17 10:18 | Cardiology Progress Note ---
Date of Service January 17, 2025 Assessment & Plan (1) Elevated troponin: (2) Chest pain, rule out acute myocardial infarction: (3) Ischemic cardiomyopathy: Plan NSTEMI CAD -ELISEO x1 to LM-ProxLCx with lithotripsy 01/16/2025 -s/p CABG x2 01/25/2022 -left internal mammary artery graft to left anterior descending, saphenous vein graft right posterior descending artery Ischemic cardiomyopathy -EF 40-45% Hyperlipidemia Hypertension -Patient with NSTEMI s/p cardiac CATH with PCI ELISEO x1 to LM-ProxLCx -Continue DAPT uninterrupted x1 year -Continue atorvastatin 80mg daily, metoprolol succinate 50mg BID -Plan to optimize GDMT as able -Aggressive lifestyle modification 01/17/2025 79-year-old male with known coronary disease with prior coronary bypass grafting 2023 presenting with non-ST segment elevation myocardial infarction with significant troponin elevation, mildly reduced ejection fraction. Coronary angiography demonstrated occluded vein graft to the right posterior descending artery, severe agdaagux vessel disease. Culprit proximal circumflex treated with PCI with drug-eluting stent with good result. 1. Non-ST segment elevation myocardial infarction status post drug-eluting stent. Plan dual antiplatelet therapy uninterrupted x 1 year Continue atorvastatin metoprolol succinate as ordered Cardiac rehab referral 2. Ischemic cardiomyopathy with mildly reduced ejection fraction EF 40-45%. Lisinopril held for 2 days would initiate therapy with Entresto first dose today CHF instructions 3. Anemia possibly postprocedural superimposed on chronic. Admission and Anticipated Discharge Date Admission Date: January 16, 2025 Subjective Patient was seen and personally examined. Chart, medications, telemetry reviewed. No chest pain or discomfort overnight slept well. Ambulatory in room this morning without difficulty. No orthopnea. Tenderness at right groin access site without focal hematoma. No arrhythmias on telemetry Review of Systems Review of Systems: All systems reviewed & are unremarkable except as noted in Subjective Physical Exam Constitutional: WD/WN, vitals as above no acute distress Eyes: PERRL, conjunctivae normal, anicteric sclerae Neck: trachea midline, no thyromegaly Respiratory: normal respiratory effort, lungs clear to auscultation Cardiovascular: RRR, no murmur, no edema Heart Sounds: normal S1 and normal S2 Vessels: no JVD Extremities: no edema Right groin access site without palpable hematoma though tender to palpation Gastrointestinal (Abdomen): normal bowel sounds, soft, nontender, no hepatosplenomegaly Skin: no rashes, warm and dry Psychiatric: A+Ox3, euthymic affect Results & Data Vital Signs (Past 12 Hours) Vital Signs Temp Pulse Pulse Resp BP BP Pulse Ox 01/17/25 08:00 81 01/17/25 07:08 36.9 C 85 20 147/90 H 93 01/17/25 04:00 70 11 L 144/78 H 01/17/25 03:03 84 15 01/17/25 02:15 120/79 01/17/25 02:15 120/79 01/17/25 02:15 71 22 01/17/25 02:00 124/83 01/17/25 01:51 64 14 01/17/25 01:45 115/73 01/17/25 01:36 66 22 01/17/25 01:30 68 15 01/17/25 01:30 129/79 01/17/25 01:30 129/79 01/17/25 01:30 129/79 01/17/25 01:15 117/78 01/17/25 01:15 117/78 01/17/25 01:09 69 16 01/17/25 01:00 69 15 01/17/25 01:00 110/74 01/17/25 00:48 68 18 01/17/25 00:45 110/72 01/17/25 00:45 110/72 01/17/25 00:45 110/72 01/17/25 00:30 119/80 01/17/25 00:15 126/90 01/17/25 00:15 126/90 01/17/25 00:00 129/86 01/16/25 23:57 78 10 L 01/16/25 23:45 135/87 01/16/25 23:43 139/94 01/16/25 23:41 36.6 C 78 15 135/87 94 01/16/25 23:33 78 15 01/16/25 23:30 150/96 H 01/16/25 23:30 150/96 H 01/16/25 23:30 150/96 H 01/16/25 23:18 98 H 18 01/16/25 23:15 138/91 01/16/25 23:15 138/91 01/16/25 23:12 78 14 01/16/25 23:00 78 26 H 01/16/25 23:00 134/88 01/16/25 23:00 134/88 01/16/25 23:00 134/88 01/16/25 22:45 80 27 H 01/16/25 22:45 132/90 01/16/25 22:45 132/90 01/16/25 22:30 135/92 01/16/25 22:30 135/92 01/16/25 22:30 78 23 O2 Del Method 01/17/25 08:00 01/17/25 07:08 Room Air 01/17/25 04:00 01/17/25 03:03 01/17/25 02:15 01/17/25 02:15 01/17/25 02:15 01/17/25 02:00 01/17/25 01:51 01/17/25 01:45 01/17/25 01:36 01/17/25 01:30 01/17/25 01:30 01/17/25 01:30 01/17/25 01:30 01/17/25 01:15 01/17/25 01:15 01/17/25 01:09 01/17/25 01:00 01/17/25 01:00 01/17/25 00:48 01/17/25 00:45 01/17/25 00:45 01/17/25 00:45 01/17/25 00:30 01/17/25 00:15 01/17/25 00:15 01/17/25 00:00 01/16/25 23:57 01/16/25 23:45 01/16/25 23:43 01/16/25 23:41 Room Air 01/16/25 23:33 01/16/25 23:30 01/16/25 23:30 01/16/25 23:30 01/16/25 23:18 01/16/25 23:15 01/16/25 23:15 01/16/25 23:12 01/16/25 23:00 01/16/25 23:00 01/16/25 23:00 01/16/25 23:00 01/16/25 22:45 01/16/25 22:45 01/16/25 22:45 01/16/25 22:30 01/16/25 22:30 01/16/25 22:30 PG Care Time/CCT Total # of Minutes Spent Total Time Spent with Patient: Total time spent is greater than 50% in coordination of care (as documented) at patient's floor/unit and/or counseling patient: Coding Level of Care Code 10741 SUB INP/OBS CARE 3/50MIN Diagnoses Elevated troponin R77.8 Chest pain, rule out acute myocardial infarction R07.9 Ischemic cardiomyopathy I25.5
[2025-01-17 10:39] VITALS: BP 131/86; PULSE 83; RESP 22; TEMP 97.9; O2SAT 97
[2025-01-17] MEDS: VALSARTAN/SACUBITRIL 26/24MG TAB PO SCH (11:24)
--- NOTE | 2025-01-17 14:39 | Discharge Summary ---
Discharge Summary Date of Service January 17, 2025 Principal Dx & Hospital Course #1 = Principal Diagnosis (1) Type [address] elevation: (2) Elevated troponin: (3) Chest pain, rule out acute myocardial infarction: (4) Essential hypertension: (5) Mixed hyperlipidemia: Plan In summary this is a 79-year-old male who is admitted to the [facility] due to type II myocardial infarction suspected be secondary to progressive atherosclerotic disease versus progressive essential hypertension #Type II myocardial infarction without ST elevation secondary to progressive CAD // Troponin elevation // Essential hypertension // Mixed hyperlipidemia // s/p two-vessel CABG 2021 Patient's symptoms began several days prior to presentation with progressive worsening; there is associated increased severity of his discomfort with activity associated with increased dyspnea on exertion; patient states that these symptoms are similar to prior episodes of myocardial infarction; associated risk factors include hypertension, hyperlipidemia, type 2 diabetes mellitus, previous cardiac intervention; initial EKG concerning with diffuse ST segment depression in the precordial leads from V3 through V6 without any areas of savi ST elevation; underwent LHC on 01/16 found to have diffuse progressive coronary artery disease with 95% distal main, 98% ostial ramus, 90% proximal RCA, 90% mid RCA, 60 to 70% distal RCA narrowing with 100% chronic ostial LAD occlusion; procedure involved placement of drug-eluting stent to the mid circumflex with intravenous lithotripsy - Continue ASA 81 mg p.o. daily - Continue daily clopidogrel 75 mg p.o. Continue home atorvastatin and metoprolol succinate - Follow daily renal function panel, magnesium, hemoglobin and hematocrit - Cardiology and interventional cardiology consulted; Entresto initiated by Cardiology, thus lisinopril discontinued; discussed adverse effects of this medication with the patient and preference of both myself and Cardiology to observe the patient through the early afternoon to ensure tolerance as well as provide time to determine the cost through the assistance of Case Management, but the patient adamantly denied and requested discharge. They understand the potential adverse effects of this medication, and were strongly encouraged to follow up with Cardiology within the next few weeks Notes For Next Care Provider Medication Changes From Visit Start Entresto Stop Lisinopril Admission HPI Per Admitting Provider The patient is a 79-year-old male with past medical history including right lower leg hematoma, hypertension, BPH, hyperlipidemia, B12 deficiency, iron deficiency, chronic pain syndrome due to osteoarthritis, and BPH with LUTS. The patient presents to the emergency department with report of several weeks of substernal chest pain, that only occurred with activity, however, over the past 3 hours prior to arrival to the emergency department, the pain was significantly worse, and it was now occurring at rest. Upon arrival to the emergency department, patient had an EKG performed which showed sinus tachycardia with first-degree heart block, with ST segment depressions in leads II, aVF, V5 and 6, 1 and aVL. Troponin was 2372. Patient was started on the following medications by the emergency department: Heparin bolus and drip per protocol, labetalol 10 mg IV, morphine sulfate 4 mg IV x 3, Zofran 4 mg IV, and aspirin 324 mg. Remaining laboratory showed a 88 increased creatinine from his baseline of 1.3 to up to 1.46. Glucose is mildly elevated 177. Chest x-ray showed mild CHF. Patient reported his pain had improved to 5/10. He was placed on Nitropaste on his anterior chest wall every 6 hours, given Lopressor 5 mg IV, given nitroglycerin sublingual every 5 minutes as needed, and normal saline at 60 mL/h. Discharge Exam General: Elderly male in no acute distress Vital Signs: Reviewed HEENT: Pupils equally round and reactive to light; extraocular motion intact; soft scleral icterus OU Neck: No notable jugular venous distention at rest nor with hepatojugular reflux Pulmonary: Symmetric chest wall excursion without restriction; clear to auscultation bilaterally Cardiovascular: Regular rate and rhythm without murmurs, rubs, or gallops; S1 and S2 normal; bilateral radial and posterior tibial pulses 2+ with brisk capillary refill; no notable lower extremity edema; femoral and radial access site appear well Neurologic: Cranial nerves II through XII grossly intact; no discernible focal weakness or paresthesia Skin: Slight yellow tinge to the patient's skin Discharge Plan Discharge Items Patient Disposition: Home - Self-Care Reason For Visit: NSTEMI ON HEPARIN DRIP Discharge Diagnosis: Type II myocardial infarction without ST elevation secondary to progressive CAD Condition on Discharge: Fair Activity: Per Instructions section Non-emergency contact: Primary Care Provider and Medical Billing Coordinator Call non-emergency contact if: you have any medication questions Follow-up/Referrals: Xavier Miller MD [Primary Care Provider] - Eran Villalobos MD [Physician] - (Type II [place] s/p LHC, ELISEO to Circumflex and IV lithotripsy) Diet: Carb Consistent or DM2, Low Fat and Low Sodium (2gm) Fluids: 2000ml (8 cups) Addtl Attending Provider Instructions: You were [facility] for persistent chest pain found to be type II myocardial infarction without ST elevation requiring left heart catheterization and ELISEO placement to the circumflex artery. With his bacterial left heart catheterization, this went uncomplicated requiring access through the radial and femoral artery; at the time you are discharged the sites appear well, we recommend not lifting weights heavier than a gallon of milk for the next 4 to 5 days to prevent any significant injury related to these access sites. If you start to notice persistent pain at these areas, increased swelling, bruising, or other complications please contact your intervention teacher office for further recommendations. At the time of discharge, he was started on medication by your cardiology group called Entresto; as we discussed, this medication can be expensive and your preference is discharged prior to pricing to be determined by case management; we recommend you continue this medication until seen by her cardiology group and follow-up after this hospitalization. Entresto has similar medication effects to Lisinopril, and as such please stop taking your Lisinopril until further medication adjustments can be made by your intervention teacher Thank you for choosing [facility] as your healthcare provider. Pending Studies at Discharge: No Stand-Alone Forms: My [facility] Medications and DC Order Prescriptions: New sacubitril-valsartan [Entresto] 24-26 mg Tablet 1 tab PO BID 30 Days Qty: 60 0RF Continued potassium chloride 10 mEq tablet extended release 10 meq PO QAM clopidogrel 75 mg tablet 75 mg PO QAM aspirin 81 mg Tablet,Delayed Release (Dr/Ec) 81 mg PO QAM cyanocobalamin (vitamin B-12) 1,000 mcg Tablet, Sublingual 1,000 mcg SUBLINGUAL DAILY atorvastatin 80 mg tablet 80 mg PO DAILY tamsulosin [Flomax] 0.4 mg capsule 0.4 mg PO DAILY metformin 1,000 mg tablet 1,000 mg PO BIDM metoprolol succinate 50 mg tablet extended release 24 hr 50 mg PO BID oxycodone 10 mg tablet 10 mg PO Q6H PRN (Reason: Pain) Rx Instructions: Take 1 Tablet by mouth every 6 hours as needed for pain. ferrous sulfate 325 mg (65 mg iron) Tablet,Delayed Release (Dr/Ec) 325 mg PO QAM Qty: 30 0RF Discontinued lisinopril 20 mg Tablet 20 mg PO QAM Qty: 30 0RF Discharge Orders: Discharge Order (Routine); Ordered 01/17/25 Ordered By: Yazan White Admission Data Admit Date/Time: 01/16/25 04:50 Attending Provider: Yazan White Admit Provider: Yair Crawford Primary Care Provider: Xavier Miller Other Providers: Eran Villalobos; Yair Crawford; Lukas Srivastava Other Interventions: Discharge Summary Assessment (RN) Last Done: 01/17/25 11:55 Hospital Stay Data Consultations 01/16/25 03:51 Consult Cardiology Routine 01/16/25 03:52 Consult Cardiac Catheterization Routine 01/16/25 03:55 ED Decision to Admit Stat 01/16/25 06:13 Consult Cardiology Routine Procedures Performed Operation Date: 01/16/25 11:30 Actual Procedures p Cineradiography w/Routine Exam - Lukas Srivastava MD p Cath, Left w/Cors Vent Grafts - Lukas Srivastava MD s Drug Eluting Stent SGl Vessel - Lukas Srivastava MD s Perc Phillip Coronary Lithotripsy - Lukas Srivastava MD s IVUS Coronary Single Vessel - MD addy Crump POBA SGL Vessel - Lukas Srivastava MD Diagnostic Imagining Performed 01/16/25 11:16 CL Cath Imgs for PACS use only Stat Pending Results Patient Have Any Pending Studies at Discharge: No Discharge Instructions Given to Patient (Per Discharging Provider) You were admitted [facility] for persistent chest pain found to be type II myocardial infarction without ST elevation requiring left heart catheterization and ELISEO placement to the circumflex artery. With his bacterial left heart catheterization, this went uncomplicated requiring access through the radial and femoral artery; at the time you are discharged the sites appear well, we recommend not lifting weights heavier than a gallon of milk for the next 4 to 5 days to prevent any significant injury related to these access sites. If you start to notice persistent pain at these areas, increased swelling, bruising, or other complications please contact your intervention teacher office for further recommendations. At the time of discharge, he was started on medication by your cardiology group called Entresto; as we discussed, this medication can be expensive and your preference is discharged prior to pricing to be determined by case management; we recommend you continue this medication until seen by her cardiology group and follow-up after this hospitalization. Entresto has similar medication effects to Lisinopril, and as such please stop taking your Lisinopril until further medication adjustments can be made by your intervention teacher Thank you for choosing [facility] as your healthcare provider. Total Time Total Time Spent Total Time Spent (In Minutes): I personally spent 50 minutes in the coordination of discharge including bedside counseling, physical exam, review of laboratory assessment and documented procedures from 01/16, coordination of care with specialist consultants, and medication reconciliation Coding Level of Care Code 78327 INP/OBS DISCH >30 MIN Diagnoses Type [address] elevation I21.A1 Elevated troponin R77.8 Chest pain, rule out acute myocardial infarction R07.9 Essential hypertension I10 Mixed hyperlipidemia E78.2
--- NOTE | 2025-01-17 15:17 | Electrocardiogram Report ---
Test Reason : Blood Pressure : */* mmHG Vent. Rate : 110 BPM Atrial Rate : 110 BPM P-R Int : 212 ms QRS Dur : 90 ms QT Int : 334 ms P-R-T Axes : 62 -19 166 degrees QTcB Int : 452 ms Sinus tachycardia with 1st degree A-V block Anterior infarct (cited on or before 23-Oct-2023) Marked ST abnormality, possible inferolateral subendocardial injury Abnormal ECG When compared with ECG of 23-Oct-2023 09:16, ST now depressed in Inferior leads ST now depressed in Lateral leads Confirmed by Marvin Guerra ([id number]) on 01/17/2025 3:17:05 PM Referred By: REFERRED SELF Confirmed By: Marvin Guerra
--- NOTE | 2025-01-17 15:19 | Electrocardiogram Report ---
Test Reason : Blood Pressure : */* mmHG Vent. Rate : 88 BPM Atrial Rate : 88 BPM P-R Int : 232 ms QRS Dur : 84 ms QT Int : 366 ms P-R-T Axes : 31 -21 160 degrees QTcB Int : 442 ms Sinus rhythm with 1st degree A-V block Anterior infarct (cited on or before 23-Oct-2023) Marked ST abnormality, possible lateral subendocardial injury Abnormal ECG When compared with ECG of 16-Jan-2025 02:17, ST depression is less apparent Confirmed by Marvin Guerra ([id number]) on 01/17/2025 3:18:54 PM Referred By: REFERRED SELF Confirmed By: Marvin Guerra
== END 2025-01-17 13:13 | disposition home or self-care (01) | DRG 324 ==
LOC: ED 01:45 → 2E 04:50 → SUATTDRO 04:50 → 2E 06:02

== ENCOUNTER 2025-02-21 14:03 | Inpatient (IN) ==
[2025-02-21 14:53] LABS: Hematocrit (blood only) 35.4 % (42.0-52.0); Hemoglobin 11.7 g/dL (14.0-18.0); Mean Corpuscular Hemoglobin 31.0 pg (25.0-34.0); Mean Corpuscular Volume 93.9 fL (80.0-100.0); Platelet Count 137 K/uL (130-400); RDW Standard Deviation 47.8 fL (36.4-46.3); Red Blood Count 3.77 M/uL (4.70-6.10); White Blood Count 14.72 K/ul (4.8-10.8)
[2025-02-21 15:07] LABS: Alanine Aminotransferase 21 U/L (7-52); Albumin Globulin Ratio 1.4 (0.9-2); Albumin Level 4.0 gm/dl (3.4-5.0); Alkaline Phosphatase 95 U/L (34-104); Anion Gap 13 (3-11); Bilirubin,Total 0.6 mg/dl (0.2-1.0); Blood Urea Nitrogen 26 mg/dl (6-23); Calcium 8.9 mg/dl (8.6-10.3); Carbon Dioxide 21 mmol/L (21-32); Chloride 103 mmol/L (98-107); Globulin 2.9 gm/dl (2.5-4.0); Glucose 122 mg/dl (70-99(Fasting)); Potassium 4.1 mmol/L (3.5-5.1); Sodium 137 mmol/L (136-145); Total Protein 6.9 gm/dl (6.0-8.3)
--- NOTE | 2025-02-21 15:09 | XRay Report ---
XR chest 1V not portable CLINICAL HISTORY: Chest pain, nonspecific COMPARISON STUDY: Chest CT February 07, 2022. Chest radiograph January 16, 2025. FINDINGS: Median sternotomy wires are noted. Cardiomediastinal silhouette is stable. Pulmonary edema prior chest radiograph has resolved. There is mild asymmetric right lower lung opacity. Left lung is clear. No pneumothorax is present. There is a trace right pleural effusion. IMPRESSION: 1. Mild asymmetric right lower lung opacity. This may represent pneumonia. Radiographic follow-up is recommended. 2. Trace right pleural effusion. 3. Resolution of pulmonary edema shown on prior chest radiograph. ACT 112: Negative or not required by law. Electronically signed by: Kurtis Eckert M.D. 02/21/2025 3:07 PM
[2025-02-21 15:25] LABS: INR 1.1 (0.9-1.1); Partial Thromboplastin Time 27 Seconds (21-31); Prothrombin Time 11.2 Seconds (9.0-12.0)
[2025-02-21 15:26] LABS: Acanthocytes 1+; Immature Granulocytes # (auto) 0.06 K/uL (0.01-0.20); Immature Granulocytes % (auto) 0.4 %
[2025-02-21] MEDS: NITROGLYCERIN 2% OINTMENT 30GM TUBE EXT STA (15:53)
--- NOTE | 2025-02-21 15:53 | Emergency Department Note ---
Impression & Plan Chest pain, Angina at rest, Elevated troponin, Hypertension ED Provider Note ED Provider Note NAME: CESAR HAMPTON AGE:79 SEX: Male : 1945 ARRIVES VIA: Private vehicle INFORMANT: Patient ED PROVIDER(s): Seema Haro DO CHIEF COMPLAINT: chest pain HPI: This is a 71-year-old male who presents to the emergency department with concern for central chest pain. Patient states pain seems to come on with exertion, particularly walking up a flight of steps. He states he was admitted here a little over a month ago and had a catheterization at that time. at bedside states a stent was placed. Patient had already had CABG performed 3 years ago elsewhere. He states he had not had any episodes while walking hormone level or any episodes of chest pain at rest. He cannot otherwise describe the chest pain for me, it is nonradiating, but he notes accompanying shortness of breath. He denies any dizziness, lightheadedness, nausea or vomiting. No recent fevers, chills, or URI symptoms, no recent leg swelling, no other change in medication. states they were told that if he had any recurrent symptoms he might need to go to another facility. She states there were no other arrangements made or scheduled appointments coming up with cardiology. PAST MEDICAL HISTORY:See Below PAST SURGICAL HISTORY:See Below FAMILY HISTORY:See Below SOCIAL HISTORY:See Below HOME MEDICATIONS:See Below ALLERGIES:See Below VITALS:See Below PHYSICAL EXAMINATION: GENERAL: alert, well appearing, well nourished, no distress, non-toxic EYE EXAM: normal conjunctiva, PERRL and EOM's grossly intact OROPHARYNX: no exudate, no erythema, lips, buccal mucosa, and tongue normal and mucous membranes are moist NECK: supple, no nuchal rigidity, no adenopathy, non-tender LUNGS: Clear to auscultation. Normal chest wall mechanics, no w/r/r HEART: no murmurs, S1 normal and S2 normal, no reproducible pain with palpation, well-healed sternotomy scar ABDOMEN: abdomen soft, non-tender, normo-active bowel sounds, no masses, no rebound or guarding. BACK: Back is symmetrical on inspection and there is no deformity, no midline tenderness, no CVA tenderness. SKIN: no rashes, petechiae, orbruising UPPER EXTREMITIES: upper extremities are grossly normal. FROM, nml pulses b/l. LOWER EXTREMITIES: No pitting edema. FROM, nml pulses b/l. NEURO EXAM: Normal sensorium, cranial nerves II-XII grossly intact, normal speech, no facial droop,nogross weakness of arms, no gross weakness of legs. Gross sensation intact. No ataxia. Vital Signs: reviewed and remarkable Differential Diagnosis: acute coronary syndrome, pericarditis, pulmonary embolus, aortic dissection, pneumonia, pneumothorax, musculoskeletal pain, shingles, GERD, GI bleed, as well as others were considered MEDICAL DECISION MAKING: This is a 79-year-old male presents the emergency department with concern for chest pain. Patient has been noting exertional chest pain since undergoing cardiac catheterization 5 weeks ago with placement of a stent. He has had prior CABG. He presents today not complaining of pain persistent at rest additionally. Patient was noted to be afebrile and hemodynamically stable, he was hypertensive. I did review prior cardiac cath and discussed case with Dr. Srivastava of cardiology. Labs drawn and sent, IV established, EKG and CXR performed and interpreted at bedside, and patient placed on telemetry. Troponin mildly elevated, no acute EKG changes noted. Nitropaste additionally placed on the patient. Dr. Srivastava did evaluate the patient at bedside and after further discussion with [facility] cardiology, they are going to recommend medical management at this time. They recommend admission to the hospitalist and initiation of a heparin drip. Patient updated on results and plan. Case discussed with hospitalist team for additional valuation management. Consultation(s): 1614: Discussed with Dr. Srivastava, cardiology. 1628: Dr. Srivastava at bedside evaluating the patient. 1708: Discussed with Dr. Strickland, [facility] hospitalist team, for additional evaluation and mgmt. ER Treatment Provided: See below Diagnostics Interpreted By Me: -ECG: Sinus tachycardia at 102, first-degree AV block, normal axis, normal intervals, no acute ST/T wave changes -Cardiac Monitoring: An order was placed for continuous cardiac monitoring. The monitor shows a rate of 92 with normal sinus rhythm. -Laboratory studies: As stated above and show below. -Imaging studies: X-ray Chest: A single view study of the chest was reviewed and was negative for cardiomegaly, focal infiltrate, effusion, pulmonary edema, or wide mediastinum. Triage Nursing Note Reviewed Prior/Outside Records Reviewed -cardiac catheterization from January 2025 reviewed Critical Care: Critical care of 42 min performed to assess and manage high likelihood of life-threatening ACS, involving labs and imaging performed with assessment to evaluate chest pain diagnosis with frequent reassessment. This time includes bedside time, treatment discussions with patient/family/consultants, documentation time and excludes procedure time. Past Med/Surg History Problem List (Updated 02/22/25 @ 00:03 by Seema Haro DO) Hypertension (Acute) Elevated troponin (Acute) Angina at rest (Acute) Chest pain (Acute) Ischemic cardiomyopathy Benign prostatic hyperplasia with lower urinary tract symptoms Mixed hyperlipidemia Essential hypertension Type 2 diabetes mellitus with hyperglycemia Medical History (Updated 02/22/25 @ 00:03 by Seema Haro DO) Chest pain, rule out acute myocardial infarction Type [address] elevation Hematoma of right lower leg Hypertensive urgency Hypokalemia Pain of right calf Chronic back pain STEMI (ST elevation myocardial infarction) Family History Denies family history of Heart disease Social History Smoking Status: Never smoker Tobacco Type: Cigarettes Second Hand Exposure: No; Do You Dip or Chew Tobacco: No; Hx Alcohol Use: No Hx Substance Use: No Preferred Language: Belarusian Communication Ability: Effective 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 Beliefs That Will Affect Care: None marital status: Current Living Situation: Spouse Feels Safe at Home: Yes Safety Concerns: Feels Safe At This Time Assistive Devices: None Allergies Allergies Allergy/AdvReac Type Severity Reaction Status Date / Time No Known Allergies Allergy Verified 02/21/25 18:45 Home Meds Home Medications Medication Instructions Recorded Confirmed atorvastatin 80 mg tablet 80 mg PO DAILY 01/21/22 02/21/25 metformin 1,000 mg tablet 1,000 mg PO BIDM 01/21/22 02/21/25 tamsulosin 0.4 mg capsule (Flomax) 0.4 mg PO QAM 01/21/22 02/21/25 clopidogrel 75 mg tablet 75 mg PO QAM 02/07/22 02/21/25 cyanocobalamin (vitamin B-12) 1,000 mcg sublingual DAILY 02/07/22 02/21/25 1,000 mcg sublingual tablet potassium chloride 10 mEq 10 meq PO QAM 02/07/22 02/21/25 tablet,extended release metoprolol succinate 50 mg 50 mg PO AMHS 10/20/23 02/21/25 tablet,extended release 24 hr oxycodone 10 mg tablet 10 mg PO Q6H PRN pain,severe 10/20/23 02/21/25 sacubitril 24 mg-valsartan 26 mg 1 tab PO AMHS 02/21/25 02/21/25 tablet Results & Data (ED) Vital Signs Vital Signs - 24 hr 02/21/25 14:03 02/21/25 14:03 02/21/25 14:15 Temperature 37.5 C Temperature Source Temporal Artery Scan Pulse Rate 105 H Pulse Rate [Right Finger] 97 H Pulse Rate from SpO2 Sensor Respiratory Rate 18 18 Respiratory Effort / Characteristics Non-Labored Spontaneous Respiratory Depth Normal Blood Pressure 179/111 H Blood Pressure [Right Arm] 182/110 H Blood Pressure Mean 133 Blood Pressure Mean [Right Arm] 134 Pulse Oximetry 96 95 Oxygen Delivery Method Room Air Room Air Sepsis Recent Fever Within 48 Hours No Sepsis New/Unexplained Change in Mental Status N/A Sepsis Action Taken by Nursing No Action Required 02/21/25 14:19 02/21/25 14:19 02/21/25 15:45 Temperature Temperature Source Pulse Rate 101 H Pulse Rate [Right Finger] Pulse Rate from SpO2 Sensor Respiratory Rate 18 Respiratory Effort / Characteristics Respiratory Depth Blood Pressure 179/103 H Blood Pressure [Right Arm] Blood Pressure Mean 133 Blood Pressure Mean [Right Arm] Pulse Oximetry 95 95 Oxygen Delivery Method Room Air Room Air Sepsis Recent Fever Within 48 Hours Sepsis New/Unexplained Change in Mental Status Sepsis Action Taken by Nursing 02/21/25 15:45 02/21/25 15:45 02/21/25 15:45 Temperature Temperature Source Pulse Rate Pulse Rate [Right Finger] Pulse Rate from SpO2 Sensor Respiratory Rate Respiratory Effort / Characteristics Respiratory Depth Blood Pressure 179/103 H 179/103 H 179/103 H Blood Pressure [Right Arm] Blood Pressure Mean 133 133 133 Blood Pressure Mean [Right Arm] Pulse Oximetry Oxygen Delivery Method Sepsis Recent Fever Within 48 Hours Sepsis New/Unexplained Change in Mental Status Sepsis Action Taken by Nursing 02/21/25 15:45 02/21/25 15:45 02/21/25 15:51 Temperature Temperature Source Pulse Rate 96 H 98 H Pulse Rate [Right Finger] Pulse Rate from SpO2 Sensor 96 H Respiratory Rate 11 L Respiratory Effort / Characteristics Respiratory Depth Blood Pressure 179/103 H Blood Pressure [Right Arm] Blood Pressure Mean 133 Blood Pressure Mean [Right Arm] Pulse Oximetry 94 Oxygen Delivery Method Sepsis Recent Fever Within 48 Hours Sepsis New/Unexplained Change in Mental Status Sepsis Action Taken by Nursing 02/21/25 15:51 02/21/25 15:52 02/21/25 15:52 Temperature Temperature Source Pulse Rate 90 Pulse Rate [Right Finger] Pulse Rate from SpO2 Sensor 91 H Respiratory Rate 6 L Respiratory Effort / Characteristics Respiratory Depth Blood Pressure 169/99 H 169/99 H Blood Pressure [Right Arm] Blood Pressure Mean 125 125 Blood Pressure Mean [Right Arm] Pulse Oximetry 95 Oxygen Delivery Method Sepsis Recent Fever Within 48 Hours Sepsis New/Unexplained Change in Mental Status Sepsis Action Taken by Nursing 02/21/25 15:52 02/21/25 15:52 02/21/25 15:52 Temperature Temperature Source Pulse Rate Pulse Rate [Right Finger] Pulse Rate from SpO2 Sensor Respiratory Rate Respiratory Effort / Characteristics Respiratory Depth Blood Pressure 169/99 H 169/99 H 169/99 H Blood Pressure [Right Arm] Blood Pressure Mean 125 125 125 Blood Pressure Mean [Right Arm] Pulse Oximetry Oxygen Delivery Method Sepsis Recent Fever Within 48 Hours Sepsis New/Unexplained Change in Mental Status Sepsis Action Taken by Nursing 02/21/25 15:54 02/21/25 16:00 02/21/25 16:00 Temperature Temperature Source Pulse Rate 93 H 92 H Pulse Rate [Right Finger] Pulse Rate from SpO2 Sensor 93 H 91 H Respiratory Rate 17 16 Respiratory Effort / Characteristics Respiratory Depth Blood Pressure 164/96 H Blood Pressure [Right Arm] Blood Pressure Mean 114 Blood Pressure Mean [Right Arm] Pulse Oximetry 95 93 Oxygen Delivery Method Sepsis Recent Fever Within 48 Hours Sepsis New/Unexplained Change in Mental Status Sepsis Action Taken by Nursing 02/21/25 16:00 02/21/25 16:00 02/21/25 16:00 Temperature Temperature Source Pulse Rate Pulse Rate [Right Finger] Pulse Rate from SpO2 Sensor Respiratory Rate Respiratory Effort / Characteristics Respiratory Depth Blood Pressure 164/96 H 164/96 H 164/96 H Blood Pressure [Right Arm] Blood Pressure Mean 114 114 114 Blood Pressure Mean [Right Arm] Pulse Oximetry Oxygen Delivery Method Sepsis Recent Fever Within 48 Hours Sepsis New/Unexplained Change in Mental Status Sepsis Action Taken by Nursing 02/21/25 16:00 02/21/25 16:03 02/21/25 16:12 Temperature Temperature Source Pulse Rate 85 Pulse Rate [Right Finger] 90 Pulse Rate from SpO2 Sensor 85 Respiratory Rate 18 11 L Respiratory Effort / Characteristics Respiratory Depth Blood Pressure 164/96 H Blood Pressure [Right Arm] 150/76 H Blood Pressure Mean 114 Blood Pressure Mean [Right Arm] 100 Pulse Oximetry 94 94 Oxygen Delivery Method Room Air Sepsis Recent Fever Within 48 Hours Sepsis New/Unexplained Change in Mental Status Sepsis Action Taken by Nursing 02/21/25 16:15 02/21/25 16:15 02/21/25 16:15 Temperature Temperature Source Pulse Rate Pulse Rate [Right Finger] Pulse Rate from SpO2 Sensor Respiratory Rate Respiratory Effort / Characteristics Respiratory Depth Blood Pressure 144/87 H 144/87 H 144/87 H Blood Pressure [Right Arm] Blood Pressure Mean 106 106 106 Blood Pressure Mean [Right Arm] Pulse Oximetry Oxygen Delivery Method Sepsis Recent Fever Within 48 Hours Sepsis New/Unexplained Change in Mental Status Sepsis Action Taken by Nursing 02/21/25 16:15 02/21/25 16:15 02/21/25 16:15 Temperature Temperature Source Pulse Rate 84 Pulse Rate [Right Finger] Pulse Rate from SpO2 Sensor 81 Respiratory Rate 14 Respiratory Effort / Characteristics Respiratory Depth Blood Pressure 144/87 H 144/87 H Blood Pressure [Right Arm] Blood Pressure Mean 106 106 Blood Pressure Mean [Right Arm] Pulse Oximetry 93 Oxygen Delivery Method Sepsis Recent Fever Within 48 Hours Sepsis New/Unexplained Change in Mental Status Sepsis Action Taken by Nursing 02/21/25 16:21 02/21/25 16:30 02/21/25 16:30 Temperature Temperature Source Pulse Rate 91 H Pulse Rate [Right Finger] Pulse Rate from SpO2 Sensor 91 H Respiratory Rate 23 Respiratory Effort / Characteristics Respiratory Depth Blood Pressure 150/76 H 150/76 H Blood Pressure [Right Arm] Blood Pressure Mean 131 131 Blood Pressure Mean [Right Arm] Pulse Oximetry 95 Oxygen Delivery Method Sepsis Recent Fever Within 48 Hours Sepsis New/Unexplained Change in Mental Status Sepsis Action Taken by Nursing 02/21/25 16:30 02/21/25 16:30 02/21/25 16:30 Temperature Temperature Source Pulse Rate Pulse Rate [Right Finger] Pulse Rate from SpO2 Sensor Respiratory Rate Respiratory Effort / Characteristics Respiratory Depth Blood Pressure 150/76 H 150/76 H 150/76 H Blood Pressure [Right Arm] Blood Pressure Mean 131 131 131 Blood Pressure Mean [Right Arm] Pulse Oximetry Oxygen Delivery Method Sepsis Recent Fever Within 48 Hours Sepsis New/Unexplained Change in Mental Status Sepsis Action Taken by Nursing 02/21/25 16:30 02/21/25 16:42 02/21/25 16:45 Temperature Temperature Source Pulse Rate 92 H 90 Pulse Rate [Right Finger] Pulse Rate from SpO2 Sensor 92 H 90 Respiratory Rate 18 16 Respiratory Effort / Characteristics Respiratory Depth Blood Pressure 160/87 H Blood Pressure [Right Arm] Blood Pressure Mean 105 Blood Pressure Mean [Right Arm] Pulse Oximetry 95 94 Oxygen Delivery Method Sepsis Recent Fever Within 48 Hours Sepsis New/Unexplained Change in Mental Status Sepsis Action Taken by Nursing 02/21/25 16:45 02/21/25 16:45 02/21/25 16:45 Temperature Temperature Source Pulse Rate Pulse Rate [Right Finger] Pulse Rate from SpO2 Sensor Respiratory Rate Respiratory Effort / Characteristics Respiratory Depth Blood Pressure 160/87 H 160/87 H 160/87 H Blood Pressure [Right Arm] Blood Pressure Mean 105 105 105 Blood Pressure Mean [Right Arm] Pulse Oximetry Oxygen Delivery Method Sepsis Recent Fever Within 48 Hours Sepsis New/Unexplained Change in Mental Status Sepsis Action Taken by Nursing 02/21/25 16:45 02/21/25 16:45 02/21/25 16:51 Temperature Temperature Source Pulse Rate 91 H 90 Pulse Rate [Right Finger] Pulse Rate from SpO2 Sensor 91 H 90 Respiratory Rate 17 16 Respiratory Effort / Characteristics Respiratory Depth Blood Pressure 160/87 H Blood Pressure [Right Arm] Blood Pressure Mean 105 Blood Pressure Mean [Right Arm] Pulse Oximetry 94 94 Oxygen Delivery Method Sepsis Recent Fever Within 48 Hours Sepsis New/Unexplained Change in Mental Status Sepsis Action Taken by Nursing 02/21/25 17:00 Temperature Temperature Source Pulse Rate 95 H Pulse Rate [Right Finger] Pulse Rate from SpO2 Sensor 94 H Respiratory Rate 15 Respiratory Effort / Characteristics Respiratory Depth Blood Pressure Blood Pressure [Right Arm] Blood Pressure Mean Blood Pressure Mean [Right Arm] Pulse Oximetry 95 Oxygen Delivery Method Sepsis Recent Fever Within 48 Hours Sepsis New/Unexplained Change in Mental Status Sepsis Action Taken by Nursing Laboratory Data 02/21/25 14:29 02/21/25 14:29 Lab Results 02/21/25 02/21/25 Range/Units 14:29 17:10 WBC 14.72 H (4.8-10.8) K/ul RBC 3.77 L (4.70-6.10) M/uL Hgb 11.7 L (14.0-18.0) g/dL Hct 35.4 L (42.0-52.0) % MCV 93.9 (80.0-100.0) fL MCH 31.0 (25.0-34.0) pg MCHC 33.1 (32.0-36.0) g/dL RDW Std Deviation 47.8 H (36.4-46.3) fL RDW Coeff of Tanvi 14.0 (11.5-14.5) % Plt Count 137 (130-400) K/uL MPV 11.7 (9.4-12.4) fL Immature Gran % (Auto) 0.4 % Neut % (Auto) 92.1 % Lymph % (Auto) 3.3 % Smith % (Auto) 3.6 % Eos % (Auto) 0.3 % Baso % (Auto) 0.3 % Neut # (Auto) 13.55 H (1.40-6.50) K/uL Lymph # (Auto) 0.49 L (1.20-3.40) K/uL Smith # (Auto) 0.53 (0.11-0.59) K/uL Eos # (Auto) 0.05 (0.00-0.50) K/uL Baso # (Auto) 0.04 (0.00-0.20) K/uL Immature Gran # (Auto) 0.06 (0.01-0.20) K/uL Acanthocytes (Spur) 1+ PT 11.2 (9.0-12.0) Seconds INR 1.1 (0.9-1.1) APTT 27 (21-31) Seconds PTT Ratio 1.0 Sodium 137 (136-145) mmol/L Potassium 4.1 (3.5-5.1) mmol/L Chloride 103 (98-107) mmol/L Carbon Dioxide 21 (21-32) mmol/L Anion Gap 13 H (3-11) BUN 26 H (6-23) mg/dl Creatinine 1.20 (0.6-1.4) mg/dl Est Cr Clr Drug Dosing Not Reportable eGFR 61.90 BUN/Creatinine Ratio 21.7 H (10-20) Glucose 122 H (70-99(Fasting)) mg/dl Calcium 8.9 (8.6-10.3) mg/dl Magnesium 0.9 L* (1.7-2.4) mg/dl Total Bilirubin 0.6 (0.2-1.0) mg/dl AST 32 (13-39) U/L ALT 21 (7-52) U/L Alkaline Phosphatase 95 (34-104) U/L Troponin I High Sens 66.7 H* 63.6 H* (0-20) pg/ml Total Protein 6.9 (6.0-8.3) gm/dl Albumin 4.0 (3.4-5.0) gm/dl Globulin 2.9 (2.5-4.0) gm/dl Albumin/Globulin Ratio 1.4 (0.9-2) Administered Medications Heparin Sodium/Dextrose (Heparin 43645 Unit/500 Ml D5w) 25,000 units in 500 mls @ 15 mls/hr IV .Q24H HU; Protocol Stop: 03/23/25 17:14 Last Titration: 02/21/25 20:57 Dose: 750 units/hr, 15 mls/hr Documented By: YOAV Co-signed By: AGUSTINA Admin: 02/21/25 17:16 Dose: 750 units/hr, 15 mls/hr Documented By: barbara Co-signed By: KENDRICK Magnesium Sulfate/Dextrose (Magnesium Sulfate / D5w) 1 gm in 100 mls @ 50 mls/hr IV Q2H [facility] Stop: 02/22/25 01:44 Last Admin: 02/21/25 23:22 Dose: 50 mls/hr Documented By: Infusion: 02/21/25 23:22 Dose: Infused Documented By: Admin: 02/21/25 21:42 Dose: 50 mls/hr Documented By: YOAV Insulin Aspart (Insulin Aspart Per Unit Charge) 0 units SC ACHS HU Stop: 03/23/25 20:59 Last Admin: 02/21/25 21:17 Dose: Not Given Documented By: YOAV Metoprolol Succinate (Metoprolol Succ 50mg Ext Rel Tab) 50 mg PO BID HU Stop: 03/23/25 20:59 Last Admin: 02/21/25 23:00 Dose: 50 mg Documented By: YOAV Sacubitril/Valsartan (Valsartan/Sacubitril 26/24mg Tab) 1 tab PO BID [facility] [place] Stop: 03/23/25 20:59 Last Admin: 02/21/25 23:00 Dose: 1 tab Documented By: YOAV Discontinued Medications Heparin Sodium (Porcine) (Heparin Sod (Porcine) 1000 Unit/Ml) 1 units IV NOW ONE Stop: 02/21/25 17:06 Last Admin: 02/21/25 17:14 Dose: 4,000 units Documented By: barbara Co-signed By: KENDRICK Heparin Sodium/Dextrose (Heparin Iv Adult Wt-Based Low-Dose W/ Initial Bolus Protocol) 1 each IV NOW STA; Protocol Stop: 02/21/25 16:47 Last Admin: 02/21/25 17:17 Dose: Not Given Documented By: barbara Metoprolol Tartrate (Metoprolol Tartrate 50 Mg Tab) 50 mg PO ONE ONE Stop: 02/21/25 20:16 Last Admin: 02/21/25 21:38 Dose: Not Given Documented By: YOAV Nitroglycerin (Nitroglycerin 2% Ointment 30gm Tube) 1 inch EXT NOW STA Stop: 02/21/25 15:48 Last Admin: 02/21/25 15:53 Dose: 1 inch Documented By: barbara Imaging Data Radiologist's Impression: Chest X-Ray 02/21/25 14:19 XR chest 1V not portable CLINICAL HISTORY: Chest pain, nonspecific COMPARISON STUDY: Chest CT February 07, 2022. Chest radiograph January 16, 2025. FINDINGS: Median sternotomy wires are noted. Cardiomediastinal silhouette is stable. Pulmonary edema prior chest radiograph has resolved. There is mild asymmetric right lower lung opacity. Left lung is clear. No pneumothorax is present. There is a trace right pleural effusion. IMPRESSION: 1. Mild asymmetric right lower lung opacity. This may represent pneumonia. Radiographic follow-up is recommended. 2. Trace right pleural effusion. 3. Resolution of pulmonary edema shown on prior chest radiograph. ACT 112: Negative or not required by law. Electronically signed by: Kurtis Eckert M.D. 02/21/2025 3:07 PM Discharge Plan Visit Data Chief Complaint: Chest Pain Stated Complaint: CHEST PAIN ED Provider: Seema Haro Discharge Problem: Chest pain, Angina at rest, Elevated troponin, Hypertension Patient Disposition: Admitted As Inpatient Condition: Fair Discharge Instructions Interventions: ED Discharge Assessment Last Done: 02/21/25 20:27
[2025-02-21] MEDS: HEPARIN SOD (PORCINE) 1000 UNIT/ML IV ONE (17:14)
[2025-02-21] MEDS: HEPARIN 25000 UNIT/500 ML D5W 25,000 UNITS/500 ML BAG IV SCH (17:16)
[2025-02-21] MEDS: Heparin IV Adult Wt-Based Low-Dose w/ INITIAL Bolus Protocol IV STA (17:17)
[2025-02-21] MEDS ORDERED: GLUCAGON FOR INJ 1 MG VIAL SQ PRN (18:11)
[2025-02-21] MEDS ORDERED: GLUCOSE 40% GEL 15 GM TUBE PO PRN (18:11)
[2025-02-21] MEDS ORDERED: GLUCOSE 10 TAB/TUBE PO PRN (18:11)
[2025-02-21] MEDS ORDERED: DEXTROSE 50% 50 ML SYRINGE IV PRN (18:11)
[2025-02-21] MEDS ORDERED: CARBOHYDRATES FOR HYPOGLYCEMIA PO PRN (18:11)
--- NOTE | 2025-02-21 18:23 | History & Physical Report ---
Date of Service February 21, 2025 Assessment & Plan (1) Chest pain: Plan: will admit to PCU monitor troponin Currently down trending. Already on heparin drip. consult cardiology: awaiting further input. Izabel flores plans to trasnfer patient. (2) Ischemic cardiomyopathy: (3) Essential hypertension: (4) Type 2 diabetes mellitus with hyperglycemia: Plan Diabetes mellitus- Hold metformin Placed on Accu-Cheks with NovoLog SSI Hyperlipidemia Continue atorvastatin 80 mg daily Check a fasting lipid panel BPH with LUTS- Continue tamsulosin History of Present Illness Chief Complaint: chest pain. Primary Care Provider: Xavier Miller MD The patient is a 79-year-old male with past medical history including right lower leg hematoma, hypertension, BPH, hyperlipidemia, B12 deficiency, iron deficiency, chronic pain syndrome due to osteoarthritis, and BPH with LUTS. Patient reports for the past 2 weeks, patient has been haing chest pain when ambulating up a flight of stairs. Pain is substernal, non radiating and dull. Pain quickly subsides when he rests. Patients states however this only occurs with pain. Allergies Allergy/AdvReac Type Severity Reaction Status Date / Time No Known Allergies Allergy Verified 02/21/25 18:45 Home Medications Medication Instructions Recorded Confirmed Type atorvastatin 80 mg tablet 80 mg PO DAILY 01/21/22 02/21/25 History metformin 1,000 mg tablet 1,000 mg PO BIDM 01/21/22 02/21/25 History tamsulosin 0.4 mg capsule (Flomax) 0.4 mg PO QAM 01/21/22 02/21/25 History clopidogrel 75 mg tablet 75 mg PO QAM 02/07/22 02/21/25 History cyanocobalamin (vitamin B-12) 1,000 mcg sublingual DAILY 02/07/22 02/21/25 History 1,000 mcg sublingual tablet potassium chloride 10 mEq 10 meq PO QAM 02/07/22 02/21/25 History tablet,extended release metoprolol succinate 50 mg 50 mg PO AMHS 10/20/23 02/21/25 History tablet,extended release 24 hr oxycodone 10 mg tablet 10 mg PO Q6H PRN pain,severe 10/20/23 02/21/25 History sacubitril 24 mg-valsartan 26 mg 1 tab PO AMHS 02/21/25 02/21/25 History tablet Past Med/Surg History Problem List (Updated 02/22/25 @ 00:03 by Seema Haro DO) Hypertension (Acute) Elevated troponin (Acute) Angina at rest (Acute) Chest pain (Acute) Ischemic cardiomyopathy Benign prostatic hyperplasia with lower urinary tract symptoms Mixed hyperlipidemia Essential hypertension Type 2 diabetes mellitus with hyperglycemia Medical History (Updated 02/22/25 @ 00:03 by Seema Haro DO) Chest pain, rule out acute myocardial infarction Type [address] elevation Hematoma of right lower leg Hypertensive urgency Hypokalemia Pain of right calf Chronic back pain STEMI (ST elevation myocardial infarction) Family History Denies family history of Heart disease Social History Smoking Status: Never smoker Tobacco Type: Cigarettes Second Hand Exposure: No; Do You Dip or Chew Tobacco: No; Hx Alcohol Use: No Hx Substance Use: No Preferred Language: Emirati Communication Ability: Effective Grounds Maintenance Supervisor Required: No Beliefs That Will Affect Care: None marital status: Current Living Situation: Spouse Feels Safe at Home: Yes Safety Concerns: Feels Safe At This Time Assistive Devices: None Review of Systems Constitutional: no fever and no body aches Eyes: no blind spots Ear, Nose, Mouth, Throat: no ear pain Respiratory: no cough Cardiovascular: no chest pain Gastrointestinal: no abdominal pain Genitourinary: no dysuria Musculoskeletal: no back pain Integumentary: no acne Neurologic: no gait abnormality Psychiatric: no behavioral changes Endocrine: no fatigue Hematologic / Lymphatic: no easy bleeding Allergy / Immunological: no GI upset with certain foods Physical Exam Constitutional: WD/WN, vitals as above Eyes: PERRL, conjunctivae normal, anicteric sclerae ENMT: external ear and nose normal, oropharynx normal Neck: trachea midline, no thyromegaly Respiratory: normal respiratory effort, lungs clear to auscultation Cardiovascular: RRR, no murmur, no edema Gastrointestinal (Abdomen): normal bowel sounds, soft, nontender, no hepatosplenomegaly Musculoskeletal: no cyanosis or clubbing, extremities motor strength 5/5 Skin: no rashes, warm and dry Neurologic: PERRL, EOMI, accommodation nl, no face palsy, no dysarthria Psychiatric: A+Ox3, euthymic affect Lymphatic: no cervical or axillary lymphadenopathy Results & Data Results & Data Vital Signs (Past 12 Hours) Vital Signs Temp Pulse Pulse Resp BP BP Pulse Ox 02/21/25 17:11 93 H 18 95 02/21/25 17:00 95 H 15 95 02/21/25 16:51 90 16 94 02/21/25 16:45 91 H 17 94 02/21/25 16:45 160/87 H 02/21/25 16:45 160/87 H 02/21/25 16:45 160/87 H 02/21/25 16:45 160/87 H 02/21/25 16:45 160/87 H 02/21/25 16:42 90 16 94 02/21/25 16:30 92 H 18 95 02/21/25 16:30 150/76 H 02/21/25 16:30 150/76 H 02/21/25 16:30 150/76 H 02/21/25 16:30 150/76 H 02/21/25 16:30 150/76 H 02/21/25 16:21 91 H 23 95 02/21/25 16:15 84 14 93 02/21/25 16:15 144/87 H 02/21/25 16:15 144/87 H 02/21/25 16:15 144/87 H 02/21/25 16:15 144/87 H 02/21/25 16:15 144/87 H 02/21/25 16:12 85 11 L 94 02/21/25 16:03 90 18 150/76 H 94 02/21/25 16:00 164/96 H 02/21/25 16:00 164/96 H 02/21/25 16:00 164/96 H 02/21/25 16:00 164/96 H 02/21/25 16:00 164/96 H 02/21/25 16:00 92 H 16 93 02/21/25 15:54 93 H 17 95 02/21/25 15:52 169/99 H 02/21/25 15:52 169/99 H 02/21/25 15:52 169/99 H 02/21/25 15:52 169/99 H 02/21/25 15:52 169/99 H 02/21/25 15:51 90 6 L 95 02/21/25 15:51 98 H 02/21/25 15:45 96 H 11 L 94 02/21/25 15:45 179/103 H 02/21/25 15:45 179/103 H 02/21/25 15:45 179/103 H 02/21/25 15:45 179/103 H 02/21/25 15:45 179/103 H 02/21/25 14:19 101 H 18 95 02/21/25 14:19 95 02/21/25 14:15 37.5 C 105 H 18 179/111 H 95 02/21/25 14:03 97 H 18 182/110 H 96 02/21/25 14:03 O2 Del Method 02/21/25 17:11 Room Air 02/21/25 17:00 02/21/25 16:51 02/21/25 16:45 02/21/25 16:45 02/21/25 16:45 02/21/25 16:45 02/21/25 16:45 02/21/25 16:45 02/21/25 16:42 02/21/25 16:30 02/21/25 16:30 02/21/25 16:30 02/21/25 16:30 02/21/25 16:30 02/21/25 16:30 02/21/25 16:21 02/21/25 16:15 02/21/25 16:15 02/21/25 16:15 02/21/25 16:15 02/21/25 16:15 02/21/25 16:15 02/21/25 16:12 02/21/25 16:03 Room Air 02/21/25 16:00 02/21/25 16:00 02/21/25 16:00 02/21/25 16:00 02/21/25 16:00 02/21/25 16:00 02/21/25 15:54 02/21/25 15:52 02/21/25 15:52 02/21/25 15:52 02/21/25 15:52 02/21/25 15:52 02/21/25 15:51 02/21/25 15:51 02/21/25 15:45 02/21/25 15:45 02/21/25 15:45 02/21/25 15:45 02/21/25 15:45 02/21/25 15:45 02/21/25 14:19 Room Air 02/21/25 14:19 Room Air 02/21/25 14:15 Room Air 02/21/25 14:03 02/21/25 14:03 Room Air PG Care Time/CCT Total # of Minutes Spent Total Time Spent with Patient: Total time spent is greater than 50% in coordination of care (as documented) at patient's floor/unit and/or counseling patient: Coding Level of Care Code 01849 INT INP/OBS CARE 375MIN Diagnoses Chest pain R07.9 Ischemic cardiomyopathy I25.5 Essential hypertension I10 Type 2 diabetes mellitus with hyperglycemia, without long-term current use of insulin E11.65 Diabetes mellitus senior living insulin use: without intermission coordinator use (4) Type 2 diabetes mellitus with hyperglycemia Diabetes mellitus intermission coordinator insulin use: without senior living use Qualified Code(s): E11.65 - Type 2 diabetes mellitus with hyperglycemia
[2025-02-21 18:29] LABS: Chlamydia pneumoniae PCR Not Detected (NotDetected); Coronavirus 229E PCR Not Detected (NotDetected); Coronavirus CoV-2 (COVID19)PCR Not Detected (NotDetected); Coronavirus HKU1 PCR Not Detected (NotDetected); Coronavirus NL63 PCR Not Detected (NotDetected); Coronavirus OC43PCR Not Detected (NotDetected); Human Metapneumovirus PCR Not Detected (NotDetected); Parainfluenza Virus 1 PCR Not Detected (NotDetected); Parainfluenza Virus 2 PCR Not Detected (NotDetected); Parainfluenza Virus 3 PCR Not Detected (NotDetected); Parainfluenza Virus 4 PCR Not Detected (NotDetected); Respiratory Syncytial VirusPCR Not Detected (NotDetected); Rhinovirus/Enterovirus PCR Not Detected (NotDetected)
[2025-02-21] MEDS: INSULIN ASPART PER UNIT CHARGE SC SCH (21:17)
[2025-02-21 21:33] LABS: Magnesium 0.9 mg/dl (1.7-2.4)
[2025-02-21] MEDS: METOPROLOL TARTRATE 50 MG TAB PO ONE (21:38)
[2025-02-21] MEDS: MAGNESIUM SULFATE / D5W 1 GM/100 ML BAG IV SCH (21:42)
[2025-02-21] MEDS: VALSARTAN/SACUBITRIL 26/24MG TAB PO SCH (23:00)
[2025-02-21] MEDS: METOPROLOL SUCC 50MG EXT REL TAB PO SCH (23:00)
[2025-02-21 23:58] LABS: ANTI-Xa, UFH(UnfractionatedHep 0.52 IU/ml (0.3-0.7)
--- NOTE | 2025-02-22 08:56 | Cardiology Consultation ---
Date of Consultation February 22, 2025 Assessment & Plan (1) Chest pain: (2) Hypertension: (3) Elevated troponin: (4) Ischemic cardiomyopathy: Plan Assessment: 79 year old male with medically complex coronary disease with recent PCI admitted for chest pain at exertion. Markedly elevated blood pressures despite medication compliance. Dietary indiscretion. Mild flat troponin elevation. Cardiology consulted for further evaluation and recommendations. Plan: 1. chest pain 2. HTN 3. Elevated troponin 4. Ischemic cardiomyopathy -patient admitted for intermittent chest discomfort with exertion. Markedly elevated blood pressures. -High sensitivity troponin with mild flat elevation. Of note, patient with recent NSTEMI (01/16 with peak troponin 81683.8) s/p PCI and coronary lithotripsy. -Patient with known diffuse chronic RCA disease. Suspect that significantly elevated blood pressures in the setting of known disease are eliciting chest pain response -Discontinue heparin gtt -Discontinue topical nitrate -Continue DAPT with ASA and Plavix -Continue Entresto 26/24mg, Toprol xl. Start Amlodipine 5mg daily, first dose now. Start Imdur 30mg Daily, first dose now -discussed patient's coronary disease and plan for aggressive BP control. If patient would remain highly symptomatic despite control of BP and use of long acting nitrates in addition to use of Amlodipine for vasospasm effect, will discuss if high risk PCI should be considered. -Most recent echo dated 01/16/2025 showed moderately reduced LVEF 40-45%--he is euvolemic on exam. Continue Toprol xl and Entresto as part of HF regimen. Case has been discussed with Dr. Villalobos. Further recommendations regarding plan of care as per his assessment. I spent a total of 50 minutes on the date of service in preparation, delivery, documentation of the care provided to the patient excluding any time spent in the performance of separately billed services. LIONEL Steward [facility] Cardiology [facility] Supervising Physician Co-Signing Physician Notes Patient seen and examined. Past medical history, surgical history, social history and family history have been reviewed. The medical record and all the above studies have been reviewed. Case DW NOHEMY including management. HTN - accelerated Angina - likely exacerbated due to uncontrolled HTN Ischemic CM Abnormal Troponin - likely due to demand ischemia and not indicative of Type I AL CAD s/p CABGx2 ( ABBOTT to LAD, SVG to RPDA ) 01/25/2022; recent NSTEMI 01/16/2025 s/p PCI to LM to mid LCx with intravascular lithotripsy with ELISEO x1 HLD Electrolyte Abnormality correct and f/u electrolytes f/u renal function adjust anti-HTN meds keeping systolic BP between 100-140 mmHg continue DAPT, statin start Imdur DC IV heparin DVT prophylaxis - defer to hospitalist GDMT for HFrEF as tolerated - increased Entresto dose avoid hypovolemia keep patient euvolemic DVT prophylaxis keep LE elevated when sitting 1.5 L / 24 hr fluid restriction strict I&Os salt restriction counseling History of Present Illness Reason for Consultation: Chest pain Requesting Physician: YVON Hospitalist Attending Physician: Joseph Strickland History of Present Illness HPI: Patient is a 79 year old medically complex male with history as outlined below that presented to the ER with complaints of chest pain when climbing stairs x 2 weeks. Patient was recently hospitalized 01/16-01/17 here at [facility] for chest pain/NSTEMI and underwent cardiac catheterization with Dr. Godwin Srivastava on 01/16/2025 (ELISEO x1 to LM-ProxLCx with lithotripsy). Blood pressures markedly e levated. Patient reports he has been compliant on home medication therapies. Further discussion reveals that patient is eating a lot of processed foods high in sodium. Chest pain free at time of exam. Patient denies any chest pain at rest, only with climbing stairs. No changes in breathing, no lower extremity edema, no pre- syncope or syncope. Review of telemetry SR with 1st degree AVB Rates 68-90bpm. No acute events overnight. Cardiac Problems: 1. CAD s/p CABGx2 ( ABBOTT to LAD, SVG to RPDA ) 01/25/2022; recent NSTEMI 01/16/2025 s/p PCI to LM to mid LCx with intravascular lithotripsy with ELISEO x1 2. HTN 3. HLD EKG on admission ST with prior cited anterior infarct Rate 102bpm QTC 448ms Elevated WBC Magnesium 0.9 Mild flat Troponin elevation 66.7/63.6 Chest xray: IMPRESSION: 1. Mild asymmetric right lower lung opacity. This may represent pneumonia. Radiographic follow-up is recommended. 2. Trace right pleural effusion. 3. Resolution of pulmonary edema shown on prior chest radiograph. Allergies Allergy/AdvReac Type Severity Reaction Status Date / Time No Known Allergies Allergy Verified 02/21/25 18:45 Home Medications Medication Instructions Recorded Confirmed Type atorvastatin 80 mg tablet 80 mg PO DAILY 01/21/22 02/21/25 History metformin 1,000 mg tablet 1,000 mg PO BIDM 01/21/22 02/21/25 History tamsulosin 0.4 mg capsule (Flomax) 0.4 mg PO QAM 01/21/22 02/21/25 History clopidogrel 75 mg tablet 75 mg PO QAM 02/07/22 02/21/25 History cyanocobalamin (vitamin B-12) 1,000 mcg sublingual DAILY 02/07/22 02/21/25 History 1,000 mcg sublingual tablet potassium chloride 10 mEq 10 meq PO QAM 02/07/22 02/21/25 History tablet,extended release metoprolol succinate 50 mg 50 mg PO AMHS 10/20/23 02/21/25 History tablet,extended release 24 hr oxycodone 10 mg tablet 10 mg PO Q6H PRN pain,severe 10/20/23 02/21/25 History sacubitril 24 mg-valsartan 26 mg 1 tab PO AMHS 02/21/25 02/21/25 History tablet Patient History Medical History (Updated 02/22/25 @ 00:03 by Seema Haro DO) Chest pain, rule out acute myocardial infarction Type [address] elevation Hematoma of right lower leg Hypertensive urgency Hypokalemia Pain of right calf Chronic back pain STEMI (ST elevation myocardial infarction) Family History Denies family history of Heart disease Social History Smoking Status: Never smoker Tobacco Type: Cigarettes Second Hand Exposure: No; Do You Dip or Chew Tobacco: No; Hx Alcohol Use: No Hx Substance Use: No Preferred Language: [place] Communication Ability: Effective Ironing 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 Operator Required: No Beliefs That Will Affect Care: None marital status: Current Living Situation: Spouse Feels Safe at Home: Yes Safety Concerns: Feels Safe At This Time Assistive Devices: None Review of Systems Review of Systems: All systems reviewed & are unremarkable except as noted in HPI & below Physical Exam Constitutional: well developed and well nourished; no acute distress and not ill appearing Neck: normal visual inspection and trachea midline Respiratory: normal respiratory effort, lungs clear to auscultation Cardiovascular: RRR, no murmur, no edema Extremities: no edema Skin: no rashes, warm and dry Psychiatric: A+Ox3, euthymic affect Results & Data Vital Signs (Past 12 Hours) Vital Signs Temp Pulse Pulse Resp BP BP Pulse Ox 02/22/25 07:26 36.4 C L 76 18 184/88 H 95 02/22/25 07:00 74 02/22/25 02:35 36.4 C L 83 18 166/99 H 97 02/21/25 22:31 36.9 C 82 18 138/80 95 02/21/25 21:23 36.4 C L 91 H 18 172/91 H 94 02/21/25 21:00 95 H O2 Del Method 02/22/25 07:26 Room Air 02/22/25 07:00 02/22/25 02:35 Room Air 02/21/25 22:31 Room Air 02/21/25 21:23 Room Air 02/21/25 21:00 Laboratory Results Cardiac Enzymes 02/21/25 02/21/25 Range/Units 14:29 17:10 AST 32 (13-39) U/L Troponin I High Sens 66.7 H* 63.6 H* (0-20) pg/ml Coagulation 02/21/25 Range/Units 14:29 PT 11.2 (9.0-12.0) Seconds APTT 27 (21-31) Seconds CBC 02/21/25 Range/Units 14:29 WBC 14.72 H (4.8-10.8) K/ul RBC 3.77 L (4.70-6.10) M/uL Hgb 11.7 L (14.0-18.0) g/dL Hct 35.4 L (42.0-52.0) % Plt Count 137 (130-400) K/uL Neut # (Auto) 13.55 H (1.40-6.50) K/uL Lymph # (Auto) 0.49 L (1.20-3.40) K/uL [place] # (Auto) 0.53 (0.11-0.59) K/uL Eos # (Auto) 0.05 (0.00-0.50) K/uL Baso # (Auto) 0.04 (0.00-0.20) K/uL Comprehensive Metabolic Panel 02/21/25 Range/Units 14:29 Sodium 137 (136-145) mmol/L Potassium 4.1 (3.5-5.1) mmol/L Chloride 103 (98-107) mmol/L Carbon Dioxide 21 (21-32) mmol/L BUN 26 H (6-23) mg/dl Creatinine 1.20 (0.6-1.4) mg/dl Glucose 122 H (70-99(Fasting)) mg/dl Calcium 8.9 (8.6-10.3) mg/dl AST 32 (13-39) U/L ALT 21 (7-52) U/L Alkaline Phosphatase 95 (34-104) U/L Total Protein 6.9 (6.0-8.3) gm/dl Albumin 4.0 (3.4-5.0) gm/dl Intake and Output 02/21/25 02/22/25 02/22/25 22:59 06:59 14:59 Intake Total 55.25 / 238.583 183.333 / 238.583 212.25 / 212.25 Output Total 0 / 200 200 / 200 600 / 600 Balance 55.25 / 38.583 -16.667 / 38.583 -387.75 / -387.75 Intake: IV 55.25 / 238.583 183.333 / 238.583 212.25 / 212.25 Heparin 55697 Unit/500 ml D5w 55.25 / 55.25 212.25 / 212.25 25,000 units In 500 ml @ 750 UNITS/HR 15 mls/hr IV .Q24H HU Rx#:[id number] Magnesium Sulfate / D5w 1 gm In 183.333 / 183.333 100 ml @ 50 mls/hr IV Q2H HU Rx#:[id number] Oral 0 / 0 Output: Urine 0 / 200 200 / 200 600 / 600 Other: Weight 61.235 kg 61.3 kg Weight Measurement Method [facility] Diagnostic Findings Cardiac Cath 01/16/2025 [facility] Dr. Srivastava: Summary: 1. Multivessel coronary artery disease - 95% distal Left main into proximal circumflex 98% ostial ramus 90% proximal RCA, 95% mid RCA, 60-70% diffuse proximal PDA 100% chronic ostial LAD occlusion 2. Mildly elevated intracardiac filling pressure 3. Successful PCI of left main to mid circumflex with intravascular lithotripsy and single drug-eluting stent (3.5 x 22 mm Sharif; postdilated with 4.0 NC). PTCA of jailed ramus with 2.5 balloon Recommendations: To PCU for continued monitoring Reloaded with clopidogrel 300 mg in Meter Installer And Remover Continue dual-antiplatelet therapy for at least 1 year Continue statin, and ASCVD risk factor modification Plan on medical management of diffuse chronic RCA disease. If refractory anginal symptoms complex PCI of RCA could be considered. PG Care Time/CCT Total # of Minutes Spent Total Time Spent with Patient: Total time spent is greater than 50% in coordination of care (as documented) at patient's floor/unit and/or counseling patient: Coding Level of Care Code 30513 IN/OBS CONSULT LVL 5,80M Diagnoses Chest pain R07.9 Hypertension I10 Elevated troponin R79.89 Ischemic cardiomyopathy I25.5 Time Spent (min) 50
[2025-02-22] MEDS ORDERED: METOPROLOL TARTRATE 50 MG TAB PO SCH (09:00)
[2025-02-22] MEDS: ATORVASTATIN 40 MG TAB PO SCH (09:36)
[2025-02-22] MEDS: CYANOCOBALAMIN (B-12) 500 MCG TABLET PO SCH (09:36)
[2025-02-22] MEDS: ASPIRIN 81 MG ECTAB PO SCH (09:36)
[2025-02-22] MEDS: FERROUS SULFATE 325 MG TAB PO SCH (09:36)
[2025-02-22] MEDS: CLOPIDOGREL BISULFATE 75 MG TAB PO SCH (09:36)
[2025-02-22] MEDS: TAMSULOSIN HCL 0.4 MG CAP PO SCH (09:37)
[2025-02-22] MEDS: POTASSIUM CHLORIDE 10 MEQ TABCR PO SCH (09:39)
[2025-02-22] MEDS: MAGNESIUM OXIDE 400 MG TAB PO SCH (10:43)
[2025-02-22 11:49] LABS: Hematocrit (blood only) 32.4 % (42.0-52.0); Hemoglobin 10.5 g/dL (14.0-18.0); Immature Granulocytes # (auto) 0.06 K/uL (0.01-0.20); Immature Granulocytes % (auto) 0.7 %; Mean Corpuscular Hemoglobin 30.4 pg (25.0-34.0); Mean Corpuscular Volume 93.9 fL (80.0-100.0); Platelet Count 137 K/uL (130-400); RDW Standard Deviation 48.2 fL (36.4-46.3); Red Blood Count 3.45 M/uL (4.70-6.10); White Blood Count 8.95 K/ul (4.8-10.8)
[2025-02-22 12:03] LABS: Anion Gap 9.0 (3-11); Blood Urea Nitrogen 22.0 mg/dl (6-23); Calcium 9.1 mg/dl (8.6-10.3); Carbon Dioxide 26.0 mmol/L (21-32); Chloride 105.0 mmol/L (98-107); Cholesterol 78.0 mg/dl (0-200); Creatinine Clr Calc Pharmacy 48.4 ml/min; Glucose 127.0 mg/dl (70-99(Fasting)); HDL Cholesterol 34.0 mg/dl; Magnesium 1.8 mg/dl (1.7-2.4); Potassium 3.7 mmol/L (3.5-5.1); Sodium 140.0 mmol/L (136-145); Triglycerides 75.0 mg/dl (0-150)
[2025-02-22 12:11] LABS: ANTI-Xa, UFH(UnfractionatedHep 0.28 IU/ml (0.3-0.7)
[2025-02-22] MEDS: ISOSORBIDE MONO EXTENDED REL 30 MG TABCR PO SCH (12:11)
[2025-02-22] MEDS: VALSARTAN/SACUBITRIL 51/49 MG TAB PO SCH (19:57)
--- NOTE | 2025-02-22 21:15 | Hospitalist Progress Note ---
Date of Service February 22, 2025 Assessment & Plan (1) Chest pain: Plan: will admit to PCU monitor troponin Currently down trending. Stopped heparin drip. consult cardiology:appreciate input. Izabel flores plans to trasnfer patient. If patient continues to do well, will discharge on Friday (2) Ischemic cardiomyopathy: (3) Essential hypertension: (4) Type 2 diabetes mellitus with hyperglycemia: Plan Diabetes mellitus- Hold metformin Placed on Accu-Cheks with NovoLog SSI Hyperlipidemia Continue atorvastatin 80 mg daily LDL is aggressively low. BPH with LUTS- Continue tamsulosin Admission and Anticipated Discharge Date Admission Date: February 21, 2025 Subjective 79 yo male reports he continues to have pain, but it appears constant, midsternum to left sided. Physical Exam Constitutional: WD/WN, vitals as above Eyes: PERRL, conjunctivae normal, anicteric sclerae ENMT: external ear and nose normal, oropharynx normal Neck: trachea midline, no thyromegaly Respiratory: normal respiratory effort, lungs clear to auscultation Cardiovascular: RRR, no murmur, no edema Gastrointestinal (Abdomen): normal bowel sounds, soft, nontender, no hepatosplenomegaly Musculoskeletal: no cyanosis or clubbing, extremities motor strength 5/5 Skin: no rashes, warm and dry Neurologic: PERRL, EOMI, accommodation nl, no face palsy, no dysarthria Psychiatric: A+Ox3, euthymic affect Lymphatic: no cervical or axillary lymphadenopathy Results & Data Results & Data Vital Signs (Past 12 Hours) Vital Signs Temp Pulse Pulse Resp BP BP Pulse Ox 02/22/25 19:24 36.7 C 90 20 143/77 H 93 02/22/25 15:09 36.8 C 86 17 141/76 H 94 02/22/25 14:30 89 02/22/25 11:53 36.3 C L 78 19 173/93 H 94 O2 Del Method 02/22/25 19:24 Room Air 02/22/25 15:09 Room Air 02/22/25 14:30 02/22/25 11:53 Room Air PG Care Time/CCT Total # of Minutes Spent Total Time Spent with Patient: Total time spent is greater than 50% in coordination of care (as documented) at patient's floor/unit and/or counseling patient: Coding Level of Care Code 90163 SUB INP/OBS CARE 350MIN Diagnoses Chest pain R07.9 Ischemic cardiomyopathy I25.5 Essential hypertension I10 Type 2 diabetes mellitus with hyperglycemia, without long-term current use of insulin E11.65 Diabetes mellitus supervising film or videotape editor insulin use: without supervising film or videotape editor use (4) Type 2 diabetes mellitus with hyperglycemia Diabetes mellitus [facility] insulin use: without supervising film or videotape editor use Qualified Code(s): E11.65 - Type 2 diabetes mellitus with hyperglycemia
--- NOTE | 2025-02-22 22:12 | Electrocardiogram Report ---
Test Reason : Blood Pressure : */* mmHG Vent. Rate : 102 BPM Atrial Rate : 102 BPM P-R Int : 202 ms QRS Dur : 80 ms QT Int : 344 ms P-R-T Axes : 36 5 93 degrees QTcB Int : 448 ms Sinus tachycardia Anterior infarct (cited on or before 23-Oct-2023) Nonspecific ST and T wave abnormality Abnormal ECG When compared with ECG of 16-Jan-2025 03:26, PA interval has decreased T wave inversion less evident in Lateral leads Confirmed by Babar Joel ([id number]) on 02/22/2025 10:11:43 PM Referred By: Confirmed By: Babar Joel
[2025-02-22 23:38] VITALS: RESP 18
[2025-02-23 06:34] LABS: ANTI-Xa, UFH(UnfractionatedHep < 0.10 IU/ml (0.3-0.7)
[2025-02-23 07:22] VITALS: TEMP 97.7; O2SAT 94
[2025-02-23 11:15] VITALS: BP 155/92; PULSE 99
--- NOTE | 2025-02-23 11:27 | Cardiology Progress Note ---
Date of Service February 23, 2025 Assessment & Plan (1) Chest pain: (2) Hypertension: (3) Elevated troponin: (4) Ischemic cardiomyopathy: Plan Assessment: 79 year old male with medically complex coronary disease with recent PCI admitted for chest pain at exertion. Markedly elevated blood pressures despite medication compliance. Dietary indiscretion. Mild flat troponin elevation. Cardiology consulted for further evaluation and recommendations. HTN - accelerated - better Angina - likely exacerbated due to uncontrolled HTN Ischemic CM Abnormal Troponin - likely due to demand ischemia and not indicative of Type I OH CAD s/p CABGx2 ( ABBOTT to LAD, SVG to RPDA ) 01/25/2022; recent NSTEMI 01/16/2025 s/p PCI to LM to mid LCx with intravascular lithotripsy with ELISEO x1 HLD Electrolyte Abnormality correct and f/u electrolytes f/u renal function uptitrate Norvasc adjust anti-HTN meds keeping systolic BP between 100-140 mmHg continue DAPT, statin cont Imdur off IV heparin DVT prophylaxis - defer to hospitalist GDMT for HFrEF as tolerated - increased Entresto dose avoid hypovolemia keep patient euvolemic DVT prophylaxis keep LE elevated when sitting 1.5 L / 24 hr fluid restriction strict I&Os salt restriction counseling stable from cardiac standpoint for discharge on current inpatient cardiac meds f/u in cardiology clinic post discharge Admission and Anticipated Discharge Date Admission Date: February 21, 2025 Subjective Patient on exam is lying in bed in NAD; no c/o cp, sob, palpitations, dizziness, LOC, leg swelling Review of Systems Review of Systems: as per hpi Physical Exam Constitutional: no acute distress Neck: normal visual inspection and trachea midline Respiratory: normal respiratory effort, lungs clear to auscultation Cardiovascular: Extremities: no edema SI S2, sys murm Skin: no rashes, warm and dry Psychiatric: A+Ox3, euthymic affect Results & Data Vital Signs (Past 12 Hours) Vital Signs Temp Pulse Pulse Resp BP Pulse Ox O2 Del Method 02/23/25 11:15 99 H 155/92 H 02/23/25 08:00 78 02/23/25 08:00 Room Air 02/23/25 07:21 36.5 C 74 18 165/84 H 94 Room Air 02/23/25 03:03 36.7 C 73 18 150/84 H 96 Room Air Laboratory Results Laboratory Results WBC 8.95 K/ul (4.8-10.8) 02/22/25 11:18 RBC 3.45 M/uL (4.70-6.10) L 02/22/25 11:18 Hgb 10.5 g/dL (14.0-18.0) L 02/22/25 11:18 Hct 32.4 % (42.0-52.0) L 02/22/25 11:18 MCV 93.9 fL (80.0-100.0) 02/22/25 11:18 MCH 30.4 pg (25.0-34.0) 02/22/25 11:18 MCHC 32.4 g/dL (32.0-36.0) 02/22/25 11:18 RDW Std Deviation 48.2 fL (36.4-46.3) H 02/22/25 11:18 RDW Coeff of [place]vi 14.1 % (11.5-14.5) 02/22/25 11:18 Plt Count 137 K/uL (130-400) 02/22/25 11:18 MPV 11.8 fL (9.4-12.4) 02/22/25 11:18 Immature Gran % (Auto) 0.7 % 02/22/25 11:18 Neut % (Auto) 84.2 % 02/22/25 11:18 Lymph % (Auto) 9.2 % 02/22/25 11:18 [place] % (Auto) 5.3 % 02/22/25 11:18 Eos % (Auto) 0.3 % 02/22/25 11:18 Baso % (Auto) 0.3 % 02/22/25 11:18 Neut # (Auto) 7.54 K/uL (1.40-6.50) H 02/22/25 11:18 Lymph # (Auto) 0.82 K/uL (1.20-3.40) L 02/22/25 11:18 [place] # (Auto) 0.47 K/uL (0.11-0.59) 02/22/25 11:18 Eos # (Auto) 0.03 K/uL (0.00-0.50) 02/22/25 11:18 Baso # (Auto) 0.03 K/uL (0.00-0.20) 02/22/25 11:18 Immature Gran # (Auto) 0.06 K/uL (0.01-0.20) 02/22/25 11:18 Acanthocytes (Spur) 1+ 02/21/25 14:29 PT 11.2 Seconds (9.0-12.0) 02/21/25 14:29 INR 1.1 (0.9-1.1) 02/21/25 14: APTT 27 Seconds (21-31) 02/21/25 14: PTT Ratio 1.0 02/21/25 14:29 Heparin Anti-Xa, Unfract < 0.10 IU/ml (0.3-0.7) L 02/23/25 05:38 Sodium 140 mmol/L (136-145) 02/22/25 11:18 Potassium 3.7 mmol/L (3.5-5.1) 02/22/25 11:18 Chloride 105 mmol/L (98-107) 02/22/25 11:18 Carbon Dioxide 26 mmol/L (21-32) 02/22/25 11:18 Anion Gap 9 (3-11) 02/22/25 11:18 BUN 22 mg/dl (6-23) 02/22/25 11:18 Creatinine 1.09 mg/dl (0.6-1.4) 02/22/25 11:18 Est Cr Clr Drug Dosing 48.4 ml/min 02/22/25 11:18 eGFR 69.47 02/22/25 11:18 BUN/Creatinine Ratio 20.2 (10-20) H 02/22/25 11:18 Glucose 127 mg/dl (70-99(Fasting)) H 02/22/25 11:18 POC Glucose 104 mg/dl (70-99) H 02/23/25 07:58 Calcium 9.1 mg/dl (8.6-10.3) 02/22/25 11:18 Magnesium 1.8 mg/dl (1.7-2.4) 02/22/25 11:18 Total Bilirubin 0.6 mg/dl (0.2-1.0) 02/21/25 14:29 AST 32 U/L (13-39) 02/21/25 14:29 ALT 21 U/L (7-52) 02/21/25 14:29 Alkaline Phosphatase 95 U/L (34-104) 02/21/25 14:29 Troponin I High Sens 58.8 pg/ml (0-20) H* 02/23/25 05:38 Total Protein 6.9 gm/dl (6.0-8.3) 02/21/25 14:29 Albumin 4.0 gm/dl (3.4-5.0) 02/21/25 14:29 Globulin 2.9 gm/dl (2.5-4.0) 02/21/25 14:29 Albumin/Globulin Ratio 1.4 (0.9-2) 02/21/25 14:29 Triglycerides 75 mg/dl (0-150) 02/22/25 11:18 Cholesterol 78 mg/dl (0-200) 02/22/25 11:18 LDL Cholesterol, Calc 29 mg/dl 02/22/25 11:18 VLDL Cholesterol, Calc 15 mg/dl (0-30) 02/22/25 11:18 HDL Cholesterol 34 mg/dl 02/22/25 11:18 Cholesterol/HDL Ratio 2.3 (0-5) 02/22/25 11:18 Adenovirus (PCR) Not Detected (NotDetected) 02/21/25 Unknown B. pertussis DNA (PCR) Not Detected (NotDetected) 02/21/25 Unknown B.parapertussis DNA PCR Not Detected (NotDetected) 02/21/25 Unknown C. pneumoniae DNA (PCR) Not Detected (NotDetected) 02/21/25 Unknown Coronavirus OC43 (PCR) Not Detected (NotDetected) 02/21/25 Unknown Coronavirus HKU1 (PCR) Not Detected (NotDetected) 02/21/25 Unknown Coronavirus 229E (PCR) Not Detected (NotDetected) 02/21/25 Unknown SARS-CoV-2 (PCR) Not Detected (NotDetected) 02/21/25 Unknown Coronavirus NL63 (PCR) Not Detected (NotDetected) 02/21/25 Unknown Human Metapneumovir PCR Not Detected (NotDetected) 02/21/25 Unknown Influenza Type A (PCR) Not Detected (NotDetected) 02/21/25 Unknown Influenza Type B (PCR) Not Detected (NotDetected) 02/21/25 Unknown M. pneumoniae (PCR) Not Detected (NotDetected) 02/21/25 Unknown Parainfluenza 1 (PCR) Not Detected (NotDetected) 02/21/25 Unknown Parainfluenza 2 (PCR) Not Detected (NotDetected) 02/21/25 Unknown Parainfluenza 3 (PCR) Not Detected (NotDetected) 02/21/25 Unknown Parainfluenza 4 (PCR) Not Detected (NotDetected) 02/21/25 Unknown RSV (PCR) Not Detected (NotDetected) 02/21/25 Unknown Entero/Rhino (PCR) Not Detected (NotDetected) 02/21/25 Unknown Impressions Chest X-Ray 02/21/25 14:19 XR chest 1V not portable CLINICAL HISTORY: Chest pain, nonspecific COMPARISON STUDY: Chest CT February 07, 2022. Chest radiograph January 16, 2025. FINDINGS: Median sternotomy wires are noted. Cardiomediastinal silhouette is stable. Pulmonary edema prior chest radiograph has resolved. There is mild asymmetric right lower lung opacity. Left lung is clear. No pneumothorax is present. There is a trace right pleural effusion. IMPRESSION: 1. Mild asymmetric right lower lung opacity. This may represent pneumonia. Radiographic follow-up is recommended. 2. Trace right pleural effusion. 3. Resolution of pulmonary edema shown on prior chest radiograph. ACT 112: Negative or not required by law. Electronically signed by: Kurtis Eckert M.D. 02/21/2025 3:07 PM Diagnostic Findings Cardiac Enzymes 02/22/25 02/23/25 Range/Units 11:18 05:38 Troponin I High Sens 68.6 H* 58.8 H* (0-20) pg/ml Lipids 02/22/25 Range/Units 11:18 Triglycerides 75 (0-150) mg/dl Cholesterol 78 (0-200) mg/dl HDL Cholesterol 34 mg/dl Cholesterol/HDL Ratio 2.3 (0-5) CBC 02/22/25 Range/Units 11:18 WBC 8.95 (4.8-10.8) K/ul RBC 3.45 L (4.70-6.10) M/uL Hgb 10.5 L (14.0-18.0) g/dL Hct 32.4 L (42.0-52.0) % Plt Count 137 (130-400) K/uL Neut # (Auto) 7.54 H (1.40-6.50) K/uL Lymph # (Auto) 0.82 L (1.20-3.40) K/uL [place] # (Auto) 0.47 (0.11-0.59) K/uL Eos # (Auto) 0.03 (0.00-0.50) K/uL Baso # (Auto) 0.03 (0.00-0.20) K/uL Comprehensive Metabolic Panel 02/22/25 Range/Units 11:18 Sodium 140 (136-145) mmol/L Potassium 3.7 (3.5-5.1) mmol/L Chloride 105 (98-107) mmol/L Carbon Dioxide 26 (21-32) mmol/L BUN 22 (6-23) mg/dl Creatinine 1.09 (0.6-1.4) mg/dl Glucose 127 H (70-99(Fasting)) mg/dl Calcium 9.1 (8.6-10.3) mg/dl Intake and Output 02/22/25 02/23/25 02/23/25 22:59 06:59 14:59 Intake Total 220 / 1582.25 350 / 1582.25 Balance 220 / 982.25 350 / 982.25 Intake: Oral 220 / 1370 350 / 1370 Other: # Unmeasured Voids 2 2 Weight 59.5 kg Weight Measurement Method Built in [facility] Medications Administered Home Medications Medication Instructions Recorded Confirmed Last Taken atorvastatin 80 mg tablet 80 mg PO DAILY 01/21/22 02/21/25 02/07/22 metformin 1,000 mg tablet 1,000 mg PO BIDM 01/21/22 02/21/25 02/07/22 08:00 tamsulosin 0.4 mg capsule (Flomax) 0.4 mg PO QAM 01/21/22 02/21/25 02/07/22 clopidogrel 75 mg tablet 75 mg PO QAM 02/07/22 02/21/25 Unknown cyanocobalamin (vitamin B-12) 1,000 mcg sublingual DAILY 02/07/22 02/21/25 02/07/22 1,000 mcg sublingual tablet potassium chloride 10 mEq 10 meq PO QAM 02/07/22 02/21/25 02/07/22 tablet,extended release metoprolol succinate 50 mg 50 mg PO [facility] 10/20/23 02/21/25 Unknown tablet,extended release 24 hr oxycodone 10 mg tablet 10 mg PO Q6H PRN pain,severe 10/20/23 02/21/25 Unknown sacubitril 24 mg-valsartan 26 mg 1 tab PO [facility] 02/21/25 02/21/25 Unknown tablet Active Medications Generic Name Dose Route Start Last Admin Trade Name Freq PRN Reason Stop Dose Admin Aspirin 81 mg 02/22/25 09:00 02/23/25 08:16 Aspirin 81 Mg Ectab PO 03/24/25 08:59 81 mg QAM HU Administration Atorvastatin Calcium 80 mg 02/22/25 09:00 02/23/25 08:17 Atorvastatin 40 Mg Tab PO 03/24/25 08:59 80 mg DAILY HU Administration Clopidogrel Bisulfate 75 mg 02/22/25 09:00 02/23/25 08:16 Clopidogrel Bisulfate 75 Mg Tab PO 03/24/25 08:59 75 mg QAM HU Administration Cyanocobalamin 1,000 mcg 02/22/25 09:00 02/23/25 08:17 Cyanocobalamin (B-12) 500 Mcg Tablet PO 03/24/25 08:59 1,000 mcg DAILY HU Administration Ferrous Sulfate 325 mg 02/22/25 09:00 02/23/25 08:16 Ferrous Sulfate 325 Mg Tab PO 03/24/25 08:59 325 mg QAM HU Administration Insulin Aspart 0 units 02/21/25 21:00 02/23/25 08:23 Insulin Aspart Per Unit Charge SC 03/23/25 20:59 6 units ACHS HU Administration Isosorbide Mononitrate 30 mg 02/22/25 11:00 02/23/25 08:15 Isosorbide [place] Extended Rel 30 Mg Tabcr PO 03/24/25 10:59 30 mg QAM HU Administration Magnesium Oxide 400 mg 02/22/25 09:00 02/23/25 08:16 Magnesium Oxide 400 Mg Tab PO 03/24/25 08:59 400 mg BID HU Administration Metoprolol Succinate 50 mg 02/21/25 21:00 02/23/25 08:16 Metoprolol Succ 50mg Ext Rel Tab PO 03/23/25 20:59 50 mg BID HU Administration Oxycodone HCl 10 mg 02/21/25 20:57 02/23/25 05:15 Oxycodone Hcl Ir 5 Mg Tab (Immediate Release) PO 03/07/25 20:56 10 mg Q6H PRN Administration Pain Potassium Chloride 10 meq 02/22/25 09:00 02/23/25 08:23 Potassium Chloride 10 Meq Tabcr PO 03/24/25 08:59 10 meq QAM HU Administration Sacubitril/Valsartan 1 tab 02/22/25 21:00 02/23/25 08:16 Valsartan/Sacubitril 51/49 Mg Tab PO 03/24/25 20:59 1 tab BID HU Administration Tamsulosin HCl 0.4 mg 02/22/25 09:00 02/23/25 08:16 Tamsulosin Hcl 0.4 Mg Cap PO 03/24/25 08:59 0.4 mg DAILY HU Administration PG Care Time/CCT Total # of Minutes Spent Total Time Spent with Patient: Total time spent is greater than 50% in coordination of care (as documented) at patient's floor/unit and/or counseling patient: Coding Level of Care Code 10382 SUB INP/OBS CARE 3/50MIN Diagnoses Chest pain R07.9 Hypertension I10 Elevated troponin R79.89 Ischemic cardiomyopathy I25.5
== END 2025-02-23 14:08 | disposition home or self-care (01) | DRG 313 ==
LOC: SUATTDRO → ED 14:03 → 4W 17:11 → SUATTDRO 17:11 → 4W 20:27